=== PATIENT | male | born 1940 | race Caucasian/White ===

== ENCOUNTER 2020-08-30 08:13 | Outpatient (REF) | payer MEDICARE, OTHER, SELFPAY ==
[2020-08-30 09:10] LABS: MANUAL DIFF FLAG NO
[2020-08-30 09:16] LABS: Basophils Percent Auto 0.4 % (0-2); Eosinophils Absolute Auto 0.1 X10*3/uL (0.0-0.4); Eosinophils Percent Auto 2.5 % (0-4); Hematocrit 40.2 % (42-52); Hemoglobin 13.5 g/dl (14.0-18.0); Imm Gran Abs Auto 0.01 X10*3/uL (0.00-0.03); Imm Gran Pct Auto 0.2 % (0.0-0.4); Lymphocytes Percent Auto 19.7 % (20-40); Mean Corpuscular HGB Conc 33.6 g/dl (31.0-36.0); Mean Corpuscular Volume 98.3 fL (80-98); Monocytes Absolute Auto 0.5 X10*3/uL (0.1-1.2); Monocytes Percent Auto 9.7 % (2-11); Neutrophils Absolute Auto 3.5 X10*3/uL (2.0-8.3); Neutrophils Percent Auto 67.5 % (45-73); Platelet Count 147 X10*3/uL (160-400); Red Blood Count 4.09 X10*6/uL (4.60-5.80); Red Cell Distribution Width 12.8 % (11.0-16.0); White Blood Count 5.1 X10*3/uL (4.8-10.8)
[2020-08-30 09:42] LABS: Alanine Aminotransferase 22 U/L (0-40); Albumin Level 4.2 g/dL (3.5-5.0); Alkaline Phosphatase 86 U/L (39-117); Anion Gap 11 (12-20); Aspartate Amino Transferase 24 U/L (5-37); Bilirubin Total 1.1 mg/dL (0.0-1.0); Blood Urea Nitrogen 19 mg/dL (9-16); Calcium 9.3 mg/dL (8.4-10.2); Carbon Dioxide 28 mmol/L (22-29); Chloride 106 mmol/L (96-108); Cholesterol 112 mg/dL; Estimated Glomerular Filt Rate > 60; Glucose Fasting 135 mg/dL (60-99); HDL Cholesterol 31 mg/dL; Iron 117 mcg/dL (45-160); LDL Cholesterol Calculated 55 mg/dl; Percent Iron Saturation 35 % (15-50); Potassium 4.3 mmol/L (3.3-5.1); Sodium 141 mmol/L (135-145); Total Iron Binding Capacity 331 mcg/dL (228-428); Total Protein 6.7 g/dL (6.5-8.0); Triglycerides 131 mg/dL; Unsaturated Iron Binding 214 ug/dL
[2020-08-30 09:50] LABS: Creatinine Urine 116.69 mg/dL; Microalbum/Creatinine Ratio Ur 10.2 ug/mg cr
[2020-08-30 09:53] LABS: Uric Acid 4.6 mg/dL (3.4-7.0)
[2020-08-30 10:09] LABS: Thyroid Stimulating Hormone 3.53 uIU/mL (0.32-4.0)
[2020-08-30 10:16] LABS: Folate > 20.0 ng/mL (> or = 4.0); Vitamin B12 948 pg/mL (200-900)
[2020-08-30 10:19] LABS: Ferritin 153 ng/mL (20-250)
== END 2020-08-30 08:14 | disposition home or self-care (01) ==
LOC: HO.LAB 08:13
PROVIDERS: PCP Internal Medicine; Visit Provider Internal Medicine
DX: E11.9 Type 2 diabetes mellitus without complications (principal); M10.9 Gout, unspecified; E78.00 Pure hypercholesterolemia, unspecified; I10 Essential (primary) hypertension; K21.9 Gastro-esophageal reflux disease without esophagitis
CPT/HCPCS: 36415; 80053; 80061; 82043; 82607; 82728; 82746; 83540; 84436; 84443; 84550; 85025

== ENCOUNTER 2021-09-24 08:22 | Outpatient (REF) | payer MEDICARE, OTHER, SELFPAY ==
[2021-09-24 08:38] LABS: MANUAL DIFF FLAG NO
[2021-09-24 08:53] LABS: Estimated Average Glucose 108 mg/dL; Hemoglobin A1c % 5.4 %
[2021-09-24 08:55] LABS: Basophils Percent Auto 0.4 % (0-2); Eosinophils Absolute Auto 0.1 X10*3/uL (0.0-0.4); Eosinophils Percent Auto 1.4 % (0-4); Hematocrit 37.3 % (42.0-52.0); Hemoglobin 12.7 g/dl (14.0-18.0); Imm Gran Abs Auto 0.01 X10*3/uL (0.00-0.03); Imm Gran Pct Auto 0.2 % (0.0-0.4); Lymphocytes Absolute Auto 0.8 X10*3/uL (1.2-4.9); Lymphocytes Percent Auto 16.7 % (20-40); Mean Corpuscular Hemoglobin 33.5 pg (27.0-33.0); Mean Corpuscular Volume 98.4 fL (80.0-98.0); Mean Platelet Volume 11.6 fL (9.4-12.4); Monocytes Absolute Auto 0.5 X10*3/uL (0.1-1.2); Monocytes Percent Auto 9.7 % (2-11); Neutrophils Absolute Auto 3.5 x10*3/uL (2.0-8.3); Neutrophils Percent Auto 71.6 % (45-73); Platelet Count 139 X10*3/uL (160-400); Red Blood Count 3.79 X10*6/uL (4.60-5.80); Red Cell Distribution Width 12.8 % (11.0-16.0); White Blood Count 4.9 X10*3/uL (4.8-10.8)
[2021-09-24 09:16] LABS: Alanine Aminotransferase 25 U/L (0-40); Albumin Level 3.8 g/dL (3.5-5.0); Alkaline Phosphatase 86 U/L (39-117); Anion Gap 13 (12-20); Aspartate Amino Transferase 24 U/L (5-37); Bilirubin Total 0.8 mg/dL (0.0-1.0); Blood Urea Nitrogen 26 mg/dL (9-16); Calcium 9.4 mg/dL (8.4-10.2); Carbon Dioxide 27 mmol/L (22-29); Chloride 107 mmol/L (96-108); Cholesterol 84 mg/dL; Estimated Glomerular Filt Rate > 60; Glucose Random 157 mg/dL (60-115); HDL Cholesterol 25 mg/dL; LDL Cholesterol Calculated 30 mg/dl; Potassium 4.6 mmol/L (3.3-5.1); Sodium 142 mmol/L (135-145); Total Protein 6.3 g/dL (6.5-8.0); Triglycerides 147 mg/dL
[2021-09-24 09:32] LABS: Uric Acid 5.9 mg/dL (3.4-7.0)
[2021-09-24 09:44] LABS: Free T4 (Free Thyroxine) 1.12 ng/dL (0.71-1.85); Thyroid Stimulating Hormone 2.69 uIU/mL (0.32-4.0)
[2021-09-24 09:47] LABS: Vitamin B12 685 pg/mL (200-900)
[2021-09-24 12:15] LABS: Creatinine Urine 91.78 mg/dL; Microalbum/Creatinine Ratio Ur 7.6 ug/mg cr
== END 2021-09-24 08:23 | disposition home or self-care (01) ==
LOC: HO.LAB 08:22
PROVIDERS: PCP Internal Medicine; Visit Provider Internal Medicine
DX: E11.65 Type 2 diabetes mellitus with hyperglycemia (principal); E78.00 Pure hypercholesterolemia, unspecified
CPT/HCPCS: 36415; 80053; 80061; 82043; 82607; 82746; 83036; 84439; 84443; 84550; 85025

== ENCOUNTER 2021-11-14 08:08 | Outpatient (REF) | payer MEDICARE, OTHER, SELFPAY ==
--- NOTE | ~2021-11-14 | FL_ITS ---
EXAMINATION: FL UPPER GI SERIES CLINICAL INFORMATION: Reflux and dysphagia. COMPARISON: None TECHNIQUE: Air-contrast upper GI examination. FINDINGS: There is normal elevation of the soft palate while saying candy . There is normal apposition of the vocal cords while saying E . The patient swallowed thin and thick barium and a 1/2 inch diameter barium tablet without difficulty. No nasopharyngeal reflux or tracheal aspiration identified. No Zenker's diverticulum or significant cricopharyngeal hypertrophy. No persistent esophageal stricture is identified. There is some hypomotility present while lying prone. There is a small hiatal hernia noted with free spontaneous gastroesophageal reflux to the level of the thoracic inlet present. No esophageal ulceration is appreciated. The stomach demonstrated normal distensibility without abnormal mass or ulceration. There was no delay in gastric emptying. 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 Otherwise, the duodenal loop appears unremarkable. FLUOROSCOPY TIME: 2.9 minutes DOSE AREA PRODUCT: 22.281 Gy-cm2 (alonso-centimeter squared) FL/FL upper GI series IMPRESSION: Small hiatal hernia with spontaneous gastroesophageal reflux to the level of the thoracic inlet which clears slowly. 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
== END 2021-11-14 08:09 | disposition home or self-care (01) ==
LOC: HO.XRAY 08:08
PROVIDERS: PCP Internal Medicine; Visit Provider Internal Medicine
DX: R13.10 Dysphagia, unspecified (principal); K21.9 Gastro-esophageal reflux disease without esophagitis
CPT/HCPCS: 74240

== ENCOUNTER → 2021-11-27 12:35 | Outpatient (REF) | payer MEDICARE, OTHER, SELFPAY ==
--- NOTE | 2021-11-27 12:39 | CA_ITS ---
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 Normal LV systolic function with impaired relaxation filling pattern 2. Mildly dilated left atrium 3. Mild aortic stenosis and mild mitral regurgitation 4. Normal RV systolic pressure 5. No pericardial effusion Findings Left Ventricle The visually estimated ejection fraction is between 60-65%. Spectral Doppler is indicative of an impaired relaxation filling pattern. Right Ventricle Normal right ventricular cavity size and systolic function. Atria The left atrium is mildly dilated. There is no evidence of interatrial shunt. The right atrium is normal in size. Aortic Valve There is moderate calcification of the aortic valve. There is mild thickening of the aortic valve. There is mild aortic valve stenosis. The peak aortic gradient is 24 mmHg.The mean gradient is 12 mmHg. The aortic valve area is 1.60 cm2. There is trace (trivial) aortic valve regurgitation. Mitral Valve There is mild anterior and moderate posterior mitral leaflet thickening. There is mild mitral annular calcification. There is mild mitral valve regurgitation. There is no mitral valve stenosis. Pulmonic Valve The pulmonic valve was not well visualized. Tricuspid Valve Normal tricuspid valve structure. There is mild tricuspid valve regurgitation. The right ventricular systolic pressure is normal. The right ventricular systolic pressure is 27 mmHg. Normal right atrial pressure. There is no evidence of pulmonary hypertension. Great Vessels All visible segments of the aorta are normal in size. The pulmonary artery was not well visualized. Venous The inferior vena cava is normal in size and collapses greater than 50% with inspiration. Pericardium/Pleural There is no evidence of pericardial effusion. Prior Study Comparison No prior study available for comparison. Measurements 2D Linear Measurements IVSd: 1.27 0.6-0.9/0.6-1.0 cm LVIDd: 4.01 3.9-5.3/4.2-5.9 cm LVIDd Index: 2.18 2.4-3.2/2.2-3.1 cm/m2 LVIDs: 2.76 2.0-3.6 cm LVPWd: 1.09 0.7-1.1 cm LA Diam: 4.30 2.7-3.8/3.0-4.0 cm LAIDs Index: 2.34 1.5-2.3 cm/m2 LV Mass: 201.75 67-162/88-224 g LV Mass Index: 109.65 43-95/49-115 g/m2 LVOT Diam: 2.20 3.0+(-)1.3 cm 2D Systolic Function EF 4C: 60.20 >55% EF 2C: 64.20 >55% EF BiP: 61.30 >55% Mitral Valve MV Pk E: 0.69 MV PK A: 0.52 MV Decel Time: 260.00 E/A: 1.30 E'Lateral: 9.79 E'Medial: 5.55 E/E' Med: 12.40 E/E' Lat: 7.00 PHT: 76.00 MVA PHT: 2.89 Decel [place]: 2.65 Aortic Valve AoV Pk Georges: 2.46 AoV Mn Georges: 1.60 AoV VTI: 0.58 AoV Pk Grad: 24.00 Aov Mn Grad: 12.00 TAB Cont.VTI: 1.60 LVOT LVOT Pk Georges: 0.93 LVOT Mn Georges: 0.61 LVOT VTI: 0.25 LVOT Pk Grad: 3.00 LVOT Mn Grad: 2.00 LVOT Diam: 2.20 LVOT Area: 3.80 Diastolic Function MV Pk E: 0.69 MV Pk A: 0.52 E/A: 1.30 E'Medial: 5.55 E/E' Med: 12.40 E' Laterial: 9.79 E/E' Lat: 7.00 Right Ventricle TAPSE (mm): 20.30 TVS' Georges: 9.14 Tricuspid Valve TR Pk Georges: 2.46 TR Pk Grad: 24.00 RA Press: 3.00 RVSP: 27.00 Great Vessels Aorta Sinus of Valsalva: 3.52 2.0-3.[address] [place]: 2.62 1.7-3.4 cm Ao Asc: 3.30 2.1-3.4 cm Ao Arch: 2.90 Updated in Other Vendor System with Status of Final Travis Castellon MD electronically signed on 11/27/2021 2:38:34 PM with status of Final
== END ==
LOC: HO.CARD 12:35
PROVIDERS: Visit Provider Internal Medicine
DX: I10 Essential (primary) hypertension (principal); R06.02 Shortness of breath
CPT/HCPCS: 93306

== ENCOUNTER 2022-10-26 06:17 | Outpatient (REF) | payer MEDICARE, OTHER, SELFPAY ==
[2022-10-26 06:30] LABS: MANUAL DIFF FLAG NO
[2022-10-26 07:15] LABS: Basophils Percent Auto 0.6 % (0-2); Eosinophils Absolute Auto 0.2 X10*3/uL (0.0-0.4); Eosinophils Percent Auto 2.3 % (0-4); Hematocrit 37.6 % (42.0-52.0); Hemoglobin 12.8 g/dl (14.0-18.0); Imm Gran Abs Auto 0.04 X10*3/uL (0.00-0.03); Imm Gran Pct Auto 0.6 % (0.0-0.4); Lymphocytes Absolute Auto 1.2 X10*3/uL (1.2-4.9); Lymphocytes Percent Auto 17.9 % (20-40); Mean Corpuscular Hemoglobin 33.4 pg (27.0-33.0); Mean Corpuscular Volume 98.2 fL (80.0-98.0); Mean Platelet Volume 12.1 fL (9.4-12.4); Monocytes Absolute Auto 0.6 X10*3/uL (0.1-1.2); Monocytes Percent Auto 8.9 % (2-11); Neutrophils Absolute Auto 4.8 x10*3/uL (2.0-8.3); Neutrophils Percent Auto 69.7 % (45-73); Platelet Count 176 X10*3/uL (160-400); Red Blood Count 3.83 X10*6/uL (4.60-5.80); Red Cell Distribution Width 11.9 % (11.0-16.0); White Blood Count 6.9 X10*3/uL (4.8-10.8)
[2022-10-26 07:41] LABS: Creatinine Urine 91.91 mg/dL; Microalbum/Creatinine Ratio Ur 7.6 ug/mg cr
[2022-10-26 07:47] LABS: Alanine Aminotransferase 37 U/L (0-40); Albumin Level 4.1 g/dL (3.5-5.0); Alkaline Phosphatase 114 U/L (39-117); Anion Gap 10 (12-20); Aspartate Amino Transferase 26 U/L (5-37); Bilirubin Total 0.8 mg/dL (0.0-1.0); Blood Urea Nitrogen 32 mg/dL (9-16); Calcium 9.3 mg/dL (8.4-10.2); Carbon Dioxide 27 mmol/L (22-29); Chloride 107 mmol/L (96-108); Cholesterol 117 mg/dL; Estimated Glomerular Filt Rate > 60; Glucose Random 163 mg/dL (60-115); HDL Cholesterol 25 mg/dL; LDL Cholesterol Calculated 48 mg/dl; Potassium 4.7 mmol/L (3.3-5.1); Sodium 139 mmol/L (135-145); Total Protein 6.4 g/dL (6.5-8.0); Triglycerides 223 mg/dL
[2022-10-26 07:48] LABS: Estimated Average Glucose 123 mg/dL; Hemoglobin A1c % 5.9 %
[2022-10-26 08:16] LABS: Folate 17.9 ng/mL (> or = 4.0); Free T4 (Free Thyroxine) 0.97 ng/dL (0.71-1.85); Thyroid Stimulating Hormone 3.15 uIU/mL (0.32-4.0); Vitamin B12 603 pg/mL (200-900)
== END 2022-10-26 06:18 | disposition home or self-care (01) ==
LOC: HO.LAB 06:17
PROVIDERS: PCP Internal Medicine; Visit Provider Internal Medicine
DX: E11.65 Type 2 diabetes mellitus with hyperglycemia (principal); E78.00 Pure hypercholesterolemia, unspecified
CPT/HCPCS: 36415; 80053; 80061; 82043; 82607; 82746; 83036; 84439; 84443; 85025

== ENCOUNTER 2023-03-26 10:46 | Outpatient (AMB) | payer MEDICARE, OTHER, SELFPAY ==
[2023-03-26 11:04] VITALS: BP 112/58; PULSE 71; O2SAT 98; BMI 25.2
--- NOTE | 2023-03-26 11:04 | A.OFFPC_ITS ---
Vital Signs 03/26/23 11:04 03/26/23 11:45 Height 5 ft 6 in Weight 156 lb BMI 25.2 BP 112/58 L 120/60 Blood Pressure Location Lt brachial Lt brachial Position Sitting Sitting Pulse 71 Pulse Source Pulse Oximeter Pulse Oximetry (%) 98 Oxygen Delivery Method Room Air Intake Visit Reasons: 3M GERD, DM, Triglycerides Allergies metformin Allergy (Unknown, Verified 03/26/23 11:05) diarrhea rosuvastatin [Crestor] Allergy (Unknown, Verified 03/26/23 11:05) Unknown Medication List - Last Reconciled 03/26/23 by Clarence Talbert MD allopurinol 100 mg PO DAILY 90 days atorvastatin 10 mg PO DAILY [DIABETIC SHOES As directed] folic acid 1 mg PO DAILY lansoprazole (Prevacid) 30 mg PO DAILY 90 days lisinopril 5 mg PO DAILY 90 days metoprolol succinate ER 50 mg PO DAILY 90 days sildenafil 100 mg PO DAILY PRN Tobacco use date assessed: 10/27/22 Fall risk assessment: No Falls in past year Last assessed Fall Risk: 03/26/23 Dental Screening Dental Screen Date: 03/26/23 Did you have a dental visit in the last 12 months?: No Did you have a dental problem in the last 6 months where you did not have access to dental care?: No Was dental information given to patient?: No HPI 3M GERD, DM, Triglycerides HPI Details 82-year-old male with controlled diabete s mellitus hypertension hypercholesterolemia GERD coming in for follow-up last seen in October 2022. Patient is here for follow-up noted to have lost weight and complains of gassiness/burping as well as heartburns and this been going on for a number of months no fever no shortness of breath no cough. Patient does complain about frequency and incontinence. [facility] Medical History (Updated 03/26/23 @ 11:57 by Clarence Talbert MD) Tubular adenoma of colon GERD (gastroesophageal reflux disease) Knee osteoarthritis Erectile dysfunction Hypercholesterolemia Hypertension Gout Type 2 diabetes mellitus with hyperglycemia Surgical History History of cataract surgery History of knee replacement procedure of left knee History of eye surgery Family History (Updated 03/26/23 @ 11:06 by Bernie Chung CMA) Father Medical history unknown Mother Medical history unknown Social History (Updated 03/27/21 @ 13:08 by Gaby Briones CMA) Housing: House Alcohol intake: current Alcohol intake frequency: a few times a week Patient Tobacco Use Status: Former Tobacco user Tobacco use type: Cigarette e-Cigarette/Vaping Use: Never Used Current occupational status: retired Cognitive needs: No Hearing needs: No Vision needs: Yes Questionnaire PHQ-9 Over the last 2 weeks, how often have you been bothered by any of the following problems? 1. Little interest or pleasure in doing things: not at all 2. Feeling down, depressed, or hopeless: not at all 3. Trouble falling or staying asleep, or sleeping too much: not at all 4. Feeling tired or having little energy: not at all 5. Poor appetite or overeating: not at all 6. Feeling bad about yourself - or that you are a failure or have let yourself or your family down: not at all 7. Trouble concentrating on things, such as reading the newspaper or watching t elevision: not at all 8. Moving or speaking so slowly that other people could have noticed. Or the opposite - being so fidgety or restless that you have been moving around a lot more than usual: not at all 9. Thoughts that you would be better off or of hurting yourself in some way: not at all Total score: 0 Depression Screening Interpretation: Negative Depression Screening Done: Yes Source: Developed by Drs. Burke Vera, Nikole Johns, Givoanni Johnson and colleagues, with an educational kim from [employer]. Thrive Questionnaire Date Thrive assessed: 03/26/23 I am a: Patient What is your living situation today?: I have a steady place to live Within the past 12 months, did the food you bought not last and you didn't have the money to get more?: Never true Within the past 12 months, did you worry whether your food would run out before you got money to buy more?: Never true Do you have trouble paying for medicines?: No Do you have trouble getting transportation to medical appointments?: No Do you have trouble paying your heating and electricity bill?: No Do you have trouble taking care of your child, family member or friend?: No Do you have trouble with day-to-day activities such as bathing, preparing meals, shopping, managing finances, etc.?: No Are you currently unemployed and looking for a job?: No Are you interested in more education?: No Currently or been in a relationship where the following occur: no concerns reported AUDIT C Alcohol Use Questionnaire (AUDIT-C) 1. How often do you have a drink containing alcohol?: 4 or more times a week 2. How many drinks containing alcohol do you have on a typical day when you are drinking?: 1 or 2 3. How often do you have six or more drinks on one occasion?: Never Total Score: 4 PRETTY-7 AMB Questionnaire PRETTY-7 Date PRETTY - 7 assessed: 10/27/22 Source: Developed by Drs. Burke Vera, Nikole Johns, Giovanni Johnson and colleagues, with an educational kim from [employer]. Physical exam (Primary Care) Vital Signs: Last Vital Signs Pulse 71 03/26/23 11:04 BP 112/58 L 03/26/23 11:04 Pulse Ox 98 03/26/23 11:04 Oxygen Delivery Method Room Air 03/26/23 11:04 BMI result Body Mass Index 25.2 Tobacco/Smoking Status: Tobacco use Status Tobacco use date assessed 10/27/22 03/26/23 11:07 Patient Tobacco Use Status Former Tobacco user 03/26/23 11:07 Tobacco use type Cigarette 03/26/23 11:07 e-Cigarette/Vaping Use Never Used 03/26/23 11:07 PHQ-9: PHQ-9 Score PHQ-9: Total score 0 03/26/23 11:18 Depression Screening Interpretation: Negative Thrive Assessment: Date of Thrive Assessment Date Thrive assessed 03/26/23 03/26/23 11:07 Currently or been in a relationship where the following occur: no concerns reported Const General: alert; No acute distress Eyes Conjunctivae: conjunctivae normal Resp Auscultation: clear to auscultation bilaterally Cardio Rate: regular rate Rhythm: regular rhythm GI Inspection: Yes normal to inspection Extrem General: Yes normal to inspection and No edema Results AMB Hemoglobin A1c AMB Hemoglobin A1c 5.7 % Last Edit by Bernie Chung CMA on 03/26/23 11 :19 Results Reviewed Results Reviewed: Laboratory Last Values Hgb A1c (Clinic) 5.7 % (4.0-6.0) 03/26/23 11:07 Assessment and Plan Assessment & Plan (1) Type 2 diabetes mellitus with hyperglycemia: Comment: Eye physician Evita Code(s): E11.65 - Type 2 diabetes mellitus with hyperglycemia 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 Hemoglobin A1c of goal of less than 7.0 patient is on Januvia. With a hemoglobin A1c good control advised to stop Januvia (2) Hypertension: Code(s): I10 - Essential (primary) hypertension Qualifiers: Hypertension type: essential hypertension Qualified Code(s): I10 - Essential (primary) hypertension Plan: Continue with blood pressure medication. Decrease salt intake and exercise patient on lisinopril 5 mg once a day and metoprolol 50 mg once a day (3) Hypercholesterolemia: Code(s): E78.00 - Pure hypercholesterolemia, unspecified Plan: Avoid fried foods, chicken skin, eggs, butter margarine, pastries and meat. Be it pork or beef they have a lot of cholesterol LDL goal of less than 100 and tr iglyceride of less than 150. Patient is on atorvastatin 10 mg once a day (4) GERD (gastroesophageal reflux disease): Code(s): K21.9 - Gastro-esophageal reflux disease without esophagitis Plan: Avoid the foods that causes that usually spicy foods, tomato products, juices, coffee, soda and foods that your sensitive to. After eating do not lie down, allow 3-4 hours before in lie down. And keep the head of bed above 30 degrees to avoid the acid from going up. 2021 reveals reflux problem. Will do a referral to Gastroenterology (5) Urinary frequency: Code(s): R35.0 - Frequency of micturition Plan: Urinalysis requested, ultrasound requested Orders: Orders H pylori Ag Stool Today K21.9 - Gastro-esophageal reflux disease without esophagitis US bladder Today R35.0 - Frequency of micturition UA w Microscopic Today R35.0 - Frequency of micturition AMB Hemoglobin A1c Today Z13.9 - Encounter for screening, unspecified Referrals Gastroenterology Referral K21.9 - Gastro-esophageal reflux disease without esophagitis Orthopedics Referral M25.511 - Pain in right shoulder, M25.512 - Pain in left shoulder Medications: New simethicone 125 mg PO BID-QID PRN 30 tabs 0RF abdominal distention K21.9 - Gastro-esophageal reflux disease without esophagitis Refilled metoprolol succinate ER 50 mg PO DAILY 90 tabs 3RF 90 days I10 - Essential (primary) hypertension atorvastatin 10 mg PO DAILY 90 tabs 3RF K21.9 - Gastro-esophageal reflux disease without esophagitis Discontinued sitagliptin phosphate (Junuvia) Discontinued Reason: Ancillary Entered New Order 100 mg PO DAILY 90 tabs 2RF Coding Level of Care Code Est Pt Level 4 (15095) Diagnoses Type 2 diabetes mellitus with hyperglycemia, without long-term current use of insulin E11.65 Diabetes mellitus custodial insulin use: without custodial use Essential hypertension I10 Hypertension type: essential hypertension Hypercholesterolemia E78.00 GERD (gastroesophageal reflux disease) K21.9 Urinary frequency R35.0 Additional Codes PHQ-9 - 21026 - PHQ-9 Billing: ([id number])
[2023-03-26 11:45] VITALS: BP 120/60
== END 2023-03-26 12:00 | disposition home or self-care (01) ==
PROVIDERS: PCP Internal Medicine; Visit Provider Internal Medicine
DX: E11.65 Type 2 diabetes mellitus with hyperglycemia (principal); I10 Essential (primary) hypertension; E78.00 Pure hypercholesterolemia, unspecified; K21.9 Gastro-esophageal reflux disease without esophagitis; R35.0 Frequency of micturition
CPT/HCPCS: 83036; 99214

== ENCOUNTER 2023-04-15 13:52 | Outpatient (REF) | payer MEDICARE, OTHER, SELFPAY ==
--- NOTE | ~2023-04-15 | US_ITS ---
EXAMINATION: US PELVIS LIMITED (BLADDER) CLINICAL INFORMATION: Frequency of micturition. COMPARISON: None available. TECHNIQUE: Real-time imaging of the bladder. FINDINGS: BLADDER: Well distended. Bilateral ureteral jets are demonstrated. Prevoid bladder volume is 167 mL. Postvoid bladder volume is 6.2 mL. Trabeculations of the bladder wall suggesting elements of bladder outlet obstruction. PROSTATE: Prostate measures 7.4 x 3.3 x 4.4 cm volume 56.3 mL. Hypoechoic focus within the prostatic body, nonspecific. US/US bladder IMPRESSION: 1. Postvoid bladder volume of 6.2 mL with visualization of the bilateral ureteral jets. 2. Trabeculations of the bladder wall suggesting elements of bladder outlet obstruction. 3. Prostate measures 7.4 x 3.3 x 4.4 cm volume of 56.3 mL. Hypoechoic focus within the prostatic body, nonspecific.
== END 2023-04-15 13:53 | disposition home or self-care (01) ==
LOC: HO.US 13:52
PROVIDERS: PCP Internal Medicine; Visit Provider Internal Medicine
DX: R35.0 Frequency of micturition (principal)
CPT/HCPCS: 76857

== ENCOUNTER 2023-04-30 15:14 | Outpatient (AMB) | payer MEDICARE, OTHER, SELFPAY ==
[2023-04-30 15:14] VITALS: BP 156/90; PULSE 89; O2SAT 97; BMI 23.4
--- NOTE | 2023-04-30 15:14 | MHC.PC.OV ---
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 Allergies metformin Allergy (Unknown, Verified 04/30/23 15:35) diarrhea rosuvastatin [Crestor] Allergy (Unknown, Verified 04/30/23 15:35) Unknown Medication List - Last Reconciled 04/30/23 by MANNY Whitney allopurinol 100 mg PO DAILY 90 days atorvastatin 10 mg PO DAILY [DIABETIC SHOES As directed] folic acid 1 mg PO DAILY lansoprazole (Prevacid) 30 mg PO DAILY 90 days lisinopril 5 mg PO DAILY 90 days metoprolol succinate ER 50 mg PO DAILY 90 days sildenafil 100 mg PO DAILY PRN simethicone 125 mg PO BID-QID PRN Tobacco use date assessed: 04/30/23 Fall risk assessment: No Falls in past year Last assessed Fall Risk: 04/30/23 HPI Abdominal Pain, Fatigue, loss of appetitie HPI Details Patient is an 82-year-old male presents today for the same day visit due to fatigue, loss of appetite, weight loss about 29 lb in the past year, epigastric pain for the past couple months. Patient of Dr. Talbert. Medical history significant for diabetes type 2-A1c 5.7 03/2023-reports that diabetes medication was stopped, hypertension, hypercholesterolemia, GERD, urinary frequency-will be seeing Urology next month, BPH. Patient also reports changes in voice. Reports 3 days ago with nausea and vomiting, vomited 5 times, no vomiting since then. Also reports ongoing back pain. Reports mild constipation this week. Patient has order for H pylori stool test, he was encouraged to complete this. Will be seeing Dr. Rom HUGGINS 06/03/2023. No shortness of breath or chest pain. [facility] Medical History Tubular adenoma of colon GERD (gastroesophageal reflux disease) Knee osteoarthritis Erectile dysfunction Hypercholesterolemia Hypertension Gout Type 2 diabetes mellitus with hyperglycemia Surgical History History of cataract surgery History of knee replacement procedure of left knee History of eye surgery Family History Father Medical history unknown Mother Medical history unknown Social History Housing: House Alcohol intake: current Alcohol intake frequency: a few times a week Patient Tobacco Use Status: Former Tobacco user Tobacco use type: Cigarette e-Cigarette/Vaping Use: Never Used Current occupational status: retired Cognitive needs: No Hearing needs: No Vision needs: Yes Questionnaire Thrive Questionnaire Date Thrive assessed: 03/26/23 AUDIT C Alcohol Use Questionnaire (AUDIT-C) 1. How often do you have a drink containing alcohol?: 4 or more times a week 2. How many drinks containing alcohol do you have on a typical day when you are drinking?: 1 or 2 3. How often do you have six or more drinks on one occasion?: Never Total Score: 4 Score Reviewed/Action Taken: No PRETTY-7 AMB Questionnaire PRETTY-7 Date PRETTY - 7 assessed: 10/27/22 Source: Developed by Drs. Burke Vera, Nikole Johns, Giovanni Johnson and colleagues, with an educational kim from [employer]. Review of Systems Const Denies body aches, Denies chills, Reports fatigue, Denies fever(s), Denies headache(s), Reports poor appetite and Reports weight loss ENT Denies dizziness, Denies otalgia, Denies headache(s), Denies nasal discharge, Denies sinus pain and Denies sore throat Card Denies chest pain, Denies edema, Denies lightheadedness and Denies dyspnea Resp Denies cough, Denies dyspnea and Denies wheezing GI Reports abdominal pain, Reports constipation (Mild this week), Denies diarrhea, Denies nausea and Denies vomiting Denies dysuria and Reports urinary frequency (Chronic for the past 1 year) Musc Reports back pain and Denies myalgias Neuro Denies dizziness and Denies headache(s) Endo Reports fatigue Aller/Immun Denies wheezing Physical exam (Primary Care) Vital Signs: Oxygen Delivery Method Room Air 04/30/23 15:14 BMI result Body Mass Index 23.4 Tobacco/Smoking Status: Tobacco use Status Tobacco use date assessed 04/30/23 04/30/23 15:21 Patient Tobacco Use Status Former Tobacco user 04/30/23 15:15 Tobacco use type Cigarette 04/30/23 15:15 e-Cigarette/Vaping Use Never Used 04/30/23 15:15 Thrive Assessment: Date of Thrive Assessment Date Thrive assessed 03/26/23 04/30/23 15:15 Const General: cooperative and no acute distress Orientation/consciousness: patient oriented x3 HENMT Head: Yes normocephalic and Yes atraumatic Throat: Yes posterior oropharynx normal Eyes General: appearance normal, both eyes and all related structures Neck Neck: Yes normal visual inspection, Yes full ROM and Yes no lymphadenopathy Resp Effort & Inspection: normal respiratory effort and able to speak in complete sentences Auscultation: clear to auscultation bilaterally, no crackles, no rales, no rhonchi and no wheezes Cardio Rate: regular rate Rhythm: regular rhythm Heart sounds: S1 normal heart sound present and S2 normal heart sound present GI Palpation (GI): Soft to palpation, not firm, Tenderness to palpation present (GI) in the epigastrum; with no rebound tenderness, no guarding, not rigid and no hepatosplenomegaly Auscultation: normal bowel sounds Skin General skin exam: no rashes or lesions noted Neuro General: patient oriented x3 Gait exam (Neuro): Normal gait present Extrem General: Yes full ROM and No edema Assessment and Plan Assessment & Plan (1) GERD (gastroesophageal reflux disease): Code(s): K21.9 - Gastro-esophageal reflux disease without esophagitis Plan: Physical exam with epigastric tenderness Patient is to continue lansoprazole daily Avoid acidic/spicy foods Patient was encouraged to complete H pylori stool test Keep appointment with GI provider as scheduled (2) Weight loss: Code(s): R63.4 - Abnormal weight loss Plan: Blood work ordered Plan Keep appointment with PCP as scheduled or follow-up sooner as needed Orders: Orders Comprehensive Met. Panel Today K21.9 - Gastro-esophageal reflux disease without esophagitis Complete Blood Count Auto Diff Today K21.9 - Gastro-esophageal reflux disease without esophagitis Coding Level of Care Code Est Pt Level 3 (34732) Diagnoses GERD (gastroesophageal reflux disease) K21.9 Weight loss R63.4
== END 2023-04-30 16:26 | disposition home or self-care (01) ==
PROVIDERS: PCP Internal Medicine; Visit Provider Nurse Practitioner Family
DX: K21.9 Gastro-esophageal reflux disease without esophagitis (principal); R63.4 Abnormal weight loss
CPT/HCPCS: 99213

== ENCOUNTER 2023-04-30 15:56 | Outpatient (REF) | payer MEDICARE, OTHER, SELFPAY ==
[2023-04-30 16:08] LABS: MANUAL DIFF FLAG NO
[2023-04-30 16:22] LABS: Basophils Percent Auto 0.1 % (0-2); Eosinophils Absolute Auto 0.1 X10*3/uL (0.0-0.4); Eosinophils Percent Auto 0.4 % (0-4); Hematocrit 40.7 % (42.0-52.0); Hemoglobin 14.3 g/dl (14.0-18.0); Imm Gran Abs Auto 0.08 X10*3/uL (0.00-0.03); Imm Gran Pct Auto 0.7 % (0.0-0.4); Lymphocytes Absolute Auto 0.8 X10*3/uL (1.2-4.9); Lymphocytes Percent Auto 6.9 % (20-40); Mean Corpuscular HGB Conc 35.1 g/dl (31.0-36.0); Mean Platelet Volume 11.9 fL (9.4-12.4); Monocytes Absolute Auto 0.8 X10*3/uL (0.1-1.2); Monocytes Percent Auto 6.6 % (2-11); Neutrophils Absolute Auto 10.3 x10*3/uL (2.0-8.3); Neutrophils Percent Auto 85.3 % (45-73); Platelet Count 190 X10*3/uL (160-400); Red Blood Count 4.33 X10*6/uL (4.60-5.80); Red Cell Distribution Width 12.1 % (11.0-16.0); White Blood Count 12.1 X10*3/uL (4.8-10.8)
[2023-04-30 16:46] LABS: Alanine Aminotransferase 447 U/L (0-40); Albumin Level 3.9 g/dL (3.5-5.0); Alkaline Phosphatase 449 U/L (39-117); Anion Gap 16 (12-20); Aspartate Amino Transferase 69 U/L (5-37); Bilirubin Total 1.1 mg/dL (0.0-1.0); Blood Urea Nitrogen 23 mg/dL (9-16); Calcium 10.3 mg/dL (8.4-10.2); Carbon Dioxide 24 mmol/L (22-29); Chloride 100 mmol/L (96-108); Estimated Glomerular Filt Rate > 60; Glucose Random 587 mg/dL (60-115); Potassium 4.7 mmol/L (3.3-5.1); Sodium 135 mmol/L (135-145); Total Protein 7.7 g/dL (6.5-8.0)
== END 2023-04-30 15:57 | disposition home or self-care (01) ==
LOC: HO.LAB 15:56
PROVIDERS: PCP Internal Medicine; Visit Provider Nurse Practitioner Family
DX: Z13.89 Encounter for screening for other disorder (principal)
CPT/HCPCS: 36415; 80053; 85025

== ENCOUNTER 2023-04-30 17:59 | Emergency (ER) | payer MEDICARE, OTHER, SELFPAY ==
--- NOTE | ~2023-04-30 | XR_ITS ---
EXAMINATION: XR CHEST CLINICAL INFORMATION: Weakness. COMPARISON: None available. TECHNIQUE: 2 views of the chest were obtained. FINDINGS: Normal appearance of the cardiomediastinal silhouette. No focal airspace opacities, pleural effusions or pneumothorax. No acute osseous findings. Visualized upper abdomen is within normal limits. XR/XR chest 2V IMPRESSION: No acute cardiopulmonary findings.
--- NOTE | ~2023-04-30 | US_ITS ---
EXAMINATION: US ABDOMEN LIMITED CLINICAL INFORMATION: Epigastric pain and elevated LFTs. COMPARISON: None available. TECHNIQUE: Real-time imaging of the right upper quadrant abdominal viscera. FINDINGS: PANCREAS: Obscured by overlying bowel gas LIVER: Limited assessment due to overlying bowel gas but where seen the liver is normal in size. The liver contour is normal. Parenchymal echogenicity is normal. No focal hepatic lesion. There is no intrahepatic biliary duct dilatation seen. GALLBLADDER: Echogenic bile in the dependent aspect of the otherwise unremarkable gallbladder. The gallbladder is physiologically distended without evidence of stones, sludge, polyps, wall thickening or pericholecystic fluid. COMMON BILE DUCT: Normal in caliber measuring 0.6 cm in diameter. RIGHT KIDNEY: Normal. No hydronephrosis. No renal calculi or focal parenchymal lesions. The kidney measures 10.2 cm in maximum dimension. FREE FLUID: None. US/US abdomen limited IMPRESSION: No acute intra-abdominal process seen. Echogenic bile in the dependent aspect of the otherwise unremarkable gallbladder.
--- NOTE | ~2023-04-30 | CT_ITS ---
EXAMINATION: CT ABDOMEN AND PELVIS WITH CONTRAST CLINICAL INFORMATION: epigastric pain, elevated LFTs, r/o mass COMPARISON: None. TECHNIQUE: Multidetector volumetric imaging was performed from the superior aspect of the liver through the pubic symphysis following administration of 85 mL Omnipaque 300 intravenous contrast. Sagittal and coronal reformatted images were obtained on the technologist workstation.. This CT examination was performed using dose optimization techniques as appropriate, variously including the following: *Automated exposure control *Adjustment of mA and/or kV according to patient size (this includes techniques or standardized protocols for targeted exams where dose is matched to indication/reason for exam; i.e. extremities or head) *Use of iterative reconstruction technique DLP: 445 mGy-cm FINDINGS: LUNG BASES: Tiny incidental micronodule right lung base of no clinical significance. LIVER, GALLBLADDER, AND BILIARY TREE: The liver is normal in size, shape, and attenuation. No focal hepatic lesion or intrahepatic biliary ductal dilatation is present. The common bile duct is prominent measuring up to 1 cm in maximal diameter as it extends up to the ampulla. Tiny stone in the distal common duct be difficult to exclude on coronal image 42/86. Multiple gallstones in the partially contracted gallbladder. No gallbladder wall thickening or pericholecystic inflammatory changes PANCREAS: Pancreas demonstrates homogeneous attenuation. There is peripancreatic inflammatory change suggesting underlying pancreatitis. I do not appreciate any peripancreatic fluid collection or obvious pancreatic necrosis at this time. SPLEEN: Unremarkable. ADRENAL GLANDS: Unremarkable. KIDNEYS AND URETERS: The kidneys are normal in size, shape, and attenuation. No hydronephrosis, hydroureter, or calculi seen. No perinephric stranding. BLADDER: Decompressed GASTROINTESTINAL TRACT: Extensive colonic diverticulosis more so in the sigmoid colon. I do not appreciate any colonic wall thickening or pericolonic inflammatory changes. Normal-appearing retrocecal appendix in the right lower quadrant. Visualized small bowel unremarkable ABDOMINAL WALL: No significant hernia is appreciated. LYMPHOVASCULAR STRUCTURES: Vascular calcification within the aorta PELVIC VISCERA: Unremarkable. OSSEOUS STRUCTURES: Multilevel degenerative changes in the spine CT/CT abdomen pelvis w IV con IMPRESSION: Peripancreatic inflammatory changes suggesting underlying pancreatitis. I do not appreciate any peripancreatic fluid collection or pancreatic necrosis at this time. Correlation with amylase and lipase levels recommended. There are multiple gallstones in the partially contracted gallbladder. The common bile duct is prominent measuring up to 1 cm in maximal diameter as it extends up to the ampulla. Tiny stone in the distal common duct would be difficult to exclude. ERCP or MRCP would be helpful to evaluate further.
[2023-04-30 18:07] VITALS: BP 143/78; PULSE 85; RESP 16; TEMP 35.8; O2SAT 97; BMI 23.8
--- NOTE | 2023-04-30 18:14 | ED_ITS ---
HPI - General Adult General Chief complaint: General Medical Stated complaint: dont feel good, stomach problems. called 4 him Time Seen by Provider: 04/30/23 18:46 Source: patient and family Mode of arrival: ambulatory Limitations: no limitations History of Present Illness HPI narrative: Patient comes to the emergency room complaining of 3 days of nausea, vomiting, diffuse abdominal discomfort but worse in the epigastric area. Also, the main reason the patient came here is because the patient had blood work done today, he was told that his glucose is high. Patient states that he is known to be diabetic, does not take any medications because on his last visit, his hemoglobin A1c was 5.9 and therefore his Januvia treatment was discontinued. Related Data Previous Rx's Medication Instructions Recorded folic acid 1 mg tablet 1 mg PO DAILY #90 tabs 04/17/22 DIABETIC SHOES #1 ea 07/20/22 lansoprazole 30 mg capsule,delayed 30 mg PO DAILY 90 days #90 caps 01/10/23 release (Prevacid) allopurinol 100 mg tablet 100 mg PO DAILY 90 days #90 tabs 01/19/23 lisinopril 5 mg tablet 5 mg PO DAILY 90 days #90 tabs 01/19/23 sildenafil 100 mg tablet 100 mg PO DAILY PRN sexual 01/19/23 activity #30 tabs atorvastatin 10 mg tablet 10 mg PO DAILY #90 tabs 03/26/23 metoprolol succinate 50 mg 50 mg PO DAILY 90 days #90 tabs 03/26/23 tablet,extended release 24 hr simethicone 125 mg chewable tablet 125 mg PO BID-QID PRN abdominal 04/26/23 distention #30 tabs Allergies Allergy/AdvReac Type Severity Reaction Status Date / Time metformin Allergy Unknown diarrhea Verified 04/30/23 15:35 rosuvastatin [Crestor] Allergy Unknown Unknown Verified 04/30/23 15:35 Review of Systems 2 Review of Systems: Constitutional : No Weight loss, No Fever, No Chills, No Night Sweats, No Fatigue, No Malaise ENT/Mouth : No Hearing loss, No Ear Pain, No Nasal Congestion, No Sinus Pain, No Hoarseness, No sore throat, No Rhinorrhea, No Swallowing Difficulty Eyes: No Eye Pain, No Swelling, No Redness, No Foreign Body, No Discharge, No Vision Changes Cardiovascular : No Chest Pain, No SOB, No Dyspnea on Exertion, No Orthopnea, No Edema, No Palpitations Respiratory : No Cough, No Sputum, No Wheezing, No Smoke Exposure, No Dyspnea Gastrointestinal : Complaining of nausea, intermittent vomiting, moderate epigastric/right upper quadrant discomfort but no significant pain Genitourinary : no irregular bleeding, No Dysuria, No Urinary Frequency, No Hematuria, No Urinary Incontinence, No Urgency, No Flank Pain, No Urinary Flow Changes, No Hesitancy Musculoskeletal : No joint pain, No Myalgias, No Joint Swelling Skin : No Skin Lesions, No rash Neuro : No Weakness, No Numbness, No Paresthesias, No Loss of Consciousness, No Dizziness, No Headache Psych : No Anxiety/Panic, No Depression, No SI/HI/AH/VH, No Social Issues, Heme/Lymph: No Bruising, No Bleeding,No Lymphadenopathy Endocrine : No Polyuria, No Polydipsia, No Temperature Intolerance [facility] Past Medical History Medical History Tubular adenoma of colon GERD (gastroesophageal reflux disease) Knee osteoarthritis Erectile dysfunction Hypercholesterolemia Hypertension Gout Type 2 diabetes mellitus with hyperglycemia Surgical History History of cataract surgery History of knee replacement procedure of left knee History of eye surgery Family History Family History Father Medical history unknown Mother Medical history unknown Social History Social History Housing: House Alcohol intake: current Alcohol intake frequency: a few times a week Patient Tobacco Use Status: Former Tobacco user Tobacco use type: Cigarette e-Cigarette/Vaping Use: Never Used Advance Directives: No Advance Directives Information Provided: No Current occupational status: retired Cognitive needs: No Hearing needs: No Vision needs: Yes Physical Exam ED Vital Signs: Vital Signs - 24 hr 04/30/23 18:07 04/30/23 20:43 04/30/23 22:45 Temperature 96.5 F L 98.3 F 99.5 F Pulse Rate 85 78 79 Respiratory Rate 16 18 18 Blood Pressure 143/78 H 132/54 L 143/62 H Pulse Oximetry 97 97 97 Oxygen Delivery Method Room Air Room Air Room Air BMI result Body Mass Index 23.8 Const Other: Appearance: Alert. Oriented X3. No acute distress. Eyes: Pupils equal, round and reactive to light. ENT: Pharynx normal. Neck: Normal inspection. Neck supple. No lymph nodes noted. No crepitus CVS: Normal heart rate and rhythm. Pulses normal. Normal S1 and S2 Respiratory: No respiratory distress. Breath sounds normal. No Wheezing. No rales Abdomen: Soft mild discomfort to palpation in epigastric area, negative Perkins sign, No rigidity. No distention. Skin: Skin warm and dry. Normal skin color. Normal skin turgor. Extremities: No lower extremity edema. No Lacerations. No Rash Neuro: Oriented X 3. No motor deficit. No sensory deficit. Moving all extremities. No slurred speech. CN 2 through 12 grossly intact Psych: calm, cooperative, normal affect Course Course Course Narrative: This is an RME: Additional HPI, ROS, PE not included below will be deferred to primary provider. This is a 82-year-old male, with a history GERD, osteoarthritis, type 2 diabetes, hypertension, presenting to the emergency department with complaints of global weakness, fatigue, loss of appetite. Patient was seen at his primary care office this afternoon where he had basic labs performed. Blood glucose was 47, with elevated liver function tests. He was instructed to come to the emergency room for further evaluation. Patient reporting he had epigastric pain with vomiting several days ago. He has not had vomiting or stomach pain however does not want to eat given symptoms he had several days ago. Abdomen is soft and nontender. Further ear evaluation needed. Plan: Labs, point of care, EKG, chest x-ray Medications Administered Discontinued Medications Generic Name Dose Route Start Last Admin Trade Name Gallito PRN Reason Stop Dose Admin Sodium Chloride 1,000 mls @ 999 mls/hr 04/30/23 19:15 04/30/23 20:49 Ns IVCONT 04/30/23 20:15 Infused .Q1H1M ONE Infusion Sodium Chloride 1,000 mls @ 999 mls/hr 04/30/23 21:06 04/30/23 22:30 Ns IVCONT 04/30/23 22:06 Infused .Q1H1M ONE Infusion Insulin Human Regular 5 unit 04/30/23 19:15 04/30/23 19:33 Insulin Regular, Human 100 Unit/Ml 3 Ml Vial IVPUSH 04/30/23 19:16 5 unit ONCE ONE Administration Insulin Human Regular 10 unit 04/30/23 20:32 04/30/23 20:37 Insulin Regular, Human 100 Unit/Ml 3 Ml Vial IVPUSH 04/30/23 20:33 10 unit ONCE ONE Administration Iohexol 100 ml 04/30/23 22:36 04/30/23 22:37 Iohexol 350 Mg/Ml 100 Ml Infus..Btl IV 04/30/23 22:37 85 ml ONCE ONE Administration Medical Decision Making Medical Decision Making [facility] Narrative: -my interpretation of labs: White blood cell count 11.4, chemistry shows hyperglycemia, glucose of 590. Patient has acutely elevated LFTs. Previous labs from October of 2022, patient had normal LFTs -lipase and beta hydroxybutyrate pending -ultrasound of the abdomen pending -my interpretation of ultrasound: No obvious abnormality -my interpretation of CT scan: No obvious acute cholecystitis -I discussed the patient, labs and the imaging results with Dr. Izaguirre from surgery -since patient is stable and feeling well, tolerating p.o., patient can be discharged home. However, patient will need to follow-up with surgery early next week. -at the time of discharge, patient is asymptomatic, glucose 254 -also, patient will be started on diabetic medications. Patient used to take Januvia. I discussed with the patient trying to start with metformin. However, patient states that he tried it in the past and did not do well with it due to the GI side effects. -per patient's medical record, patient used to take 100 mg of Januvia p.o. patient's GFR is 47, no dose adjustment necessary. Patient may continue taking 100 mg of Januvia p.o.. Patient states that he has plenty of tablets at home, does not require a prescription. -patient instructed to check his glucose 3 times a day. Patient sent with IM glucagon kit p.r.n. hypoglycemia Differential Diagnosis Differential Diagnoses: The differential diagnosis associated with the presentation includes (Hyperglycemia, diabetic ketoacidosis, acute cholecystitis, choledocholithiasis) Admission/Observation Consideration of admission/observation: Escalation of care including admission/observation considered (Given the patient's labs, physical exam and imaging results, admission was considered) Consult Healthcare Provider Management of the patient was discussed with: Waste Picker Lab Data [facility] Lab Attestation statement: I reviewed the patient's lab results. 04/30/23 19:06 04/30/23 19:06 Labs: Lab Results 04/30/23 04/30/23 04/30/23 Range/Units 18:19 19:06 19:07 WBC 11.4 H (4.8-10.8) X10*3/uL RBC 4.17 L (4.60-5.80) X10*6/uL Hgb 13.6 L (14.0-18.0) g/dl Hct 39.3 L (42.0-52.0) % MCV 94.2 (80.0-98.0) fL MCH 32.6 (27.0-33.0) pg MCHC 34.6 (31.0-36.0) g/dl RDW 12.3 (11.0-16.0) % Plt Count 167 (160-400) X10*3/uL MPV 11.7 (9.4-12.4) fL Immature Gran % (Auto) 0.6 H (0.0-0.4) % Neut % (Auto) 85.4 H (45-73) % Lymph % (Auto) 6.5 L (20-40) % [place] % (Auto) 7.0 (2-11) % Eos % (Auto) 0.3 (0-4) % Baso % (Auto) 0.2 (0-2) % Lymph # (Auto) 0.7 L (1.2-4.9) X10*3/uL [place] # (Auto) 0.8 (0.1-1.2) X10*3/uL Eos # (Auto) 0.0 (0.0-0.4) X10*3/uL Baso # (Auto) 0.0 (0.0-0.2) X10*3/uL Abs Immat Gran (auto) 0.07 H (0.00-0.03) X10*3/uL Absolute Neuts (auto) 9.8 H (2.0-8.3) x10*3/uL Absolute Nucleated RBC 0.000 (0.0-0.012) X10*3/uL Nucleated RBC % (auto) 0.0 (0.0-0.2) /100WBC Sodium 135 (135-145) mmol/L Potassium 4.9 (3.3-5.1) mmol/L Chloride 99 (96-108) mmol/L Carbon Dioxide 25 (22-29) mmol/L Anion Gap 16 (12-20) BUN 26 H (9-16) mg/dL Creatinine 1.45 H (0.5-1.4) mg/dL Estim Creat Clear Calc 35.4 Estimated GFR 47 POC Glucose 590 H* (60-115) mg/dL Random Glucose 670 H* (60-115) mg/dL Calcium 10.2 (8.4-10.2) mg/dL Total Bilirubin 1.1 H (0.0-1.0) mg/dL Direct Bilirubin 0.5 (0.0-0.5) mg/dL AST 68 H (5-37) U/L ALT 418 H (0-40) U/L Alkaline Phosphatase 454 H (39-117) U/L Ammonia 31 (13-55) umol/L Troponin I High Sens 5.0 (<3.5-35.0) ng/L Total Protein 7.9 (6.5-8.0) g/dL Albumin 3.9 (3.5-5.0) g/dL Lipase 67 (8-78) U/L Beta-Hydroxybutyrate 0.13 (0.02-0.27) mmol/L Ethyl Alcohol < 10 mg/dL COVID-19 ([facility]) Negative (Negative) COVID-19 Clin Com See Note Influenza Type A ([facility]) Negative (Negative) Influenza Type B ([facility]) Negative (Negative) Influenza A & B Note See Note 04/30/23 04/30/23 04/30/23 Range/Units 20:30 21:06 21:59 WBC (4.8-10.8) X10*3/uL RBC (4.60-5.80) X10*6/uL Hgb (14.0-18.0) g/dl Hct (42.0-52.0) % MCV (80.0-98.0) fL MCH (27.0-33.0) pg MCHC (31.0-36.0) g/dl RDW (11.0-16.0) % Plt Count (160-400) X10*3/uL MPV (9.4-12.4) fL Immature Gran % (Auto) (0.0-0.4) % Neut % (Auto) (45-73) % Lymph % (Auto) (20-40) % [place] % (Auto) (2-11) % Eos % (Auto) (0-4) % Baso % (Auto) (0-2) % Lymph # (Auto) (1.2-4.9) X10*3/uL [place] # (Auto) (0.1-1.2) X10*3/uL Eos # (Auto) (0.0-0.4) X10*3/uL Baso # (Auto) (0.0-0.2) X10*3/uL Abs Immat Gran (auto) (0.00-0.03) X10*3/uL Absolute Neuts (auto) (2.0-8.3) x10*3/uL Absolute Nucleated RBC (0.0-0.012) X10*3/uL Nucleated RBC % (auto) (0.0-0.2) /100WBC Sodium (135-145) mmol/L Potassium (3.3-5.1) mmol/L Chloride (96-108) mmol/L Carbon Dioxide (22-29) mmol/L Anion Gap (12-20) BUN (9-16) mg/dL Creatinine (0.5-1.4) mg/dL Estim Creat Clear Calc Estimated GFR POC Glucose 446 H* 356 H* 254 H (60-115) mg/dL Random Glucose (60-115) mg/dL Calcium (8.4-10.2) mg/dL Total Bilirubin (0.0-1.0) mg/dL Direct Bilirubin (0.0-0.5) mg/dL AST (5-37) U/L ALT (0-40) U/L Alkaline Phosphatase (39-117) U/L Ammonia (13-55) umol/L Troponin I High Sens (<3.5-35.0) ng/L Total Protein (6.5-8.0) g/dL Albumin (3.5-5.0) g/dL Lipase (8-78) U/L Beta-Hydroxybutyrate (0.02-0.27) mmol/L Ethyl Alcohol mg/dL COVID-19 ([facility]) (Negative) COVID-19 Clin Com Influenza Type A ([facility]) (Negative) Influenza Type B ([facility]) (Negative) Influenza A & B Note Independent Interpretation I performed an independent interpretation of an: Ultrasound and CT Scan Radiology Impression Discussion of test interpretation with radiology: I have reviewed the radiologist's reading. Radiologist Impression: FINDINGS: LUNG BASES: Tiny incidental micronodule right lung base of no clinical significance. LIVER, GALLBLADDER, AND BILIARY TREE: The liver is normal in size, shape, and attenuation. No focal hepatic lesion or intrahepatic biliary ductal dilatation is present. The common bile duct is prominent measuring up to 1 cm in maximal diameter as it extends up to the ampulla. Tiny stone in the distal common duct be difficult to exclude on coronal image 42/86. Multiple gallstones in the partially contracted gallbladder. No gallbladder wall thickening or pericholecystic inflammatory changes PANCREAS: Pancreas demonstrates homogeneous attenuation. There is peripancreatic inflammatory change suggesting underlying pancreatitis. I do not appreciate any peripancreatic fluid collection or obvious pancreatic necrosis at this time. SPLEEN: Unremarkable. ADRENAL GLANDS: Unremarkable. KIDNEYS AND URETERS: The kidneys are normal in size, shape, and attenuation. No hydronephrosis, hydroureter, or calculi seen. No perinephric stranding. BLADDER: Decompressed GASTROINTESTINAL TRACT: Extensive colonic diverticulosis more so in the sigmoid colon. I do not appreciate any colonic wall thickening or pericolonic inflammatory changes. Normal-appearing retrocecal appendix in the right lower quadrant. Visualized small bowel unremarkable ABDOMINAL WALL: No significant hernia is appreciated. LYMPHOVASCULAR STRUCTURES: Vascular calcification within the aorta PELVIC VISCERA: Unremarkable. OSSEOUS STRUCTURES: Multilevel degenerative changes in the spine CT/CT abdomen pelvis w IV con IMPRESSION: Peripancreatic inflammatory changes suggesting underlying pancreatitis. I do not appreciate any peripancreatic fluid collection or pancreatic necrosis at this time. Correlation with amylase and lipase levels recommended. There are multiple gallstones in the partially contracted gallbladder. The common bile duct is prominent measuring up to 1 cm in maximal diameter as it extends up to the ampulla. Tiny stone in the distal common duct would be difficult to exclude. ERCP or MRCP would be helpful to evaluate further. FINDINGS: PANCREAS: Obscured by overlying bowel gas LIVER: Limited assessment due to overlying bowel gas but where seen the liver is normal in size. The liver contour is normal. Parenchymal echogenicity is normal. No focal hepatic lesion. There is no intrahepatic biliary duct dilatation seen. GALLBLADDER: Echogenic bile in the dependent aspect of the otherwise unremarkable gallbladder. The gallbladder is physiologically distended without evidence of stones, sludge, polyps, wall thickening or pericholecystic fluid. COMMON BILE DUCT: Normal in caliber measuring 0.6 cm in diameter. RIGHT KIDNEY: Normal. No hydronephrosis. No renal calculi or focal parenchymal lesions. The kidney measures 10.2 cm in maximum dimension. FREE FLUID: None. US/US abdomen limited IMPRESSION: No acute intra-abdominal process seen. Echogenic bile in the dependent aspect of the otherwise unremarkable gallbladder. Independent Historian Clinical information obtained from an independent historian. History obtained from or confirmed by: Spouse External Record Review External record reviewed: Prior outpatient labs Critical Care Time Critical Care Time Critical Care Time: Yes Total Critical Care Time: 75 Attestation: I have personally provided critical care time. Time includes review of lab data, radiology results, discussion with consultants, and monitoring for potential decompensation. Intervention performed as documented. Discharge Plan Discharge Clinical Impression: Acute hyperglycemia, Elevated LFTs Patient Disposition: Home, Self-Care Instructions: Diabetes and Exercise (ED), Diabetic Hyperglycemia (ED), Biliary Colic (ED) Additional Instructions: Please follow-up with your primary care physician tomorrow. If you have any worsening or new symptoms, please return to the emergency room or call 911 Prescriptions: No Action folic acid 1 mg tablet 1 mg PO DAILY Qty: 90 3RF (DME) DIABETIC SHOES See Rx Instructions .Route .MEDSUPPLY Qty: 1 0RF Rx Instructions: As directed lansoprazole [Prevacid] 30 mg capsule,delayed release(DR/EC) 30 mg PO DAILY 90 Days Qty: 90 3RF allopurinol 100 mg tablet 100 mg PO DAILY 90 Days Qty: 90 2RF lisinopril 5 mg tablet 5 mg PO DAILY 90 Days Qty: 90 2RF sildenafil 100 mg tablet 100 mg PO DAILY PRN (Reason: sexual activity) Qty: 30 3RF simethicone 125 mg tablet,chewable 125 mg PO BID-QID PRN (Reason: abdominal distention) Qty: 30 3RF metoprolol succinate 50 mg tablet extended release 24 hr 50 mg PO DAILY 90 Days Qty: 90 3RF atorvastatin 10 mg tablet 10 mg PO DAILY Qty: 90 3RF Referrals: Declan Izaguirre MD [Physician] - 05/03/23
--- NOTE | 2023-04-30 18:17 | ECG_ITS ---
Test Reason : WEAKNESS Blood Pressure : / mmHG Vent. Rate : 086 BPM Atrial Rate : 086 BPM P-R Int : 152 ms QRS Dur : 092 ms QT Int : 346 ms P-R-T Axes : 037 -27 -06 degrees QTc Int : 414 ms Normal sinus rhythm Normal ECG When compared with ECG of 26-JAN-2020 10:34, Premature supraventricular complexes are no longer Present Referred By: Sejal Parnell Electronically Signed By:JESSY ROPER MD
[2023-04-30 18:27] LABS: Glucose, Whole Blood 590 mg/dL (60-115)
[2023-04-30 19:15] LABS: MANUAL DIFF FLAG NO
[2023-04-30 19:20] LABS: Basophils Percent Auto 0.2 % (0-2); Eosinophils Percent Auto 0.3 % (0-4); Hematocrit 39.3 % (42.0-52.0); Hemoglobin 13.6 g/dl (14.0-18.0); Imm Gran Abs Auto 0.07 X10*3/uL (0.00-0.03); Imm Gran Pct Auto 0.6 % (0.0-0.4); Lymphocytes Absolute Auto 0.7 X10*3/uL (1.2-4.9); Lymphocytes Percent Auto 6.5 % (20-40); Mean Corpuscular HGB Conc 34.6 g/dl (31.0-36.0); Mean Corpuscular Hemoglobin 32.6 pg (27.0-33.0); Mean Corpuscular Volume 94.2 fL (80.0-98.0); Mean Platelet Volume 11.7 fL (9.4-12.4); Monocytes Absolute Auto 0.8 X10*3/uL (0.1-1.2); Neutrophils Absolute Auto 9.8 x10*3/uL (2.0-8.3); Neutrophils Percent Auto 85.4 % (45-73); Platelet Count 167 X10*3/uL (160-400); Red Blood Count 4.17 X10*6/uL (4.60-5.80); Red Cell Distribution Width 12.3 % (11.0-16.0); White Blood Count 11.4 X10*3/uL (4.8-10.8)
[2023-04-30 19:26] LABS: Ammonia 31 umol/L (13-55)
[2023-04-30 19:33] LABS: Beta-Hydroxybutyrate 0.13 mmol/L (0.02-0.27); Ethanol < 10 mg/dL
[2023-04-30 19:33] LABS: IDNOW Serial# BCCEAD1C; Influenza A Negative (Negative); Influenza B2 Negative (Negative)
[2023-04-30] MEDS: Insulin Regular, Human 100 UNIT/ML 3 ML VIAL IVPUSH (19:33)
[2023-04-30 19:34] LABS: COVID-19 Test Negative (Negative); IDNOW Serial# 9DB6401D
[2023-04-30] MEDS: 0.9 % Sodium Chloride 1,000 ML 999 ML IVCONT ×2 (19:34→21:28)
[2023-04-30 19:38] LABS: Alanine Aminotransferase 418 U/L (0-40); Albumin Level 3.9 g/dL (3.5-5.0); Alkaline Phosphatase 454 U/L (39-117); Anion Gap 16 (12-20); Aspartate Amino Transferase 68 U/L (5-37); Bilirubin Direct 0.5 mg/dL (0.0-0.5); Bilirubin Total 1.1 mg/dL (0.0-1.0); Blood Urea Nitrogen 26 mg/dL (9-16); Calcium 10.2 mg/dL (8.4-10.2); Carbon Dioxide 25 mmol/L (22-29); Chloride 99 mmol/L (96-108); Creatinine Clr Calc Pharmacy 35.4; Estimated Glomerular Filt Rate 47; Glucose Random 670 mg/dL (60-115); Lipase 67 U/L (8-78); Potassium 4.9 mmol/L (3.3-5.1); Sodium 135 mmol/L (135-145); Total Protein 7.9 g/dL (6.5-8.0)
--- NOTE | 2023-04-30 20:33 | PC.NURSE ---
POC 446 provider cortez tobar. Plan of care ongoing.
[2023-04-30 20:34] LABS: Glucose, Whole Blood 446 mg/dL (60-115)
[2023-04-30] MEDS: Insulin Regular, Human 100 UNIT/ML 3 ML VIAL 10 UNIT IVPUSH (20:37)
[2023-04-30 20:43] VITALS: BP 132/54; PULSE 78; RESP 18; TEMP 36.8; O2SAT 97
--- NOTE | 2023-04-30 20:49 | PC.NURSE ---
Pt medicated per aug. Pt ca&ox4, no signs of distress. at bedside Plan of care ongoing.
--- NOTE | 2023-04-30 20:55 | PC.NURSE ---
Per provider toro VBG no longer needed. Plan of care ongoing.
[2023-04-30 21:16] LABS: Glucose, Whole Blood 356 mg/dL (60-115)
--- NOTE | 2023-04-30 21:37 | PC.NURSE ---
Pt medicated per aug. Plan of care ongoing.
[2023-04-30 22:04] LABS: Glucose, Whole Blood 254 mg/dL (60-115)
[2023-04-30] MEDS: iohexoL 350 MG/ML 100 ML INFUS..BTL IV (22:37)
[2023-04-30 22:45] VITALS: BP 143/62; PULSE 79; RESP 18; TEMP 37.5; O2SAT 97
== END 2023-05-01 | disposition home or self-care (01) ==
PROVIDERS: Physician Assistant Medical; Emergency Provider Emergency Medicine; PCP Internal Medicine
DX: R11.2 Nausea with vomiting, unspecified (principal); R10.13 Epigastric pain; R79.89 Other specified abnormal findings of blood chemistry; R10.11 Right upper quadrant pain; Z11.52 Encounter for screening for COVID-19; Z20.822 Contact with and (suspected) exposure to COVID-19; Z79.899 Other long term (current) drug therapy; Z87.891 Personal history of nicotine dependence
CPT/HCPCS: 36415; 71046; 74177; 76705; 80048; 80053; 80076; 80307; 82010; 82140; 82947; 83690; 84484; 85025; 87502; 87635; 93005; 96361; 96374; 96376; 99284; Q9967

== ENCOUNTER 2023-05-02 | Outpatient (REF) | payer MEDICARE, OTHER, SELFPAY | END 2023-05-02 00:01 | disposition home or self-care (01) | LOC: HO.LNP | PROVIDERS: Visit Provider Internal Medicine | DX: Z13.89 Encounter for screening for other disorder (principal) | CPT/HCPCS: 87338 ==

== ENCOUNTER 2023-05-03 14:13 | Outpatient (AMB) | payer MEDICARE, OTHER, SELFPAY ==
--- NOTE | 2023-05-03 14:28 | MHC.OFFVIS ---
Intake Vital Signs 05/03/23 14:33 Weight 153 lb BP 133/64 Blood Pressure Location Rt brachial Position Sitting Pulse 74 Intake Visit Reasons: Gallstones, 04/30/23 [facility] follow up Intake Note: Patient here to discuss gallstones. C/o on and off pain on abd and back. Was seen at ER for high sugar. Clay Temperer Required: No Accompanied by: Spouse Allergies metformin Allergy (Unknown, Verified 05/03/23 14:30) diarrhea rosuvastatin [Crestor] Allergy (Unknown, Verified 05/03/23 14:30) Unknown HPI HPI Comments History of Present Illness Details Patient presents was white. Recently seen in the ER for what appears to be a mild bout of gallstone pancreatitis. Patient complained of several days of epigastric and back pain. Workup which included CT scan demonstrated mild pancreatitis and cholelithiasis. Patient had significant hyper glycemia as well as mild hyperbilirubinemia. Patient colonoscopy approximately years ago. He had upper GI 2 years ago. Chart was reviewed and patient evaluated [facility] Medical History Tubular adenoma of colon GERD (gastroesophageal reflux disease) Knee osteoarthritis Erectile dysfunction Hypercholesterolemia Hypertension Gout Type 2 diabetes mellitus with hyperglycemia Surgical History History of cataract surgery History of knee replacement procedure of left knee History of eye surgery Family History Father Medical history unknown Mother Medical history unknown Social History (Updated 05/03/23 @ 14:32 by TONE Bang) Housing: House Alcohol intake: current Alcohol intake frequency: a few times a week Alcohol type: beer, wine and hard liquor Patient Tobacco Use Status: Former Tobacco user Tobacco use type: Cigarette e-Cigarette/Vaping Use: Never Used Current occupational status: retired Cognitive needs: No Hearing needs: No Vision needs: Yes Physical Exam Vital Signs: Last Vital Signs Pulse 74 05/03/23 14:33 BP 133/64 05/03/23 14:33 Eyes Other: Anicteric Chest Other: Chest breath sounds bilaterally, HS 1 in 2 GI Other: Abdomen soft, benign Assessment & Plan Assessment & Plan (1) Cholelithiasis: Code(s): K80.20 - Calculus of gallbladder without cholecystitis without obstruction (2) Gallstone pancreatitis: Code(s): K85.10 - Biliary acute pancreatitis without necrosis or infection Plan Risks, benefits, alternatives laparoscopic possible open cholecystectomy with cholangiogram reviewed the patient and his and included but not limited to bleeding, infection, recurrence of symptoms, numbness, pain, scarring, bowel or bile duct injury or leak and the patient wishes to proceed with the procedure. All questions were answered. Arrangements were made for this. Coding Level of Care Code New Pt Level 5 (43542) Diagnoses Cholelithiasis K80.20 Gallstone pancreatitis K85.10
[2023-05-03 14:33] VITALS: BP 133/64; PULSE 74
== END 2023-05-03 14:53 | disposition home or self-care (01) ==
PROVIDERS: PCP Internal Medicine; Visit Provider Surgery
DX: K80.20 Calculus of gallbladder without cholecystitis without obstruction (principal); K85.10 Biliary acute pancreatitis without necrosis or infection
CPT/HCPCS: 99204

== ENCOUNTER → 2023-05-03 14:13 | Outpatient (BNVA) | payer MEDICARE, OTHER, SELFPAY | PROVIDERS: PCP Internal Medicine; Visit Provider Surgery | DX: K80.20 Calculus of gallbladder without cholecystitis without obstruction (principal); K85.10 Biliary acute pancreatitis without necrosis or infection; E11.65 Type 2 diabetes mellitus with hyperglycemia | CPT/HCPCS: 99202 ==

== ENCOUNTER 2023-05-04 10:47 | Inpatient (IN) | payer MEDICARE, OTHER, SELFPAY ==
--- NOTE | ~2023-05-04 | FL_ITS ---
EXAMINATION: XR FLUOROSCOPY WITH IMAGES CLINICAL INFORMATION: ERCP performed for suspected choledocholithiasis. COMPARISON: MRCP from 05/04/2023 TECHNIQUE: Fluoroscopy Supervised By: Dr. Cueto. Fluoroscopy Time: 3.6 minutes. Cumulative Dose: 50 mGy. DAP: 0.869 mGym2. 2 sets of images are saved. 4 images are present in the first series. FL/FL guidance in OR FINDINGS AND IMPRESSION: The purpose of this report is to document use of fluoroscopic imaging equipment by the Gastroenterology Service during performance of an ERCP. Endoscope was placed, common duct cannulated and contrast injected into the common duct. The final image shows deployment of a common duct stent.
--- NOTE | ~2023-05-04 | MR_ITS ---
EXAMINATION: MR CHOLANGIOPANCREATOGRAPHY CLINICAL INFORMATION: Reason for Exam gallstone pancreatitis COMPARISON: None. TECHNIQUE: Multiple routine MRI sequences through the abdomen were obtained. Heavily T2-weighted images were performed utilizing a dedicated MRCP technique. Contrast was not utilized for the study. FINDINGS: Lung bases: Minimal basilar atelectasis Liver: The liver is normal in size, shape, and signal. No suspicious focal hepatic lesions seen on this noncontrast study. Biliary system: The common bile duct is normal in course and caliber measuring up to 0.7 cm with no evidence for intra-or extrahepatic biliary ductal dilatation. There is a focal persistent 0.7 cm filling defect in the distal common duct consistent with choledocholithiasis. The filling defect is seen on multiple sequences in this region.. Gallbladder: Gallstones and sludge in the dependent aspect of the otherwise unremarkable gallbladder. No gallbladder wall thickening or pericholecystic inflammatory changes. Pancreas: Pancreas is homogeneous in signal. No pancreatic ductal dilatation or obstruction. There is homogeneous signal to the pancreas however there is mild peripancreatic edema seen in the region the pancreatic head suggesting presence of mild pancreatitis Spleen: Unremarkable Adrenals: Unremarkable Kidneys: Kidneys are normal in size, shape, and signal. No suspicious renal mass lesion seen. No hydronephrosis or perinephric edema. Other: No bulky adenopathy. MR/MR MRCP IMPRESSION: Persistent 0.7 cm filling defect in the distal common bile duct consistent with choledocholithiasis. There is mild peripancreatic edema in the region of the pancreatic head suggesting presence of mild pancreatitis. No pancreatic ductal dilatation or obstruction. Gallstones and sludge in the dependent aspect of the otherwise unremarkable gallbladder.
--- NOTE | ~2023-05-04 | CT_ITS ---
EXAMINATION: CT ABDOMEN AND PELVIS WITH AND WITHOUT CONTRAST CLINICAL INFORMATION: Anemia. Blood on sigmoid COMPARISON: CT of the abdomen and pelvis done on 04/30/2023. TECHNIQUE: Multidetector volumetric imaging was performed from the diaphragm through the pubic symphysis before and after administration of 85 mL of Omnipaque 350 intravenous contrast. Sagittal and coronal reformatted images were obtained on the technologist's workstation. This CT examination was performed using dose optimization techniques as appropriate, variously including the following: *Automated exposure control. *Adjustment of mA and/or kV according to patient size (this includes techniques or standardized protocols for targeted exams where dose is matched to indication/reason for exam; i.e. extremities or head). *Use of iterative reconstruction technique. 1136 mGy-cm FINDINGS: ABDOMEN/PELVIS: VISUALIZED LUNG BASES: Interval development of dense airspace consolidation is noted involving the lateral segment of the right middle lobe. Hypoventilatory changes are present at both lung bases. Liver, Gallbladder, Biliary Tree: Interval placement of a plastic CBD stent, appear in good position. There is pneumobilia present. The gallbladder is distended, shows wall thickening, multiple radiopaque gallstones and pericholecystic inflammatory changes, suspicious for acute cholecystitis. Pancreas: Subtle peripancreatic inflammatory stranding is also present, appear less pronounced since the prior study. Spleen: Unremarkable. Adrenal Glands: Unremarkable. Kidneys and Ureters: The kidneys are normal in size, shape, and attenuation. No hydronephrosis or hydroureter or calculi seen. No perinephric stranding. Bladder: Distended, may represent physiologic changes versus outlet obstruction secondary to enlarged prostate. Gastrointestinal Tract: No definite evidence of any intraluminal contrast extravasation identified within the large bowel to suspect acute GI hemorrhage. The appendix is visualized at right lower quadrant of the abdomen and is unremarkable. Colonic diverticulosis related changes are present within the large bowel predominantly involving the sigmoid colon. Specific note is made of mural enhancement involving the sigmoid colon, seen only on the arterial phase enhancing images may represent enhancing/vascular lesion within the wall of the sigmoid: (695:7). Small sliding hiatal hernia is noted. The stomach is relatively decompressed. The small bowel loops are also decompressed. Abdominal Wall: No hernia is demonstrated. Lymph Nodes: There are few shotty hypodense lymph nodes identified above the origin of the celiac axis. There are no other retroperitoneal or mesenteric or pelvic or groin lymphadenopathy, unchanged. Vascular: Diffuse calcific atherosclerotic disease of the aorta and is branches including infrarenal abdominal aortic ectasia without aneurysm formation, similar to prior study. Pelvic Viscera: The prostate is enlarged, appears heterogeneous, appears similar to prior study. No evidence of any free fluid and/or free air. Osseous Structures: Multifocal endplate changes are noted at L1-L2, L2-L3 and at L4-L5, similar to prior study, presumed degenerative disc disease. CT/CT gi bleed abd pel wo/w IVcon IMPRESSION: 1. No CT evidence of any acute GI bleed identified. However, curvilinear mural enhancement is noted on postcontrast images in the region of the sigmoid colon without any contrast extravasation, may represent vascular lesion in this region (695:7). 2. The gallbladder is distended, shows wall thickening, multiple gallbladder calculi and pericholecystic inflammatory changes, highly suspicious for acute cholecystitis. 3. Interval placement of a plastic CBD stent, appear in good position and is patent showing presence of pneumobilia within the liver. 4. Significant interval decrease in peripancreatic inflammatory changes seen on the prior study dated 04/30/2023. 5. Distended urinary bladder, may represent physiologic changes versus secondary to enlarged prostate or combination thereof. This critical result was discussed with Theresa Ferrera, nurse practitioner at 512 PM on 05/09/2023 and it was ascertained that the content and urgency of the report was understood at the time of direct communication.
[2023-05-04 11:06] VITALS: BP 124/92; PULSE 78; RESP 19; TEMP 36.6; O2SAT 98; BMI 23.4
--- NOTE | 2023-05-04 11:06 | ED.ABDPAIN ---
HPI - Abdominal Pain General Chief Complaint: Abdominal Pain Stated Complaint: Gallbladder issues/Vomiting Time Seen by Provider: 05/04/23 12:31 Source: patient, family and old records reviewed Mode of arrival: ambulatory Limitations: no limitations History of Present Illness HPI narrative: 82 year old male with pmhx significant for BPH, hypertension, gout, T2DM, GERD, cholelithiasis presents to the ED today with RUQ pain and nausea/vomiting since this morning. Abdominal pain located to RUQ with radiation to right flank/back. Nothing seems to relief or exacerbate pain. Has not taken anything for pain at home. Denies fever, chills, headache, dizziness, diarrhea, constipation, dysuria, hematuria. He was seen in the ED on 04/30/2023 and diagnosed with gallstone pancreatitis. At the time had subjective fevers and chills. He then followed up with Dr. Izaguirre outpatient yesterday and scheduled an elective laparoscopic kelly. He was advised to come to the ED if he developed worsening symptoms. Related Data Home Medications Medication Instructions Recorded Confirmed cyanocobalamin (vitamin B-12) 1,000 mcg PO DAILY 05/04/23 05/04/23 1,000 mcg tablet insulin aspart U-100 100 unit/mL 0 sliding scale dose subcut TIDAC 05/04/23 05/04/23 (3 mL) subcutaneous pen (Novolog FlexPen U-100 Insulin aspart) Previous Rx's Medication Instructions Recorded folic acid 1 mg tablet 1 mg PO DAILY #90 tabs 04/17/22 DIABETIC SHOES #1 ea 07/20/22 lansoprazole 30 mg capsule,delayed 30 mg PO DAILY 90 days #90 caps 01/10/23 release (Prevacid) allopurinol 100 mg tablet 100 mg PO DAILY 90 days #90 tabs 01/19/23 lisinopril 5 mg tablet 5 mg PO DAILY 90 days #90 tabs 01/19/23 atorvastatin 10 mg tablet 10 mg PO DAILY #90 tabs 03/26/23 metoprolol succinate 50 mg 50 mg PO DAILY 90 days #90 tabs 03/26/23 tablet,extended release 24 hr empagliflozin 10 mg tablet 10 mg PO DAILY #30 tabs 05/03/23 (Jardiance) pen needle, diabetic 32 gauge x #100 ea 05/03/23 (BD Ultra-Fine Prisca Pen Needle) sitagliptin phosphate 100 mg 100 mg PO DAILY #30 tabs 05/03/23 tablet (Januvia) Allergies Allergy/AdvReac Type Severity Reaction Status Date / Time metformin Allergy Unknown diarrhea Verified 05/04/23 11:06 rosuvastatin [Crestor] Allergy Unknown Unknown Verified 05/04/23 11:06 Review of Systems Review of Systems Constitutional: No fever, chills, fatigue, night sweats, weight changes ENT/Mouth: No ear pain, hearing loss, nasal congestion, sinus pain, rhinorrhea, sore throat Eyes: No eye pain, swelling, redness, vision changes, discharge Cardio: No chest pain, palpitations, ESPOSITO, orthopnea, peripheral edema Pulm: No SOB, cough, sputum, wheezing, dyspnea, hemoptysis GI: +nausea, +vomiting, No hematemesis, +abdominal pain, No diarrhea, constipation, hematochezia, melena : No irregular bleeding, dysuria, frequency, urgency, hesitancy, hematuria, flank pain, urinary flow changes, urinary incontinence or retention MSK: No back pain, neck pain, joint pain, myalgias Skin: No lesions, rashes Neuro: No weakness, numbness, paresthesias, LOC, dizziness, headache All other systems reviewed and are negative. [facility] Past Medical History Attestation statement: The following information was validated with the patient. Source: old records reviewed and nursing notes reviewed Medical History Tubular adenoma of colon GERD (gastroesophageal reflux disease) Knee osteoarthritis Erectile dysfunction Hypercholesterolemia Hypertension Gout Type 2 diabetes mellitus with hyperglycemia Surgical History History of cataract surgery History of knee replacement procedure of left knee History of eye surgery Family History Family History Father Medical history unknown Mother Medical history unknown Social History Housing: House Alcohol intake: current Alcohol intake frequency: a few times a week Alcohol type: beer, wine and hard liquor Patient Tobacco Use Status: Former Tobacco user Tobacco use type: Cigarette Smoked in Last 30 Days: No e-Cigarette/Vaping Use: Never Used Use of substances other than those prescribed or required for medical reasons: No Advance Directives: No Advance Directives Information Provided: Yes Nutrition Risks: No Nutritional Risk Current occupational status: retired Cognitive needs: No Hearing needs: No Vision needs: Yes Physical Exam ED Vital Signs: Vital Signs - 24 hr 05/04/23 11:06 05/04/23 11:57 05/04/23 14:00 Temperature 98 F 97.9 F Pulse Rate 78 62 73 Respiratory Rate 19 12 16 Blood Pressure 124/92 H 125/55 L 100/47 L Pulse Oximetry 98 97 98 Oxygen Delivery Method Room Air Room Air Room Air BMI result Body Mass Index 23.4 Vital signs stable, afebrile. Const General: cooperative, no acute distress, alert and awake Orientation/consciousness: patient oriented x3 Limitations: no limitations HENMT Mouth: Normal oral and palatal mucosa present and moist mucous membranes Eyes General: appearance normal, both eyes and all related structures Conjunctivae: conjunctivae normal Sclerae: sclerae normal Pupils: Equal, round and reactive pupils present Neck Neck: Yes normal visual inspection and Yes no lymphadenopathy Resp Effort & Inspection: normal respiratory effort Auscultation: clear to auscultation bilaterally Cardio Rate: regular rate Rhythm: regular rhythm Peripheral pulses: radial pulses present, posterior tibial pulses present and dorsalis pedis present GI Other: Abdomen soft, nondistended, tender to palpation of the right upper quadrant and epigastric region, no rebound tenderness or guarding. Normoactive bowel sounds x4. Inspection: Yes normal to inspection General: Yes no CVA tenderness Back/Spine/Pelvis Back: no CVA tenderness Skin General skin exam: no rashes or lesions noted and no jaundice Neuro General: patient oriented x3, gait normal and moves all extremities Cranial nerves: Yes CN's II-XII intact bilaterally and Yes Equal, round and reactive pupils present Extrem General: Yes normal to inspection, Yes full ROM and Yes capillary refill normal Course Course Course Narrative: This is an RME: Additional HPI, ROS, PE not included below will be deferred to primary provider. This is a [id number] presenting to the ER with complaints of nausea, vomiting, and abdominal pain. Patient was seen in the emergency department on 04/30/2023 diagnosed with gallstone pancreatitis. Has had subjective fevers and chills. He was seen by Dr. Izaguirre yesterday and was advised to call him if he develops any worsening symptoms. They had called him this morning and was told to page Dr. Izaguirre during his arrival. I reached out to Dr. Izaguirre as we are do not have a current bed in the main emergency department. Plan: Labs, Dmitriy requesting patient be NPO. Reevaluation(s) Reevaluation #1: [id number]-- CBC showing leukocytosis to 24.6 with left shift. Lactic acid 2.3 > will repeat. Chemistry showing total bili 3.3, direct bili 2.6, alk phos 982 > consistent with CBD obstruction. Lipase >3000 consistent with gallstone pancreatitis. > Dr. Izaguirre (gen surgery) at bedside to inform me of patient. States that he does not believe patient is a surgical candidate at this time d/t evidence of CBO obstruction > recommends GI consult for admission/ mrcp. > Discussed workup results with patient and and expressed need for admission to hospital > they are in agreement. > Infection suspected at this time. Blood cultures and IV zosyn ordered. Morphine administered for johnson control. Will consult GI and hospitalist. 1345-- Case discussed with GI (Dr. Cueto) who agrees that patient should be admitted to [facility] for IVF resuscitation and MRCP for suspected CBD stone. Will present to hospitalist for admission. 1353-- Case discussed with hospitalist PAMaryanne who accepts admission to medicine and will place admission orders. Medical Decision Making Medical Decision Making MDM Narrative: 82 year old male with pmhx significant for BPH, hypertension, gout, T2DM, GERD, cholelithiasis presents to the ED today with RUQ pain and nausea/vomiting since this morning. VSS. Patient is nontoxic appearing, in NAD. No jaundice. Sclera anicteric. Abd soft, ND, TTP to the RUQ and epigastric region, no rebound or guarding. Normoactive BS x4. NV intact distally. Clinical concern for acute pancreatitis, cholecystitis, cholangitis, cholelithiasis. Unlikely appendicitis, SBO, ischemic bowel. Plan at this time is labs, lipase, lactic, IVF and re-eval. Differential Diagnosis Differential Diagnoses: The differential diagnosis associated with the presentation includes As above. Admission/Observation Consideration of admission/observation: Escalation of care including admission/observation considered Patient with evidence of obstructing CBD stone and pancreatitis will be admitted to medicine. Consult Healthcare Provider Management of the patient was discussed with: Hospitalist (YANA Oneil) and Card Assembler (Dr. Cueto (GI), Dr. Izaguirre (general surgery)) Lab Data MDM Lab Attestation statement: I reviewed the patient's lab results. As above. 05/04/23 11:51 05/04/23 12:09 Labs: Lab Results 05/04/23 05/04/23 05/04/23 Range/Units 11:51 12:09 13:03 WBC 24.6 H (4.8-10.8) X10*3/uL RBC 4.35 L (4.60-5.80) X10*6/uL Hgb 14.5 (14.0-18.0) g/dl Hct 43.2 (42.0-52.0) % MCV 99.3 H D (80.0-98.0) fL MCH 33.3 H (27.0-33.0) pg MCHC 33.6 (31.0-36.0) g/dl RDW 12.4 (11.0-16.0) % Plt Count 273 D (160-400) X10*3/uL MPV 11.9 (9.4-12.4) fL Immature Gran % (Auto) 1.3 H (0.0-0.4) % Neut % (Auto) 89.4 H (45-73) % Lymph % (Auto) 5.4 L (20-40) % [place] % (Auto) 3.2 (2-11) % Eos % (Auto) 0.2 (0-4) % Baso % (Auto) 0.5 (0-2) % Lymph # (Auto) 1.3 (1.2-4.9) X10*3/uL [place] # (Auto) 0.8 (0.1-1.2) X10*3/uL Eos # (Auto) 0.1 (0.0-0.4) X10*3/uL Baso # (Auto) 0.1 (0.0-0.2) X10*3/uL Abs Immat Gran (auto) 0.33 H (0.00-0.03) X10*3/uL Absolute Neuts (auto) 22.0 H (2.0-8.3) x10*3/uL Absolute Nucleated RBC 0.000 (0.0-0.012) X10*3/uL Nucleated RBC % (auto) 0.0 (0.0-0.2) /100WBC Smear Tech's Comments VERIFIED Sodium 140 (135-145) mmol/L Potassium 4.1 (3.3-5.1) mmol/L Chloride 102 (96-108) mmol/L Carbon Dioxide 27 (22-29) mmol/L Anion Gap 15 (12-20) BUN 30 H (9-16) mg/dL Creatinine 1.04 (0.5-1.4) mg/dL Estim Creat Clear Calc 49.4 Estimated GFR > 60 Random Glucose 199 H (60-115) mg/dL Lactic Acid 2.3 H* 2.2 H* (0.5-2.0) mmol/L Lactic Acid F/U @ 2Hr (0.5-2.0) mmol/L Calcium 9.8 (8.4-10.2) mg/dL Total Bilirubin 3.3 H (0.0-1.0) mg/dL Direct Bilirubin 2.6 H (0.0-0.5) mg/dL AST 576 H (5-37) U/L ALT 445 H (0-40) U/L Alkaline Phosphatase 982 H (39-117) U/L Total Protein 7.2 (6.5-8.0) g/dL Albumin 3.6 (3.5-5.0) g/dL Lipase > 3000 H (8-78) U/L Blood Type O Negative Antibody Screen NEGATIVE 05/04/23 Range/Units 14:31 WBC (4.8-10.8) X10*3/uL RBC (4.60-5.80) X10*6/uL Hgb (14.0-18.0) g/dl Hct (42.0-52.0) % MCV (80.0-98.0) fL MCH (27.0-33.0) pg MCHC (31.0-36.0) g/dl RDW (11.0-16.0) % Plt Count (160-400) X10*3/uL MPV (9.4-12.4) fL Immature Gran % (Auto) (0.0-0.4) % Neut % (Auto) (45-73) % Lymph % (Auto) (20-40) % [place] % (Auto) (2-11) % Eos % (Auto) (0-4) % Baso % (Auto) (0-2) % Lymph # (Auto) (1.2-4.9) X10*3/uL [place] # (Auto) (0.1-1.2) X10*3/uL Eos # (Auto) (0.0-0.4) X10*3/uL Baso # (Auto) (0.0-0.2) X10*3/uL Abs Immat Gran (auto) (0.00-0.03) X10*3/uL Absolute Neuts (auto) (2.0-8.3) x10*3/uL Absolute Nucleated RBC (0.0-0.012) X10*3/uL Nucleated RBC % (auto) (0.0-0.2) /100WBC Smear Tech's Comments Sodium (135-145) mmol/L Potassium (3.3-5.1) mmol/L Chloride (96-108) mmol/L Carbon Dioxide (22-29) mmol/L Anion Gap (12-20) BUN (9-16) mg/dL Creatinine (0.5-1.4) mg/dL Estim Creat Clear Calc Estimated GFR Random Glucose (60-115) mg/dL Lactic Acid (0.5-2.0) mmol/L Lactic Acid F/U @ 2Hr 2.9 H* (0.5-2.0) mmol/L Calcium (8.4-10.2) mg/dL Total Bilirubin (0.0-1.0) mg/dL Direct Bilirubin (0.0-0.5) mg/dL AST (5-37) U/L ALT (0-40) U/L Alkaline Phosphatase (39-117) U/L Total Protein (6.5-8.0) g/dL Albumin (3.5-5.0) g/dL Lipase (8-78) U/L Blood Type Antibody Screen Independent Historian Clinical information obtained from an independent historian. History obtained from or confirmed by: Spouse External Record Review External record reviewed: Inpatient record Prescription Management I considered prescription management with: Pain Medication and Antibiotic Chronic Conditions Patient?s care impacted by: Diabetes and Hypertension Medications Administered Generic Name Dose Route Start Last Admin Trade Name Freq PRN Reason Stop Dose Admin Dextrose/Sodium Chloride 1,000 mls @ 100 mls/hr 05/04/23 17:45 05/04/23 18:11 D5ns IVCONT 100 mls/hr .Q10H SHIRA Administration Piperacillin Sod/Tazobactam 50 mls @ 100 mls/hr 05/04/23 20:00 05/04/23 20:12 Sod 3.375 gm/ Sodium Chloride IV 100 mls/hr Q6H SHIRA Administration Sodium Chloride 3 ml 05/04/23 16:00 05/04/23 17:30 0.9 % Sodium Chloride Flush 3 Ml Syringe IVFLUSH Not Given QSHIFT SHIRA Discontinued Medications Generic Name Dose Route Start Last Admin Trade Name Freq PRN Reason Stop Dose Admin Piperacillin Sod/Tazobactam 50 mls @ 100 mls/hr 05/04/23 12:42 05/04/23 13:54 Sod 3.375 gm/ Sodium Chloride IV 05/04/23 13:11 Infused ONCE ONE Infusion Sodium Chloride 1,973.13 mls @ 1,973.13 mls/hr 05/04/23 12:44 05/04/23 14:08 Ns 30 ml/kg infuse over 1 hr (1973.13 ml) 05/04/23 13:43 Infused IV Infusion .Q1H STA Morphine Sulfate 4 mg 05/04/23 12:44 05/04/23 13:08 Morphine Sulfate 4 Mg/Ml Cartridge IVPUSH 05/04/23 12:45 4 mg ONCE ONE Administration Protocol Ondansetron HCl 4 mg 05/04/23 11:53 05/04/23 11:56 Ondansetron Hcl 4 Mg/2 Ml Vial IVPUSH 05/04/23 11:54 4 mg ONCE ONE Administration Critical Care Time Critical Care Time Critical Care Time: Yes Total Critical Care Time: 60 Attestation: Critical care time in the amount of 60 minutes has been provided to the patient in terms of direct patient care, frequent reevaluation, consultation with general surgery, GI, and hospitalist, review and interpretation of medical data and results, and management of potentially life-threatening conditions. This is all outside of any medical procedures. Discharge Plan Discharge Clinical Impression: Cholelithiasis Patient Disposition: Admitted As Inpatient Interventions: Admission Worksheet (ED) Last Done: 05/04/23 19:53
[2023-05-04] MEDS: ondansetron HCL 4 MG/2 ML VIAL IVPUSH (11:56)
[2023-05-04 11:57] VITALS: BP 125/55; PULSE 62; RESP 12; TEMP 36.6; O2SAT 97
[2023-05-04 11:58] LABS: Basophils Absolute Auto 0.1 X10*3/uL (0.0-0.2); Basophils Percent Auto 0.5 % (0-2); Eosinophils Absolute Auto 0.1 X10*3/uL (0.0-0.4); Eosinophils Percent Auto 0.2 % (0-4); Hematocrit 43.2 % (42.0-52.0); Hemoglobin 14.5 g/dl (14.0-18.0); Imm Gran Abs Auto 0.33 X10*3/uL (0.00-0.03); Imm Gran Pct Auto 1.3 % (0.0-0.4); Lymphocytes Absolute Auto 1.3 X10*3/uL (1.2-4.9); Lymphocytes Percent Auto 5.4 % (20-40); MANUAL DIFF FLAG SCAN; Mean Corpuscular HGB Conc 33.6 g/dl (31.0-36.0); Mean Corpuscular Hemoglobin 33.3 pg (27.0-33.0); Mean Corpuscular Volume 99.3 fL (80.0-98.0); Mean Platelet Volume 11.9 fL (9.4-12.4); Monocytes Absolute Auto 0.8 X10*3/uL (0.1-1.2); Monocytes Percent Auto 3.2 % (2-11); Neutrophils Percent Auto 89.4 % (45-73); Platelet Count 273 X10*3/uL (160-400); Red Blood Count 4.35 X10*6/uL (4.60-5.80); Red Cell Distribution Width 12.4 % (11.0-16.0); SCAN SMEAR FLAG 1; White Blood Count 24.6 X10*3/uL (4.8-10.8)
--- NOTE | 2023-05-04 12:08 | PC.NURSE ---
a&ox3, vss and up to date at this time. 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 20gIV placed in left hand - labs drawn and sent to lab by tech. dorota administered. pt c/o 01/04 abdominal/lower back pain at this time/requesting pain medication. bedside for support. respirations even and unlabored. call johnson placed within reach.
[2023-05-04 12:30] LABS: Lactic Acid 2.3 mmol/L (0.5-2.0)
--- NOTE | 2023-05-04 12:31 | PC.NURSE ---
critical lab received/documented - provider aware.
[2023-05-04 12:32] LABS: Alanine Aminotransferase 445 U/L (0-40); Albumin Level 3.6 g/dL (3.5-5.0); Alkaline Phosphatase 982 U/L (39-117); Anion Gap 15 (12-20); Aspartate Amino Transferase 576 U/L (5-37); Bilirubin Direct 2.6 mg/dL (0.0-0.5); Bilirubin Total 3.3 mg/dL (0.0-1.0); Blood Urea Nitrogen 30 mg/dL (9-16); Calcium 9.8 mg/dL (8.4-10.2); Carbon Dioxide 27 mmol/L (22-29); Chloride 102 mmol/L (96-108); Creatinine Clr Calc Pharmacy 49.4; Estimated Glomerular Filt Rate > 60; Glucose Random 199 mg/dL (60-115); Potassium 4.1 mmol/L (3.3-5.1); Sodium 140 mmol/L (135-145); Total Protein 7.2 g/dL (6.5-8.0)
[2023-05-04 12:37] LABS: SLIDE REVIEW VERIFIED
[2023-05-04 12:47] LABS: Lipase > 3000 U/L (8-78)
[2023-05-04] MEDS: 0.9 % Sodium Chloride 1,973.13 ML 1973.13 ML IV (13:08)
[2023-05-04] MEDS: Morphine Sulfate 4 MG/ML CARTRIDGE IVPUSH ×2 (13:08→21:10)
[2023-05-04] MEDS: Piperacillin Sodium/Tazobactam 3.375 GM in 0.9 % Sodium Chloride 50 ML IV ×2 (13:24→20:12)
--- NOTE | 2023-05-04 13:25 | PC.NURSE ---
medications administered per provider order. pt speaking w/ OR provider at this time.
[2023-05-04 13:26] LABS: Lactic Acid 2.2 mmol/L (0.5-2.0)
--- NOTE | 2023-05-04 13:42 | PM.CNGS ---
History of Present Illness Consult details Consult date: 05/04/23 <Myrtle Michelle PA-C - Last Filed: 05/04/23 14:09> Reason for consult: gallstones (gallstone pancreatitis) <Myrtle Michelle PA-C - Last Filed: 05/04/23 14:09> Requesting physician: Sejal Parnell <Myrtle Michelle PA-C - Last Filed: 05/04/23 14:09> Narrative: 82 year old male with PMH including diabetes mellitus, hypertension, hypercholesterolemia who presented to the ED with complaints of acute onset abdominal pain and vomiting. He reports he felt well this morning and developed severe epigastric pain that radiated to his back about 30 minutes after eating eggs. He then developed nausea and had multiple episodes of vomiting. Due to the severity of the pain and the vomiting, he presented to the ED. CBC, BMP and LFTs were obtained which were significant for a leukocytosis of 24.5, lactic acid 2.3, total/direct bilirubin 3.3/2.6, AST/ALT 576/445, alk phos 982 and lipase >3000. He was recently seen at [facility] ED on 04/30 for transaminitis and hyperglycemia. His LFTs were mildly elevated at that time. He also had a CT scan abd/pelvis showing gallstones, prominent common bile duct and peripancreatic inflammatory changes. He had resolution of his pain and was tolerating a diet so he was sent home and had surgical follow up with Dr. Izaguirre yesterday in the office. Elective laparoscopic cholecystectomy was being scheduled. Prior to that episode he denies RUQ/epigastric pain but does report symptoms of dyspepsia after eating. He does endorse a 30-35lb weight loss over the past few months. He denies fever, chills, changes in skin color, urine color, change in bowel habits, melena, hematochezia. Last colonoscopy was in 2015 and showed diverticulosis. He had an appointment to see Dr. Cueto for his symptoms in May. <Myrtle Michelle PA-C - Last Filed: 05/04/23 14:09> Review of Systems Constitutional: Constitutional: Denies chills, Denies fever(s), Reports poor appetite and Reports weight loss <STEVEN Gallego Last Filed: 05/04/23 14:09> ENT: Denies dizziness <Myrtle Michelle PA-C Last Filed: 05/04/23 14:09> Cardiovascular: Cardiovascular: Denies chest pain, Denies palpitations and Denies dyspnea <SEAN Gallego Last Filed: 05/04/23 14:09> Respiratory: Respiratory: Denies cough and Denies dyspnea <SEAN Gallego Last Filed: 05/04/23 14:09> Gastrointestinal: Gastrointestinal: Reports as per HPI and Denies hematemesis <SEAN Gallego Last Filed: 05/04/23 14:09> Genitourinary: Genitourinary: Denies hematuria and Denies dysuria <Myrtle Michelle PA-C Last Filed: 05/04/23 14:09> Integumentary/Breasts: Skin/Breast: Denies rash and Denies jaundice <SEAN Gallego Last Filed: 05/04/23 14:09> Neurologic: Denies dizziness <SEAN Gallego Last Filed: 05/04/23 14:09> Endocrine: Endocrine: Denies palpitations <SEAN Gallego Last Filed: 05/04/23 14:09> [facility] Past Medical History Medical History: Medical History Tubular adenoma of colon GERD (gastroesophageal reflux disease) Knee osteoarthritis Erectile dysfunction Hypercholesterolemia Hypertension Gout Type 2 diabetes mellitus with hyperglycemia <ESAN Gallego Last Filed: 05/04/23 14:09> Family History Family History: Family History Father Medical history unknown Mother Medical history unknown <Myrtle Michelle PA-C Last Filed: 05/04/23 14:09> Surgical History Surgical History: Surgical History History of cataract surgery History of knee replacement procedure of left knee History of eye surgery <Myrtle Michelle PA-C - Last Filed: 05/04/23 14:09> Social History Social History: (Updated 05/03/23 @ 14:32 by TONE Bang) Housing: House Alcohol intake: current Alcohol intake frequency: a few times a week Alcohol type: beer, wine and hard liquor Patient Tobacco Use Status: Former Tobacco user Tobacco use type: Cigarette Smoked in Last 30 Days: No e-Cigarette/Vaping Use: Never Used Use of substances other than those prescribed or required for medical reasons: No Advance Directives: No Advance Directives Information Provided: Yes Current occupational status: retired Cognitive needs: No Hearing needs: No Vision needs: Yes <Myrtle Michelle PA-C - Last Filed: 05/04/23 14:09> Meds Allergies/Adverse reactions: Allergies Allergy/AdvReac Type Severity Reaction Status Date / Time metformin Allergy Unknown diarrhea Verified 05/04/23 11:06 rosuvastatin [Crestor] Allergy Unknown Unknown Verified 05/04/23 11:06 <Myrtle Michelle PA-C - Last Filed: 05/04/23 14:09> Active Medications: Current Medications Sodium Chloride (Ns) 1,973.13 mls @ 1,973.13 mls/hr 30 ml/kg infuse over 1 hr (1973.13 ml) IV .Q1H STA Stop: 05/04/23 13:43 Last Admin: 05/04/23 13:08 Dose: 1,973.13 mls/hr <Myrtle Michelle PA-C - Last Filed: 05/04/23 14:09> Physical Exam Vital Signs: Vital Signs: Last Vital Signs Temp 97.9 F 05/04/23 11:57 Pulse 62 05/04/23 11:57 Resp 12 05/04/23 11:57 BP 125/55 L 05/04/23 11:57 Pulse Ox 97 05/04/23 11:57 O2 Del Method Room Air 05/04/23 11:57 BMI result Body Mass Index 23.4 <STEVEN Gallego Last Filed: 05/04/23 14:09> Const: General: comfortable and alert <Myrtle Michelle PA-C - Last Filed: 05/04/23 14:09> Orientation/consciousness: patient oriented x3 <Myrtle Miguel AngelSEAN beasley - Last Filed: 05/04/23 14:09> Resp: Effort & Inspection: normal respiratory effort <Myrtle GarcíaSEAN beasleyMer[facility] Last Filed: 05/04/23 14:09> Cardio: Rate: regular rate <Myrtle GarcíaYANA beasleyDelilahMercy Health [facility] Center Last Filed: 05/04/23 14:09> GI: Inspection: No abdominal wall ecchymosis and No distended <Myrtle GarcíaYANA beasleyC[facility] Foundation Last Filed: 05/04/23 14:09> Palpation (GI): Soft to palpation, Tenderness to palpation present (GI) (very mild epigastric tenderness) Perkins's sign negative, no guarding and not rigid <MyrtleYANA MurciaDelilahMercy Health [facility] Last Filed: 05/04/23 14:09> Percussion: Yes normal to percussion <Myrtle GarcíaYANA beasleyC[facility] Clinic Foundation Last Filed: 05/04/23 14:09> Skin: General skin exam: no rashes or lesions noted and no jaundice <Myrtle GarcíaYANA beasleyC[facility] Clinic Foundation Last Filed: 05/04/23 14:09> Neuro: General: patient oriented x3 and moves all extremities <Myrtle YANA MichelleDelilahMercy Health [facility] Last Filed: 05/04/23 14:09> Extrem: General: Yes no clubbing, cyanosis or edema <YANA GallegoC[facility] Clinic Foundation Last Filed: 05/04/23 14:09> Results Labs Result diagrams: 05/04/23 11:51 05/04/23 12:09 <SEAN GallegoMer[facility] Last Filed: 05/04/23 14:09> Labs: Abnormal lab results 05/04/23 05/04/23 05/04/23 Range/Units 11:51 12:09 13:03 WBC 24.6 H (4.8-10.8) X10*3/uL RBC 4.35 L (4.60-5.80) X10*6/uL MCV 99.3 H D (80.0-98.0) fL MCH 33.3 H (27.0-33.0) pg Immature Gran % (Auto) 1.3 H (0.0-0.4) % Neut % (Auto) 89.4 H (45-73) % Lymph % (Auto) 5.4 L (20-40) % Abs Immat Gran (auto) 0.33 H (0.00-0.03) X10*3/uL Absolute Neuts (auto) 22.0 H (2.0-8.3) x10*3/uL BUN 30 H (9-16) mg/dL Random Glucose 199 H (60-115) mg/dL Lactic Acid 2.3 H* 2.2 H* (0.5-2.0) mmol/L Total Bilirubin 3.3 H (0.0-1.0) mg/dL Direct Bilirubin 2.6 H (0.0-0.5) mg/dL AST 576 H (5-37) U/L ALT 445 H (0-40) U/L Alkaline Phosphatase 982 H (39-117) U/L Lipase > 3000 H (8-78) U/L Short CBC 05/04/23 Range/Units 11:51 WBC 24.6 H (4.8-10.8) X10*3/uL Hgb 14.5 (14.0-18.0) g/dl Hct 43.2 (42.0-52.0) % Plt Count 273 D (160-400) X10*3/uL BMP 05/04/23 12:09 Sodium 140 Potassium 4.1 Chloride 102 Carbon Dioxide 27 BUN 30 H Creatinine 1.04 Calcium 9.8 Liver Function 05/04/23 Range/Units 12:09 Total Bilirubin 3.3 H (0.0-1.0) mg/dL Direct Bilirubin 2.6 H (0.0-0.5) mg/dL AST 576 H (5-37) U/L ALT 445 H (0-40) U/L Alkaline Phosphatase 982 H (39-117) U/L Albumin 3.6 (3.5-5.0) g/dL All other labs normal. <Myrtle Michelle PA-C - Last Filed: 05/04/23 14:09> Assessment and Plan (1) Gallstone pancreatitis: Status: Acute <Myrtle Michelle PA-C - Last Filed: 05/04/23 14:09> 82 year old male with PMH including diabetes mellitus, hypertension, hypercholesterolemia, hx of gallstone pancreatitis who presented to the ED with complaints of acute onset abdominal pain and vomiting found to have significantly elevated LFTs and lipase consistent with gallstone pancreatitis. Patient is actually clinically appearing well with a benign abdominal exam. Recommend supportive measures for treatment of the pancreatitis. I have ordered an MRCP to further evaluate the CBD given prominence of CBD on prior CT. If positive, rec GI consult for possible ERCP. Trend LFTs. Will continue to follow. Plan lap kelly with IOC when pancreatitis resolves. Discussed plan with patient and who are comfortable and in agreement. All questions answered. <Myrtle Michelle PA-C - Last Filed: 05/04/23 14:09> Procedures Date of Service Date of Service: 05/04/23 <Myrtle Michelle PA-C - Last Filed: 05/04/23 14:09> 05/04/23 <Declan Izaguirre MD - Last Filed: 05/04/23 14:14>
[2023-05-04 14:00] VITALS: BP 100/47; PULSE 73; RESP 16; O2SAT 98
[2023-05-04 14:14] LABS: Reflex Lactate? Lactic Acid Added
--- NOTE | 2023-05-04 14:17 | PHA.MEDREC ---
Pharmacy Consult ? Medication Reconciliation Pharmacy has completed the medication reconciliation. Patient had list of medications which match claim history and provider records. Reported the Novolg is a sliding scale insulin. Renata Booth, AgustínD
--- NOTE | 2023-05-04 14:32 | PC.NURSE ---
repeat lactic obtained and sent to lab by tech.
--- NOTE | 2023-05-04 14:56 | PC.NURSE ---
pt speaking w/ dr. cooper at this time - MRI form filled/faxed over. form placed in pt's chart.
[2023-05-04 15:04] LABS: ~Lactic Acid-LAB USE ONLY 2.9 mmol/L (0.5-2.0)
[2023-05-04 15:08] LABS: Reflex Lactate? Lactic Acid Added
--- NOTE | 2023-05-04 15:08 | P.HPHOSP_ITS ---
<Statement entered by Broderick Bautista MD - 05/06/23 09:32> The patient was seen and evaluated with Theresa Ferrear NP. I agree with her note, assessment and plan with the following. In summary, an 82 year old male who presented with abdominal pain with CT scan suggestive of possible cholangitis and gallstone pancreatitis. Acute pancreatitis with transmaminitis and suspected cholangitis Abdominal CT showing pancreatitis without pancreatic necrosis, multiple gallstones in the contracted gallbladder, common bile duct measuring 1 cm, stone in the distal common bile duct difficult to exclude MRCP Gastroenterology consult General surgery input, cholecystectomy likely after resolution of pancreatitis Rest of evaluations by REVERSE LOGISTICS ANALYST note. History of Present Illness Date of Service: 05/04/23 Chief Complaint: Abdominal pain 82-year-old man presenting with intractable right upper quadrant pain and nausea. He was seen by General surgery on 05/03/2023 and plan was for elective cholecystectomy. Patient developed severe pain and came to the ER for further evaluation. He had episode of vomiting and severe epigastric pain that radiated to his back after eating breakfast. Developed multiple episodes of nausea and vomiting and decided to present to the emergency department for further evaluation. white blood cell count 24.6, lactic acid 2.9, total bilirubin 3.3, lipase greater than 3000. Abdominal CT showing pancreatitis with multiple gallstones and partially contracted gallbladder with a common bile duct of 1 cm and possible distal common bile duct stone. No fever noted. Status MRCP ordered. Patient given Zosyn, morphine, IV fluid, Zofran in the ED. Will admit patient for management of Gallstone pancreatitis vs cholangitis. Review of Systems 2 Review of Systems: Denies any recent fever chills or decrease in appetite respiratory denies any shortness of breath coverage production cardiovascular denied chest pain gastrointestinal denies any dysphagia abdominal pain nausea vomiting or diarrhea genitourinary denies any dysuria frequency or hematuria musculoskeletal denies any joint pain or swelling neuropsych denies any weakness or seizures all other systems reviewed are negative [facility] Medical History Tubular adenoma of colon GERD (gastroesophageal reflux disease) Knee osteoarthritis Erectile dysfunction Hypercholesterolemia Hypertension Gout Type 2 diabetes mellitus with hyperglycemia Family History Father Medical history unknown Mother Medical history unknown Surgical History History of cataract surgery History of knee replacement procedure of left knee History of eye surgery Housing: House Alcohol intake: current Alcohol intake frequency: a few times a week Alcohol type: beer, wine and hard liquor Patient Tobacco Use Status: Former Tobacco user Tobacco use type: Cigarette Smoked in Last 30 Days: No e-Cigarette/Vaping Use: Never Used Use of substances other than those prescribed or required for medical reasons: No Advance Directives: No Advance Directives Information Provided: Yes Nutrition Risks: No Nutritional Risk Current occupational status: retired Cognitive needs: No Hearing needs: No Vision needs: Yes Meds Allergies Allergy/AdvReac Type Severity Reaction Status Date / Time metformin Allergy Unknown diarrhea Verified 05/04/23 11:06 rosuvastatin [Crestor] Allergy Unknown Unknown Verified 05/04/23 11:06 Home Medications Medication Instructions Recorded Confirmed Last Taken Type cyanocobalamin (vitamin B-12) 1,000 mcg PO DAILY 05/04/23 05/04/23 Unknown History 1,000 mcg tablet insulin aspart U-100 100 unit/mL 0 sliding scale dose subcut TIDAC 05/04/23 05/04/23 Unknown History (3 mL) subcutaneous pen (Novolog FlexPen U-100 Insulin aspart) Physical Exam 2 Vital Signs and Narrative: Vital Signs: Last Vital Signs Temp 97.9 F 05/04/23 11:57 Pulse 73 05/04/23 14:00 Resp 16 05/04/23 14:00 BP 100/47 L 05/04/23 14:00 Pulse Ox 98 05/04/23 14:00 O2 Del Method Room Air 05/04/23 14:00 BMI result Body Mass Index 23.4 Appearing in no acute distress head is normocephalic atraumatic eyes pupils are PERRLA sclera is anicteric mouth throat mucous membranes are intact and moist neck is supple no lymphadenopathy, no JVD noted lung sounds are clear to auscultation heart regular rate rhythm, clear S1, S2 positive bowel sounds, abdomen is soft, nontender neuro patient is alert x3, no focal deficits Results Labs 05/04/23 11:51 05/04/23 12:09 Labs: Laboratory Results - last 24 hr 05/04/23 05/04/23 05/04/23 11:51 12:09 13:03 MCV 99.3 H D MCH 33.3 H MCHC 33.6 RDW 12.4 Plt Count 273 D MPV 11.9 Immature Gran % (Auto) 1.3 H Neut % (Auto) 89.4 H Lymph % (Auto) 5.4 L Antelope % (Auto) 3.2 Eos % (Auto) 0.2 Baso % (Auto) 0.5 Lymph # (Auto) 1.3 Antelope # (Auto) 0.8 Eos # (Auto) 0.1 Baso # (Auto) 0.1 Abs Immat Gran (auto) 0.33 H Absolute Neuts (auto) 22.0 H Absolute Nucleated RBC 0.000 Nucleated RBC % (auto) 0.0 Smear Tech's Comments VERIFIED Anion Gap 15 Estim Creat Clear Calc 49.4 Estimated GFR > 60 Random Glucose 199 H Lactic Acid 2.3 H* 2.2 H* Lactic Acid F/U @ 2Hr Calcium 9.8 Total Bilirubin 3.3 H Direct Bilirubin 2.6 H AST 576 H ALT 445 H Alkaline Phosphatase 982 H Total Protein 7.2 Albumin 3.6 Lipase > 3000 H Blood Type O Negative Antibody Screen NEGATIVE 05/04/23 14:31 MCV MCH MCHC RDW Plt Count MPV Immature Gran % (Auto) Neut % (Auto) Lymph % (Auto) Antelope % (Auto) Eos % (Auto) Baso % (Auto) Lymph # (Auto) Antelope # (Auto) Eos # (Auto) Baso # (Auto) Abs Immat Gran (auto) Absolute Neuts (auto) Absolute Nucleated RBC Nucleated RBC % (auto) Smear Tech's Comments Anion Gap Estim Creat Clear Calc Estimated GFR Random Glucose Lactic Acid Lactic Acid F/U @ 2Hr 2.9 H* Calcium Total Bilirubin Direct Bilirubin AST ALT Alkaline Phosphatase Total Protein Albumin Lipase Blood Type Antibody Screen Assessment and Plan (1) Gallstone pancreatitis: Status: Acute Plan 82 year old man admitted with abdominal pain secondary to question of cholangitis, gallstone pancreatitis Gallstone pancreatitis with suspected cholangitis Abdominal CT showing pancreatitis without pancreatic necrosis, multiple gallstones in the contracted gallbladder, common bile duct measuring 1 cm, stone in the distal common bile duct difficult to exclude MRCP ordered stat, results pending Lipase greater than 3000, total bilirubin 3.3, AST 576, ALT 445, alk-phos 92 Gastroenterology consulted General surgery following, likely plan for cholecystectomy after resolution of pancreatitis Diabetes mellitus type 2 Sliding scale, NPO for now Hypertension Blood pressure on the lower side likely due to acute medical issues Hold lisinopril metoprolol for now Hyperlipidemia Hold statin GERD We continue PPI DVT prophylaxis with pneumatic compression boots in light of possible surgical intervention Full code Patient requires at least 2 inpatient midnights for treatment of possible cholangitis likely requiring surgical intervention and close monitoring which cannot be done in a less acute setting. Quality Stroke Does the patient have a stroke diagnosis?: No VTE Prior VTE?: No VTE Risk Level:: Medical - moderate - high VTE Device Contraindication: N/A - Device Ordered VTE Drug Contraindication: Treatment Not Indicated
--- NOTE | 2023-05-04 15:17 | PC.NURSE ---
pt to MRI at this time.
[2023-05-04 15:20] VITALS: BP 99/47; PULSE 85; RESP 16; TEMP 37.2; O2SAT 96
[2023-05-04 16:34] LABS: Reflex Lactate? 2 Y
[2023-05-04 16:55] LABS: ~Lactic Acid-LAB USE ONLY 2.2 mmol/L (0.5-2.0)
--- NOTE | 2023-05-04 17:31 | PC.NURSE ---
pt returned from MRI at this time. vss and up to date nsr on the environmental monitoring specialist. pt verbalizing no pain at this time. respirations remain even and unlabored. family bedside. call johnson placed within reach.
[2023-05-04 18:06] VITALS: BP 105/48; PULSE 85; RESP 20; TEMP 37.2; O2SAT 94
[2023-05-04] MEDS: Dextrose 5 % and 0.9 % NaCl 1,000 ML 100 ML IVCONT (18:11)
--- NOTE | 2023-05-04 18:13 | PC.NURSE ---
medication administered per provider order.
[2023-05-04 18:42] LABS: Reflex Lactate? 2 Y
--- NOTE | 2023-05-04 18:43 | PC.NURSE ---
repeat lactic obtained at this time.
[2023-05-04 19:44] LABS: ~Lactic Acid-LAB USE ONLY 1.2 mmol/L (0.5-2.0)
--- NOTE | 2023-05-04 20:16 | PM.EVENT ---
Event Note Date of Service: 05/04/23 Event Note: GI consult dictated Pt seen and examined earlier today MRI appears to show at least one CBD stone. ERCP planned for 05/05 pending clinical course. EGD to be done at the same time for wt loss and appetite changes. Time Spent With Patient Time: Total time managing care of this patient today ____ minutes.
--- NOTE | 2023-05-04 20:25 | MHC.SHP ---
Pre-Procedural Eval Section A Date of Service: 05/04/23 The patient is an INPATIENT: Yes Changes since office visit: No Cold of Flu in the past 2 weeks, No New Medical Problems, No Changes in Medication and No Patient answered all questions The History & Physical has been completed within 30 days and I have reviewed it.: Yes Section B Chief Complaint: gallstone pancreatitis Allergies: Allergies Allergy/AdvReac Type Severity Reaction Status Date / Time metformin Allergy Unknown diarrhea Verified 05/04/23 11:06 rosuvastatin [Crestor] Allergy Unknown Unknown Verified 05/04/23 11:06 Plan I have reviewed the history and physical and performed a pertinent physical examination on my patient. No changes have occurred unless specified. Time Spent With Patient Time: Total time managing care of this patient today ____ minutes.
--- NOTE | 2023-05-04 20:42 | CONS_ITS ---
DATE OF SERVICE: 05/04/2023 REFERRING PHYSICIAN: YANA Hogue REASON FOR CONSULTATION: Elevated liver enzymes and gallstones. HISTORY OF PRESENT ILLNESS: Mr. Krishnamurthy is a pleasant 82-year-old man, who is seen in the emergency department because of gallstone pancreatitis. He has a known history of gallstones and had outpatient cholecystectomy planned after consulting with Dr. Izaguirre. This morning after eating breakfast with 2 eggs, he became nauseous with severe epigastric pain, radiating into the back. There was associated nonbloody emesis. He presented to the emergency room where evaluation showed leukocytosis with elevation of his liver enzymes and lipase. MRCP has been ordered. Imaging studies that have been completed include a CT scan of the abdomen and pelvis, which is reviewed. The common bile duct was estimated at 1 cm and changes of pancreatitis were noted. Since evaluation, he has been treated with morphine and IV fluids with improvement in his symptoms. PAST MEDICAL HISTORY: 1. Gallstones. 2. Pancreatitis as above. 3. Osteoarthritis. 4. Hypertension. 5. Hyperlipidemia. 6. Type 2 diabetes mellitus. 7. Gout. 8. Colon polyps. CURRENT MEDICATIONS: Current medication list is reviewed in the chart. ALLERGIES: METFORMIN AND ROSUVASTATIN. FAMILY HISTORY: This is reviewed with the patient and is noncontributory. SOCIAL HISTORY: There is no current tobacco, alcohol, or substance abuse. REVIEW OF SYSTEMS: SKIN: No pruritus. HEENT: Negative. CARDIOPULMONARY: He denies shortness of breath or chest pain currently. GASTROINTESTINAL: As above. GENITOURINARY: Negative. NEUROPSYCHIATRIC: Negative. PHYSICAL EXAMINATION: GENERAL: Shows a pleasant male, lying comfortably on a stretcher. VITAL SIGNS: Reviewed in the electronic medical record and are stable. SKIN: Anicteric. HEENT: Shows no scleral icterus. NECK: Without lymphadenopathy or thyromegaly. LUNGS: Clear. HEART: Shows a regular rate and rhythm. S1, S2. No murmur. ABDOMEN: Soft without focal masses or tenderness. Bowel sounds are present. There is some epigastric tenderness to palpation. EXTREMITIES: Without edema. LABORATORY DATA AND IMAGING STUDIES: Reviewed. IMPRESSION: Gallstone pancreatitis. I discussed endoscopic retrograde cholangiopancreatography with him should this be needed based on the MRI findings. He understands risks and benefits and agrees to proceed if necessary. In the interim, I agree with treating him symptomatically with IV fluids, pain medications, and antiemetics. Thanks for asking me to see him. I will follow him in the hospital with you. MD NATE Silvestre/GERRY / [id number] MTDD
[2023-05-04 20:44] VITALS: BP 134/60; PULSE 83; RESP 16; TEMP 36.4; O2SAT 98; BMI 24.1
[2023-05-04 20:52] LABS: Glucose, Whole Blood 171 mg/dL (60-115)
--- NOTE | 2023-05-04 20:52 | OP_ITS ---
DATE OF SERVICE: 05/04/2023 SURGEON: Gabriel Cueto MD INDICATIONS: Iron-deficiency anemia. PREOPERATIVE DIAGNOSIS: POSTOPERATIVE DIAGNOSIS: PROCEDURE PERFORMED: ESTIMATED BLOOD LOSS: COMPLICATIONS: ANESTHESIA: Monitored anesthesia care. ASSISTANTS: SPECIMENS: PROCEDURES PERFORMED: Upper endoscopy with biopsy, colonoscopy to the right colon with biopsy and snare polypectomy. DESCRIPTION OF PROCEDURE: A history and physical were performed. The risks and benefits of the procedure were explained to the patient, and informed consent was obtained. The patient was placed in the left lateral decubitus position. The Olympus video gastroscope was introduced into the esophagus, stomach, and duodenum. Examination was performed and the scope was removed. He tolerated the procedure well and was repositioned for colonoscopy. Digital rectal exam was performed and was found to be normal. The Olympus pediatric video colonoscope was introduced into the rectum and advanced to the right colon where formed stool was encountered. Examination was performed and the scope was removed. He tolerated both procedures well and was taken to recovery room in stable condition. It is estimated that 90% of the colon was examined. FINDINGS: Upper endoscopy: 1. Esophagus. The esophagus was normal. There was a small 4 mm diverticulum in the distal esophagus. There was no esophagitis. 2. Stomach. The stomach showed several, less than 5 mm, benign-appearing polyps in the body and fundus. There was no ulcer identified and no bleeding seen. 3. Duodenum, the bulb and second portion were normal. Biopsies were obtained from the second portion. Colonoscopy: The prep was poor with liquid stool, formed stool and semi formed stool throughout the colon. This was washed and suctioned as best possible. The cecum was not clearly seen due to formed stool. No mass lesion was identified. No bleeding site was seen. There was a right colon polyp measuring less than 5 mm, which was removed with biopsy forceps. In the rectum was a 10 mm polyp, which was removed with a snare and a single hemostatic clip was placed. IMPRESSION: 1. Essentially normal upper endoscopy. 2. Colon polyps. RECOMMENDATIONS: 1. Follow up the biopsy results. 2. Restart anticoagulation in the a.m. MD NATE Silvestre/SUSANNAHL / [id number]
[2023-05-04] MEDS: 0.9 % Sodium Chloride Flush 3 ML SYRINGE IVFLUSH (21:11)
[2023-05-04] MEDS: Phytonadione (Vit K1) 10 MG in 0.9 % Sodium Chloride 50 ML 51 MG IV (21:11)
--- NOTE | 2023-05-04 21:17 | PC.NURSE ---
Pt's blood sugar at 2100 was 171, tiger text to Dr. Siu because pt is NPO and has D5NS running, Dr. Siu said to hold 2100 insulin. Also, pt is NPO for pancreatitis and procedure tomorrow, pt requested ice chips, Dr. Siu said OK for pt to have ice chips.
[2023-05-05] VITALS (12 sets, daily range): BP systolic 127–152; BP diastolic 59–72; PULSE 8–83; RESP 16–18; TEMP 35.5–36.7; O2SAT 95–97
[2023-05-05] MEDS: Piperacillin Sodium/Tazobactam 3.375 GM in 0.9 % Sodium Chloride 50 ML IV ×4 (02:51→20:25)
[2023-05-05] MEDS: Dextrose 5 % and 0.9 % NaCl 1,000 ML 100 ML IVCONT (03:16)
[2023-05-05 06:44] LABS: MANUAL DIFF FLAG NO
[2023-05-05 06:47] LABS: Basophils Percent Auto 0.2 % (0-2); Eosinophils Percent Auto 0.2 % (0-4); Hemoglobin 11.6 g/dl (14.0-18.0); Imm Gran Pct Auto 0.8 % (0.0-0.4); Lymphocytes Absolute Auto 0.6 X10*3/uL (1.2-4.9); Mean Corpuscular HGB Conc 33.1 g/dl (31.0-36.0); Mean Corpuscular Hemoglobin 32.7 pg (27.0-33.0); Mean Corpuscular Volume 98.6 fL (80.0-98.0); Mean Platelet Volume 11.5 fL (9.4-12.4); Monocytes Absolute Auto 0.7 X10*3/uL (0.1-1.2); Monocytes Percent Auto 5.4 % (2-11); Neutrophils Absolute Auto 10.6 x10*3/uL (2.0-8.3); Neutrophils Percent Auto 88.4 % (45-73); Platelet Count 160 X10*3/uL (160-400); Red Blood Count 3.55 X10*6/uL (4.60-5.80); Red Cell Distribution Width 12.7 % (11.0-16.0)
[2023-05-05 06:59] LABS: INTERNATIONAL NORM RATIO 1.1 (0.9-1.1); Prothrombin Time 12.8 SEC (11.1-13.3)
[2023-05-05 07:02] LABS: Glucose, Whole Blood 191 mg/dL (60-115)
[2023-05-05 07:05] LABS: Alanine Aminotransferase 415 U/L (0-40); Albumin Level 3.2 g/dL (3.5-5.0); Alkaline Phosphatase 785 U/L (39-117); Anion Gap 12 (12-20); Aspartate Amino Transferase 414 U/L (5-37); Bilirubin Direct 3.7 mg/dL (0.0-0.5); Bilirubin Total 4.2 mg/dL (0.0-1.0); Blood Urea Nitrogen 23 mg/dL (9-16); Calcium 9.1 mg/dL (8.4-10.2); Carbon Dioxide 24 mmol/L (22-29); Chloride 113 mmol/L (96-108); Creatinine Clr Calc Pharmacy 52.4; Estimated Glomerular Filt Rate > 60; Glucose Random 195 mg/dL (60-115); Potassium 4.2 mmol/L (3.3-5.1); Sodium 145 mmol/L (135-145); Total Protein 6.1 g/dL (6.5-8.0)
--- NOTE | 2023-05-05 07:37 | HO.PM.IMPN ---
Subjective Subjective Date of Service: 05/05/23 Interval History: Interval history: follow up on gallstone pancreatitis WBC trending down, LFTs realtively stable with slight increase in total bili to 4.2, direct bili 3.7 Review of Systems Review of Systems: Yes all other systems are reviewed and are negative Physical Exam Vital Signs: Vital Signs: Last Vital Signs Temp 96 F L 05/05/23 06:53 Pulse 75 05/05/23 06:53 Resp 17 05/05/23 06:53 BP 148/67 H 05/05/23 06:53 Pulse Ox 96 05/05/23 06:53 O2 Del Method Room Air 05/05/23 06:53 BMI result Body Mass Index 24.1 Constitutional - Awake and Alert, No apparent distress Eyes - PERRLA, EOMI Cardiovascular - S1S2, RRR, No edema Respiratory - Normal lung expansion, Normal respiratory effort, No respiratory distress, CTA bilaterally Gastrointestinal - NT / ND; +BS; No rebound or guarding Extremities - no calf tenderness bilaterally, no swelling Skin - Warm/Dry Neurological - Alert & oriented x3, Objective Data Active Medications Acetaminophen (Acetaminophen 325 Mg Tablet) 650 mg PO Q6H PRN PRN Reason: Pain, Mild (Pain Scale 1-3) Allopurinol (Allopurinol 100 Mg Tablet) 100 mg PO DAILY [facility] Cyanocobalamin (Cyanocobalamin (Vitamin B-12) 1,000 Mcg Tablet) 1,000 mcg PO DAILY [facility] Dextrose (Dextrose 50 % 25 Gm/50 Ml Syringe) 25 gm IVPUSH Q15M PRN; Protocol PRN Reason: per Hypoglycemia Standing Ord. Folic Acid (Folic Acid 1 Mg Tablet) 1 mg PO DAILY [facility] Glucose (Glucose Gel 15 Gm Gel..Gram.) 15 gm PO Q15M PRN; Protocol PRN Reason: per Hypoglycemia Standing Ord. Dextrose/Sodium Chloride (D5ns) 1,000 mls @ 100 mls/hr IVCONT .Q10H [facility] Last Admin: 05/05/23 03:16 Dose: 100 mls/hr Documented By: CARMEL Piperacillin Sod/Tazobactam (Sod 3.375 gm/ Sodium Chloride) 50 mls @ 100 mls/hr IV Q6H [facility] Last Infusion: 05/05/23 03:24 Dose: Infused Documented By: CARMEL Insulin Human Lispro (Insulin Lispro 100 Unit/Ml 3 Ml Vial) 0 unit SUBCUT QIDACHS [facility]; Protocol Last Admin: 05/05/23 07:00 Dose: Not Given Documented By: KRISTAL Non-Admin Reason: NPO, hold insulin Morphine Sulfate (Morphine Sulfate 4 Mg/Ml Cartridge) 4 mg IVPUSH Q4H PRN; Protocol PRN Reason: Pain, Severe (Pain Scale 7-10) Last Admin: 05/04/23 21:10 Dose: 4 mg Documented By: YVONNE Omeprazole (Omeprazole 20 Mg Capsule.Dr) 20 mg PO DAILY@0630 [facility] Last Admin: 05/05/23 05:47 Dose: Not Given Documented By: CARMEL Non-Admin Reason: NPO Ondansetron HCl (Ondansetron Hcl 4 Mg/2 Ml Vial) 4 mg IVPUSH Q8H PRN PRN Reason: Nausea and Vomiting Oxycodone HCl (Oxycodone Hcl Immed Release 5 Mg Tablet) 5 mg PO Q6H PRN PRN Reason: Pain, Severe (Pain Scale 7-10) Sodium Chloride (0.9 % Sodium Chloride Flush 3 Ml Syringe) [facility] Last Admin: 05/05/23 07:01 Dose: Not Given Documented By: KRISTAL Non-Admin Reason: IV Running Labs 05/05/23 06:23 05/05/23 06:23 Labs: Laboratory Results - last 24 hr 05/04/23 05/04/23 05/04/23 11:51 12:09 13:03 MCV 99.3 H D MCH 33.3 H MCHC 33.6 RDW 12.4 Plt Count 273 D MPV 11.9 Immature Gran % (Auto) 1.3 H Neut % (Auto) 89.4 H Lymph % (Auto) 5.4 L [place] % (Auto) 3.2 Eos % (Auto) 0.2 Baso % (Auto) 0.5 Lymph # (Auto) 1.3 [place] # (Auto) 0.8 Eos # (Auto) 0.1 Baso # (Auto) 0.1 Abs Immat Gran (auto) 0.33 H Absolute Neuts (auto) 22.0 H Absolute Nucleated RBC 0.000 Nucleated RBC % (auto) 0.0 Smear Tech's Comments VERIFIED PT INR Anion Gap 15 Estim Creat Clear Calc 49.4 Estimated GFR > 60 POC Glucose Random Glucose 199 H Lactic Acid 2.3 H* 2.2 H* Lactic Acid F/U @ 2Hr Lactic Acid F/U @ 4Hr Calcium 9.8 Total Bilirubin 3.3 H Direct Bilirubin 2.6 H AST 576 H ALT 445 H Alkaline Phosphatase 982 H Total Protein 7.2 Albumin 3.6 Lipase > 3000 H Blood Type O Negative Antibody Screen NEGATIVE 05/04/23 05/04/23 05/04/23 14:31 16:36 19:26 MCV MCH MCHC RDW Plt Count MPV Immature Gran % (Auto) Neut % (Auto) Lymph % (Auto) [place] % (Auto) Eos % (Auto) Baso % (Auto) Lymph # (Auto) [place] # (Auto) Eos # (Auto) Baso # (Auto) Abs Immat Gran (auto) Absolute Neuts (auto) Absolute Nucleated RBC Nucleated RBC % (auto) Smear Tech's Comments PT INR Anion Gap Estim Creat Clear Calc Estimated GFR POC Glucose Random Glucose Lactic Acid Lactic Acid F/U @ 2Hr 2.9 H* 2.2 H* Lactic Acid F/U @ 4Hr 1.2 Calcium Total Bilirubin Direct Bilirubin AST ALT Alkaline Phosphatase Total Protein Albumin Lipase Blood Type Antibody Screen 05/04/23 05/05/23 05/05/23 20:48 06:23 06:57 MCV 98.6 H MCH 32.7 MCHC 33.1 RDW 12.7 Plt Count 160 D MPV 11.5 Immature Gran % (Auto) 0.8 H Neut % (Auto) 88.4 H Lymph % (Auto) 5.0 L [place] % (Auto) 5.4 Eos % (Auto) 0.2 Baso % (Auto) 0.2 Lymph # (Auto) 0.6 L [place] # (Auto) 0.7 Eos # (Auto) 0.0 Baso # (Auto) 0.0 Abs Immat Gran (auto) 0.10 H Absolute Neuts (auto) 10.6 H Absolute Nucleated RBC 0.000 Nucleated RBC % (auto) 0.0 Smear Tech's Comments PT 12.8 INR 1.1 Anion Gap 12 Estim Creat Clear Calc 52.4 Estimated GFR > 60 POC Glucose 171 H 191 H Random Glucose 195 H Lactic Acid Lactic Acid F/U @ 2Hr Lactic Acid F/U @ 4Hr Calcium 9.1 D Total Bilirubin 4.2 H Direct Bilirubin 3.7 H AST 414 H ALT 415 H Alkaline Phosphatase 785 H Total Protein 6.1 L Albumin 3.2 L Lipase Blood Type Antibody Screen Assessment and Plan (1) Gallstone pancreatitis: Status: Acute Plan 82 year old man admitted with abdominal pain secondary to question of cholangitis, gallstone pancreatitis Gallstone pancreatitis Abdominal CT showing pancreatitis without pancreatic necrosis, multiple gallstones in the contracted gallbladder, common bile duct measuring 1 cm, stone in the distal common bile duct difficult to exclude MRCP showed persistent 0.7 cm filling defect in distal common bile duct consistent with choledocholithiasis with mild peripancreatic edema in the region of the pancreatic head suggestive of mild pancreatitis there are gallstones and sludge in the dependent aspect of the otherwise unremarkable gallbladder. No pancreatic ductal dilatation or obstruction Lipase greater than 3000, total bilirubin 3.3, AST 576, ALT 445, alk-phos 92 Appreciate GI input. ERCP today. Advance to clears Continue IVF for now, trend lipase CBC greatly improved, follow Foll liver function General surgery following, likely plan for cholecystectomy after resolution of pancreatitis Diabetes mellitus type 2 Sliding scale on clears, advance to diabetic diet as tolerated poc glucose Hypertension Blood pressure on the lower side likely due to acute medical issues Hold lisinopril metoprolol for now Hyperlipidemia Hold statin GERD We continue PPI DVT prophylaxis with pneumatic compression boots in light of possible surgical intervention Full code Patient requires at least 2 inpatient midnights for treatment of gallstone pancreatitis requiring ERCP, aggressive hydration, and diet advancement as well as expert consultation Quality Stroke Does the patient have a stroke diagnosis?: No VTE Prior VTE?: No VTE Risk Level:: Medical - moderate - high VTE Device Contraindication: N/A - Device Ordered VTE Drug Contraindication: Treatment Not Indicated
--- NOTE | 2023-05-05 07:58 | PC.NURSE ---
Pt refused PO Meds.
--- NOTE | 2023-05-05 08:25 | P.CONAN_ITS ---
HPI - Anesthesia Eval Consult details Narrative: Gallstone pancreatitis, ERCP PMFSH Active Problems Active Problems: All Active Problems (Updated 05/02/23 @ 00:02 by Trini Proctor) Gallstone pancreatitis (Acute) Cholelithiasis (Acute) Weight loss (Acute) BPH (benign prostatic hyperplasia) (Acute) Urinary frequency (Acute) Bilateral shoulder pain (Acute) Facial dermatitis (Acute) SOB (shortness of breath) (Acute) GERD (gastroesophageal reflux disease) (Acute) COVID-19 virus infection (Acute) Tubular adenoma of colon (Acute) Hypercholesterolemia (Acute) Hypertension (Acute) Type 2 diabetes mellitus with hyperglycemia (Acute) Past Medical History Medical History Tubular adenoma of colon GERD (gastroesophageal reflux disease) Knee osteoarthritis Erectile dysfunction Hypercholesterolemia Hypertension Gout Type 2 diabetes mellitus with hyperglycemia Family History Family History Father Medical history unknown Mother Medical history unknown Family history of problems with anesthesia: No Surgical History Surgical History History of cataract surgery History of knee replacement procedure of left knee History of eye surgery History of Problems with Anesthesia: No Social History Household Members: Spouse Housing: House Do you presently have visiting nurse or other home services: No Alcohol intake: current Alcohol intake frequency: a few times a week Alcohol type: beer, wine and hard liquor Patient Tobacco Use Status: Former Tobacco user Quit Date: 1979 Tobacco use type: Cigarette Smoked in Last 30 Days: No e-Cigarette/Vaping Use: Never Used Patient Interested in Nicotine Replacement: No Patient Given Instructions on How to Stop Smoking: No Second Hand Smoke Exposure: No Use of substances other than those prescribed or required for medical reasons: No Currently Displaying Signs/Symptoms of Drug Intoxication Withdrawal: No Have you been hit, kicked, punched, or otherwise hurt by someone within the past year? If so, by whom?: No Do you feel safe in your current relationship?: Yes Is there a partner from a previous relationship who is making you feel unsafe now?: No Are you made to feel afraid or neglected: No Advance Directives: No Advance Directives Information Provided: Yes Do you have thoughts of harming others: None Do you have a plan to hurt others: No Plan Recently lost weight without trying: Yes How much weight loss: 34pounds or more Eating poorly because of decreased appetite: Yes Nutrition screen score: 7 Nutrition Risks: No Nutritional Risk Poor oral hygiene: No Current occupational status: retired Cognitive needs: No Hearing needs: No Vision needs: Yes Meds Allergies Allergy/AdvReac Type Severity Reaction Status Date / Time metformin Allergy Unknown diarrhea Verified 05/04/23 11:06 rosuvastatin [Crestor] Allergy Unknown Unknown Verified 05/04/23 11:06 Active Medications: Current Medications Acetaminophen (Acetaminophen 325 Mg Tablet) 650 mg PO Q6H PRN PRN Reason: Pain, Mild (Pain Scale 1-3) Allopurinol (Allopurinol 100 Mg Tablet) 100 mg PO DAILY [facility] Last Admin: 05/05/23 07:57 Dose: Not Given Cyanocobalamin (Cyanocobalamin (Vitamin B-12) 1,000 Mcg Tablet) 1,000 mcg PO DAILY [facility] Last Admin: 05/05/23 07:58 Dose: Not Given Dextrose (Dextrose 50 % 25 Gm/50 Ml Syringe) 25 gm IVPUSH Q15M PRN; Protocol PRN Reason: per Hypoglycemia Standing Ord. Folic Acid (Folic Acid 1 Mg Tablet) 1 mg PO DAILY [facility] Last Admin: 05/05/23 07:58 Dose: Not Given Glucose (Glucose Gel 15 Gm Gel..Gram.) 15 gm PO Q15M PRN; Protocol PRN Reason: per Hypoglycemia Standing Ord. Dextrose/Sodium Chloride (D5ns) 1,000 mls @ 100 mls/hr IVCONT .Q10H [facility] Last Admin: 05/05/23 03:16 Dose: 100 mls/hr Piperacillin Sod/Tazobactam (Sod 3.375 gm/ Sodium Chloride) 50 mls @ 100 mls/hr IV Q6H [facility] Last Admin: 05/05/23 07:49 Dose: 100 mls/hr Insulin Human Lispro (Insulin Lispro 100 Unit/Ml 3 Ml Vial) 0 unit SUBCUT QID ACHS [facility]; Protocol Last Admin: 05/05/23 07:00 Dose: Not Given Morphine Sulfate (Morphine Sulfate 4 Mg/Ml Cartridge) 4 mg IVPUSH Q4H PRN; Protocol PRN Reason: Pain, Severe (Pain Scale 7-10) Last Admin: 05/04/23 21:10 Dose: 4 mg Omeprazole (Omeprazole 20 Mg Capsule.Dr) 20 mg PO DAILY@0630 [facility] Last Admin: 05/05/23 05:47 Dose: Not Given Ondansetron HCl (Ondansetron Hcl 4 Mg/2 Ml Vial) 4 mg IVPUSH Q8H PRN PRN Reason: Nausea and Vomiting Oxycodone HCl (Oxycodone Hcl Immed Release 5 Mg Tablet) 5 mg PO Q6H PRN PRN Reason: Pain, Severe (Pain Scale 7-10) Sodium Chloride (0.9 % Sodium Chloride Flush 3 Ml Syringe) 3 ml IVFLUSH QSHIFT [facility] Last Admin: 05/05/23 07:01 Dose: Not Given Home Medications Medication Instructions Recorded Confirmed Last Taken Type cyanocobalamin (vitamin B-12) 1,000 mcg PO DAILY 05/04/23 05/04/23 Unknown History 1,000 mcg tablet insulin aspart U-100 100 unit/mL 0 sliding scale dose subcut TIDAC 05/04/23 05/04/23 Unknown History (3 mL) subcutaneous pen (Novolog FlexPen U-100 Insulin aspart) Exam Height,Weight and Vital Signs: Height 5 ft 6 in Weight 67.7 kg Last Vital Signs Temp 96 F L 05/05/23 06:53 Pulse 75 05/05/23 06:53 Resp 17 05/05/23 06:53 BP 148/67 H 05/05/23 06:53 Pulse Ox 96 05/05/23 06:53 O2 Del Method Room Air 05/05/23 06:53 Pertinent Lab Results Pertinent Lab Results: Laboratory Tests 05/04/23 05/04/23 05/04/23 11:51 12:09 13:03 WBC 24.6 H RBC 4.35 L Hgb 14.5 Hct 43.2 MCV 99.3 H D MCH 33.3 H MCHC 33.6 RDW 12.4 Plt Count 273 D MPV 11.9 Immature Gran % (Auto) 1.3 H Neut % (Auto) 89.4 H Lymph % (Auto) 5.4 L [place] % (Auto) 3.2 Eos % (Auto) 0.2 Baso % (Auto) 0.5 Lymph # (Auto) 1.3 [place] # (Auto) 0.8 Eos # (Auto) 0.1 Baso # (Auto) 0.1 Abs Immat Gran (auto) 0.33 H Absolute Neuts (auto) 22.0 H Absolute Nucleated RBC 0.000 Nucleated RBC % (auto) 0.0 Smear Tech's Comments VERIFIED PT INR Sodium 140 Potassium 4.1 Chloride 102 Carbon Dioxide 27 Anion Gap 15 BUN 30 H Creatinine 1.04 Estim Creat Clear Calc 49.4 Estimated GFR > 60 POC Glucose Random Glucose 199 H Lactic Acid 2.3 H* 2.2 H* Lactic Acid F/U @ 2Hr Lactic Acid F/U @ 4Hr Calcium 9.8 Total Bilirubin 3.3 H Direct Bilirubin 2.6 H AST 576 H ALT 445 H Alkaline Phosphatase 982 H Total Protein 7.2 Albumin 3.6 Lipase > 3000 H Blood Type O Negative Antibody Screen NEGATIVE 05/04/23 05/04/23 05/04/23 14:31 16:36 19:26 WBC RBC Hgb Hct MCV MCH MCHC RDW Plt Count MPV Immature Gran % (Auto) Neut % (Auto) Lymph % (Auto) [place] % (Auto) Eos % (Auto) Baso % (Auto) Lymph # (Auto) [place] # (Auto) Eos # (Auto) Baso # (Auto) Abs Immat Gran (auto) Absolute Neuts (auto) Absolute Nucleated RBC Nucleated RBC % (auto) Smear Tech's Comments PT INR Sodium Potassium Chloride Carbon Dioxide Anion Gap BUN Creatinine Estim Creat Clear Calc Estimated GFR POC Glucose Random Glucose Lactic Acid Lactic Acid F/U @ 2Hr 2.9 H* 2.2 H* Lactic Acid F/U @ 4Hr 1.2 Calcium Total Bilirubin Direct Bilirubin AST ALT Alkaline Phosphatase Total Protein Albumin Lipase Blood Type Antibody Screen 05/04/23 05/05/23 05/05/23 20:48 06:23 06:57 WBC 12.0 H RBC 3.55 L Hgb 11.6 L Hct 35.0 L MCV 98.6 H MCH 32.7 MCHC 33.1 RDW 12.7 Plt Count 160 D MPV 11.5 Immature Gran % (Auto) 0.8 H Neut % (Auto) 88.4 H Lymph % (Auto) 5.0 L [place] % (Auto) 5.4 Eos % (Auto) 0.2 Baso % (Auto) 0.2 Lymph # (Auto) 0.6 L [place] # (Auto) 0.7 Eos # (Auto) 0.0 Baso # (Auto) 0.0 Abs Immat Gran (auto) 0.10 H Absolute Neuts (auto) 10.6 H Absolute Nucleated RBC 0.000 Nucleated RBC % (auto) 0.0 Smear Tech's Comments PT 12.8 INR 1.1 Sodium 145 Potassium 4.2 Chloride 113 H Carbon Dioxide 24 Anion Gap 12 BUN 23 H Creatinine 0.98 Estim Creat Clear Calc 52.4 Estimated GFR > 60 POC Glucose 171 H 191 H Random Glucose 195 H Lactic Acid Lactic Acid F/U @ 2Hr Lactic Acid F/U @ 4Hr Calcium 9.1 D Total Bilirubin 4.2 H Direct Bilirubin 3.7 H AST 414 H ALT 415 H Alkaline Phosphatase 785 H Total Protein 6.1 L Albumin 3.2 L Lipase Blood Type Antibody Screen Airway Mallampati Class: II TM Dist: >3cm Neck ROM: Limited Heart: rrr Lungs: cta Assessment and Plan Assessment Anesthesia Assessment: Anesthesia Plan Discussed and Chart Reviewed Final Anesthetic Review Family History of Problems with Anesthesia: No History of Problems with Anesthesia: No NPO: Yes ASA Class: III and Emergency Final Preanesthetic Review: No Changes in Pt Med Stat, Meds/Allgs Chart Revi ewed, Consent Obtained/Reviewed and Anes Risks/Benef Reviewed Patient Risk: Intermediate Procedure Risk: Intermediate Anesthetic Plan Anesthetic Plan: GA and Agree w/ Assess. and Plan Disposition: Standard PACU
--- NOTE | 2023-05-05 08:53 | PM.PNGS ---
Subjective Subjective Date of Service: 05/05/23 <Myrtle Michelle PA-C - Last Filed: 05/05/23 08:56> 05/05/23 <Rob Freeman MD - Last Filed: 05/05/23 10:48> Interval history: Awaiting EGD/ERCP today. Denies abd pain, nausea. Passing flatus and had BM. <Myrtle Michelle PA-C - Last Filed: 05/05/23 08:56> Physical Exam Vital Signs: Vital Signs: Last Vital Signs Temp 96 F L 05/05/23 06:53 Pulse 75 05/05/23 06:53 Resp 17 05/05/23 06:53 BP 148/67 H 05/05/23 06:53 Pulse Ox 96 05/05/23 06:53 O2 Del Method Room Air 05/05/23 06:53 BMI result Body Mass Index 24.1 <Myrtle Michelle PA-C - Last Filed: 05/05/23 08:56> Const: General: comfortable, no acute distress and alert <Myrtle Michelle PA-C - Last Filed: 05/05/23 08:56> Orientation/consciousness: patient oriented x3 <Myrtle Michelle PA-C - Last Filed: 05/05/23 08:56> Resp: Effort & Inspection: normal respiratory effort <Myrtle Michelle PA-C - Last Filed: 05/05/23 08:56> GI: Inspection: No distended <Myrtle Michelle PA-C - Last Filed: 05/05/23 08:56> Palpation (GI): Soft to palpation, nontender, no guarding and not rigid <Myrtle Michelle PA-C - Last Filed: 05/05/23 08:56> Skin: General skin exam: no rashes or lesions noted and no jaundice <Myrtle Michelle PA-C - Last Filed: 05/05/23 08:56> Neuro: General: patient oriented x3 and moves all extremities <STEVEN Gallego Last Filed: 05/05/23 08:56> Objective Data Active Medications Acetaminophen (Acetaminophen 325 Mg Tablet) 650 mg PO Q6H PRN PRN Reason: Pain, Mild (Pain Scale 1-3) Allopurinol (Allopurinol 100 Mg Tablet) 100 mg PO DAILY [facility] Last Admin: 05/05/23 07:57 Dose: Not Given Documented By: KRISTAL Non-Admin Reason: Patient Refused Cyanocobalamin (Cyanocobalamin (Vitamin B-12) 1,000 Mcg Tablet) 1,000 mcg PO DAILY [facility] Last Admin: 05/05/23 07:58 Dose: Not Given Documented By: KRISTAL Non-Admin Reason: Patient Refused Dextrose (Dextrose 50 % 25 Gm/50 Ml Syringe) 25 gm IVPUSH Q15M PRN; Protocol PRN Reason: per Hypoglycemia Standing Ord. Fentanyl (Fentanyl Citrate/Pf 100 Mcg/2 Ml Vial) 25 mcg IVPUSH Q5M PRN; Protocol PRN Reason: Pain, Moderate(Pain Scale 4-6) Folic Acid (Folic Acid 1 Mg Tablet) 1 mg PO DAILY [facility] Last Admin: 05/05/23 07:58 Dose: Not Given Documented By: KRISTAL Non-Admin Reason: Patient Refused Glucose (Glucose Gel 15 Gm Gel..Gram.) 15 gm PO Q15M PRN; Protocol PRN Reason: per Hypoglycemia Standing Ord. Dextrose/Sodium Chloride (D5ns) 1,000 mls @ 100 mls/hr IVCONT .Q10H [facility] Last Admin: 05/05/23 03:16 Dose: 100 mls/hr Documented By: CARMEL Piperacillin Sod/Tazobactam (Sod 3.375 gm/ Sodium Chloride) 50 mls @ 100 mls/hr IV Q6H [facility] Last Infusion: 05/05/23 08:39 Dose: Infused Documented By: KRISTAL Insulin Human Lispro (Insulin Lispro 100 Unit/Ml 3 Ml Vial) 0 unit SUBCUT QIDACHS [facility]; Protocol Last Admin: 05/05/23 07:00 Dose: Not Given Documented By: KRISTAL Non-Admin Reason: NPO, hold insulin Morphine Sulfate (Morphine Sulfate 4 Mg/Ml Cartridge) 4 mg IVPUSH Q4H PRN; Protocol PRN Reason: Pain, Severe (Pain Scale 7-10) Last Admin: 05/04/23 21:10 Dose: 4 mg Documented By: YVONNE Omeprazole (Omeprazole 20 Mg Capsule.) 20 mg PO DAILY@0630 [facility] Last Admin: 05/05/23 05:47 Dose: Not Given Documented By: CARMEL Non-Admin Reason: NPO Ondansetron HCl (Ondansetron Hcl 4 Mg/2 Ml Vial) 4 mg IVPUSH Q8H PRN PRN Reason: Nausea and Vomiting Oxycodone HCl (Oxycodone Hcl Immed Release 5 Mg Tablet) 5 mg PO Q6H PRN PRN Reason: Pain, Severe (Pain Scale 7-10) Sodium Chloride (0.9 % Sodium Chloride Flush 3 Ml Syringe) 3 ml IVFLUSH QSHIFT [facility] Last Admin: 05/05/23 07:01 Dose: Not Given Documented By: KRISTAL Non-Admin Reason: IV Running <Myrtle Michelle PA-C - Last Filed: 05/05/23 08:56> Labs CBC & Chem 7: 05/05/23 06:23 05/05/23 06:23 <Myrtle Michelle PA-C - Last Filed: 05/05/23 08:56> Labs: Laboratory Results - last 24 hr 05/04/23 05/04/23 05/04/23 11:51 12:09 13:03 MCV 99.3 H D MCH 33.3 H MCHC 33.6 RDW 12.4 Plt Count 273 D MPV 11.9 Immature Gran % (Auto) 1.3 H Neut % (Auto) 89.4 H Lymph % (Auto) 5.4 L Whiteside % (Auto) 3.2 Eos % (Auto) 0.2 Baso % (Auto) 0.5 Lymph # (Auto) 1.3 Whiteside # (Auto) 0.8 Eos # (Auto) 0.1 Baso # (Auto) 0.1 Abs Immat Gran (auto) 0.33 H Absolute Neuts (auto) 22.0 H Absolute Nucleated RBC 0.000 Nucleated RBC % (auto) 0.0 Smear Tech's Comments VERIFIED PT INR Anion Gap 15 Estim Creat Clear Calc 49.4 Estimated GFR > 60 POC Glucose Random Glucose 199 H Lactic Acid 2.3 H* 2.2 H* Lactic Acid F/U @ 2Hr Lactic Acid F/U @ 4Hr Calcium 9.8 Total Bilirubin 3.3 H Direct Bilirubin 2.6 H AST 576 H ALT 445 H Alkaline Phosphatase 982 H Total Protein 7.2 Albumin 3.6 Lipase > 3000 H Blood Type O Negative Antibody Screen NEGATIVE 05/04/23 05/04/23 05/04/23 14:31 16:36 19:26 MCV MCH MCHC RDW Plt Count MPV Immature Gran % (Auto) Neut % (Auto) Lymph % (Auto) Whiteside % (Auto) Eos % (Auto) Baso % (Auto) Lymph # (Auto) Whiteside # (Auto) Eos # (Auto) Baso # (Auto) Abs Immat Gran (auto) Absolute Neuts (auto) Absolute Nucleated RBC Nucleated RBC % (auto) Smear Tech's Comments PT INR Anion Gap Estim Creat Clear Calc Estimated GFR POC Glucose Random Glucose Lactic Acid Lactic Acid F/U @ 2Hr 2.9 H* 2.2 H* Lactic Acid F/U @ 4Hr 1.2 Calcium Total Bilirubin Direct Bilirubin AST ALT Alkaline Phosphatase Total Protein Albumin Lipase Blood Type Antibody Screen 05/04/23 05/05/23 05/05/23 20:48 06:23 06:57 MCV 98.6 H MCH 32.7 MCHC 33.1 RDW 12.7 Plt Count 160 D MPV 11.5 Immature Gran % (Auto) 0.8 H Neut % (Auto) 88.4 H Lymph % (Auto) 5.0 L Whiteside % (Auto) 5.4 Eos % (Auto) 0.2 Baso % (Auto) 0.2 Lymph # (Auto) 0.6 L Wh[place] # (Auto) 0.7 Eos # (Auto) 0.0 Baso # (Auto) 0.0 Abs Immat Gran (auto) 0.10 H Absolute Neuts (auto) 10.6 H Absolute Nucleated RBC 0.000 Nucleated RBC % (auto) 0.0 Smear Tech's Comments PT 12.8 INR 1.1 Anion Gap 12 Estim Creat Clear Calc 52.4 Estimated GFR > 60 POC Glucose 171 H 191 H Random Glucose 195 H Lactic Acid Lactic Acid F/U @ 2Hr Lactic Acid F/U @ 4Hr Calcium 9.1 D Total Bilirubin 4.2 H Direct Bilirubin 3.7 H AST 414 H ALT 415 H Alkaline Phosphatase 785 H Total Protein 6.1 L Albumin 3.2 L Lipase Blood Type Antibody Screen <Myrtle Michelle PA-C - Last Filed: 05/05/23 08:56> Procedures Date of Service Date of Service: 05/05/23 <Myrtle Michelle PA-C - Last Filed: 05/05/23 08:56> 05/05/23 <Rob Freeman MD - Last Filed: 05/05/23 10:48> Progress Note: A&P Assessment and plan (1) Gallstone pancreatitis: Status: Acute <Myrtle Michelle PA-C - Last Filed: 05/05/23 08:56> Assessment and Plan: 82 year old male admitted with gallstone pancreatitis. ERCP/EGD today. Plan for lap ccy with IOC tenatively early next week if pancreatitis has resolved. Can go home and plan for outpatient CCY if ready prior. <Myrtle Michelle PA-C - Last Filed: 05/05/23 08:56> Time Spent With Patient Time: Total time managing care of this patient today ____ minutes. <Mrytle Michelle PA-C - Last Filed: 05/05/23 08:56> Quality Stroke Does the patient have a stroke diagnosis?: No <Myrtle Michelle PA-C - Last Filed: 05/05/23 08:56> VTE Prior VTE?: No <Myrtle Michelle PA-C - Last Filed: 05/05/23 08:56> VTE Risk Level:: Medical - moderate - high <Myrtle Michelle PA-C - Last Filed: 05/05/23 08:56> VTE Device Contraindication: N/A - Device Ordered <Myrtle Michelle PA-C - Last Filed: 05/05/23 08:56> VTE Drug Contraindication: Treatment Not Indicated <Myrtle Michelle PA-C - Last Filed: 05/05/23 08:56>
--- NOTE | 2023-05-05 09:13 | PC.NURSE ---
report given to short stay nurse.
--- NOTE | 2023-05-05 10:35 | MHC.CLN ---
NUTRITION CONSULT FOR RECENT WEIGHT LOSS. PATIENT WITH GALLSTONE PANCREATITIS AND IS CURRENTLY NPO FOR PROCEDURE. REVIEW OF WEIGHT HX SHOWS WEIGHT LOSS TREND, NOT SIGNIFICANT, X 1 YEAR. WEIGHT LOSS: X 30 DAYS -4.3%; X 6 MONTHS -7.3%; X ONE YEAR -7.9%. RD TO FOLLOW UP FOR DIET ADVANCEMENT AND INTAKE.
[2023-05-05 11:07] LABS: Glucose, Whole Blood 167 mg/dL (60-115)
--- NOTE | 2023-05-05 13:43 | P.BOP_ITS ---
Brief Operative Note Date of Service: 05/05/23 Pre-op diagnosis: cbd stone Post-op diagnosis: same Procedure: egd ercp Surgeon: Gabriel Cueto MD Was an Slot Floorman used for this Procedure?: No Estimated blood loss (mL): 100 Pathology: other Condition: stable Disposition: PACU
--- NOTE | 2023-05-05 13:44 | PM.EVENT ---
Event Note Date of Service: 05/05/23 Event Note: EGD ERCP EGD showed a few small antral erosions antral bxs taken for H pylori ERCP duodenal diverticulum cbd cannulation and cholangiogram showed mid cbd filling defect c/w mri findings. some bleeding after sphincterotomy, controlled with cautery. 10F 7cm biliary stent placed with good position and drainage of bile. no bleeding at termination of procedure. Time Spent With Patient Time: Total time managing care of this patient today ____ minutes.
--- NOTE | 2023-05-05 14:23 | OP_ITS ---
DATE OF SERVICE: 05/05/2023 SURGEON: Gabriel Cueto MD INDICATIONS: 1. Weight loss and upper GI symptoms. 2. Common bile duct stone on MR imaging. PREOPERATIVE DIAGNOSIS: POSTOPERATIVE DIAGNOSIS: PROCEDURE PERFORMED: 1. Upper endoscopy with biopsy. 2. Endoscopic retrograde cholangiopancreatography with sphincterotomy and stent placement. ESTIMATED BLOOD LOSS: COMPLICATIONS: ANESTHESIA: Medications, general anesthesia. ASSISTANTS: SPECIMENS: PROCEDURE DESCRIPTION: The history and physical performed. The risks and benefits of the procedure were explained to the patient. Informed consent was obtained. The patient was placed in the prone position with a wedge under the right shoulder. The Olympus videogastroscope was introduced into the esophagus, stomach, and duodenum. Examination was performed and the scope was removed. Next, the Olympus therapeutic duodenoscope was inserted into the esophagus, stomach, and duodenum. Examination was performed and the scope was removed. He tolerated both procedures well and was returned to recovery room in stable condition. FINDINGS: Endoscopy of esophagus. The esophagus was normal. There was no mass or lesion. Stomach: The stomach showed a few linear streaks of erythema and superficial ulceration in the antrum consistent with gastritis. Biopsies were obtained from the antrum to evaluate for H pylori. Duodenum: The bulb and 2nd portion were normal. 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 A guidewire and sphincterotome were passed into the common bile duct and cholangiography was obtained showing the filling defect in the mid common bile duct consistent with the MRI findings. A sphincterotomy was performed with a small to moderate amount of bleeding, which was controlled with cautery. Because of the complication of bleeding, it was elected to place a 10-Tamazight 7 cm stent. This was done successfully without any complications and there was good drainage of clear yellow bile at the termination of the procedure. There was no bleeding at the termination of the procedure. No pancreatogram was attempted or obtained. IMPRESSION: 1. Gastritis. 2. Common bile duct stone. RECOMMENDATIONS: 1. Monitor hematocrit. 2. No NSAIDs or anticoagulation. 3. Continue proton pump inhibitor. 4. He will need repeat ERCP in approximately 4 to 8 weeks. MD NATE Silvestre/SUSANNAHL / [phone]
[2023-05-05 14:24] LABS: Glucose, Whole Blood 169 mg/dL (60-115)
--- NOTE | 2023-05-05 14:28 | PC.NURSE ---
Ambulates Ind. Refusing alarms, fall risk
[2023-05-05] MEDS: 0.9 % Sodium Chloride Flush 3 ML SYRINGE IVFLUSH (14:34)
--- NOTE | 2023-05-05 14:42 | MHC.CM.PN ---
PT REPORTS HE LIVES AT HOME WITH HIS AND IS INDEPENDENT WITH CARE PT DENIES USE OF DME OR HOME SERVICES PT SAYS HE HAS A HCP NAMING HIS HIS AGENT, COPY REQUESTED PCP: TAMIKO GIBSON IMM DELIVERED DCP: HOME NO SERVICES TO TRANSPORT
[2023-05-05] MEDS: 0.9 % Sodium Chloride 1,000 ML 100 ML IVCONT (15:19)
[2023-05-05] MEDS: Insulin Lispro 100 UNIT/ML 3 ML VIAL SUBCUT ×2 (16:31→20:50)
[2023-05-05 16:32] LABS: Glucose, Whole Blood 204 mg/dL (60-115)
[2023-05-05 20:46] LABS: Glucose, Whole Blood 223 mg/dL (60-115)
[2023-05-05] MEDS: ondansetron HCL 4 MG/2 ML VIAL IVPUSH (22:09)
[2023-05-05] MEDS: traZODone HCL 50 MG TABLET PO (22:47)
[2023-05-06] MEDS: Morphine Sulfate 4 MG/ML CARTRIDGE IVPUSH ×3 (00:47→23:15)
[2023-05-06] MEDS: Piperacillin Sodium/Tazobactam 3.375 GM in 0.9 % Sodium Chloride 50 ML IV ×4 (00:48→19:31)
[2023-05-06] MEDS: Prochlorperazine Edisylate 10 MG/2 ML VIAL 5 MG IVPUSH (01:51)
[2023-05-06] MEDS: diphenhydrAMINE HCL 50 MG/ML VIAL 25 MG IVPUSH (01:51)
[2023-05-06 03:55] VITALS: BP 124/61; PULSE 79; RESP 18; TEMP 36.1; O2SAT 97
[2023-05-06 06:27] LABS: Basophils Percent Auto 0.1 % (0-2); Eosinophils Percent Auto 0.2 % (0-4); Hematocrit 28.7 % (42.0-52.0); Hemoglobin 9.6 g/dl (14.0-18.0); Imm Gran Abs Auto 0.13 X10*3/uL (0.00-0.03); Lymphocytes Absolute Auto 0.5 X10*3/uL (1.2-4.9); Lymphocytes Percent Auto 3.9 % (20-40); MANUAL DIFF FLAG SCAN; Mean Corpuscular HGB Conc 33.4 g/dl (31.0-36.0); Mean Corpuscular Hemoglobin 32.9 pg (27.0-33.0); Mean Corpuscular Volume 98.3 fL (80.0-98.0); Mean Platelet Volume 11.8 fL (9.4-12.4); Monocytes Absolute Auto 0.6 X10*3/uL (0.1-1.2); Monocytes Percent Auto 4.6 % (2-11); Neutrophils Absolute Auto 11.5 x10*3/uL (2.0-8.3); Neutrophils Percent Auto 90.2 % (45-73); Platelet Count 163 X10*3/uL (160-400); Red Blood Count 2.92 X10*6/uL (4.60-5.80); Red Cell Distribution Width 12.4 % (11.0-16.0); SCAN SMEAR FLAG 1; White Blood Count 12.7 X10*3/uL (4.8-10.8)
[2023-05-06] MEDS: Omeprazole 20 MG CAPSULE.DR PO (06:29)
[2023-05-06 06:31] LABS: SLIDE REVIEW VERIFIED
[2023-05-06 06:48] LABS: Alanine Aminotransferase 353 U/L (0-40); Albumin Level 2.6 g/dL (3.5-5.0); Alkaline Phosphatase 618 U/L (39-117); Anion Gap 10 (12-20); Aspartate Amino Transferase 340 U/L (5-37); Bilirubin Direct 3.3 mg/dL (0.0-0.5); Blood Urea Nitrogen 25 mg/dL (9-16); Calcium 8.5 mg/dL (8.4-10.2); Carbon Dioxide 24 mmol/L (22-29); Chloride 112 mmol/L (96-108); Creatinine Clr Calc Pharmacy 52.9; Estimated Glomerular Filt Rate > 60; Glucose Random 248 mg/dL (60-115); Potassium 4.2 mmol/L (3.3-5.1); Sodium 142 mmol/L (135-145); Total Protein 5.2 g/dL (6.5-8.0)
[2023-05-06 06:57] LABS: Lipase 365 U/L (8-78)
[2023-05-06 07:45] LABS: Glucose, Whole Blood 226 mg/dL (60-115)
[2023-05-06] MEDS: Folic Acid 1 MG TABLET PO (07:56)
[2023-05-06] MEDS: allopurinoL 100 MG TABLET PO (07:56)
[2023-05-06] MEDS: Cyanocobalamin (Vitamin B-12) 1,000 MCG TABLET 1000 MCG PO (07:56)
[2023-05-06] MEDS: Insulin Lispro 100 UNIT/ML 3 ML VIAL SUBCUT ×4 (07:56→20:45)
[2023-05-06 08:00] VITALS: BP 126/59; PULSE 88; RESP 17; TEMP 36; O2SAT 94
[2023-05-06 11:19] LABS: Glucose, Whole Blood 283 mg/dL (60-115)
[2023-05-06] MEDS: 0.9 % Sodium Chloride 1,000 ML 100 ML IVCONT (11:22)
--- NOTE | 2023-05-06 11:55 | P.PNIM_ITS ---
Subjective Subjective Date of Service: 05/06/23 Interval History: seen and examined this morning follow up for gallstone pancreatitis s/p EGD/ERCP 05/05 had some nausea this morning, no significant abdominal pain Review of Systems Review of Systems: Yes all other systems are reviewed and are negative Constitutional Constitutional: Denies chills and Denies fever(s) Cardiovascular Cardiovascular: Denies chest pain, Denies palpitations and Denies dyspnea Respiratory Respiratory: Denies cough and Denies dyspnea Gastrointestinal Gastrointestinal: Denies abdominal pain and Denies vomiting Endocrine Endocrine: Denies palpitations Physical Exam 2 Vital Signs: Vital Signs: Last Vital Signs Temp 96.8 F 05/06/23 08:00 Pulse 88 05/06/23 08:00 Resp 17 05/06/23 08:00 BP 126/59 L 05/06/23 08:00 Pulse Ox 94 05/06/23 08:00 O2 Del Method Room Air 05/06/23 08:00 BMI result Body Mass Index 24.1 Const: General: cooperative, comfortable, no acute distress, alert and awake Nutritional Appearance: average body habitus Orientation/consciousness: p atient oriented x3 Resp: Effort & Inspection: normal respiratory effort, able to speak in complete sentences, no respiratory distress and no use of accessory muscles Cardio: Rate: regular rate GI: Palpation (GI): Soft to palpation and nontender Neuro: General: patient oriented x3, moves all extremities and CN's II-XI intact bilaterally Extrem: General: Yes no pedal edema Objective Data Active Medications Acetaminophen (Acetaminophen 325 Mg Tablet) 650 mg PO Q6H PRN PRN Reason: Pain, Mild (Pain Scale 1-3) Allopurinol (Allopurinol 100 Mg Tablet) 100 mg PO DAILY [facility] Last Admin: 05/06/23 07:56 Dose: 100 mg Documented By: KRISTAL Cyanocobalamin (Cyanocobalamin (Vitamin B-12) 1,000 Mcg Tablet) 1,000 mcg PO DAILY [facility] Last Admin: 05/06/23 07:56 Dose: 1,000 mcg Documented By: KRISTAL Dextrose (Dextrose 50 % 25 Gm/50 Ml Syringe) 25 gm IVPUSH Q15M PRN; Protocol PRN Reason: per Hypoglycemia Standing Ord. Fentanyl (Fentanyl Citrate/Pf 100 Mcg/2 Ml Vial) 25 mcg IVPUSH Q5M PRN; Protocol PRN Reason: Pain, Moderate(Pain Scale 4-6) Folic Acid (Folic Acid 1 Mg Tablet) 1 mg PO DAILY [facility] Last Admin: 05/06/23 07:56 Dose: 1 mg Documented By: KRISTAL Glucose (Glucose Gel 15 Gm Gel..Gram.) 15 gm PO Q15M PRN; Protocol PRN Reason: per Hypoglycemia Standing Ord. Piperacillin Sod/Tazobactam (Sod 3.375 gm/ Sodium Chloride) 50 mls @ 100 mls/hr IV Q6H [facility] Last Infusion: 05/06/23 07:36 Dose: Infused Documented By: KRISTAL Sodium Chloride (Ns) 1,000 mls @ 100 mls/hr IVCONT .Q10H [facility] Last Admin: 05/06/23 11:22 Dose: 100 mls/hr Documented By: KRISTAL Insulin Human Lispro (Insulin Lispro 100 Unit/Ml 3 Ml Vial) 0 unit SUBCUT QIDACHS [facility]; Protocol Last Admin: 05/06/23 11:23 Dose: 6 unit Documented By: KRISTAL Morphine Sulfate (Morphine Sulfate 4 Mg/Ml Cartridge) 4 mg IVPUSH Q4H PRN; Protocol PRN Reason: Pain, Severe (Pain Scale 7-10) Last Admin: 05/06/23 07:05 Dose: 4 mg Documented By: KRISTAL Omeprazole (Omeprazole 20 Mg Capsule.Dr) 20 mg PO DAILY@0630 [facility] Last Admin: 05/06/23 06:29 Dose: 20 mg Documented By: HAKEEM Ondansetron HCl (Ondansetron Hcl 4 Mg/2 Ml Vial) 4 mg IVPUSH Q8H PRN PRN Reason: Nausea and Vomiting Last Admin: 05/05/23 22:09 Dose: 4 mg Documented By: YVONNE Oxycodone HCl (Oxycodone Hcl Immed Release 5 Mg Tablet) 5 mg PO Q6H PRN PRN Reason: Pain, Severe (Pain Scale 7-10) Sodium Chloride (0.9 % Sodium Chloride Flush 3 Ml Syringe) 3 ml IVFLUSH QSHIFT [facility] Last Admin: 05/06/23 07:07 Dose: Not Given Documented By: KRISTAL Non-Admin Reason: IV Running Labs 05/06/23 05:49 05/06/23 05:49 Labs: Laboratory Results - last 24 hr 05/05/23 05/05/23 05/05/23 14:20 16:27 20:38 MCV MCH MCHC RDW Plt Count MPV Immature Gran % (Auto) Neut % (Auto) Lymph % (Auto) Daniels % (Auto) Eos % (Auto) Baso % (Auto) Lymph # (Auto) Daniels # (Auto) Eos # (Auto) Baso # (Auto) Abs Immat Gran (auto) Absolute Neuts (auto) Absolute Nucleated RBC Nucleated RBC % (auto) Smear Tech's Comments Anion Gap Estim Creat Clear Calc Estimated GFR POC Glucose 169 H 204 H 223 H Random Glucose Calcium Total Bilirubin Direct Bilirubin AST ALT Alkaline Phosphatase Total Protein Albumin Lipase 05/06/23 05/06/23 05/06/23 05:49 07:41 11:07 MCV 98.3 H MCH 32.9 MCHC 33.4 RDW 12.4 Plt Count 163 MPV 11.8 Immature Gran % (Auto) 1.0 H Neut % (Auto) 90.2 H Lymph % (Auto) 3.9 L Daniels % (Auto) 4.6 Eos % (Auto) 0.2 Baso % (Auto) 0.1 Lymph # (Auto) 0.5 L Daniels # (Auto) 0.6 Eos # (Auto) 0.0 Baso # (Auto) 0.0 Abs Immat Gran (auto) 0.13 H Absolute Neuts (auto) 11.5 H Absolute Nucleated RBC 0.000 Nucleated RBC % (auto) 0.0 Smear Tech's Comments VERIFIED Anion Gap 10 L Estim Creat Clear Calc 52.9 Estimated GFR > 60 POC Glucose 226 H 283 H Random Glucose 248 H Calcium 8.5 D Total Bilirubin 4.0 H Direct Bilirubin 3.3 H AST 340 H ALT 353 H Alkaline Phosphatase 618 H Total Protein 5.2 L Albumin 2.6 L Lipase 365 H Microbiology Microbiology Results: Microbiology 05/04/23 13:04 Blood Culture - Preliminary Blood - Venous Prelim: GNR Gram Stain only 05/04/23 13:12 Blood Culture - Preliminary Blood - Venous No growth after 24 hours. Assessment and Plan (1) Gallstone pancreatitis: Status: Acute Plan This is a 82 year old man admitted with abdominal pain secondary to question of cholangitis, gallstone pancreatitis Gallstone pancreatitis Abdominal CT showing pancreatitis without pancreatic necrosis, multiple gallstones in the contracted gallbladder, common bile duct measuring 1 cm, stone in the distal common bile duct difficult to exclude MRCP showed persistent 0.7 cm filling defect in distal common bile duct consistent with choledocholithiasis with mild peripancreatic edema in the region of the pancreatic head suggestive of mild pancreatitis there are gallstones and sludge in the dependent aspect of the otherwise unremarkable gallbladder. No pancreatic ductal dilatation or obstruction seen by GI, s/p ERCP 05/05 - spincterotomy and biliary stent placment LFTS still elevated, but starting to trend down slightly. General surgery following, likely plan for cholecystectomy after resolution of pancreatitis- tentatively scheduled for Wednesday, could be done as outaptient if ready for d/c prior to tolerating clears - will advance to diabetic diet statin on hold Gram negative bacteremia likely biliary source as above on zosyn follow final culture results repeat cultures pending gastritis seen on EGD continue PPI follow up biopsy results acute on chronic anemia likely due to blood loss from procedure and dilution from IVF H/H above transfusion threshold follow CBC Diabetes mellitus type 2 fifi goyal on hold SSI, POCs Hypertension Blood pressure on the lower side likely due to acute medical issues Hold lisinopril will resume metoprolol follow bp closely Hyperlipidemia Hold statin GERD We continue PPI DVT prophylaxis with pneumatic compression boots Full code attending - dr. spivey Patient requires ongoing inpatient stay for gallstone pancreatitis diet advancement, possible cholecystectomy, close monitoring given diabetes and risk for infection Quality Stroke Does the patient have a stroke diagnosis?: No VTE Prior VTE?: No VTE Risk Level:: Medical - moderate - high VTE Device Contraindication: N/A - Device Ordered VTE Drug Contraindication: Treatment Not Indicated
[2023-05-06 15:35] VITALS: BP 122/57; PULSE 89; RESP 18; TEMP 36.8; O2SAT 96
[2023-05-06 16:07] LABS: Glucose, Whole Blood 367 mg/dL (60-115)
--- NOTE | 2023-05-06 16:56 | PC.NURSE ---
Pt not wanting to eat dinner, not hungry. PA notified, SS insulin calls for 10 units, PA TO to give 5 Units.
[2023-05-06 17:58] LABS: Glucose, Whole Blood 356 mg/dL (60-115)
[2023-05-06] MEDS: 0.9 % Sodium Chloride Flush 3 ML SYRINGE IVFLUSH (19:32)
[2023-05-06 19:58] VITALS: BP 149/67; PULSE 98; RESP 18; TEMP 36.7; O2SAT 96
[2023-05-06 20:38] LABS: Glucose, Whole Blood 245 mg/dL (60-115)
[2023-05-06] MEDS: ondansetron HCL 4 MG/2 ML VIAL IVPUSH (23:15)
[2023-05-07] MEDS: Piperacillin Sodium/Tazobactam 3.375 GM in 0.9 % Sodium Chloride 50 ML IV ×4 (02:55→20:04)
[2023-05-07 02:58] VITALS: BP 148/64; PULSE 90; RESP 18; TEMP 36.8; O2SAT 96
[2023-05-07] MEDS: Morphine Sulfate 4 MG/ML CARTRIDGE IVPUSH (03:12)
[2023-05-07] MEDS: Omeprazole 20 MG CAPSULE.DR PO (05:29)
[2023-05-07 06:35] LABS: Alanine Aminotransferase 222 U/L (0-40); Albumin Level 2.8 g/dL (3.5-5.0); Alkaline Phosphatase 490 U/L (39-117); Aspartate Amino Transferase 76 U/L (5-37); Bilirubin Direct 0.9 mg/dL (0.0-0.5); Bilirubin Total 1.3 mg/dL (0.0-1.0); Lipase 57 U/L (8-78); Total Protein 5.8 g/dL (6.5-8.0)
[2023-05-07 07:10] VITALS: BP 174/84; PULSE 100; RESP 18; TEMP 36.7; O2SAT 96
[2023-05-07 07:32] LABS: Hematocrit 27.4 % (42.0-52.0); Hemoglobin 9.2 g/dl (14.0-18.0); Mean Corpuscular HGB Conc 33.6 g/dl (31.0-36.0); Mean Corpuscular Volume 98.2 fL (80.0-98.0); Platelet Count 172 X10*3/uL (160-400); Red Blood Count 2.79 X10*6/uL (4.60-5.80); Red Cell Distribution Width 12.4 % (11.0-16.0); White Blood Count 14.4 X10*3/uL (4.8-10.8)
[2023-05-07 07:41] LABS: Glucose, Whole Blood 198 mg/dL (60-115)
[2023-05-07] MEDS: Insulin Lispro 100 UNIT/ML 3 ML VIAL SUBCUT ×4 (07:49→21:09)
[2023-05-07] MEDS: Metoprolol Succinate ER 50 MG TAB.ER.24H PO (07:50)
[2023-05-07] MEDS: Folic Acid 1 MG TABLET PO (07:50)
[2023-05-07] MEDS: Cyanocobalamin (Vitamin B-12) 1,000 MCG TABLET 1000 MCG PO (07:50)
[2023-05-07] MEDS: allopurinoL 100 MG TABLET PO (07:50)
[2023-05-07] MEDS: 0.9 % Sodium Chloride Flush 3 ML SYRINGE IVFLUSH ×3 (07:54→21:15)
[2023-05-07 08:09] VITALS: BP 158/78
[2023-05-07 11:19] LABS: Glucose, Whole Blood 275 mg/dL (60-115)
--- NOTE | 2023-05-07 11:48 | PM.PNGS ---
Subjective Subjective Date of Service: 05/07/23 Interval history: pt feeling well no issues, tolerating po diet no pain Physical Exam Vital Signs: Vital Signs: Last Vital Signs Temp 98.0 F 05/07/23 07:10 Pulse 100 05/07/23 07:10 Resp 18 05/07/23 07:10 BP 158/78 H 05/07/23 08:09 Pulse Ox 96 05/07/23 07:10 O2 Del Method Room Air 05/07/23 07:10 BMI result Body Mass Index 24.1 Const: General: cooperative, healthy appearing, comfortable and no acute distress Nutritional Appearance: overweight GI: Other: soft nontender nondistended Objective Data Active Medications Acetaminophen (Acetaminophen 325 Mg Tablet) 650 mg PO Q6H PRN PRN Reason: Pain, Mild (Pain Scale 1-3) Allopurinol (Allopurinol 100 Mg Tablet) 100 mg PO DAILY [facility] Last Admin: 05/07/23 07:50 Dose: 100 mg Documented By: THAI Cyanocobalamin (Cyanocobalamin (Vitamin B-12) 1,000 Mcg Tablet) 1,000 mcg PO DAILY [facility] Last Admin: 05/07/23 07:50 Dose: 1,000 mcg Documented By: THAI Dextrose (Dextrose 50 % 25 Gm/50 Ml Syringe) 25 gm IVPUSH Q15M PRN; Protocol PRN Reason: per Hypoglycemia Standing Ord. Folic Acid (Folic Acid 1 Mg Tablet) 1 mg PO DAILY [facility] Last Admin: 05/07/23 07:50 Dose: 1 mg Documented By: THAI Glucose (Glucose Gel 15 Gm Gel..Gram.) 15 gm PO Q15M PRN; Protocol PRN Reason: per Hypoglycemia Standing Ord. Piperacillin Sod/Tazobactam (Sod 3.375 gm/ Sodium Chloride) 50 mls @ 100 mls/hr IV Q6H [facility] Last Infusion: 05/07/23 08:32 Dose: Infused Documented By: THAI Insulin Human Lispro (Insulin Lispro 100 Unit/Ml 3 Ml Vial) 0 unit SUBCUT QIDACHS [facility]; Protocol Last Admin: 05/07/23 11:30 Dose: 6 unit Documented By: THAI Metoprolol Succinate (Metoprolol Succinate Er 50 Mg Tab.Er.24h) 50 mg PO DAILY [facility]; Protocol Last Admin: 05/07/23 07:50 Dose: 50 mg Documented By: THAI Morphine Sulfate (Morphine Sulfate 4 Mg/Ml Cartridge) 4 mg IVPUSH Q4H PRN; Protocol PRN Reason: Pain, Severe (Pain Scale 7-10) Last Admin: 05/07/23 03:12 Dose: 4 mg Documented By: YVONNE Omeprazole (Omeprazole 20 Mg Capsule.Dr) 20 mg PO DAILY@0630 [facility] Last Admin: 05/07/23 05:29 Dose: 20 mg Documented By: YVONNE Ondansetron HCl (Ondansetron Hcl 4 Mg/2 Ml Vial) 4 mg IVPUSH Q8H PRN PRN Reason: Nausea and Vomiting Last Admin: 05/06/23 23:15 Dose: 4 mg Documented By: YVONNE Oxycodone HCl (Oxycodone Hcl Immed Release 5 Mg Tablet) 5 mg PO Q6H PRN PRN Reason: Pain, Severe (Pain Scale 7-10) Sodium Chloride (0.9 % Sodium Chloride Flush 3 Ml Syringe) 3 ml IVFLUSH [facility] Last Admin: 05/07/23 07:54 Dose: 3 ml Documented By: THAI Labs 05/07/23 05:31 05/06/23 05:49 Labs: Laboratory Results - last 24 hr 05/06/23 05/06/23 05/06/23 16:02 17:55 20:32 MCV MCH MCHC RDW Plt Count MPV Absolute Nucleated RBC Nucleated RBC % (auto) Hold Purple Top POC Glucose 367 H* 356 H* 245 H Total Bilirubin Direct Bilirubin AST ALT Alkaline Phosphatase Total Protein Albumin Lipase 05/07/23 05/07/23 05/07/23 05:31 07:17 11:12 MCV 98.2 H MCH 33.0 MCHC 33.6 RDW 12.4 Plt Count 172 MPV 12.0 Absolute Nucleated RBC 0.000 Nucleated RBC % (auto) 0.0 Hold Purple Top SEE NOTE POC Glucose 198 H 275 H Total Bilirubin 1.3 H Direct Bilirubin 0.9 H AST 76 H ALT 222 H Alkaline Phosphatase 490 H Total Protein 5.8 L Albumin 2.8 L Lipase 57 Microbiology Microbiology Results: Microbiology 05/04/23 13:04 Blood Culture - Preliminary Blood - Venous Prelim: GNR Gram Stain only 05/05/23 17:43 Blood Culture - Preliminary Blood - Venous No growth after 24 hours. 05/05/23 17:43 Blood Culture - Preliminary Blood - Venous No growth after 24 hours. 05/04/23 13:12 Blood Culture - Preliminary Blood - Venous No growth after 48 hours. Procedures Date of Service Date of Service: 05/07/23 Progress Note: A&P Assessment and plan (1) Gallstone pancreatitis: Status: Acute Assessment and Plan: pt with gallstone pancreatitis and s/p ercp and labs improving. pt overall feeling well but blood cultures growing bacteroides and wbc increasing despite antibiotics. Pt lft labs improving. ID seen and plan to change antibiotics for better coverage. Pt was to have elective surgery on Wednesday morning but now with increasing wbc adn micro findings there is prob some benefit of getting GB out sooner. Risks and Benefits discussed with pt and and at this point they agree to carry out lap kelly tomorrow. will consider cholangiogram - Time Spent With Patient Time: Total time managing care of this patient today ____ minutes. Quality Stroke Does the patient have a stroke diagnosis?: No VTE Prior VTE?: No VTE Risk Level:: Medical - moderate - high VTE Device Contraindication: N/A - Device Ordered VTE Drug Contraindication: Treatment Not Indicated
--- NOTE | 2023-05-07 14:22 | P.PNIM_ITS ---
Subjective Subjective Date of Service: 05/07/23 Interval History: seen and examined this morning no overnight events feeling well, no abdominal pain, no vomiting Review of Systems Review of Systems: Yes all other systems are reviewed and are negative Constitutional Constitutional: Denies chills and Denies fever(s) Cardiovascular Cardiovascular: Denies chest pain Gastrointestinal Gastrointestinal: Denies abdominal pain, Denies nausea and Denies vomiting Physical Exam 2 Vital Signs: Vital Signs: Last Vital Signs Temp 98.0 F 05/07/23 07:10 Pulse 100 05/07/23 07:10 Resp 18 05/07/23 07:10 BP 158/78 H 05/07/23 08:09 Pulse Ox 96 05/07/23 07:10 O2 Del Method Room Air 05/07/23 07:10 BMI result Body Mass Index 24.1 Const: General: cooperative, comfortable, no acute distress, alert and awake Nutritional Appearance: average body habitus Orientation/consciousness: p atient oriented x3 Resp: Effort & Inspection: normal respiratory effort, able to speak in complete sentences, no respiratory distress and no use of accessory muscles Cardio: Rate: regular rate GI: Palpation (GI): Soft to palpation and nontender Neuro: General: patient oriented x3, moves all extremities and CN's II-XI intact bilaterally Extrem: General: Yes no pedal edema Objective Data Active Medications Acetaminophen (Acetaminophen 325 Mg Tablet) 650 mg PO Q6H PRN PRN Reason: Pain, Mild (Pain Scale 1-3) Allopurinol (Allopurinol 100 Mg Tablet) 100 mg PO DAILY [facility] Last Admin: 05/07/23 07:50 Dose: 100 mg Documented By: THAI Cyanocobalamin (Cyanocobalamin (Vitamin B-12) 1,000 Mcg Tablet) 1,000 mcg PO DAILY [facility] Last Admin: 05/07/23 07:50 Dose: 1,000 mcg Documented By: THAI Dextrose (Dextrose 50 % 25 Gm/50 Ml Syringe) 25 gm IVPUSH Q15M PRN; Protocol PRN Reason: per Hypoglycemia Standing Ord. Folic Acid (Folic Acid 1 Mg Tablet) 1 mg PO DAILY [facility] Last Admin: 05/07/23 07:50 Dose: 1 mg Documented By: THAI Glucose (Glucose Gel 15 Gm Gel..Gram.) 15 gm PO Q15M PRN; Protocol PRN Reason: per Hypoglycemia Standing Ord. Piperacillin Sod/Tazobactam (Sod 3.375 gm/ Sodium Chloride) 50 mls @ 100 mls/hr IV Q6H [facility] Last Infusion: 05/07/23 14:17 Dose: Infused Documented By: THAI Insulin Human Lispro (Insulin Lispro 100 Unit/Ml 3 Ml Vial) 0 unit SUBCUT QIDACHS [facility]; Protocol Last Admin: 05/07/23 11:30 Dose: 6 unit Documented By: THAI Metoprolol Succinate (Metoprolol Succinate Er 50 Mg Tab.Er.24h) 50 mg PO DAILY [facility]; Protocol Last Admin: 05/07/23 07:50 Dose: 50 mg Documented By: THAI Morphine Sulfate (Morphine Sulfate 4 Mg/Ml Cartridge) 4 mg IVPUSH Q4H PRN; Protocol PRN Reason: Pain, Severe (Pain Scale 7-10) Last Admin: 05/07/23 03:12 Dose: 4 mg Documented By: YVONNE Omeprazole (Omeprazole 20 Mg Capsule.Dr) 20 mg PO DAILY@0630 [facility] Last Admin: 05/07/23 05:29 Dose: 20 mg Documented By: YVONNE Ondansetron HCl (Ondansetron Hcl 4 Mg/2 Ml Vial) 4 mg IVPUSH Q8H PRN PRN Reason: Nausea and Vomiting Last Admin: 05/06/23 23:15 Dose: 4 mg Documented By: YVONNE Oxycodone HCl (Oxycodone Hcl Immed Release 5 Mg Tablet) 5 mg PO Q6H PRN PRN Reason: Pain, Severe (Pain Scale 7-10) Sodium Chloride (0.9 % Sodium Chloride Flush 3 Ml Syringe) 3 ml IVFLUSH QSHIFT [facility] Last Admin: 05/07/23 07:54 Dose: 3 ml Documented By: THAI Labs 05/07/23 05:31 05/06/23 05:49 Labs: Laboratory Results - last 24 hr 05/06/23 05/06/23 05/06/23 16:02 17:55 20:32 MCV MCH MCHC RDW Plt Count MPV Absolute Nucleated RBC Nucleated RBC % (auto) Hold Purple Top POC Glucose 367 H* 356 H* 245 H Total Bilirubin Direct Bilirubin AST ALT Alkaline Phosphatase Total Protein Albumin Lipase 05/07/23 05/07/23 05/07/23 05:31 07:17 11:12 MCV 98.2 H MCH 33.0 MCHC 33.6 RDW 12.4 Plt Count 172 MPV 12.0 Absolute Nucleated RBC 0.000 Nucleated RBC % (auto) 0.0 Hold Purple Top SEE NOTE POC Glucose 198 H 275 H Total Bilirubin 1.3 H Direct Bilirubin 0.9 H AST 76 H ALT 222 H Alkaline Phosphatase 490 H Total Protein 5.8 L Albumin 2.8 L Lipase 57 Microbiology Microbiology Results: Microbiology 05/04/23 13:04 Blood Culture - Preliminary Blood - Venous Prelim: GNR Gram Stain only 05/05/23 17:43 Blood Culture - Preliminary Blood - Venous No growth after 24 hours. 05/05/23 17:43 Blood Culture - Preliminary Blood - Venous No growth after 24 hours. 05/04/23 13:12 Blood Culture - Preliminary Blood - Venous No growth after 48 hours. Assessment and Plan (1) Gallstone pancreatitis: Status: Acute (2) Bacteremia: Status: Acute Plan This is a 82 year old man admitted with abdominal pain secondary to question of cholangitis, gallstone pancreatitis Gallstone pancreatitis Abdominal CT showing pancreatitis common bile duct measuring 1 cm, stone in the distal common bile duct difficult to exclude MRCP showed persistent 0.7 cm filling defect in distal common bile duct consistent with choledocholithiasis with mild peripancreatic edema in the region of the pancreatic head suggestive of mild pancreatitis seen by GI, s/p ERCP 05/05 - spincterotomy and biliary stent placment - will need repeat ERCP in 4-8 weeks LFTS trending down General surgery following, possible plan for lap kelly tomorrow tolerating diet statin on hold Gram negative bacteremia likely biliary source as above on zosyn follow final culture results repeat cultures negative gastritis seen on EGD continue PPI follow up biopsy results acute on chronic anemia likely due to blood loss from procedure and dilution from IVF H/H above transfusion threshold, and stable follow CBC Diabetes mellitus type 2 fifi goyal on hold SSI, POCs Hypertension Blood pressure improving will resume metoprolol lisinopril on hold for now, resume as bp allows follow bp closely Hyperlipidemia Hold statin GERD We continue PPI DVT prophylaxis with pneumatic compression boots Full code attending - dr. spivey Patient requires ongoing inpatient stay for gallstone pancreatitis diet advancement, possible cholecystectomy, close monitoring given diabetes and risk for infection Quality Stroke Does the patient have a stroke diagnosis?: No VTE Prior VTE?: No VTE Risk Level:: Medical - moderate - high VTE Device Contraindication: N/A - Device Ordered VTE Drug Contraindication: Treatment Not Indicated
[2023-05-07 15:34] VITALS: BP 153/69; PULSE 85; RESP 18; TEMP 37.1; O2SAT 98
[2023-05-07 16:20] LABS: Glucose, Whole Blood 276 mg/dL (60-115)
[2023-05-07 19:34] VITALS: BP 138/58; PULSE 84; RESP 18; TEMP 37; O2SAT 97
[2023-05-07 20:02] LABS: Glucose, Whole Blood 253 mg/dL (60-115)
--- NOTE | 2023-05-07 22:04 | P.CNID_ITS ---
History of Present Illness Data of Consult Service Date: 05/07/23 Requesting physician: Bernie Granger Primary Care Provider: MD STELLA Solis Reason for consult: bacteremia He presents to ER 04/30 with nausea,vomiting and abdominal discomfort,vague epigastric for four days. He has had ERCP and stent placed on 05/[address] Cueto. He has cholecystitis and is due for cholecystectomy tomorrow. He has bacteroides bacteremia. He feels better today. Review of Systems 2 Review of Systems: Yes all other systems are reviewed and are negative PMFSH Past Medical History Medical History Tubular adenoma of colon GERD (gastroesophageal reflux disease) Knee osteoarthritis Erectile dysfunction Hypercholesterolemia Hypertension Gout Type 2 diabetes mellitus with hyperglycemia Family History Family History Father Medical history unknown Mother Medical history unknown Family history: reviewed and not pertinent Surgical History Surgical History History of cataract surgery History of knee replacement procedure of left knee History of eye surgery Social History Household Members: Spouse Housing: House Do you presently have visiting nurse or other home services: No Alcohol intake: current Alcohol intake frequency: a few times a week Alcohol type: beer, wine and hard liquor Patient Tobacco Use Status: Former Tobacco user Quit Date: 1979 Tobacco use type: Cigarette e-Cigarette/Vaping Use: Never Used Second Hand Smoke Exposure: No service: Yes Current occupational status: retired Cognitive needs: No Hearing needs: No Vision needs: Yes Meds Allergies Allergy/AdvReac Type Severity Reaction Status Date / Time metformin Allergy Unknown diarrhea Verified 05/05/23 11:02 rosuvastatin [Crestor] Allergy Unknown Unknown Verified 05/05/23 11:02 Active Medications: Current Medications Acetaminophen (Acetaminophen 325 Mg Tablet) 650 mg PO Q6H PRN PRN Reason: Pain, Mild (Pain Scale 1-3) Allopurinol (Allopurinol 100 Mg Tablet) 100 mg PO DAILY [facility] Last Admin: 05/07/23 07:50 Dose: 100 mg Cyanocobalamin (Cyanocobalamin (Vitamin B-12) 1,000 Mcg Tablet) 1,000 mcg PO DAILY [facility] Last Admin: 05/07/23 07:50 Dose: 1,000 mcg Dextrose (Dextrose 50 % 25 Gm/50 Ml Syringe) 25 gm IVPUSH Q15M PRN; Protocol PRN Reason: per Hypoglycemia Standing Ord. Folic Acid (Folic Acid 1 Mg Tablet) 1 mg PO DAILY [facility] Last Admin: 05/07/23 07:50 Dose: 1 mg Glucose (Glucose Gel 15 Gm Gel..Gram.) 15 gm PO Q15M PRN; Protocol PRN Reason: per Hypoglycemia Standing Ord. Piperacillin Sod/Tazobactam (Sod 3.375 gm/ Sodium Chloride) 50 mls @ 100 mls/hr IV Q6H [facility] Last Infusion: 05/07/23 21:06 Dose: Infused Insulin Human Lispro (Insulin Lispro 100 Unit/Ml 3 Ml Vial) 0 unit SUBCUT QIDACHS [facility]; Protocol Last Admin: 05/07/23 21:09 Dose: 6 unit Metoprolol Succinate (Metoprolol Succinate Er 50 Mg Tab.Er.24h) 50 mg PO DAILY [facility]; Protocol Last Admin: 05/07/23 07:50 Dose: 50 mg Morphine Sulfate (Morphine Sulfate 4 Mg/Ml Cartridge) 4 mg IVPUSH Q4H PRN; Protocol PRN Reason: Pain, Severe (Pain Scale 7-10) Last Admin: 05/07/23 03:12 Dose: 4 mg Omeprazole (Omeprazole 20 Mg Capsule.Dr) 20 mg PO DAILY@0630 [facility] Last Admin: 05/07/23 05:29 Dose: 20 mg Ondansetron HCl (Ondansetron Hcl 4 Mg/2 Ml Vial) 4 mg IVPUSH Q8H PRN PRN Reason: Nausea and Vomiting Last Admin: 05/06/23 23:15 Dose: 4 mg Oxycodone HCl (Oxycodone Hcl Immed Release 5 Mg Tablet) 5 mg PO Q6H PRN PRN Reason: Pain, Severe (Pain Scale 7-10) Sodium Chloride (0.9 % Sodium Chloride Flush 3 Ml Syringe) 3 ml IVFLUSH QSHIFT [facility] Last Admin: 05/07/23 21:15 Dose: 3 ml Home Medications Medication Instructions Recorded Confirmed Last Taken Type cyanocobalamin (vitamin B-12) 1,000 mcg PO DAILY 05/04/23 05/04/23 Unknown History 1,000 mcg tablet insulin aspart U-100 100 unit/mL 0 sliding scale dose subcut TIDAC 05/04/23 05/04/23 Unknown History (3 mL) subcutaneous pen (Novolog FlexPen U-100 Insulin aspart) Physical Exam 2 Vital Signs: Vital Signs: Last Vital Signs Temp 98.6 F 05/07/23 19:34 Pulse 84 05/07/23 19:34 Resp 18 05/07/23 19:34 BP 138/58 L 05/07/23 19:34 Pulse Ox 97 05/07/23 19:34 O2 Del Method Room Air 05/07/23 19:34 BMI result Body Mass Index 24.1 Const: General: cooperative HEENT: Head: Yes normal to inspection Face and sinus: Yes normal facial exam Mouth: Normal oral and palatal mucosa present Teeth and gingiva: d entition normal Eyes: General: appearance normal, both eyes and all related structures P upils: Equal, round and reactive pupils present Resp: Effort & Inspection: normal respiratory effort Cardio: Rate: regular rate Rhythm: regular rhythm GI: Palpation (GI): Soft to palpation and Tenderness to palpation present (GI) (RUQ) : General: Yes no CVA tenderness Back/Spine/Pelvis: Back: no CVA tenderness Skin: General skin exam: no rashes or lesions noted Neuro: General: moves all extremities Cranial nerves: Yes Equal, round and reactive pupils present Extrem: General: Yes normal to inspection Psych: Appearance: grossly normal Results Labs 05/07/23 05:31 05/06/23 05:49 Labs: Short CBC 05/07/23 Range/Units 05:31 WBC 14.4 H (4.8-10.8) X10*3/uL Hgb 9.2 L (14.0-18.0) g/dl Hct 27.4 L (42.0-52.0) % Plt Count 172 (160-400) X10*3/uL Liver Function 05/07/23 Range/Units 05:31 Total Bilirubin 1.3 H (0.0-1.0) mg/dL Direct Bilirubin 0.9 H (0.0-0.5) mg/dL AST 76 H (5-37) U/L ALT 222 H (0-40) U/L Alkaline Phosphatase 490 H (39-117) U/L Albumin 2.8 L (3.5-5.0) g/dL Microbiology Microbiology Results: Microbiology 05/05/23 17:43 Blood - Venous Blood Culture - Preliminary No growth after 48 hours. 05/05/23 17:43 Blood - Venous Blood Culture - Preliminary No growth after 48 hours. 05/04/23 13:04 Blood - Venous Blood Culture - Final Bacteroides fragilis 05/04/23 13:12 Blood - Venous Blood Culture - Preliminary No growth after 48 hours. Assessment and Plan (1) Bacteremia: Status: Acute He has bacteroides from gallbladder most likely. This is anerobic bacteremia. Most likely this will resolve with cholecystectomy. Would continue piperacillin/tazobactam and perform cholecystectomy. Would recheck blood culture make sure cleared but dont need to wait to perform surgery for results. Augmentin for total 14 days (2) Gallstone pancreatitis: Status: Acute (3) Cholelithiasis: Status: Acute
[2023-05-08] VITALS (8 sets, daily range): BP systolic 94–119; BP diastolic 54–58; PULSE 95–107; RESP 17–18; TEMP 36.3–37.6; O2SAT 95–99
[2023-05-08] MEDS: Piperacillin Sodium/Tazobactam 3.375 GM in 0.9 % Sodium Chloride 50 ML IV ×4 (02:20→19:43)
[2023-05-08 03:30] LABS: Glucose, Whole Blood 275 mg/dL (60-115)
--- NOTE | 2023-05-08 03:48 | PC.NURSE ---
at 320 am pt went to [place] on way back he couldn't get back to bed he called for help he stated ;he doesn't feel so good he became clammy and lightheaded no c/o chest pain or any pain . he also said he was trying to have BM checked poc glucose =275 and MD was notified MD at bedside examined pt , vs; bp 127/62 HR 87, O2 SAT 97 % on RA few minuets in bed pt was feeling much better.
[2023-05-08] MEDS: Omeprazole 20 MG CAPSULE.DR PO (06:03)
[2023-05-08 06:10] LABS: Alanine Aminotransferase 117 U/L (0-40); Albumin Level 2.4 g/dL (3.5-5.0); Alkaline Phosphatase 336 U/L (39-117); Aspartate Amino Transferase 31 U/L (5-37); Bilirubin Direct 0.6 mg/dL (0.0-0.5); Bilirubin Total 1.1 mg/dL (0.0-1.0)
--- NOTE | 2023-05-08 06:32 | PM.EVENT ---
Event Note Date of Service: 05/08/23 Event Note: pt BM this am , showed mixed with blood H&H pending already has a GI consult going for Rosie mendoza this am Time Spent With Patient Time: Total time managing care of this patient today ____ minutes.
[2023-05-08] MEDS: Lactated Ringers 500 ML 999 ML IV (06:48)
[2023-05-08 06:49] LABS: Basophils Percent Auto 0.1 % (0-2); Eosinophils Percent Auto 0.1 % (0-4); Hematocrit 22.3 % (42.0-52.0); Hemoglobin 7.5 g/dl (14.0-18.0); Imm Gran Abs Auto 0.75 X10*3/uL (0.00-0.03); Imm Gran Pct Auto 3.3 % (0.0-0.4); Lymphocytes Absolute Auto 0.7 X10*3/uL (1.2-4.9); Lymphocytes Percent Auto 2.9 % (20-40); MANUAL DIFF FLAG SCAN; Mean Corpuscular HGB Conc 33.6 g/dl (31.0-36.0); Mean Corpuscular Hemoglobin 32.5 pg (27.0-33.0); Mean Corpuscular Volume 96.5 fL (80.0-98.0); Mean Platelet Volume 11.9 fL (9.4-12.4); Monocytes Absolute Auto 1.7 X10*3/uL (0.1-1.2); Monocytes Percent Auto 7.5 % (2-11); NRBC Pct Auto 0.1 /100WBC (0.0-0.2); Neutrophils Absolute Auto 19.5 x10*3/uL (2.0-8.3); Neutrophils Percent Auto 86.1 % (45-73); Platelet Count 264 X10*3/uL (160-400); Red Blood Count 2.31 X10*6/uL (4.60-5.80); Red Cell Distribution Width 12.6 % (11.0-16.0); SCAN SMEAR FLAG 1; White Blood Count 22.6 X10*3/uL (4.8-10.8)
[2023-05-08 07:10] LABS: SLIDE REVIEW VERIFIED
[2023-05-08 07:45] LABS: Glucose, Whole Blood 307 mg/dL (60-115)
[2023-05-08] MEDS: Insulin Lispro 100 UNIT/ML 3 ML VIAL SUBCUT ×3 (08:28→22:11)
[2023-05-08] MEDS: 0.9 % Sodium Chloride Flush 3 ML SYRINGE IVFLUSH ×3 (08:31→22:13)
[2023-05-08 11:37] LABS: Glucose, Whole Blood 263 mg/dL (60-115)
--- NOTE | 2023-05-08 12:47 | HO.PM.IMPN ---
Subjective Subjective Date of Service: 05/08/23 Interval History: seen and examined this morning no overnight events feeling well, no abdominal pain, no vomiting feels weaker today and more tired Review of Systems Review of Systems: Yes all other systems are reviewed and are negative Constitutional Constitutional: Denies chills and Denies fever(s) Cardiovascular Cardiovascular: Denies chest pain Gastrointestinal Gastrointestinal: Denies abdominal pain, Denies nausea and Denies vomiting Physical Exam Vital Signs: Vital Signs: Last Vital Signs Temp 99.5 F 05/08/23 10:27 Pulse 103 H 05/08/23 10:27 Resp 18 05/08/23 10:27 BP 117/58 L 05/08/23 10:27 Pulse Ox 97 05/08/23 10:27 O2 Del Method Room Air 05/08/23 10:27 BMI result Body Mass Index 24.1 Appearing in no acute distress, pale lung sounds are clear to auscultation heart regular rate rhythm, clear S1, S2 positive bowel sounds, abdomen is soft, nontender neuro patient is alert x3, no focal deficits Objective Data Active Medications Acetaminophen (Acetaminophen 325 Mg Tablet) 650 mg PO Q6H PRN PRN Reason: Pain, Mild (Pain Scale 1-3) Allopurinol (Allopurinol 100 Mg Tablet) 100 mg PO DAILY [facility] Last Admin: 05/08/23 08:29 Dose: Not Given Documented By: SHWETA Non-Admin Reason: Patient Refused Cyanocobalamin (Cyanocobalamin (Vitamin B-12) 1,000 Mcg Tablet) 1,000 mcg PO DAILY [facility] Last Admin: 05/08/23 08:30 Dose: Not Given Documented By: SHWETA Non-Admin Reason: Patient Refused Dextrose (Dextrose 50 % 25 Gm/50 Ml Syringe) 25 gm IVPUSH Q15M PRN; Protocol PRN Reason: per Hypoglycemia Standing Ord. Folic Acid (Folic Acid 1 Mg Tablet) 1 mg PO DAILY [facility] Last Admin: 05/08/23 08:30 Dose: Not Given Documented By: SHWETA Non-Admin Reason: Patient Refused Glucose (Glucose Gel 15 Gm Gel..Gram.) 15 gm PO Q15M PRN; Protocol PRN Reason: per Hypoglycemia Standing Ord. Piperacillin Sod/Tazobactam (Sod 3.375 gm/ Sodium Chloride) 50 mls @ 100 mls/hr IV Q6H [facility] Last Infusion: 05/08/23 09:07 Dose: Infused Documented By: ZEE Insulin Human Lispro (Insulin Lispro 100 Unit/Ml 3 Ml Vial) 0 unit SUBCUT QIDACHS [facility]; Protocol Last Admin: 05/08/23 08:28 Dose: 8 unit Documented By: SHWETA Metoprolol Succinate (Metoprolol Succinate Er 50 Mg Tab.Er.24h) 50 mg PO DAILY [facility]; Protocol Last Admin: 05/08/23 08:30 Dose: Not Given Documented By: SHWETA Non-Admin Reason: Patient Refused Morphine Sulfate (Morphine Sulfate 4 Mg/Ml Cartridge) 4 mg IVPUSH Q4H PRN; Protocol PRN Reason: Pain, Severe (Pain Scale 7-10) Last Admin: 05/07/23 03:12 Dose: 4 mg Documented By: YVONNE Omeprazole (Omeprazole 20 Mg Capsule.Dr) 20 mg PO DAILY@0630 [facility] Last Admin: 05/08/23 06:03 Dose: 20 mg Documented By: MINERVA Ondansetron HCl (Ondansetron Hcl 4 Mg/2 Ml Vial) 4 mg IVPUSH Q8H PRN PRN Reason: Nausea and Vomiting Last Admin: 05/06/23 23:15 Dose: 4 mg Documented By: YVONNE Oxycodone HCl (Oxycodone Hcl Immed Release 5 Mg Tablet) 5 mg PO Q6H PRN PRN Reason: Pain, Severe (Pain Scale 7-10) Sodium Chloride (0.9 % Sodium Chloride Flush 3 Ml Syringe) 3 ml IVFLUSH QSHIFT [facility] Last Admin: 05/08/23 08:31 Dose: 3 ml Documented By: SHWETA Labs 05/08/23 05:08 05/06/23 05:49 Labs: Laboratory Results - last 24 hr 05/07/23 05/07/23 05/08/23 16:13 19:55 03:26 MCV MCH MCHC RDW Plt Count MPV Immature Gran % (Auto) Neut % (Auto) Lymph % (Auto) [place] % (Auto) Eos % (Auto) Baso % (Auto) Lymph # (Auto) [place] # (Auto) Eos # (Auto) Baso # (Auto) Abs Immat Gran (auto) Absolute Neuts (auto) Absolute Nucleated RBC Nucleated RBC % (auto) Smear Tech's Comments Hold Purple Top POC Glucose 276 H 253 H 275 H Total Bilirubin Direct Bilirubin AST ALT Alkaline Phosphatase Total Protein Albumin Blood Type Antibody Screen Crossmatch 05/08/23 05/08/23 05/08/23 05:08 06:54 07:22 MCV 96.5 MCH 32.5 MCHC 33.6 RDW 12.6 Plt Count 264 D MPV 11.9 Immature Gran % (Auto) 3.3 H Neut % (Auto) 86.1 H Lymph % (Auto) 2.9 L [place] % (Auto) 7.5 Eos % (Auto) 0.1 Baso % (Auto) 0.1 Lymph # (Auto) 0.7 L [place] # (Auto) 1.7 H Eos # (Auto) 0.0 Baso # (Auto) 0.0 Abs Immat Gran (auto) 0.75 H Absolute Neuts (auto) 19.5 H Absolute Nucleated RBC 0.020 H Nucleated RBC % (auto) 0.1 Smear Tech's Comments VERIFIED Hold Purple Top SEE NOTE POC Glucose 307 H Total Bilirubin 1.1 H Direct Bilirubin 0.6 H AST 31 ALT 117 H Alkaline Phosphatase 336 H Total Protein 5.0 L Albumin 2.4 L Blood Type O Negative Antibody Screen NEGATIVE Crossmatch See Detail 05/08/23 11:32 MCV MCH MCHC RDW Plt Count MPV Immature Gran % (Auto) Neut % (Auto) Lymph % (Auto) [place] % (Auto) Eos % (Auto) Baso % (Auto) Lymph # (Auto) [place] # (Auto) Eos # (Auto) Baso # (Auto) Abs Immat Gran (auto) Absolute Neuts (auto) Absolute Nucleated RBC Nucleated RBC % (auto) Smear Tech's Comments Hold Purple Top POC Glucose 263 H Total Bilirubin Direct Bilirubin AST ALT Alkaline Phosphatase Total Protein Albumin Blood Type Antibody Screen Crossmatch Microbiology Microbiology Results: Microbiology 05/05/23 17:43 Blood Culture - Preliminary Blood - Venous No growth after 48 hours. 05/05/23 17:43 Blood Culture - Preliminary Blood - Venous No growth after 48 hours. 05/04/23 13:04 Blood Culture - Final Blood - Venous Bacteroides fragilis Assessment and Plan (1) Gallstone pancreatitis: Status: Acute (2) Bacteremia: Status: Acute Plan This is a 82 year old man admitted with abdominal pain secondary to question of cholangitis, gallstone pancreatitis Acute on chronic blood anemia. Unspecified likely due to blood loss from procedure and dilution from IVF, but also had an episode of BRBPR overnight 1 unit PRBC ordered, check HH post transfusion check stool occult Gallstone pancreatitis Abdominal CT showing pancreatitis common bile duct measuring 1 cm, stone in the distal common bile duct difficult to exclude MRCP showed persistent 0.7 cm filling defect in distal common bile duct consistent with choledocholithiasis with mild peripancreatic edema in the region of the pancreatic head suggestive of mild pancreatitis seen by GI, s/p ERCP 05/05 - spincterotomy and biliary stent placment - will need repeat ERCP in 4-8 weeks LFTS trending down General surgery following> plan for ccy today cancelled due to anemia and hypotension clear diet for now statin on hold Gram negative bacteremia with leukocytosis likely biliary source as above on zosyn bacteroides fragilis gastritis seen on EGD continue PPI follow up biopsy results Diabetes mellitus type 2 jardiance, januvia on hold SSI, POCs Hypertension Blood pressure improving will resume metoprolol lisinopril on hold for now, resume as bp allows follow bp closely Hyperlipidemia Hold statin GERD We continue PPI DVT prophylaxis with pneumatic compression boots Full code attending - dr. spivey Patient requires ongoing inpatient stay for gallstone pancreatitis diet advancement, possible cholecystectomy, close monitoring given diabetes and risk for infection Quality Stroke Does the patient have a stroke diagnosis?: No VTE Prior VTE?: No VTE Risk Level:: Medical - moderate - high VTE Device Contraindication: N/A - Device Ordered VTE Drug Contraindication: Treatment Not Indicated
[2023-05-08 13:28] LABS: Hematocrit 24.5 % (42.0-52.0); Hemoglobin 8.2 g/dl (14.0-18.0)
[2023-05-08 16:29] LABS: Glucose, Whole Blood 270 mg/dL (60-115)
[2023-05-08 20:42] LABS: Glucose, Whole Blood 288 mg/dL (60-115)
[2023-05-09] VITALS (20 sets, daily range): BP systolic 91–134; BP diastolic 47–68; PULSE 74–103; RESP 14–20; TEMP 36–37.2; O2SAT 94–98
[2023-05-09] MEDS: Piperacillin Sodium/Tazobactam 3.375 GM in 0.9 % Sodium Chloride 50 ML IV ×3 (02:36→19:04)
[2023-05-09 05:31] LABS: MANUAL DIFF FLAG NO
[2023-05-09 05:45] LABS: Basophils Percent Auto 0.2 % (0-2); Eosinophils Percent Auto 0.2 % (0-4); Hematocrit 21.1 % (42.0-52.0); Hemoglobin 7.1 g/dl (14.0-18.0); Imm Gran Abs Auto 0.29 X10*3/uL (0.00-0.03); Imm Gran Pct Auto 1.6 % (0.0-0.4); Lymphocytes Absolute Auto 0.8 X10*3/uL (1.2-4.9); Lymphocytes Percent Auto 4.3 % (20-40); Mean Corpuscular HGB Conc 33.6 g/dl (31.0-36.0); Mean Corpuscular Volume 92.1 fL (80.0-98.0); Mean Platelet Volume 11.5 fL (9.4-12.4); Monocytes Absolute Auto 1.5 X10*3/uL (0.1-1.2); Monocytes Percent Auto 8.2 % (2-11); NRBC Pct Auto 0.2 /100WBC (0.0-0.2); Neutrophils Absolute Auto 15.7 x10*3/uL (2.0-8.3); Neutrophils Percent Auto 85.5 % (45-73); Platelet Count 191 X10*3/uL (160-400); Red Blood Count 2.29 X10*6/uL (4.60-5.80); Red Cell Distribution Width 15.6 % (11.0-16.0); White Blood Count 18.3 X10*3/uL (4.8-10.8)
[2023-05-09] MEDS: Omeprazole 20 MG CAPSULE.DR PO (05:50)
[2023-05-09 05:59] LABS: Alanine Aminotransferase 76 U/L (0-40); Albumin Level 2.3 g/dL (3.5-5.0); Alkaline Phosphatase 232 U/L (39-117); Anion Gap 13 (12-20); Aspartate Amino Transferase 23 U/L (5-37); Blood Urea Nitrogen 30 mg/dL (9-16); Calcium 8.4 mg/dL (8.4-10.2); Carbon Dioxide 25 mmol/L (22-29); Chloride 107 mmol/L (96-108); Creatinine Clr Calc Pharmacy 65.8; Estimated Glomerular Filt Rate > 60; Glucose Random 222 mg/dL (60-115); Potassium 3.5 mmol/L (3.3-5.1); Sodium 141 mmol/L (135-145); Total Protein 5.1 g/dL (6.5-8.0)
[2023-05-09 07:45] LABS: Glucose, Whole Blood 216 mg/dL (60-115)
--- NOTE | 2023-05-09 08:38 | HO.PM.IMPN ---
Subjective Subjective Date of Service: 05/09/23 Interval History: feeling well, no abdominal pain, no vomiting had some gassiness last night but better this morning Review of Systems Review of Systems: Yes all other systems are reviewed and are negative Constitutional Constitutional: Denies chills and Denies fever(s) Cardiovascular Cardiovascular: Denies chest pain Gastrointestinal Gastrointestinal: Denies abdominal pain, Denies nausea and Denies vomiting Physical Exam Vital Signs: Vital Signs: Last Vital Signs Temp 97.5 F 05/09/23 07:51 Pulse 100 05/09/23 07:51 Resp 16 05/09/23 07:51 BP 114/58 L 05/09/23 07:51 Pulse Ox 96 05/09/23 07:24 O2 Del Method Room Air 05/09/23 07:24 BMI result Body Mass Index 24.1 Appearing in no acute distress lung sounds are clear to auscultation heart regular rate rhythm, clear S1, S2 abd mildly distended but soft neuro patient is alert x3, no focal deficits Objective Data Active Medications Acetaminophen (Acetaminophen 325 Mg Tablet) 650 mg PO Q6H PRN PRN Reason: Pain, Mild (Pain Scale 1-3) Allopurinol (Allopurinol 100 Mg Tablet) 100 mg PO DAILY [facility] Last Admin: 05/08/23 08:29 Dose: Not Given Documented By: SHWETA Non-Admin Reason: Patient Refused Cyanocobalamin (Cyanocobalamin (Vitamin B-12) 1,000 Mcg Tablet) 1,000 mcg PO DAILY [facility] Last Admin: 05/08/23 08:30 Dose: Not Given Documented By: SHWETA Non-Admin Reason: Patient Refused Dextrose (Dextrose 50 % 25 Gm/50 Ml Syringe) 25 gm IVPUSH Q15M PRN; Protocol PRN Reason: per Hypoglycemia Standing Ord. Folic Acid (Folic Acid 1 Mg Tablet) 1 mg PO DAILY [facility] Last Admin: 05/08/23 08:30 Dose: Not Given Documented By: SHWETA Non-Admin Reason: Patient Refused Glucose (Glucose Gel 15 Gm Gel..Gram.) 15 gm PO Q15M PRN; Protocol PRN Reason: per Hypoglycemia Standing Ord. Piperacillin Sod/Tazobactam (Sod 3.375 gm/ Sodium Chloride) 50 mls @ 100 mls/hr IV Q6H [facility] Last Infusion: 05/09/23 03:30 Dose: Infused Documented By: MINERVA Insulin Human Lispro (Insulin Lispro 100 Unit/Ml 3 Ml Vial) 0 unit SUBCUT QIDACHS [facility]; Protocol Last Admin: 05/08/23 22:11 Dose: 6 unit Documented By: MINERVA Metoprolol Succinate (Metoprolol Succinate Er 50 Mg Tab.Er.24h) 50 mg PO DAILY [facility]; Protocol Last Admin: 05/08/23 08:30 Dose: Not Given Documented By: SHWETA Non-Admin Reason: Patient Refused Morphine Sulfate (Morphine Sulfate 4 Mg/Ml Cartridge) 4 mg IVPUSH Q4H PRN; Protocol PRN Reason: Pain, Severe (Pain Scale 7-10) Last Admin: 05/07/23 03:12 Dose: 4 mg Documented By: YVONNE Omeprazole (Omeprazole 20 Mg Capsule.Dr) 20 mg PO DAILY@0630 [facility] Last Admin: 05/09/23 05:50 Dose: 20 mg Documented By: MINERVA Ondansetron HCl (Ondansetron Hcl 4 Mg/2 Ml Vial) 4 mg IVPUSH Q8H PRN PRN Reason: Nausea and Vomiting Last Admin: 05/06/23 23:15 Dose: 4 mg Documented By: YVONNE Oxycodone HCl (Oxycodone Hcl Immed Release 5 Mg Tablet) 5 mg PO Q6H PRN PRN Reason: Pain, Severe (Pain Scale 7-10) Sodium Biphosphate/Sodium Phosphate (Sodium Phosphate,[place]-Dibasic 133 Ml Enema) 133 ml [place] ONCE ONE Stop: 05/09/23 09:31 Sodium Biphosphate/Sodium Phosphate (Sodium Phosphate,[place]-Dibasic 133 Ml Enema) 133 ml [place] ONCE [facility] Sodium Chloride (0.9 % Sodium Chloride Flush 3 Ml Syringe) 3 ml IVFLUSH QSHIFT [facility] Last Admin: 05/08/23 22:13 Dose: 3 ml Documented By: MINERVA Labs 05/09/23 05:06 05/09/23 05:06 Labs: Laboratory Results - last 24 hr 05/08/23 05/08/23 05/08/23 06:54 11:32 16:22 MCV MCH MCHC RDW Plt Count MPV Immature Gran % (Auto) Neut % (Auto) Lymph % (Auto) [place] % (Auto) Eos % (Auto) Baso % (Auto) Lymph # (Auto) [place] # (Auto) Eos # (Auto) Baso # (Auto) Abs Immat Gran (auto) Absolute Neuts (auto) Absolute Nucleated RBC Nucleated RBC % (auto) Anion Gap Estim Creat Clear Calc Estimated GFR POC Glucose 263 H 270 H Random Glucose Calcium Total Bilirubin AST ALT Alkaline Phosphatase Total Protein Albumin Blood Type O Negative Antibody Screen NEGATIVE Crossmatch See Detail 05/08/23 05/09/23 05/09/23 20:35 05:06 07:23 MCV 92.1 MCH 31.0 MCHC 33.6 RDW 15.6 Plt Count 191 D MPV 11.5 Immature Gran % (Auto) 1.6 H Neut % (Auto) 85.5 H Lymph % (Auto) 4.3 L [place] % (Auto) 8.2 Eos % (Auto) 0.2 Baso % (Auto) 0.2 Lymph # (Auto) 0.8 L [place] # (Auto) 1.5 H Eos # (Auto) 0.0 Baso # (Auto) 0.0 Abs Immat Gran (auto) 0.29 H Absolute Neuts (auto) 15.7 H Absolute Nucleated RBC 0.030 H Nucleated RBC % (auto) 0.2 Anion Gap 13 Estim Creat Clear Calc 65.8 Estimated GFR > 60 POC Glucose 288 H 216 H Random Glucose 222 H Calcium 8.4 Total Bilirubin 1.0 AST 23 ALT 76 H Alkaline Phosphatase 232 H Total Protein 5.1 L Albumin 2.3 L Blood Type Antibody Screen Crossmatch Assessment and Plan (1) Gallstone pancreatitis: Status: Acute (2) Bacteremia: Status: Acute Plan This is a 82 year old man admitted with abdominal pain secondary to question of cholangitis, gallstone pancreatitis Acute on chronic blood anemia. Unspecified likely due to blood loss from procedure and dilution from IVF, but also had an episode of BRBPR overnight 05/08 s/p 1 unit PRBC ordered still low HH today, 2 units PRBC ordered discussed with GI, plan for EGD and colo today to assess for source of bleeding if any stool occult sample pending Gallstone pancreatitis Abdominal CT showing pancreatitis common bile duct measuring 1 cm, stone in the distal common bile duct difficult to exclude MRCP showed persistent 0.7 cm filling defect in distal common bile duct consistent with choledocholithiasis with mild peripancreatic edema in the region of the pancreatic head suggestive of mild pancreatitis seen by GI, s/p ERCP 05/05 - spincterotomy and biliary stent placment - will need repeat ERCP in 4-8 weeks LFTS trending down General surgery following> plan for ccy when source of bleeding identified and HH stable Gram negative bacteremia with leukocytosis likely biliary source as above on zosyn bacteroides fragilis gastritis seen on EGD continue PPI follow up biopsy results Diabetes mellitus type 2 brandondififi [place] on hold SSI, POCs Hypertension Blood pressure improving will resume metoprolol lisinopril on hold for now, resume as bp allows follow bp closely Hyperlipidemia Hold statin GERD continue PPI DVT prophylaxis with pneumatic compression boots Full code attending - dr. spivey Patient requires ongoing inpatient stay for gallstone pancreatitis diet advancement, possible cholecystectomy, close monitoring given diabetes and risk for infection Quality Stroke Does the patient have a stroke diagnosis?: No VTE Prior VTE?: No VTE Risk Level:: Medical - moderate - high VTE Device Contraindication: N/A - Device Ordered VTE Drug Contraindication: Treatment Not Indicated
[2023-05-09 09:10] LABS: OBS Int Ctl Valid YES; OBS1 POSITIVE (NEGATIVE)
--- NOTE | 2023-05-09 10:17 | P.PNGI_ITS ---
Subjective Subjective Date of Service: 05/09/23 Interval History: Dropping HGB since ERCP he denies any symptoms no abdominal pain no nausea or vomiting nursing staff noted darks reddish stools Critical Care Time (minutes): 0 Physical Exam 2 Vital Signs: Vital Signs: Last Vital Signs Temp 97.4 F 05/09/23 08:52 Pulse 101 H 05/09/23 08:52 Resp 18 05/09/23 08:52 BP 111/53 L 05/09/23 08:52 Pulse Ox 98 05/09/23 08:52 O2 Del Method Room Air 05/09/23 08:52 BMI result Body Mass Index 24.1 EXAM: GENERAL: The patient is well developed and nontoxic. VITAL SIGNS:see workflow HEENT: Nonicteric sclerae, PERRLA, EOMI. Oropharynx clear. Moist mucous membranes. Conjunctivae appear pale. No thyroid mass. CHEST: Chest wall is nontender. HEART: Regular rate and rhythm without murmurs. LUNGS: Clear to auscultation bilaterally. ABDOMEN: Soft, positive bowel sounds, nontender, no organomegaly.no flank tenderness SKIN: No rash, no excessive bruising, petechiae, or purpura. NEUROLOGIC: Cranial nerves II-XII intact without motor/sensory deficit. Psych: Appearance: grossly normal Objective Data Labs 05/09/23 05:06 05/09/23 05:06 Labs: Laboratory Results - last 24 hr 05/08/23 05/08/23 05/08/23 06:54 11:32 13:11 WBC RBC Hgb 8.2 L Hct 24.5 L MCV MCH MCHC RDW Plt Count MPV Immature Gran % (Auto) Neut % (Auto) Lymph % (Auto) [place] % (Auto) Eos % (Auto) Baso % (Auto) Lymph # (Auto) [place] # (Auto) Eos # (Auto) Baso # (Auto) Abs Immat Gran (auto) Absolute Neuts (auto) Absolute Nucleated RBC Nucleated RBC % (auto) Sodium Potassium Chloride Carbon Dioxide Anion Gap BUN Creatinine Estim Creat Clear Calc Estimated GFR POC Glucose 263 H Random Glucose Calcium Total Bilirubin AST ALT Alkaline Phosphatase Total Protein Albumin Stool Occult Blood Blood Type O Negative Antibody Screen NEGATIVE Crossmatch See Detail 05/08/23 05/08/23 05/09/23 16:22 20:35 05:06 WBC 18.3 H RBC 2.29 L Hgb 7.1 L Hct 21.1 L MCV 92.1 MCH 31.0 MCHC 33.6 RDW 15.6 Plt Count 191 D MPV 11.5 Immature Gran % (Auto) 1.6 H Neut % (Auto) 85.5 H Lymph % (Auto) 4.3 L [place] % (Auto) 8.2 Eos % (Auto) 0.2 Baso % (Auto) 0.2 Lymph # (Auto) 0.8 L [place] # (Auto) 1.5 H Eos # (Auto) 0.0 Baso # (Auto) 0.0 Abs Immat Gran (auto) 0.29 H Absolute Neuts (auto) 15.7 H Absolute Nucleated RBC 0.030 H Nucleated RBC % (auto) 0.2 Sodium 141 Potassium 3.5 Chloride 107 Carbon Dioxide 25 Anion Gap 13 BUN 30 H Creatinine 0.78 Estim Creat Clear Calc 65.8 Estimated GFR > 60 POC Glucose 270 H 288 H Random Glucose 222 H Calcium 8.4 Total Bilirubin 1.0 AST 23 ALT 76 H Alkaline Phosphatase 232 H Total Protein 5.1 L Albumin 2.3 L Stool Occult Blood Blood Type Antibody Screen Crossmatch 05/09/23 05/09/23 07:23 08:49 WBC RBC Hgb Hct MCV MCH MCHC RDW Plt Count MPV Immature Gran % (Auto) Neut % (Auto) Lymph % (Auto) [place] % (Auto) Eos % (Auto) Baso % (Auto) Lymph # (Auto) [place] # (Auto) Eos # (Auto) Baso # (Auto) Abs Immat Gran (auto) Absolute Neuts (auto) Absolute Nucleated RBC Nucleated RBC % (auto) Sodium Potassium Chloride Carbon Dioxide Anion Gap BUN Creatinine Estim Creat Clear Calc Estimated GFR POC Glucose 216 H Random Glucose Calcium Total Bilirubin AST ALT Alkaline Phosphatase Total Protein Albumin Stool Occult Blood POSITIVE Blood Type Antibody Screen Crossmatch Microbiology Microbiology Results: Microbiology 05/05/23 17:43 Blood - Venous Blood Culture - Preliminary No growth after 48 hours. 05/05/23 17:43 Blood - Venous Blood Culture - Preliminary No growth after 48 hours. 05/04/23 13:04 Blood - Venous Blood Culture - Final Bacteroides fragilis 05/04/23 13:12 Blood - Venous Blood Culture - Preliminary No growth after 48 hours. Procedures Date of Service Date of Service: 05/09/23 Progress Note: A&P Assessment and plan (1) Acute blood loss anemia: Status: Acute Plan 1/ Acute blood loss anemia, concern would be bleeding from sphincterotomy site from recent ERCP PLAN: 1/ EGD with sigmoidoscopy today 2/ transfuse target HGB 8 g/dl 3/ PPI IV Time Spent With Patient Time: Total time managing care of this patient today ____ minutes. Quality Stroke Does the patient have a stroke diagnosis?: No VTE Prior VTE?: No VTE Risk Level:: Medical - moderate - high VTE Device Contraindication: N/A - Device Ordered VTE Drug Contraindication: Treatment Not Indicated
[2023-05-09 11:14] LABS: Glucose, Whole Blood 209 mg/dL (60-115)
[2023-05-09] MEDS: Sodium Phosphate,Mono-Dibasic 133 ML ENEMA PR (11:31)
--- NOTE | 2023-05-09 13:06 | HO.ANESPROP2 ---
HPI - Anesthesia Eval Consult details Narrative: GI bleeding PMFSH Active Problems Active Problems: All Active Problems (Updated 05/07/23 @ 14:32 by YANA Ricks) Bacteremia (Acute) Gallstone pancreatitis (Acute) Cholelithiasis (Acute) Weight loss (Acute) BPH (benign prostatic hyperplasia) (Acute) Urinary frequency (Acute) Bilateral shoulder pain (Acute) Facial dermatitis (Acute) SOB (shortness of breath) (Acute) GERD (gastroesophageal reflux disease) (Acute) COVID-19 virus infection (Acute) Tubular adenoma of colon (Acute) Hypercholesterolemia (Acute) Hypertension (Acute) Type 2 diabetes mellitus with hyperglycemia (Acute) Past Medical History Medical History Tubular adenoma of colon GERD (gastroesophageal reflux disease) Knee osteoarthritis Erectile dysfunction Hypercholesterolemia Hypertension Gout Type 2 diabetes mellitus with hyperglycemia Family History Family History Father Medical history unknown Mother Medical history unknown Family history of problems with anesthesia: No Surgical History Surgical History History of cataract surgery History of knee replacement procedure of left knee History of eye surgery History of Problems with Anesthesia: No Social History Household Members: Spouse Housing: House Do you presently have visiting nurse or other home services: No Alcohol intake: current Alcohol intake frequency: a few times a week Alcohol type: beer, wine and hard liquor Patient Tobacco Use Status: Former Tobacco user Quit Date: 1979 Tobacco use type: Cigarette e-Cigarette/Vaping Use: Never Used Second Hand Smoke Exposure: No service: Yes Current occupational status: retired Cognitive needs: No Hearing needs: No Vision needs: Yes Meds Allergies Allergy/AdvReac Type Severity Reaction Status Date / Time metformin Allergy Unknown diarrhea Verified 05/05/23 11:02 rosuvastatin [Crestor] Allergy Unknown Unknown Verified 05/05/23 11:02 Active Medications: Current Medications Acetaminophen (Acetaminophen 325 Mg Tablet) 650 mg PO Q6H PRN PRN Reason: Pain, Mild (Pain Scale 1-3) Allopurinol (Allopurinol 100 Mg Tablet) 100 mg PO DAILY SHIRA Last Admin: 05/09/23 09:13 Dose: Not Given Cyanocobalamin (Cyanocobalamin (Vitamin B-12) 1,000 Mcg Tablet) 1,000 mcg PO DAILY [facility] Last Admin: 05/09/23 09:13 Dose: Not Given Dextrose (Dextrose 50 % 25 Gm/50 Ml Syringe) 25 gm IVPUSH Q15M PRN; Protocol PRN Reason: per Hypoglycemia Standing Ord. Folic Acid (Folic Acid 1 Mg Tablet) 1 mg PO DAILY [facility] Last Admin: 05/09/23 09:13 Dose: Not Given Glucose (Glucose Gel 15 Gm Gel..Gram.) 15 gm PO Q15M PRN; Protocol PRN Reason: per Hypoglycemia Standing Ord. Piperacillin Sod/Tazobactam (Sod 3.375 gm/ Sodium Chloride) 50 mls @ 100 mls/hr IV Q6H [facility] Last Admin: 05/09/23 11:18 Dose: Not Given Insulin Human Lispro (Insulin Lispro 100 Unit/Ml 3 Ml Vial) 0 unit SUBCUT QIDACHS [facility]; Protocol Last Admin: 05/09/23 12:08 Dose: Not Given Metoprolol Succinate (Metoprolol Succinate Er 50 Mg Tab.Er.24h) 50 mg PO DAILY [facility]; Protocol Last Admin: 05/09/23 09:13 Dose: Not Given Morphine Sulfate (Morphine Sulfate 4 Mg/Ml Cartridge) 4 mg IVPUSH Q4H PRN; Protocol PRN Reason: Pain, Severe (Pain Scale 7-10) Last Admin: 05/07/23 03:12 Dose: 4 mg Omeprazole (Omeprazole 20 Mg Capsule.Dr) 20 mg PO DAILY@0630 [facility] Last Admin: 05/09/23 05:50 Dose: 20 mg Ondansetron HCl (Ondansetron Hcl 4 Mg/2 Ml Vial) 4 mg IVPUSH Q8H PRN PRN Reason: Nausea and Vomiting Last Admin: 05/06/23 23:15 Dose: 4 mg Oxycodone HCl (Oxycodone Hcl Immed Release 5 Mg Tablet) 5 mg PO Q6H PRN PRN Reason: Pain, Severe (Pain Scale 7-10) Sodium Biphosphate/Sodium Phosphate (Sodium Phosphate,[place]-Dibasic 133 Ml Enema) 133 ml [place] ONCE [facility] Sodium Chloride (0.9 % Sodium Chloride Flush 3 Ml Syringe) 3 ml IVFLUSH QSHIFT [facility] Last Admin: 05/09/23 09:12 Dose: Not Given Home Medications Medication Instructions Recorded Confirmed Last Taken Type cyanocobalamin (vitamin B-12) 1,000 mcg PO DAILY 05/04/23 05/04/23 Unknown History 1,000 mcg tablet insulin aspart U-100 100 unit/mL 0 sliding scale dose subcut TIDAC 05/04/23 05/04/23 Unknown History (3 mL) subcutaneous pen (Novolog FlexPen U-100 Insulin aspart) Exam Height,Weight and Vital Signs: Height 5 ft 6 in Weight 67.7 kg Last Vital Signs Temp 98.7 F 05/09/23 12:40 Pulse 87 05/09/23 12:40 Resp 20 05/09/23 12:40 BP 113/68 05/09/23 12:40 Pulse Ox 96 05/09/23 12:30 O2 Del Method Room Air 05/09/23 12:30 Pertinent Lab Results Pertinent Lab Results: Laboratory Tests 05/04/23 05/04/23 05/04/23 11:51 12:09 13:03 WBC 24.6 H RBC 4.35 L Hgb 14.5 Hct 43.2 MCV 99.3 H D MCH 33.3 H MCHC 33.6 RDW 12.4 Plt Count 273 D MPV 11.9 Immature Gran % (Auto) 1.3 H Neut % (Auto) 89.4 H Lymph % (Auto) 5.4 L [place] % (Auto) 3.2 Eos % (Auto) 0.2 Baso % (Auto) 0.5 Lymph # (Auto) 1.3 [place] # (Auto) 0.8 Eos # (Auto) 0.1 Baso # (Auto) 0.1 Abs Immat Gran (auto) 0.33 H Absolute Neuts (auto) 22.0 H Absolute Nucleated RBC 0.000 Nucleated RBC % (auto) 0.0 Smear Tech's Comments VERIFIED Hold Purple Top PT INR Sodium 140 Potassium 4.1 Chloride 102 Carbon Dioxide 27 Anion Gap 15 BUN 30 H Creatinine 1.04 Estim Creat Clear Calc 49.4 Estimated GFR > 60 POC Glucose Random Glucose 199 H Lactic Acid 2.3 H* 2.2 H* Lactic Acid F/U @ 2Hr Lactic Acid F/U @ 4Hr Calcium 9.8 Total Bilirubin 3.3 H Direct Bilirubin 2.6 H AST 576 H ALT 445 H Alkaline Phosphatase 982 H Total Protein 7.2 Albumin 3.6 Lipase > 3000 H Stool Occult Blood Blood Type O Negative Antibody Screen NEGATIVE Crossmatch 05/04/23 05/04/23 05/04/23 14:31 16:36 19:26 WBC RBC Hgb Hct MCV MCH MCHC RDW Plt Count MPV Immature Gran % (Auto) Neut % (Auto) Lymph % (Auto) [place] % (Auto) Eos % (Auto) Baso % (Auto) Lymph # (Auto) [place] # (Auto) Eos # (Auto) Baso # (Auto) Abs Immat Gran (auto) Absolute Neuts (auto) Absolute Nucleated RBC Nucleated RBC % (auto) Smear Tech's Comments Hold Purple Top PT INR Sodium Potassium Chloride Carbon Dioxide Anion Gap BUN Creatinine Estim Creat Clear Calc Estimated GFR POC Glucose Random Glucose Lactic Acid Lactic Acid F/U @ 2Hr 2.9 H* 2.2 H* Lactic Acid F/U @ 4Hr 1.2 Calcium Total Bilirubin Direct Bilirubin AST ALT Alkaline Phosphatase Total Protein Albumin Lipase Stool Occult Blood Blood Type Antibody Screen Crossmatch 05/04/23 05/05/23 05/05/23 20:48 06:23 06:57 WBC 12.0 H RBC 3.55 L Hgb 11.6 L Hct 35.0 L MCV 98.6 H MCH 32.7 MCHC 33.1 RDW 12.7 Plt Count 160 D MPV 11.5 Immature Gran % (Auto) 0.8 H Neut % (Auto) 88.4 H Lymph % (Auto) 5.0 L [place] % (Auto) 5.4 Eos % (Auto) 0.2 Baso % (Auto) 0.2 Lymph # (Auto) 0.6 L [place] # (Auto) 0.7 Eos # (Auto) 0.0 Baso # (Auto) 0.0 Abs Immat Gran (auto) 0.10 H Absolute Neuts (auto) 10.6 H Absolute Nucleated RBC 0.000 Nucleated RBC % (auto) 0.0 Smear Tech's Comments Hold Purple Top PT 12.8 INR 1.1 Sodium 145 Potassium 4.2 Chloride 113 H Carbon Dioxide 24 Anion Gap 12 BUN 23 H Creatinine 0.98 Estim Creat Clear Calc 52.4 Estimated GFR > 60 POC Glucose 171 H 191 H Random Glucose 195 H Lactic Acid Lactic Acid F/U @ 2Hr Lactic Acid F/U @ 4Hr Calcium 9.1 D Total Bilirubin 4.2 H Direct Bilirubin 3.7 H AST 414 H ALT 415 H Alkaline Phosphatase 785 H Total Protein 6.1 L Albumin 3.2 L Lipase Stool Occult Blood Blood Type Antibody Screen Crossmatch 05/05/23 05/05/23 05/05/23 10:49 14:20 16:27 WBC RBC Hgb Hct MCV MCH MCHC RDW Plt Count MPV Immature Gran % (Auto) Neut % (Auto) Lymph % (Auto) [place] % (Auto) Eos % (Auto) Baso % (Auto) Lymph # (Auto) [place] # (Auto) Eos # (Auto) Baso # (Auto) Abs Immat Gran (auto) Absolute Neuts (auto) Absolute Nucleated RBC Nucleated RBC % (auto) Smear Tech's Comments Hold Purple Top PT INR Sodium Potassium Chloride Carbon Dioxide Anion Gap BUN Creatinine Estim Creat Clear Calc Estimated GFR POC Glucose 167 H 169 H 204 H Random Glucose Lactic Acid Lactic Acid F/U @ 2Hr Lactic Acid F/U @ 4Hr Calcium Total Bilirubin Direct Bilirubin AST ALT Alkaline Phosphatase Total Protein Albumin Lipase Stool Occult Blood Blood Type Antibody Screen Crossmatch 05/05/23 05/06/23 05/06/23 20:38 05:49 07:41 WBC 12.7 H RBC 2.92 L Hgb 9.6 L Hct 28.7 L MCV 98.3 H MCH 32.9 MCHC 33.4 RDW 12.4 Plt Count 163 MPV 11.8 Immature Gran % (Auto) 1.0 H Neut % (Auto) 90.2 H Lymph % (Auto) 3.9 L [place] % (Auto) 4.6 Eos % (Auto) 0.2 Baso % (Auto) 0.1 Lymph # (Auto) 0.5 L [place] # (Auto) 0.6 Eos # (Auto) 0.0 Baso # (Auto) 0.0 Abs Immat Gran (auto) 0.13 H Absolute Neuts (auto) 11.5 H Absolute Nucleated RBC 0.000 Nucleated RBC % (auto) 0.0 Smear Tech's Comments VERIFIED Hold Purple Top PT INR Sodium 142 Potassium 4.2 Chloride 112 H Carbon Dioxide 24 Anion Gap 10 L BUN 25 H Creatinine 0.97 Estim Creat Clear Calc 52.9 Estimated GFR > 60 POC Glucose 223 H 226 H Random Glucose 248 H Lactic Acid Lactic Acid F/U @ 2Hr Lactic Acid F/U @ 4Hr Calcium 8.5 D Total Bilirubin 4.0 H Direct Bilirubin 3.3 H AST 340 H ALT 353 H Alkaline Phosphatase 618 H Total Protein 5.2 L Albumin 2.6 L Lipase 365 H Stool Occult Blood Blood Type Antibody Screen Crossmatch 05/06/23 05/06/23 05/06/23 11:07 16:02 17:55 WBC RBC Hgb Hct MCV MCH MCHC RDW Plt Count MPV Immature Gran % (Auto) Neut % (Auto) Lymph % (Auto) [place] % (Auto) Eos % (Auto) Baso % (Auto) Lymph # (Auto) [place] # (Auto) Eos # (Auto) Baso # (Auto) Abs Immat Gran (auto) Absolute Neuts (auto) Absolute Nucleated RBC Nucleated RBC % (auto) Smear Tech's Comments Hold Purple Top PT INR Sodium Potassium Chloride Carbon Dioxide Anion Gap BUN Creatinine Estim Creat Clear Calc Estimated GFR POC Glucose 283 H 367 H* 356 H* Random Glucose Lactic Acid Lactic Acid F/U @ 2Hr Lactic Acid F/U @ 4Hr Calcium Total Bilirubin Direct Bilirubin AST ALT Alkaline Phosphatase Total Protein Albumin Lipase Stool Occult Blood Blood Type Antibody Screen Crossmatch 05/06/23 05/07/23 05/07/23 20:32 05:31 07:17 WBC 14.4 H RBC 2.79 L Hgb 9.2 L Hct 27.4 L MCV 98.2 H MCH 33.0 MCHC 33.6 RDW 12.4 Plt Count 172 MPV 12.0 Immature Gran % (Auto) Neut % (Auto) Lymph % (Auto) [place] % (Auto) Eos % (Auto) Baso % (Auto) Lymph # (Auto) [place] # (Auto) Eos # (Auto) Baso # (Auto) Abs Immat Gran (auto) Absolute Neuts (auto) Absolute Nucleated RBC 0.000 Nucleated RBC % (auto) 0.0 Smear Tech's Comments Hold Purple Top SEE NOTE PT INR Sodium Potassium Chloride Carbon Dioxide Anion Gap BUN Creatinine Estim Creat Clear Calc Estimated GFR POC Glucose 245 H 198 H Random Glucose Lactic Acid Lactic Acid F/U @ 2Hr Lactic Acid F/U @ 4Hr Calcium Total Bilirubin 1.3 H Direct Bilirubin 0.9 H AST 76 H ALT 222 H Alkaline Phosphatase 490 H Total Protein 5.8 L Albumin 2.8 L Lipase 57 Stool Occult Blood Blood Type Antibody Screen Crossmatch 05/07/23 05/07/23 05/07/23 11:12 16:13 19:55 WBC RBC Hgb Hct MCV MCH MCHC RDW Plt Count MPV Immature Gran % (Auto) Neut % (Auto) Lymph % (Auto) [place] % (Auto) Eos % (Auto) Baso % (Auto) Lymph # (Auto) [place] # (Auto) Eos # (Auto) Baso # (Auto) Abs Immat Gran (auto) Absolute Neuts (auto) Absolute Nucleated RBC Nucleated RBC % (auto) Smear Tech's Comments Hold Purple Top PT INR Sodium Potassium Chloride Carbon Dioxide Anion Gap BUN Creatinine Estim Creat Clear Calc Estimated GFR POC Glucose 275 H 276 H 253 H Random Glucose Lactic Acid Lactic Acid F/U @ 2Hr Lactic Acid F/U @ 4Hr Calcium Total Bilirubin Direct Bilirubin AST ALT Alkaline Phosphatase Total Protein Albumin Lipase Stool Occult Blood Blood Type Antibody Screen Crossmatch 05/08/23 05/08/23 05/08/23 03:26 05:08 06:54 WBC 22.6 H RBC 2.31 L Hgb 7.5 L Hct 22.3 L MCV 96.5 MCH 32.5 MCHC 33.6 RDW 12.6 Plt Count 264 D MPV 11.9 Immature Gran % (Auto) 3.3 H Neut % (Auto) 86.1 H Lymph % (Auto) 2.9 L [place] % (Auto) 7.5 Eos % (Auto) 0.1 Baso % (Auto) 0.1 Lymph # (Auto) 0.7 L [place] # (Auto) 1.7 H Eos # (Auto) 0.0 Baso # (Auto) 0.0 Abs Immat Gran (auto) 0.75 H Absolute Neuts (auto) 19.5 H Absolute Nucleated RBC 0.020 H Nucleated RBC % (auto) 0.1 Smear Tech's Comments VERIFIED Hold Purple Top SEE NOTE PT INR Sodium Potassium Chloride Carbon Dioxide Anion Gap BUN Creatinine Estim Creat Clear Calc Estimated GFR POC Glucose 275 H Random Glucose Lactic Acid Lactic Acid F/U @ 2Hr Lactic Acid F/U @ 4Hr Calcium Total Bilirubin 1.1 H Direct Bilirubin 0.6 H AST 31 ALT 117 H Alkaline Phosphatase 336 H Total Protein 5.0 L Albumin 2.4 L Lipase Stool Occult Blood Blood Type O Negative Antibody Screen NEGATIVE Crossmatch See Detail 05/08/23 05/08/23 05/08/23 07:22 11:32 13:11 WBC RBC Hgb 8.2 L Hct 24.5 L MCV MCH MCHC RDW Plt Count MPV Immature Gran % (Auto) Neut % (Auto) Lymph % (Auto) [place] % (Auto) Eos % (Auto) Baso % (Auto) Lymph # (Auto) [place] # (Auto) Eos # (Auto) Baso # (Auto) Abs Immat Gran (auto) Absolute Neuts (auto) Absolute Nucleated RBC Nucleated RBC % (auto) Smear Tech's Comments Hold Purple Top PT INR Sodium Potassium Chloride Carbon Dioxide Anion Gap BUN Creatinine Estim Creat Clear Calc Estimated GFR POC Glucose 307 H 263 H Random Glucose Lactic Acid Lactic Acid F/U @ 2Hr Lactic Acid F/U @ 4Hr Calcium Total Bilirubin Direct Bilirubin AST ALT Alkaline Phosphatase Total Protein Albumin Lipase Stool Occult Blood Blood Type Antibody Screen Crossmatch 05/08/23 05/08/23 05/09/23 16:22 20:35 05:06 WBC 18.3 H RBC 2.29 L Hgb 7.1 L Hct 21.1 L MCV 92.1 MCH 31.0 MCHC 33.6 RDW 15.6 Plt Count 191 D MPV 11.5 Immature Gran % (Auto) 1.6 H Neut % (Auto) 85.5 H Lymph % (Auto) 4.3 L [place] % (Auto) 8.2 Eos % (Auto) 0.2 Baso % (Auto) 0.2 Lymph # (Auto) 0.8 L [place] # (Auto) 1.5 H Eos # (Auto) 0.0 Baso # (Auto) 0.0 Abs Immat Gran (auto) 0.29 H Absolute Neuts (auto) 15.7 H Absolute Nucleated RBC 0.030 H Nucleated RBC % (auto) 0.2 Smear Tech's Comments Hold Purple Top PT INR Sodium 141 Potassium 3.5 Chloride 107 Carbon Dioxide 25 Anion Gap 13 BUN 30 H Creatinine 0.78 Estim Creat Clear Calc 65.8 Estimated GFR > 60 POC Glucose 270 H 288 H Random Glucose 222 H Lactic Acid Lactic Acid F/U @ 2Hr Lactic Acid F/U @ 4Hr Calcium 8.4 Total Bilirubin 1.0 Direct Bilirubin AST 23 ALT 76 H Alkaline Phosphatase 232 H Total Protein 5.1 L Albumin 2.3 L Lipase Stool Occult Blood Blood Type Antibody Screen Crossmatch 05/09/23 05/09/23 05/09/23 07:23 08:49 10:59 WBC RBC Hgb Hct MCV MCH MCHC RDW Plt Count MPV Immature Gran % (Auto) Neut % (Auto) Lymph % (Auto) [place] % (Auto) Eos % (Auto) Baso % (Auto) Lymph # (Auto) [place] # (Auto) Eos # (Auto) Baso # (Auto) Abs Immat Gran (auto) Absolute Neuts (auto) Absolute Nucleated RBC Nucleated RBC % (auto) Smear Tech's Comments Hold Purple Top PT INR Sodium Potassium Chloride Carbon Dioxide Anion Gap BUN Creatinine Estim Creat Clear Calc Estimated GFR POC Glucose 216 H 209 H Random Glucose Lactic Acid Lactic Acid F/U @ 2Hr Lactic Acid F/U @ 4Hr Calcium Total Bilirubin Direct Bilirubin AST ALT Alkaline Phosphatase Total Protein Albumin Lipase Stool Occult Blood POSITIVE Blood Type Antibody Screen Crossmatch Airway Mallampati Class: III TM Dist: >3cm Neck ROM: Full Heart: RRR Lungs: CTA Assessment and Plan Assessment Anesthesia Assessment: Anesthesia Plan Discussed and Chart Reviewed Final Anesthetic Review Family History of Problems with Anesthesia: No History of Problems with Anesthesia: No NPO: Yes ASA Class: III Final Preanesthetic Review: No Changes in Pt Med Stat, Meds/Allgs Chart Reviewed, Consent Obtained/Reviewed and Anes Risks/Benef Reviewed Patient Risk: High Procedure Risk: Low Anesthetic Plan Anesthetic Plan: GA Disposition: Standard PACU
--- NOTE | 2023-05-09 14:00 | MHC.SHP ---
Pre-Procedural Eval Section A Date of Service: 05/09/23 The patient is an INPATIENT: Yes The History & Physical has been completed within 30 days and I have reviewed it.: Yes Section B Chief Complaint: gallstone pancreatitis Allergies: Allergies Allergy/AdvReac Type Severity Reaction Status Date / Time metformin Allergy Unknown diarrhea Verified 05/05/23 11:02 rosuvastatin [Crestor] Allergy Unknown Unknown Verified 05/05/23 11:02 Plan Diagnosis/Plan: Unchanged I have reviewed the history and physical and performed a pertinent physical examination on my patient. No changes have occurred unless specified. GI bleeding Time Spent With Patient Time: Total time managing care of this patient today ____ minutes.
--- NOTE | 2023-05-09 14:26 | W.PM.OPN ---
Operative Note Operative Note Date of Service: 05/09/23 Narrative: Operative Information Procedure Description: EGD, Sigmoidoscopy Indication: Acute blood loss anemia Anesthesia: MAC FLEXIBLE TRANSORAL UPPER GASTROINTESTINAL ENDOSCOPY AND Sigmoidoscopy PROCEDURE NOTE UPPER ENDOSCOPY Consent: Indications for the procedure and potential complications of bleeding, perforation, reaction to medications and missed diagnosis were discussed with the patient and informed consent was obtained. Instrument: Olympus GIF H 190 J mid size upper endoscope Monitoring: Vital signs and clinical assessment, continuous EKG monitoring, Pulse oximetry, Carbon Dioxide monitoring and blood pressure monitoring were done throughout the procedure. Procedure: The patient was placed in the left lateral decubitis position and pre-procedure medications were administered and a bite block was placed. The endoscope was inserted into the mouth and advanced under direct vision to the third part of duodenum. A careful inspection was made as the upper endoscope was withdrawn including a retroflexed examination of the proximal stomach; Findings and interventions are described below. Findings: Larynx:normal Esophagus: GE junction at 35 cm, diaphragm hiatus at 37 cm, consistent with 2 cm sliding hiatal hernia Stomach: Linear erosion with redness noted in antrum and distal stomach. Grade 2 flap valve on retroflexed examination of the cardia. Duodenum: Normal bulb and descending duodenum, stent noted in bile duct, sphincterotomy site inspected and no active bleeding noted just some mild redness, diverticulum around papilla looked normal, normal bilious fluid output from stent. Intervention: none Sigmoidoscopy Instrument: Olympus variable stiffness pediatric scope 190L Colonoscopy Monitoring: Vital signs and clinical assessment, continuous EKG monitoring, Pulse oximetry, Carbon Dioxide monitoring and blood pressure monitoring were done throughout the procedure. Procedure: The patient was placed in the left lateral decubitis position and pre-procedure medications were administered. After a digital rectal examination of the ano-rectum, the video colonoscope was inserted into the rectum and advanced through the colon to the transverse colon. The colonoscope was slowly withdrawn in a retrograde panoramic fashion and the colon mucosa was carefully examined Findings and interventions are described below. Procedure Difficulty:easy Findings: Diverticulosis noted in sigmoid, rest of colon full of old blood, maroon colored Anorectum - normal Impression and Post Procedure Diagnosis: Endoscopy Findings: gastric erosion hiatal hernia stent -biliary Colonoscopy Findings: diverticulosis, old blood in colon Plan: Recommend CT angio, hard to know if this was an upper source that has ceased or whether this is from the colon--if active bleeding seen then IR would prep for colonoscopy from tonight if above negative Above findings were reviewed with the patient and relevant handouts were provided if indicated.
[2023-05-09] MEDS: iohexoL 350 MG/ML 100 ML INFUS..BTL IV (15:48)
[2023-05-09] MEDS: Dextrose 5 % and 0.9 % NaCl 1,000 ML 80 ML IVCONT (16:27)
[2023-05-09 16:30] LABS: Glucose, Whole Blood 201 mg/dL (60-115)
[2023-05-09] MEDS: 0.9 % Sodium Chloride Flush 3 ML SYRINGE IVFLUSH (16:33)
[2023-05-09 16:48] LABS: Hematocrit 29.3 % (42.0-52.0)
[2023-05-09] MEDS: PEG 3350/Na Sulf,Bicarb,Cl/KCL 4,000 ML SOLN.RECON 4000 ML PO (17:47)
[2023-05-09 20:30] LABS: Glucose, Whole Blood 256 mg/dL (60-115)
[2023-05-09] MEDS: Lactated Ringers 1,000 ML 100 ML IVCONT (21:02)
--- NOTE | 2023-05-09 23:19 | PC.NURSE ---
pt's blood sugar at 2100 is 256, he's on clear liquids but only drinking the colonoscopy prep. tiger text to Dr. Murrell, she said to hold insulin tonight, and switched his fluids to LR at 100 ml/hr.
[2023-05-10] VITALS (10 sets, daily range): BP systolic 113–143; BP diastolic 52–65; PULSE 69–90; RESP 12–18; TEMP 36–37; O2SAT 95–98
[2023-05-10] MEDS: Piperacillin Sodium/Tazobactam 3.375 GM in 0.9 % Sodium Chloride 50 ML IV ×4 (03:02→19:35)
[2023-05-10 05:55] LABS: Hematocrit 26.9 % (42.0-52.0); Hemoglobin 9.1 g/dl (14.0-18.0); Mean Corpuscular HGB Conc 33.8 g/dl (31.0-36.0); Mean Corpuscular Hemoglobin 31.4 pg (27.0-33.0); Mean Corpuscular Volume 92.8 fL (80.0-98.0); Mean Platelet Volume 10.9 fL (9.4-12.4); Platelet Count 170 X10*3/uL (160-400); Red Cell Distribution Width 15.9 % (11.0-16.0); White Blood Count 14.8 X10*3/uL (4.8-10.8)
[2023-05-10 06:11] LABS: Anion Gap 14 (12-20); Blood Urea Nitrogen 23 mg/dL (9-16); Calcium 8.3 mg/dL (8.4-10.2); Carbon Dioxide 25 mmol/L (22-29); Chloride 107 mmol/L (96-108); Creatinine Clr Calc Pharmacy 71.3; Estimated Glomerular Filt Rate > 60; Glucose Random 225 mg/dL (60-115); Potassium 3.3 mmol/L (3.3-5.1); Sodium 143 mmol/L (135-145)
[2023-05-10 07:13] LABS: Glucose, Whole Blood 195 mg/dL (60-115)
[2023-05-10] MEDS: Lactated Ringers 1,000 ML 100 ML IVCONT ×2 (08:03→22:20)
[2023-05-10] MEDS: Pantoprazole Sodium 40 MG/10 ML VIAL IVPUSH (08:04)
[2023-05-10] MEDS: 0.9 % Sodium Chloride Flush 3 ML SYRINGE IVFLUSH ×2 (08:05→19:36)
[2023-05-10] MEDS: Metoprolol Succinate ER 50 MG TAB.ER.24H PO (08:06)
--- NOTE | 2023-05-10 09:10 | P.PNIM_ITS ---
Subjective Subjective Date of Service: 05/10/23 Interval History: feeling well, no abdominal pain, no vomiting no pain or discomfort Review of Systems Review of Systems: Yes all other systems are reviewed and are negative Constitutional Constitutional: Denies chills and Denies fever(s) Cardiovascular Cardiovascular: Denies chest pain Gastrointestinal Gastrointestinal: Denies abdominal pain, Denies nausea and Denies vomiting Physical Exam 2 Vital Signs: Vital Signs: Last Vital Signs Temp 96.8 F 05/10/23 06:55 Pulse 90 05/10/23 06:55 Resp 18 05/10/23 06:55 BP 113/54 L 05/10/23 06:55 Pulse Ox 98 05/10/23 06:55 O2 Del Method Room Air 05/10/23 06:55 O2 Flow Rate 4 05/09/23 14:30 BMI result Body Mass Index 24.1 Appearing in no acute distress lungs normal expansion heart regular rate rhythm abdomen is soft, nontender neuro patient is alert x3, no focal deficits Objective Data Active Medications Acetaminophen (Acetaminophen 325 Mg Tablet) 650 mg PO Q6H PRN PRN Reason: Pain, Mild (Pain Scale 1-3) Allopurinol (Allopurinol 100 Mg Tablet) 100 mg PO DAILY [facility] Last Admin: 05/10/23 08:06 Dose: Not Given Documented By: ADAMS Non-Admin Reason: Patient Refused Cyanocobalamin (Cyanocobalamin (Vitamin B-12) 1,000 Mcg Tablet) 1,000 mcg PO DAILY [facility] Last Admin: 05/10/23 08:04 Dose: Not Given Documented By: ADAMS Non-Admin Reason: Patient Refused Dextrose (Dextrose 50 % 25 Gm/50 Ml Syringe) 25 gm IVPUSH Q15M PRN; Protocol PRN Reason: per Hypoglycemia Standing Ord. Fentanyl (Fentanyl Citrate/Pf 100 Mcg/2 Ml Vial) 25 mcg IVPUSH Q5M PRN; Protocol PRN Reason: Pain, Moderate(Pain Scale 4-6) Folic Acid (Folic Acid 1 Mg Tablet) 1 mg PO DAILY [facility] Last Admin: 05/10/23 08:04 Dose: Not Given Documented By: ADAMS Non-Admin Reason: Patient Refused Glucose (Glucose Gel 15 Gm Gel..Gram.) 15 gm PO Q15M PRN; Protocol PRN Reason: per Hypoglycemia Standing Ord. Piperacillin Sod/Tazobactam (Sod 3.375 gm/ Sodium Chloride) 50 mls @ 100 mls/hr IV Q6H [facility] Last Infusion: 05/10/23 08:52 Dose: Infused Documented By: ADAMS Lactated Ringer's (Lr) 1,000 mls @ 100 mls/hr IVCONT .Q10H [facility] Last Admin: 05/10/23 08:03 Dose: 100 mls/hr Documented By: ADAMS Insulin Human Lispro (Insulin Lispro 100 Unit/Ml 3 Ml Vial) 0 unit SUBCUT QIDACHS [facility]; Protocol Last Admin: 05/10/23 07:57 Dose: Not Given Documented By: ADAMS Non-Admin Reason: NPO Metoprolol Succinate (Metoprolol Succinate Er 50 Mg Tab.Er.24h) 50 mg PO DAILY [facility]; Protocol Last Admin: 05/09/23 09:13 Dose: Not Given Morphine Sulfate (Morphine Sulfate 4 Mg/Ml Cartridge) 4 mg IVPUSH Q4H PRN; Protocol PRN Reason: Pain, Severe (Pain Scale 7-10) Last Admin: 05/07/23 03:12 Dose: 4 mg Documented By: YVONNE Ondansetron HCl (Ondansetron Hcl 4 Mg/2 Ml Vial) 4 mg IVPUSH Q8H PRN PRN Reason: Nausea and Vomiting Last Admin: 05/06/23 23:15 Dose: 4 mg Documented By: YVONNE Ondansetron HCl (Ondansetron Hcl 4 Mg/2 Ml Vial) 4 mg IVPUSH ONCE PRN PRN Reason: Nausea and Vomiting Pantoprazole Sodium (Pantoprazole Sodium 40 Mg/10 Ml Vial) 40 mg IVPUSH DAILY@0630 [facility] Last Admin: 05/10/23 08:04 Dose: 40 mg Documented By: ADAMS Sodium Biphosphate/Sodium Phosphate (Sodium Phosphate,[place]-Dibasic 133 Ml Enema) 133 ml SD ONCE [facility] Sodium Chloride (0.9 % Sodium Chloride Flush 3 Ml Syringe) 3 ml IVFLUSH QSHIFT [facility] Last Admin: 05/10/23 08:05 Dose: 3 ml Documented By: ADAMS Labs 05/10/23 05:39 05/10/23 05:39 Labs: Laboratory Results - last 24 hr 05/08/23 05/09/2323 06:54 08:49 10:59 MCV MCH MCHC RDW Plt Count MPV Absolute Nucleated RBC Nucleated RBC % (auto) Anion Gap Estim Creat Clear Calc Estimated GFR POC Glucose 209 H Random Glucose Calcium Stool Occult Blood POSITIVE Blood Type O Negative Antibody Screen NEGATIVE Crossmatch See Detail 05/09/23 05/09/23 05/10/23 16:23 20:26 05:39 MCV 92.8 MCH 31.4 MCHC 33.8 RDW 15.9 Plt Count 170 MPV 10.9 Absolute Nucleated RBC 0.000 Nucleated RBC % (auto) 0.0 Anion Gap 14 Estim Creat Clear Calc 71.3 Estimated GFR > 60 POC Glucose 201 H 256 H Random Glucose 225 H Calcium 8.3 L Stool Occult Blood Blood Type Antibody Screen Crossmatch 05/10/23 07:08 MCV MCH MCHC RDW Plt Count MPV Absolute Nucleated RBC Nucleated RBC % (auto) Anion Gap Estim Creat Clear Calc Estimated GFR POC Glucose 195 H Random Glucose Calcium Stool Occult Blood Blood Type Antibody Screen Crossmatch Microbiology Microbiology Results: Microbiology 05/04/23 13:12 Blood Culture - Final Blood - Venous No growth after 5 days. Assessment and Plan (1) Gallstone pancreatitis: Status: Acute (2) Bacteremia: Status: Acute Plan This is a 82 year old man admitted with abdominal pain secondary to question of cholangitis, gallstone pancreatitis Acute on chronic blood loss anemia. Unspecified had bleeding from ERCP and positive stool occult s/p 3 unit PRBC ordered s/p sigmoidoscopy on 05/09/23, old blood seen, EGD gastric erosion, hiatal hernia abd CT last night with no obvious pathology for bleeding, possible vascular lesion in sigmoid IV PPI discussed with GI, plan for colonoscopy today, prepped last night Gallstone pancreatitis Abdominal CT showing pancreatitis common bile duct measuring 1 cm, stone in the distal common bile duct difficult to exclude MRCP showed persistent 0.7 cm filling defect in distal common bile duct consistent with choledocholithiasis with mild peripancreatic edema in the region of the pancreatic head suggestive of mild pancreatitis seen by GI, s/p ERCP 05/05 - spincterotomy and biliary stent placement - will need repeat ERCP in 4-8 weeks LFTS trending down General surgery following> plan for ccy when source of bleeding identified and HH stable Gram negative bacteremia with leukocytosis likely biliary source as above on zosyn bacteroides fragilis gastritis seen on EGD continue PPI follow up biopsy results Diabetes mellitus type 2 jagdeepmarita jigarmollysourav on hold SSI, POCs Hypertension Blood pressure improving will resume metoprolol lisinopril on hold for now, resume as bp allows follow bp closely Hyperlipidemia Hold statin GERD continue PPI DVT prophylaxis with pneumatic compression boots Full code attending - dr. Yanez Patient requires ongoing inpatient stay for gallstone pancreatitis diet advancement, possible cholecystectomy, close monitoring given diabetes and risk for infection Quality Stroke Does the patient have a stroke diagnosis?: No VTE Prior VTE?: No VTE Risk Level:: Medical - moderate - high VTE Device Contraindication: N/A - Device Ordered VTE Drug Contraindication: Treatment Not Indicated
[2023-05-10 11:11] LABS: Glucose, Whole Blood 178 mg/dL (60-115)
--- NOTE | 2023-05-10 11:11 | P.PNGS_ITS ---
Subjective Subjective Date of Service: 05/10/23 Interval history: Events over weekend noted. Scheduled for colonoscopy today. He denies any abdominal pain. Physical Exam 2 Vital Signs: Vital Signs: Last Vital Signs Temp 96.8 F 05/10/23 06:55 Pulse 90 05/10/23 06:55 Resp 18 05/10/23 06:55 BP 113/54 L 05/10/23 06:55 Pulse Ox 98 05/10/23 06:55 O2 Del Method Room Air 05/10/23 06:55 O2 Flow Rate 4 05/09/23 14:30 BMI result Body Mass Index 24.1 Const: General: comfortable, no acute distress and alert O rientation/consciousness: patient oriented x3 Resp: Effort & Inspection: normal respiratory effort GI: Inspection: No distended Palpation (GI): Soft to palpation, nontender, no guarding and not rigid Skin: General skin exam: no rashes or lesions noted Neuro: General: patient oriented x3 Objective Data Active Medications Acetaminophen (Acetaminophen 325 Mg Tablet) 650 mg PO Q6H PRN PRN Reason: Pain, Mild (Pain Scale 1-3) Allopurinol (Allopurinol 100 Mg Tablet) 100 mg PO DAILY [facility] Last Admin: 05/10/23 08:06 Dose: Not Given Documented By: ADAMS Non-Admin Reason: Patient Refused Cyanocobalamin (Cyanocobalamin (Vitamin B-12) 1,000 Mcg Tablet) 1,000 mcg PO DAILY [facility] Last Admin: 05/10/23 08:04 Dose: Not Given Documented By: ADAMS Non-Admin Reason: Patient Refused Dextrose (Dextrose 50 % 25 Gm/50 Ml Syringe) 25 gm IVPUSH Q15M PRN; Protocol PRN Reason: per Hypoglycemia Standing Ord. Fentanyl (Fentanyl Citrate/Pf 100 Mcg/2 Ml Vial) 25 mcg IVPUSH Q5M PRN; Protocol PRN Reason: Pain, Moderate(Pain Scale 4-6) Folic Acid (Folic Acid 1 Mg Tablet) 1 mg PO DAILY [facility] Last Admin: 05/10/23 08:04 Dose: Not Given Documented By: ADAMS Non-Admin Reason: Patient Refused Glucose (Glucose Gel 15 Gm Gel..Gram.) 15 gm PO Q15M PRN; Protocol PRN Reason: per Hypoglycemia Standing Ord. Piperacillin Sod/Tazobactam (Sod 3.375 gm/ Sodium Chloride) 50 mls @ 100 mls/hr IV Q6H [facility] Last Infusion: 05/10/23 08:52 Dose: Infused Documented By: ADAMS Lactated Ringer's (Lr) 1,000 mls @ 100 mls/hr IVCONT .Q10H [facility] Last Admin: 05/10/23 08:03 Dose: 100 mls/hr Documented By: ADAMS Insulin Human Lispro (Insulin Lispro 100 Unit/Ml 3 Ml Vial) 0 unit SUBCUT QIDACHS [facility]; Protocol Last Admin: 05/10/23 07:57 Dose: Not Given Documented By: ADAMS Non-Admin Reason: NPO Metoprolol Succinate (Metoprolol Succinate Er 50 Mg Tab.Er.24h) 50 mg PO DAILY [facility]; Protocol Last Admin: 05/09/23 09:13 Dose: Not Given Morphine Sulfate (Morphine Sulfate 4 Mg/Ml Cartridge) 4 mg IVPUSH Q4H PRN; Protocol PRN Reason: Pain, Severe (Pain Scale 7-10) Last Admin: 05/07/23 03:12 Dose: 4 mg Documented By: YVONNE Ondansetron HCl (Ondansetron Hcl 4 Mg/2 Ml Vial) 4 mg IVPUSH Q8H PRN PRN Reason: Nausea and Vomiting Last Admin: 05/06/23 23:15 Dose: 4 mg Documented By: YVONNE Ondansetron HCl (Ondansetron Hcl 4 Mg/2 Ml Vial) 4 mg IVPUSH ONCE PRN PRN Reason: Nausea and Vomiting Pantoprazole Sodium (Pantoprazole Sodium 40 Mg/10 Ml Vial) 40 mg IVPUSH DAILY@0630 [facility] Last Admin: 05/10/23 08:04 Dose: 40 mg Documented By: ADAMS Sodium Biphosphate/Sodium Phosphate (Sodium Phosphate,[place]-Dibasic 133 Ml Enema) 133 ml [place] ONCE [facility] Sodium Chloride (0.9 % Sodium Chloride Flush 3 Ml Syringe) 3 ml IVFLUSH QSHIFT [facility] Last Admin: 05/10/23 08:05 Dose: 3 ml Documented By: ADAMS Labs 05/10/23 05:39 05/10/23 05:39 Labs: Laboratory Results - last 24 hr 05/08/23 05/09/23 05/09/23 06:54 10:59 16:23 MCV MCH MCHC RDW Plt Count MPV Absolute Nucleated RBC Nucleated RBC % (auto) Anion Gap Estim Creat Clear Calc Estimated GFR POC Glucose 209 H 201 H Random Glucose Calcium Blood Type O Negative Antibody Screen NEGATIVE Crossmatch See Detail 05/09/23 05/10/23 05/10/23 20:26 05:39 07:08 MCV 92.8 MCH 31.4 MCHC 33.8 RDW 15.9 Plt Count 170 MPV 10.9 Absolute Nucleated RBC 0.000 Nucleated RBC % (auto) 0.0 Anion Gap 14 Estim Creat Clear Calc 71.3 Estimated GFR > 60 POC Glucose 256 H 195 H Random Glucose 225 H Calcium 8.3 L Blood Type Antibody Screen Crossmatch Microbiology Microbiology Results: Microbiology 05/04/23 13:12 Blood Culture - Final Blood - Venous No growth after 5 days. Procedures Date of Service Date of Service: 05/10/23 Progress Note: A&P Assessment and plan (1) Acute blood loss anemia: Status: Acute (2) Bacteremia: Status: Acute (3) Gallstone pancreatitis: Status: Acute Plan Admitted for gallstone pancreatitis s/p ERCP, sphincterotomy, stent placement. Developed acute anemia without obvious source identified on EGD/sigmoidoscopy over the weekend. CT scan abd/pelvis showed no active bleeding. Scheduled for colonoscopy today. H/H is stable, LFTs almost normalized, WBC count improving. Repeat CBC in AM. If he remains hemodynamically stable, can plan for lap kelly with IOC in the next 1-2 days. Patient and comfortable with plan. Time Spent With Patient Time: Total time managing care of this patient today ____ minutes. Quality Stroke Does the patient have a stroke diagnosis?: No VTE Prior VTE?: No VTE Risk Level:: Medical - moderate - high VTE Device Contraindication: N/A - Device Ordered VTE Drug Contraindication: Treatment Not Indicated
--- NOTE | 2023-05-10 13:28 | MHC.CM.PN ---
EMR REVIEWED. PER MD ROUNDS NOT MEDICALLY CLEARED FOR DC. PLAN FOR COLONOSCOPY TODAY AND POTENTIAL CHOLECYSTECTOMY TOMORROW OR WEDNESDAY. CM WILL CONTINUE TO FOLLOW.
[2023-05-10 13:53] LABS: Glucose, Whole Blood 183 mg/dL (60-115)
--- NOTE | 2023-05-10 15:03 | P.CONAN_ITS ---
HPI - Anesthesia Eval Consult details Narrative: Anemia, Gallstone Pancreatitis PMFSH Active Problems Active Problems: All Active Problems (Updated 05/09/23 @ 13:07 by Dontrell Reina MD) Acute blood loss anemia (Acute) Bacteremia (Acute) Gallstone pancreatitis (Acute) Cholelithiasis (Acute) Weight loss (Acute) BPH (benign prostatic hyperplasia) (Acute) Urinary frequency (Acute) Bilateral shoulder pain (Acute) Facial dermatitis (Acute) SOB (shortness of breath) (Acute) GERD (gastroesophageal reflux disease) (Acute) COVID-19 virus infection (Acute) Tubular adenoma of colon (Acute) Hypercholesterolemia (Acute) Hypertension (Acute) Type 2 diabetes mellitus with hyperglycemia (Acute) Past Medical History Medical History Tubular adenoma of colon GERD (gastroesophageal reflux disease) Knee osteoarthritis Erectile dysfunction Hypercholesterolemia Hypertension Gout Type 2 diabetes mellitus with hyperglycemia Family History Family History Father Medical history unknown Mother Medical history unknown Family history of problems with anesthesia: No Surgical History Surgical History History of cataract surgery History of knee replacement procedure of left knee History of eye surgery History of Problems with Anesthesia: No Social History Household Members: Spouse Housing: House Do you presently have visiting nurse or other home services: No Alcohol intake: current Alcohol intake frequency: a few times a week Alcohol type: beer, wine and hard liquor Patient Tobacco Use Status: Former Tobacco user Quit Date: 1979 Tobacco use type: Cigarette e-Cigarette/Vaping Use: Never Used Second Hand Smoke Exposure: No service: Yes Current occupational status: retired Cognitive needs: No Hearing needs: No Vision needs: Yes Meds Allergies Allergy/AdvReac Type Severity Reaction Status Date / Time metformin Allergy Unknown diarrhea Verified 05/05/23 11:02 rosuvastatin [Crestor] Allergy Unknown Unknown Verified 05/05/23 11:02 Active Medications: Current Medications Acetaminophen (Acetaminophen 325 Mg Tablet) 650 mg PO Q6H PRN PRN Reason: Pain, Mild (Pain Scale 1-3) Allopurinol (Allopurinol 100 Mg Tablet) 100 mg PO DAILY SHIRA Last Admin: 05/10/23 08:06 Dose: Not Given Cyanocobalamin (Cyanocobalamin (Vitamin B-12) 1,000 Mcg Tablet) 1,000 mcg PO DAILY [facility] Last Admin: 05/10/23 08:04 Dose: Not Given Dextrose (Dextrose 50 % 25 Gm/50 Ml Syringe) 25 gm IVPUSH Q15M PRN; Protocol PRN Reason: per Hypoglycemia Standing Ord. Fentanyl (Fentanyl Citrate/Pf 100 Mcg/2 Ml Vial) 25 mcg IVPUSH Q5M PRN; Protocol PRN Reason: Pain, Moderate(Pain Scale 4-6) Folic Acid (Folic Acid 1 Mg Tablet) 1 mg PO DAILY [facility] Last Admin: 05/10/23 08:04 Dose: Not Given Glucose (Glucose Gel 15 Gm Gel..Gram.) 15 gm PO Q15M PRN; Protocol PRN Reason: per Hypoglycemia Standing Ord. Piperacillin Sod/Tazobactam (Sod 3.375 gm/ Sodium Chloride) 50 mls @ 100 mls/hr IV Q6H [facility] Last Infusion: 05/10/23 13:49 Dose: Infused Lactated Ringer's (Lr) 1,000 mls @ 100 mls/hr IVCONT .Q10H [facility] Last Admin: 05/10/23 08:03 Dose: 100 mls/hr Insulin Human Lispro (Insulin Lispro 100 Unit/Ml 3 Ml Vial) 0 unit SUBCUT QIDACHS [facility]; Protocol Last Admin: 05/10/23 11:16 Dose: Not Given Metoprolol Succinate (Metoprolol Succinate Er 50 Mg Tab.Er.24h) 50 mg PO DAILY [facility]; Protocol Last Admin: 05/10/23 08:06 Dose: 50 mg Morphine Sulfate (Morphine Sulfate 4 Mg/Ml Cartridge) 4 mg IVPUSH Q4H PRN; Protocol PRN Reason: Pain, Severe (Pain Scale 7-10) Last Admin: 05/07/23 03:12 Dose: 4 mg Ondansetron HCl (Ondansetron Hcl 4 Mg/2 Ml Vial) 4 mg IVPUSH Q8H PRN PRN Reason: Nausea and Vomiting Last Admin: 05/06/23 23:15 Dose: 4 mg Ondansetron HCl (Ondansetron Hcl 4 Mg/2 Ml Vial) 4 mg IVPUSH ONCE PRN PRN Reason: Nausea and Vomiting Pantoprazole Sodium (Pantoprazole Sodium 40 Mg/10 Ml Vial) 40 mg IVPUSH DAILY@0630 [facility] Last Admin: 05/10/23 08:04 Dose: 40 mg Sodium Biphosphate/Sodium Phosphate (Sodium Phosphate,[place]-Dibasic 133 Ml Enema) 133 ml DC ONCE SHIRA Sodium Chloride (0.9 % Sodium Chloride Flush 3 Ml Syringe) 3 ml IVFLUSH QSHIFT [facility] Last Admin: 05/10/23 08:05 Dose: 3 ml Home Medications Medication Instructions Recorded Confirmed Last Taken Type cyanocobalamin (vitamin B-12) 1,000 mcg PO DAILY 05/04/23 05/04/23 Unknown History 1,000 mcg tablet insulin aspart U-100 100 unit/mL 0 sliding scale dose subcut TIDAC 05/04/23 05/04/23 Unknown History (3 mL) subcutaneous pen (Novolog FlexPen U-100 Insulin aspart) Exam Height,Weight and Vital Signs: Height 5 ft 6 in Weight 67.7 kg Last Vital Signs Temp 98.0 F 05/10/23 13:55 Pulse 77 05/10/23 13:55 Resp 18 05/10/23 13:55 BP 129/62 05/10/23 13:55 Pulse Ox 97 05/10/23 13:55 O2 Del Method Room Air 05/10/23 13:55 O2 Flow Rate 4 05/09/23 14:30 Pertinent Lab Results Pertinent Lab Results: Laboratory Tests 05/04/23 05/04/23 05/04/23 11:51 12:09 13:03 WBC 24.6 H RBC 4.35 L Hgb 14.5 Hct 43.2 MCV 99.3 H D MCH 33.3 H MCHC 33.6 RDW 12.4 Plt Count 273 D MPV 11.9 Immature Gran % (Auto) 1.3 H Neut % (Auto) 89.4 H Lymph % (Auto) 5.4 L [place] % (Auto) 3.2 Eos % (Auto) 0.2 Baso % (Auto) 0.5 Lymph # (Auto) 1.3 [place] # (Auto) 0.8 Eos # (Auto) 0.1 Baso # (Auto) 0.1 Abs Immat Gran (auto) 0.33 H Absolute Neuts (auto) 22.0 H Absolute Nucleated RBC 0.000 Nucleated RBC % (auto) 0.0 Smear Tech's Comments VERIFIED Hold Purple Top PT INR Sodium 140 Potassium 4.1 Chloride 102 Carbon Dioxide 27 Anion Gap 15 BUN 30 H Creatinine 1.04 Estim Creat Clear Calc 49.4 Estimated GFR > 60 POC Glucose Random Glucose 199 H Lactic Acid 2.3 H* 2.2 H* Lactic Acid F/U @ 2Hr Lactic Acid F/U @ 4Hr Calcium 9.8 Total Bilirubin 3.3 H Direct Bilirubin 2.6 H AST 576 H ALT 445 H Alkaline Phosphatase 982 H Total Protein 7.2 Albumin 3.6 Lipase > 3000 H Stool Occult Blood Blood Type O Negative Antibody Screen NEGATIVE Crossmatch 05/04/23 05/04/23 05/04/23 14:31 16:36 19:26 WBC RBC Hgb Hct MCV MCH MCHC RDW Plt Count MPV Immature Gran % (Auto) Neut % (Auto) Lymph % (Auto) [place] % (Auto) Eos % (Auto) Baso % (Auto) Lymph # (Auto) [place] # (Auto) Eos # (Auto) Baso # (Auto) Abs Immat Gran (auto) Absolute Neuts (auto) Absolute Nucleated RBC Nucleated RBC % (auto) Smear Tech's Comments Hold Purple Top PT INR Sodium Potassium Chloride Carbon Dioxide Anion Gap BUN Creatinine Estim Creat Clear Calc Estimated GFR POC Glucose Random Glucose Lactic Acid Lactic Acid F/U @ 2Hr 2.9 H* 2.2 H* Lactic Acid F/U @ 4Hr 1.2 Calcium Total Bilirubin Direct Bilirubin AST ALT Alkaline Phosphatase Total Protein Albumin Lipase Stool Occult Blood Blood Type Antibody Screen Crossmatch 05/04/23 05/05/23 05/05/23 20:48 06:23 06:57 WBC 12.0 H RBC 3.55 L Hgb 11.6 L Hct 35.0 L MCV 98.6 H MCH 32.7 MCHC 33.1 RDW 12.7 Plt Count 160 D MPV 11.5 Immature Gran % (Auto) 0.8 H Neut % (Auto) 88.4 H Lymph % (Auto) 5.0 L [place] % (Auto) 5.4 Eos % (Auto) 0.2 Baso % (Auto) 0.2 Lymph # (Auto) 0.6 L [place] # (Auto) 0.7 Eos # (Auto) 0.0 Baso # (Auto) 0.0 Abs Immat Gran (auto) 0.10 H Absolute Neuts (auto) 10.6 H Absolute Nucleated RBC 0.000 Nucleated RBC % (auto) 0.0 Smear Tech's Comments Hold Purple Top PT 12.8 INR 1.1 Sodium 145 Potassium 4.2 Chloride 113 H Carbon Dioxide 24 Anion Gap 12 BUN 23 H Creatinine 0.98 Estim Creat Clear Calc 52.4 Estimated GFR > 60 POC Glucose 171 H 191 H Random Glucose 195 H Lactic Acid Lactic Acid F/U @ 2Hr Lactic Acid F/U @ 4Hr Calcium 9.1 D Total Bilirubin 4.2 H Direct Bilirubin 3.7 H AST 414 H ALT 415 H Alkaline Phosphatase 785 H Total Protein 6.1 L Albumin 3.2 L Lipase Stool Occult Blood Blood Type Antibody Screen Crossmatch 05/05/23 05/05/23 05/05/23 10:49 14:20 16:27 WBC RBC Hgb Hct MCV MCH MCHC RDW Plt Count MPV Immature Gran % (Auto) Neut % (Auto) Lymph % (Auto) [place] % (Auto) Eos % (Auto) Baso % (Auto) Lymph # (Auto) [place] # (Auto) Eos # (Auto) Baso # (Auto) Abs Immat Gran (auto) Absolute Neuts (auto) Absolute Nucleated RBC Nucleated RBC % (auto) Smear Tech's Comments Hold Purple Top PT INR Sodium Potassium Chloride Carbon Dioxide Anion Gap BUN Creatinine Estim Creat Clear Calc Estimated GFR POC Glucose 167 H 169 H 204 H Random Glucose Lactic Acid Lactic Acid F/U @ 2Hr Lactic Acid F/U @ 4Hr Calcium Total Bilirubin Direct Bilirubin AST ALT Alkaline Phosphatase Total Protein Albumin Lipase Stool Occult Blood Blood Type Antibody Screen Crossmatch 05/05/23 05/06/23 05/06/23 20:38 05:49 07:41 WBC 12.7 H RBC 2.92 L Hgb 9.6 L Hct 28.7 L MCV 98.3 H MCH 32.9 MCHC 33.4 RDW 12.4 Plt Count 163 MPV 11.8 Immature Gran % (Auto) 1.0 H Neut % (Auto) 90.2 H Lymph % (Auto) 3.9 L [place] % (Auto) 4.6 Eos % (Auto) 0.2 Baso % (Auto) 0.1 Lymph # (Auto) 0.5 L [place] # (Auto) 0.6 Eos # (Auto) 0.0 Baso # (Auto) 0.0 Abs Immat Gran (auto) 0.13 H Absolute Neuts (auto) 11.5 H Absolute Nucleated RBC 0.000 Nucleated RBC % (auto) 0.0 Smear Tech's Comments VERIFIED Hold Purple Top PT INR Sodium 142 Potassium 4.2 Chloride 112 H Carbon Dioxide 24 Anion Gap 10 L BUN 25 H Creatinine 0.97 Estim Creat Clear Calc 52.9 Estimated GFR > 60 POC Glucose 223 H 226 H Random Glucose 248 H Lactic Acid Lactic Acid F/U @ 2Hr Lactic Acid F/U @ 4Hr Calcium 8.5 D Total Bilirubin 4.0 H Direct Bilirubin 3.3 H AST 340 H ALT 353 H Alkaline Phosphatase 618 H Total Protein 5.2 L Albumin 2.6 L Lipase 365 H Stool Occult Blood Blood Type Antibody Screen Crossmatch 05/06/23 05/06/23 05/06/23 11:07 16:02 17:55 WBC RBC Hgb Hct MCV MCH MCHC RDW Plt Count MPV Immature Gran % (Auto) Neut % (Auto) Lymph % (Auto) [place] % (Auto) Eos % (Auto) Baso % (Auto) Lymph # (Auto) [place] # (Auto) Eos # (Auto) Baso # (Auto) Abs Immat Gran (auto) Absolute Neuts (auto) Absolute Nucleated RBC Nucleated RBC % (auto) Smear Tech's Comments Hold Purple Top PT INR Sodium Potassium Chloride Carbon Dioxide Anion Gap BUN Creatinine Estim Creat Clear Calc Estimated GFR POC Glucose 283 H 367 H* 356 H* Random Glucose Lactic Acid Lactic Acid F/U @ 2Hr Lactic Acid F/U @ 4Hr Calcium Total Bilirubin Direct Bilirubin AST ALT Alkaline Phosphatase Total Protein Albumin Lipase Stool Occult Blood Blood Type Antibody Screen Crossmatch 05/06/23 05/07/23 05/07/23 20:32 05:31 07:17 WBC 14.4 H RBC 2.79 L Hgb 9.2 L Hct 27.4 L MCV 98.2 H MCH 33.0 MCHC 33.6 RDW 12.4 Plt Count 172 MPV 12.0 Immature Gran % (Auto) Neut % (Auto) Lymph % (Auto) [place] % (Auto) Eos % (Auto) Baso % (Auto) Lymph # (Auto) [place] # (Auto) Eos # (Auto) Baso # (Auto) Abs Immat Gran (auto) Absolute Neuts (auto) Absolute Nucleated RBC 0.000 Nucleated RBC % (auto) 0.0 Smear Tech's Comments Hold Purple Top SEE NOTE PT INR Sodium Potassium Chloride Carbon Dioxide Anion Gap BUN Creatinine Estim Creat Clear Calc Estimated GFR POC Glucose 245 H 198 H Random Glucose Lactic Acid Lactic Acid F/U @ 2Hr Lactic Acid F/U @ 4Hr Calcium Total Bilirubin 1.3 H Direct Bilirubin 0.9 H AST 76 H ALT 222 H Alkaline Phosphatase 490 H Total Protein 5.8 L Albumin 2.8 L Lipase 57 Stool Occult Blood Blood Type Antibody Screen Crossmatch 05/07/23 05/07/23 05/07/23 11:12 16:13 19:55 WBC RBC Hgb Hct MCV MCH MCHC RDW Plt Count MPV Immature Gran % (Auto) Neut % (Auto) Lymph % (Auto) [place] % (Auto) Eos % (Auto) Baso % (Auto) Lymph # (Auto) [place] # (Auto) Eos # (Auto) Baso # (Auto) Abs Immat Gran (auto) Absolute Neuts (auto) Absolute Nucleated RBC Nucleated RBC % (auto) Smear Tech's Comments Hold Purple Top PT INR Sodium Potassium Chloride Carbon Dioxide Anion Gap BUN Creatinine Estim Creat Clear Calc Estimated GFR POC Glucose 275 H 276 H 253 H Random Glucose Lactic Acid Lactic Acid F/U @ 2Hr Lactic Acid F/U @ 4Hr Calcium Total Bilirubin Direct Bilirubin AST ALT Alkaline Phosphatase Total Protein Albumin Lipase Stool Occult Blood Blood Type Antibody Screen Crossmatch 05/08/23 05/08/23 05/08/23 03:26 05:08 06:54 WBC 22.6 H RBC 2.31 L Hgb 7.5 L Hct 22.3 L MCV 96.5 MCH 32.5 MCHC 33.6 RDW 12.6 Plt Count 264 D MPV 11.9 Immature Gran % (Auto) 3.3 H Neut % (Auto) 86.1 H Lymph % (Auto) 2.9 L [place] % (Auto) 7.5 Eos % (Auto) 0.1 Baso % (Auto) 0.1 Lymph # (Auto) 0.7 L [place] # (Auto) 1.7 H Eos # (Auto) 0.0 Baso # (Auto) 0.0 Abs Immat Gran (auto) 0.75 H Absolute Neuts (auto) 19.5 H Absolute Nucleated RBC 0.020 H Nucleated RBC % (auto) 0.1 Smear Tech's Comments VERIFIED Hold Purple Top SEE NOTE PT INR Sodium Potassium Chloride Carbon Dioxide Anion Gap BUN Creatinine Estim Creat Clear Calc Estimated GFR POC Glucose 275 H Random Glucose Lactic Acid Lactic Acid F/U @ 2Hr Lactic Acid F/U @ 4Hr Calcium Total Bilirubin 1.1 H Direct Bilirubin 0.6 H AST 31 ALT 117 H Alkaline Phosphatase 336 H Total Protein 5.0 L Albumin 2.4 L Lipase Stool Occult Blood Blood Type O Negative Antibody Screen NEGATIVE Crossmatch See Detail 05/08/23 05/08/23 05/08/23 07:22 11:32 13:11 WBC RBC Hgb 8.2 L Hct 24.5 L MCV MCH MCHC RDW Plt Count MPV Immature Gran % (Auto) Neut % (Auto) Lymph % (Auto) [place] % (Auto) Eos % (Auto) Baso % (Auto) Lymph # (Auto) [place] # (Auto) Eos # (Auto) Baso # (Auto) Abs Immat Gran (auto) Absolute Neuts (auto) Absolute Nucleated RBC Nucleated RBC % (auto) Smear Tech's Comments Hold Purple Top PT INR Sodium Potassium Chloride Carbon Dioxide Anion Gap BUN Creatinine Estim Creat Clear Calc Estimated GFR POC Glucose 307 H 263 H Random Glucose Lactic Acid Lactic Acid F/U @ 2Hr Lactic Acid F/U @ 4Hr Calcium Total Bilirubin Direct Bilirubin AST ALT Alkaline Phosphatase Total Protein Albumin Lipase Stool Occult Blood Blood Type Antibody Screen Crossmatch 05/08/23 05/08/23 05/09/23 16:22 20:35 05:06 WBC 18.3 H RBC 2.29 L Hgb 7.1 L Hct 21.1 L MCV 92.1 MCH 31.0 MCHC 33.6 RDW 15.6 Plt Count 191 D MPV 11.5 Immature Gran % (Auto) 1.6 H Neut % (Auto) 85.5 H Lymph % (Auto) 4.3 L [place] % (Auto) 8.2 Eos % (Auto) 0.2 Baso % (Auto) 0.2 Lymph # (Auto) 0.8 L [place] # (Auto) 1.5 H Eos # (Auto) 0.0 Baso # (Auto) 0.0 Abs Immat Gran (auto) 0.29 H Absolute Neuts (auto) 15.7 H Absolute Nucleated RBC 0.030 H Nucleated RBC % (auto) 0.2 Smear Tech's Comments Hold Purple Top PT INR Sodium 141 Potassium 3.5 Chloride 107 Carbon Dioxide 25 Anion Gap 13 BUN 30 H Creatinine 0.78 Estim Creat Clear Calc 65.8 Estimated GFR > 60 POC Glucose 270 H 288 H Random Glucose 222 H Lactic Acid Lactic Acid F/U @ 2Hr Lactic Acid F/U @ 4Hr Calcium 8.4 Total Bilirubin 1.0 Direct Bilirubin AST 23 ALT 76 H Alkaline Phosphatase 232 H Total Protein 5.1 L Albumin 2.3 L Lipase Stool Occult Blood Blood Type Antibody Screen Crossmatch 05/09/23 05/09/23 05/09/23 07:23 08:49 10:59 WBC RBC Hgb Hct MCV MCH MCHC RDW Plt Count MPV Immature Gran % (Auto) Neut % (Auto) Lymph % (Auto) [place] % (Auto) Eos % (Auto) Baso % (Auto) Lymph # (Auto) [place] # (Auto) Eos # (Auto) Baso # (Auto) Abs Immat Gran (auto) Absolute Neuts (auto) Absolute Nucleated RBC Nucleated RBC % (auto) Smear Tech's Comments Hold Purple Top PT INR Sodium Potassium Chloride Carbon Dioxide Anion Gap BUN Creatinine Estim Creat Clear Calc Estimated GFR POC Glucose 216 H 209 H Random Glucose Lactic Acid Lactic Acid F/U @ 2Hr Lactic Acid F/U @ 4Hr Calcium Total Bilirubin Direct Bilirubin AST ALT Alkaline Phosphatase Total Protein Albumin Lipase Stool Occult Blood POSITIVE Blood Type Antibody Screen Crossmatch 05/09/23 05/09/23 05/09/23 16:23 16:41 20:26 WBC RBC Hgb 10.0 L D Hct 29.3 L D MCV MCH MCHC RDW Plt Count MPV Immature Gran % (Auto) Neut % (Auto) Lymph % (Auto) [place] % (Auto) Eos % (Auto) Baso % (Auto) Lymph # (Auto) [place] # (Auto) Eos # (Auto) Baso # (Auto) Abs Immat Gran (auto) Absolute Neuts (auto) Absolute Nucleated RBC Nucleated RBC % (auto) Smear Tech's Comments Hold Purple Top PT INR Sodium Potassium Chloride Carbon Dioxide Anion Gap BUN Creatinine Estim Creat Clear Calc Estimated GFR POC Glucose 201 H 256 H Random Glucose Lactic Acid Lactic Acid F/U @ 2Hr Lactic Acid F/U @ 4Hr Calcium Total Bilirubin Direct Bilirubin AST ALT Alkaline Phosphatase Total Protein Albumin Lipase Stool Occult Blood Blood Type Antibody Screen Crossmatch 05/10/23 05/10/23 05/10/23 05:39 07:08 11:02 WBC 14.8 H RBC 2.90 L D Hgb 9.1 L Hct 26.9 L MCV 92.8 MCH 31.4 MCHC 33.8 RDW 15.9 Plt Count 170 MPV 10.9 Immature Gran % (Auto) Neut % (Auto) Lymph % (Auto) [place] % (Auto) Eos % (Auto) Baso % (Auto) Lymph # (Auto) [place] # (Auto) Eos # (Auto) Baso # (Auto) Abs Immat Gran (auto) Absolute Neuts (auto) Absolute Nucleated RBC 0.000 Nucleated RBC % (auto) 0.0 Smear Tech's Comments Hold Purple Top PT INR Sodium 143 Potassium 3.3 Chloride 107 Carbon Dioxide 25 Anion Gap 14 BUN 23 H Creatinine 0.72 Estim Creat Clear Calc 71.3 Estimated GFR > 60 POC Glucose 195 H 178 H Random Glucose 225 H Lactic Acid Lactic Acid F/U @ 2Hr Lactic Acid F/U @ 4Hr Calcium 8.3 L Total Bilirubin Direct Bilirubin AST ALT Alkaline Phosphatase Total Protein Albumin Lipase Stool Occult Blood Blood Type Antibody Screen Crossmatch 05/10/23 13:50 WBC RBC Hgb Hct MCV MCH MCHC RDW Plt Count MPV Immature Gran % (Auto) Neut % (Auto) Lymph % (Auto) [place] % (Auto) Eos % (Auto) Baso % (Auto) Lymph # (Auto) [place] # (Auto) Eos # (Auto) Baso # (Auto) Abs Immat Gran (auto) Absolute Neuts (auto) Absolute Nucleated RBC Nucleated RBC % (auto) Smear Tech's Comments Hold Purple Top PT INR Sodium Potassium Chloride Carbon Dioxide Anion Gap BUN Creatinine Estim Creat Clear Calc Estimated GFR POC Glucose 183 H Random Glucose Lactic Acid Lactic Acid F/U @ 2Hr Lactic Acid F/U @ 4Hr Calcium Total Bilirubin Direct Bilirubin AST ALT Alkaline Phosphatase Total Protein Albumin Lipase Stool Occult Blood Blood Type Antibody Screen Crossmatch Airway Mallampati Class: II TM Dist: >3cm Neck ROM: Full Loose/Missing/Broken Teeth: Yes (poor dentition, many missing globally) Heart: [id number] Lungs: cta b/l Assessment and Plan Assessment Anesthesia Assessment: Anesthesia Plan Discussed and Chart Reviewed Final Anesthetic Review Family History of Problems with Anesthesia: No History of Problems with Anesthesia: No NPO: Yes ASA Class: III Final Preanesthetic Review: No Changes in Pt Med Stat, Meds/Allgs Chart Reviewed, Consent Obtained/Reviewed and Anes Risks/Benef Reviewed Patient Risk: Intermediate Procedure Risk: Intermediate Assessment/Block/Sedation in SS: Assess/Block/Sedation-SS Anesthetic Plan Anesthetic Plan: MAC: and Agree w/ Assess. and Plan Disposition: Standard PACU
--- NOTE | 2023-05-10 15:11 | PM.OP ---
Brief Operative Note Date of Service: 05/10/23 Pre-op diagnosis: gi bleed Post-op diagnosis: same Procedure: colonoscopy Surgeon: Burke Bermeo MD Anesthesia: MAC Was an Chipper Machine Operator used for this Procedure?: No Estimated blood loss (mL): 0 Pathology: none sent Condition: stable Disposition: PACU
--- NOTE | 2023-05-10 15:14 | PM.OP ---
Brief Operative Note Date of Service: 05/10/23 Pre-op diagnosis: gi bleeding Post-op diagnosis: same Procedure: colonos opy Surgeon: Gabriel Cueto MD Anesthesia: MAC Was an Bridge Teacher used for this Procedure?: No Estimated blood loss (mL): 0 Pathology: none sent Condition: stable Disposition: PACU
--- NOTE | 2023-05-10 15:16 | PM.EVENT ---
Event Note Date of Service: 05/10/23 Event Note: Colonoscopy no bleeding seen diverticulosis advance diet follow hct Time Spent With Patient Time: Total time managing care of this patient today ____ minutes.
--- NOTE | 2023-05-10 15:22 | HO.POSTANES ---
Post Anesthesia Evaluation Post Anesthesia Evaluation Date of Service: 05/10/23 Vital Signs: Vital Signs Temp Pulse Resp BP Pulse Ox O2 Del Method 05/10/23 13:55 98.0 F 77 18 129/62 97 Room Air 05/10/23 11:20 98 F 69 17 132/62 96 Room Air 05/10/23 06:55 96.8 F 90 18 113/54 L 98 Room Air 05/10/23 03:26 97.4 F 87 14 118/59 L 96 Room Air Anesthesia: Monitored Mental Status: Awake Pain Control: Satisfactory Nausea/Vomiting: None Hydration: Adequate Anesthesia-Related Issues: No Anes. Related Issues
--- NOTE | 2023-05-10 16:21 | MHC.RECOVRN ---
When cleaning up pt's bottom, noted reddened area across both buttocks, approximately 6 cms in diameter. As no skin care products are available on unit, message was sent to Charles Grant RN, pt's floor nurse.
[2023-05-10 16:57] LABS: Glucose, Whole Blood 178 mg/dL (60-115)
[2023-05-10] MEDS: Acetaminophen 325 MG TABLET 650 MG PO (19:35)
[2023-05-10 21:15] LABS: Glucose, Whole Blood 157 mg/dL (60-115)
[2023-05-10 21:17] LABS: Hematocrit 25.1 % (42.0-52.0); Hemoglobin 8.7 g/dl (14.0-18.0)
--- NOTE | 2023-05-10 21:29 | OP_ITS ---
DATE OF SERVICE: 05/10/2023 SURGEON: Gabriel Cueto MD INDICATIONS: GI bleeding. PREOPERATIVE DIAGNOSIS: POSTOPERATIVE DIAGNOSIS: PROCEDURE PERFORMED: Colonoscopy to the terminal ileum. ESTIMATED BLOOD LOSS: COMPLICATIONS: ANESTHESIA: Monitored anesthesia care. ASSISTANTS: SPECIMENS: DESCRIPTION OF PROCEDURE: A history and physical was performed. The risks and benefits of the procedure were explained to the patient. Informed consent was obtained. The patient was placed in the left lateral decubitus position. A digital rectal exam was performed and was found to be normal. The Olympus pediatric video colonoscope was introduced into the rectum and advanced to the cecum. The cecum was identified by transillumination, palpation, and identification of ileocecal valve. Examination was performed. The scope was removed. He tolerated the procedure well and was returned to the recovery area in stable condition. FINDINGS: The terminal ileum was briefly examined and appeared normal. There was some old blood in the terminal ileum. No active bleeding was identified. The visualized colonic mucosa was normal. There was extensive sigmoid diverticulosis. There was no active bleeding. There was old blood in the colon. Retroflexed examination showed some internal hemorrhoids. IMPRESSION: Diverticulosis. RECOMMENDATION: 1. Follow up as needed. 2. Laparoscopic cholecystectomy to be scheduled per Dr. Izaguirre. MD NATE Silvestre/SUSANNAHL / [phone]
[2023-05-11] VITALS (15 sets, daily range): BP systolic 116–148; BP diastolic 48–84; PULSE 63–82; RESP 14–18; TEMP 36.2–37.2; O2SAT 92–98
[2023-05-11] MEDS: Piperacillin Sodium/Tazobactam 3.375 GM in 0.9 % Sodium Chloride 50 ML IV ×4 (01:46→20:47)
[2023-05-11] MEDS: Pantoprazole Sodium 40 MG/10 ML VIAL IVPUSH (05:40)
[2023-05-11 06:38] LABS: Hematocrit 26.1 % (42.0-52.0); Mean Corpuscular HGB Conc 34.5 g/dl (31.0-36.0); Mean Corpuscular Hemoglobin 32.1 pg (27.0-33.0); Mean Corpuscular Volume 93.2 fL (80.0-98.0); Mean Platelet Volume 11.4 fL (9.4-12.4); Platelet Count 191 X10*3/uL (160-400); Red Cell Distribution Width 15.1 % (11.0-16.0); White Blood Count 12.7 X10*3/uL (4.8-10.8)
[2023-05-11 06:44] LABS: Anion Gap 13 (12-20); Blood Urea Nitrogen 14 mg/dL (9-16); Calcium 8.5 mg/dL (8.4-10.2); Carbon Dioxide 24 mmol/L (22-29); Chloride 106 mmol/L (96-108); Estimated Glomerular Filt Rate > 60; Glucose Random 148 mg/dL (60-115); Potassium 3.3 mmol/L (3.3-5.1); Sodium 140 mmol/L (135-145)
[2023-05-11 07:16] LABS: Glucose, Whole Blood 127 mg/dL (60-115)
[2023-05-11] MEDS: Metoprolol Succinate ER 50 MG TAB.ER.24H PO (07:43)
[2023-05-11] MEDS: 0.9 % Sodium Chloride Flush 3 ML SYRINGE IVFLUSH ×2 (07:44→16:01)
--- NOTE | 2023-05-11 08:21 | PM.PNGS ---
Subjective Subjective Date of Service: 05/13/23 Interval history: Feels well today. Would like to proceed with surgery so he can go home. Physical Exam Vital Signs: Vital Signs: Last Vital Signs Temp 98.9 F 05/11/23 07:28 Pulse 76 05/11/23 07:28 Resp 16 05/11/23 07:28 BP 123/63 05/11/23 07:28 Pulse Ox 95 05/11/23 07:28 O2 Del Method Room Air 05/11/23 07:28 O2 Flow Rate 4 05/09/23 14:30 BMI result Body Mass Index 24.1 Const: General: comfortable, no acute distress and alert Orientation/consciousness: patient oriented x3 Resp: Effort & Inspection: normal respiratory effort GI: Inspection: No distended Palpation (GI): Soft to palpation Skin: General skin exam: no rashes or lesions noted and no jaundice Neuro: General: patient oriented x3 and moves all extremities Objective Data Active Medications Acetaminophen (Acetaminophen 325 Mg Tablet) 650 mg PO Q6H PRN PRN Reason: Pain, Mild (Pain Scale 1-3) Last Admin: 05/10/23 19:35 Dose: 650 mg Documented By: YVONNE Acetaminophen (Acetaminophen 325 Mg Tablet) 650 mg PO ONCE PRN PRN Reason: Pain, Mild (Pain Scale 1-3) Allopurinol (Allopurinol 100 Mg Tablet) 100 mg PO DAILY [facility] Last Admin: 05/11/23 07:44 Dose: Not Given Documented By: ADAMS Non-Admin Reason: Patient Refused Cyanocobalamin (Cyanocobalamin (Vitamin B-12) 1,000 Mcg Tablet) 1,000 mcg PO DAILY [facility] Last Admin: 05/11/23 07:44 Dose: Not Given Documented By: ADAMS Non-Admin Reason: Patient Refused Dextrose (Dextrose 50 % 25 Gm/50 Ml Syringe) 25 gm IVPUSH Q15M PRN; Protocol PRN Reason: per Hypoglycemia Standing Ord. Fentanyl (Fentanyl Citrate/Pf 100 Mcg/2 Ml Vial) 25 mcg IVPUSH Q5M PRN; Protocol PRN Reason: Pain, Moderate(Pain Scale 4-6) Folic Acid (Folic Acid 1 Mg Tablet) 1 mg PO DAILY [facility] Last Admin: 05/11/23 07:44 Dose: Not Given Documented By: ADAMS Non-Admin Reason: Patient Refused Glucose (Glucose Gel 15 Gm Gel..Gram.) 15 gm PO Q15M PRN; Protocol PRN Reason: per Hypoglycemia Standing Ord. Piperacillin Sod/Tazobactam (Sod 3.375 gm/ Sodium Chloride) 50 mls @ 100 mls/hr IV Q6H [facility] Last Admin: 05/11/23 07:43 Dose: 100 mls/hr Documented By: ADAMS Lactated Ringer's (Lr) 1,000 mls @ 100 mls/hr IVCONT .Q10H [facility] Last Admin: 05/10/23 22:20 Dose: 100 mls/hr Documented By: YVONNE Insulin Human Lispro (Insulin Lispro 100 Unit/Ml 3 Ml Vial) 0 unit SUBCUT QIDACHS [facility]; Protocol Last Admin: 05/11/23 07:43 Dose: Not Given Documented By: ADAMS Non-Admin Reason: No Insulin Coverage Metoprolol Succinate (Metoprolol Succinate Er 50 Mg Tab.Er.24h) 50 mg PO DAILY [facility]; Protocol Last Admin: 05/11/23 07:43 Dose: 50 mg Documented By: ADAMS Morphine Sulfate (Morphine Sulfate 4 Mg/Ml Cartridge) 4 mg IVPUSH Q4H PRN; Protocol PRN Reason: Pain, Severe (Pain Scale 7-10) Last Admin: 05/07/23 03:12 Dose: 4 mg Documented By: YVONNE Ondansetron HCl (Ondansetron Hcl 4 Mg/2 Ml Vial) 4 mg IVPUSH Q8H PRN PRN Reason: Nausea and Vomiting Last Admin: 05/06/23 23:15 Dose: 4 mg Documented By: YVONNE Ondansetron HCl (Ondansetron Hcl 4 Mg/2 Ml Vial) 4 mg IVPUSH ONCE PRN PRN Reason: Nausea and Vomiting Pantoprazole Sodium (Pantoprazole Sodium 40 Mg/10 Ml Vial) 40 mg IVPUSH DAILY@0630 [facility] Last Admin: 05/11/23 05:40 Dose: 40 mg Documented By: YVONNE Sodium Biphosphate/Sodium Phosphate (Sodium Phosphate,[place]-Dibasic 133 Ml Enema) 133 ml [place] ONCE [facility] Sodium Chloride (0.9 % Sodium Chloride Flush 3 Ml Syringe) 3 ml IVFLUSH QSHIFT [facility] Last Admin: 05/11/23 07:44 Dose: 3 ml Documented By: ADAMS Labs 05/13/23 06:00 05/13/23 06:00 Labs: Laboratory Results - last 24 hr 05/10/23 05/10/23 05/10/23 11:02 13:50 16:54 MCV MCH MCHC RDW Plt Count MPV Absolute Nucleated RBC Nucleated RBC % (auto) Anion Gap Estim Creat Clear Calc Estimated GFR POC Glucose 178 H 183 H 178 H Random Glucose Calcium 05/10/23 05/11/23 05/11/23 20:54 06:08 06:59 MCV 93.2 MCH 32.1 MCHC 34.5 RDW 15.1 Plt Count 191 MPV 11.4 Absolute Nucleated RBC 0.000 Nucleated RBC % (auto) 0.0 Anion Gap 13 Estim Creat Clear Calc 79.0 Estimated GFR > 60 POC Glucose 157 H 127 H Random Glucose 148 H Calcium 8.5 Microbiology Microbiology Results: Microbiology 05/05/23 17:43 Blood Culture - Final Blood - Venous No growth after 5 days. 05/05/23 17:43 Blood Culture - Final Blood - Venous No growth after 5 days. Procedures Date of Service Date of Service: 05/13/23 Progress Note: A&P Assessment and plan (1) Gallstone pancreatitis: Status: Acute (2) Acute blood loss anemia: Status: Acute Plan No active bleeding found yesterday on colonoscopy. H/H remains stable. Will proceed with laparoscopic cholecystectomy with possible IOC today. Patient and comfortable with plan. Time Spent With Patient Time: Total time managing care of this patient today ____ minutes. Quality Stroke Does the patient have a stroke diagnosis?: No VTE Prior VTE?: No VTE Risk Level:: Medical - moderate - high VTE Device Contraindication: N/A - Device Ordered VTE Drug Contraindication: Treatment Not Indicated
--- NOTE | 2023-05-11 09:14 | HO.POSTANES ---
Post Anesthesia Evaluation Post Anesthesia Evaluation Date of Service: 05/11/23 Vital Signs: Vital Signs Temp Pulse Resp BP Pulse Ox O2 Del Method 05/11/23 07:28 98.9 F 76 16 123/63 95 Room Air 05/11/23 03:38 98.1 F 63 16 116/58 L 96 Room Air Anesthesia: Monitored Mental Status: Awake Pain Control: Satisfactory Nausea/Vomiting: None Hydration: Adequate Anesthesia-Related Issues: No Anes. Related Issues
--- NOTE | 2023-05-11 09:22 | P.PNIM_ITS ---
Subjective Subjective Date of Service: 05/11/23 Interval History: feeling well, no abdominal pain, no vomiting no pain or discomfort Review of Systems Review of Systems: Yes all other systems are reviewed and are negative Constitutional Constitutional: Denies chills and Denies fever(s) Cardiovascular Cardiovascular: Denies chest pain Gastrointestinal Gastrointestinal: Denies abdominal pain, Denies nausea and Denies vomiting Physical Exam 2 Vital Signs: Vital Signs: Last Vital Signs Temp 98.9 F 05/11/23 07:28 Pulse 76 05/11/23 07:28 Resp 16 05/11/23 07:28 BP 123/63 05/11/23 07:28 Pulse Ox 95 05/11/23 07:28 O2 Del Method Room Air 05/11/23 07:28 O2 Flow Rate 4 05/09/23 14:30 BMI result Body Mass Index 24.1 Appearing in no acute distress lung sounds are clear to auscultation heart regular rate rhythm, clear S1, S2 positive bowel sounds, abdomen is soft, nontender neuro patient is alert x3, no focal deficits Objective Data Active Medications Acetaminophen (Acetaminophen 325 Mg Tablet) 650 mg PO Q6H PRN PRN Reason: Pain, Mild (Pain Scale 1-3) Last Admin: 05/10/23 19:35 Dose: 650 mg Documented By: YVONNE Acetaminophen (Acetaminophen 325 Mg Tablet) 650 mg PO ONCE PRN PRN Reason: Pain, Mild (Pain Scale 1-3) Allopurinol (Allopurinol 100 Mg Tablet) 100 mg PO DAILY [facility] Last Admin: 05/11/23 07:44 Dose: Not Given Documented By: ADAMS Non-Admin Reason: Patient Refused Cyanocobalamin (Cyanocobalamin (Vitamin B-12) 1,000 Mcg Tablet) 1,000 mcg PO DAILY [facility] Last Admin: 05/11/23 07:44 Dose: Not Given Documented By: ADAMS Non-Admin Reason: Patient Refused Dextrose (Dextrose 50 % 25 Gm/50 Ml Syringe) 25 gm IVPUSH Q15M PRN; Protocol PRN Reason: per Hypoglycemia Standing Ord. Fentanyl (Fentanyl Citrate/Pf 100 Mcg/2 Ml Vial) 25 mcg IVPUSH Q5M PRN; Protocol PRN Reason: Pain, Moderate(Pain Scale 4-6) Folic Acid (Folic Acid 1 Mg Tablet) 1 mg PO DAILY [facility] Last Admin: 05/11/23 07:44 Dose: Not Given Documented By: ADAMS Non-Admin Reason: Patient Refused Glucose (Glucose Gel 15 Gm Gel..Gram.) 15 gm PO Q15M PRN; Protocol PRN Reason: per Hypoglycemia Standing Ord. Piperacillin Sod/Tazobactam (Sod 3.375 gm/ Sodium Chloride) 50 mls @ 100 mls/hr IV Q6H [facility] Last Infusion: 05/11/23 08:36 Dose: Infused Documented By: ADAMS Lactated Ringer's (Lr) 1,000 mls @ 100 mls/hr IVCONT .Q10H [facility] Last Admin: 05/10/23 22:20 Dose: 100 mls/hr Documented By: YVONNE Insulin Human Lispro (Insulin Lispro 100 Unit/Ml 3 Ml Vial) 0 unit SUBCUT QIDACHS [facility]; Protocol Last Admin: 05/11/23 07:43 Dose: Not Given Documented By: ADAMS Non-Admin Reason: No Insulin Coverage Metoprolol Succinate (Metoprolol Succinate Er 50 Mg Tab.Er.24h) 50 mg PO DAILY [facility]; Protocol Last Admin: 05/11/23 07:43 Dose: 50 mg Documented By: ADAMS Morphine Sulfate (Morphine Sulfate 4 Mg/Ml Cartridge) 4 mg IVPUSH Q4H PRN; Protocol PRN Reason: Pain, Severe (Pain Scale 7-10) Last Admin: 05/07/23 03:12 Dose: 4 mg Documented By: YVONNE Ondansetron HCl (Ondansetron Hcl 4 Mg/2 Ml Vial) 4 mg IVPUSH Q8H PRN PRN Reason: Nausea and Vomiting Last Admin: 05/06/23 23:15 Dose: 4 mg Documented By: YVONNE Ondansetron HCl (Ondansetron Hcl 4 Mg/2 Ml Vial) 4 mg IVPUSH ONCE PRN PRN Reason: Nausea and Vomiting Pantoprazole Sodium (Pantoprazole Sodium 40 Mg/10 Ml Vial) 40 mg IVPUSH DAILY@0630 [facility] Last Admin: 05/11/23 05:40 Dose: 40 mg Documented By: YVONNE Sodium Biphosphate/Sodium Phosphate (Sodium Phosphate,[place]-Dibasic 133 Ml Enema) 133 ml [place] ONCE [facility] Sodium Chloride (0.9 % Sodium Chloride Flush 3 Ml Syringe) 3 ml IVFLUSH QSHIFT [facility] Last Admin: 05/11/23 07:44 Dose: 3 ml Documented By: ADAMS Labs 05/11/23 06:08 05/11/23 06:08 Labs: Laboratory Results - last 24 hr 05/10/23 05/10/23 05/10/23 11:02 13:50 16:54 MCV MCH MCHC RDW Plt Count MPV Absolute Nucleated RBC Nucleated RBC % (auto) Anion Gap Estim Creat Clear Calc Estimated GFR POC Glucose 178 H 183 H 178 H Random Glucose Calcium 05/10/23 05/11/23 05/11/23 20:54 06:08 06:59 MCV 93.2 MCH 32.1 MCHC 34.5 RDW 15.1 Plt Count 191 MPV 11.4 Absolute Nucleated RBC 0.000 Nucleated RBC % (auto) 0.0 Anion Gap 13 Estim Creat Clear Calc 79.0 Estimated GFR > 60 POC Glucose 157 H 127 H Random Glucose 148 H Calcium 8.5 Microbiology Microbiology Results: Microbiology 05/05/23 17:43 Blood Culture - Final Blood - Venous No growth after 5 days. 05/05/23 17:43 Blood Culture - Final Blood - Venous No growth after 5 days. Assessment and Plan (1) Gallstone pancreatitis: Status: Acute (2) Bacteremia: Status: Acute Plan This is a 82 year old man admitted with abdominal pain secondary to question of cholangitis, gallstone pancreatitis Acute on chronic blood loss anemia. Unspecified had bleeding from ERCP and positive stool occult s/p 3 unit PRBC ordered s/p sigmoidoscopy on 05/09/23, old blood seen, EGD gastric erosion, hiatal hernia abd CT last night with no obvious pathology for bleeding, possible vascular lesion in sigmoid IV PPI GI following>Colonoscopy 05/10/23 no bleeding or diverticulitis stable HH, follow CBC daily Gallstone pancreatitis Abdominal CT showing pancreatitis common bile duct measuring 1 cm, stone in the distal common bile duct difficult to exclude MRCP showed persistent 0.7 cm filling defect in distal common bile duct consistent with choledocholithiasis with mild peripancreatic edema in the region of the pancreatic head suggestive of mild pancreatitis seen by GI, s/p ERCP 05/05 - spincterotomy and biliary stent placement - will need repeat ERCP in 4-8 weeks LFTS trending down General surgery following> plan for ccy when source of bleeding identified and HH stable Gram negative bacteremia with leukocytosis likely biliary source as above on zosyn bacteroides fragilis gastritis seen on EGD continue PPI follow up biopsy results Diabetes mellitus type 2 fifi goyal on hold SSI, POCs Hypertension Blood pressure improving will resume metoprolol lisinopril on hold for now, resume as bp allows follow bp closely Hyperlipidemia Hold statin GERD continue PPI DVT prophylaxis with pneumatic compression boots Full code attending - dr. Yanez Patient requires ongoing inpatient stay for gallstone pancreatitis diet advancement, possible cholecystectomy, close monitoring given diabetes and risk for infection Quality Stroke Does the patient have a stroke diagnosis?: No VTE Prior VTE?: No VTE Risk Level:: Medical - moderate - high VTE Device Contraindication: N/A - Device Ordered VTE Drug Contraindication: Treatment Not Indicated
--- NOTE | 2023-05-11 10:27 | HO.ANESPROP2 ---
HPI - Anesthesia Eval Consult details Narrative: for lap. cholecystectomy PMFSH Active Problems Active Problems: All Active Problems (Updated 05/09/23 @ 13:07 by Dontrell Reina MD) Acute blood loss anemia (Acute) Bacteremia (Acute) Gallstone pancreatitis (Acute) Cholelithiasis (Acute) Weight loss (Acute) BPH (benign prostatic hyperplasia) (Acute) Urinary frequency (Acute) Bilateral shoulder pain (Acute) Facial dermatitis (Acute) SOB (shortness of breath) (Acute) GERD (gastroesophageal reflux disease) (Acute) COVID-19 virus infection (Acute) Tubular adenoma of colon (Acute) Hypercholesterolemia (Acute) Hypertension (Acute) Type 2 diabetes mellitus with hyperglycemia (Acute) Past Medical History Medical History Tubular adenoma of colon GERD (gastroesophageal reflux disease) Knee osteoarthritis Erectile dysfunction Hypercholesterolemia Hypertension Gout Type 2 diabetes mellitus with hyperglycemia Family History Family History Father Medical history unknown Mother Medical history unknown Family history of problems with anesthesia: No Surgical History Surgical History History of cataract surgery History of knee replacement procedure of left knee History of eye surgery History of Problems with Anesthesia: No Social History Household Members: Spouse Housing: House Do you presently have visiting nurse or other home services: No Alcohol intake: current Alcohol intake frequency: a few times a week Alcohol type: beer, wine and hard liquor Patient Tobacco Use Status: Former Tobacco user Quit Date: 1979 Tobacco use type: Cigarette e-Cigarette/Vaping Use: Never Used Second Hand Smoke Exposure: No service: Yes Current occupational status: retired Cognitive needs: No Hearing needs: No Vision needs: Yes Meds Allergies Allergy/AdvReac Type Severity Reaction Status Date / Time metformin Allergy Unknown diarrhea Verified 05/11/23 10:53 rosuvastatin [Crestor] Allergy Unknown Unknown Verified 05/11/23 10:53 Active Medications: Current Medications Acetaminophen (Acetaminophen 325 Mg Tablet) 650 mg PO Q6H PRN PRN Reason: Pain, Mild (Pain Scale 1-3) Last Admin: 05/10/23 19:35 Dose: 650 mg Acetaminophen (Acetaminophen 325 Mg Tablet) 650 mg PO ONCE PRN PRN Reason: Pain, Mild (Pain Scale 1-3) Allopurinol (Allopurinol 100 Mg Tablet) 100 mg PO DAILY [facility] Last Admin: 05/11/23 07:44 Dose: Not Given Cyanocobalamin (Cyanocobalamin (Vitamin B-12) 1,000 Mcg Tablet) 1,000 mcg PO DAILY [facility] Last Admin: 05/11/23 07:44 Dose: Not Given Dextrose (Dextrose 50 % 25 Gm/50 Ml Syringe) 25 gm IVPUSH Q15M PRN; Protocol PRN Reason: per Hypoglycemia Standing Ord. Fentanyl (Fentanyl Citrate/Pf 100 Mcg/2 Ml Vial) 25 mcg IVPUSH Q5M PRN; Protocol PRN Reason: Pain, Moderate(Pain Scale 4-6) Folic Acid (Folic Acid 1 Mg Tablet) 1 mg PO DAILY [facility] Last Admin: 05/11/23 07:44 Dose: Not Given Glucose (Glucose Gel 15 Gm Gel..Gram.) 15 gm PO Q15M PRN; Protocol PRN Reason: per Hypoglycemia Standing Ord. Piperacillin Sod/Tazobactam (Sod 3.375 gm/ Sodium Chloride) 50 mls @ 100 mls/hr IV Q6H [facility] Last Infusion: 05/11/23 08:36 Dose: Infused Lactated Ringer's (Lr) 1,000 mls @ 100 mls/hr IVCONT .Q10H [facility] Last Infusion: 05/11/23 10:06 Dose: Infused Insulin Human Lispro (Insulin Lispro 100 Unit/Ml 3 Ml Vial) 0 unit SUBCUT QIDACHS [facility]; Protocol Last Admin: 05/11/23 07:43 Dose: Not Given Metoprolol Succinate (Metoprolol Succinate Er 50 Mg Tab.Er.24h) 50 mg PO DAILY [facility]; Protocol Last Admin: 05/11/23 07:43 Dose: 50 mg Morphine Sulfate (Morphine Sulfate 4 Mg/Ml Cartridge) 4 mg IVPUSH Q4H PRN; Protocol PRN Reason: Pain, Severe (Pain Scale 7-10) Last Admin: 05/07/23 03:12 Dose: 4 mg Ondansetron HCl (Ondansetron Hcl 4 Mg/2 Ml Vial) 4 mg IVPUSH Q8H PRN PRN Reason: Nausea and Vomiting Last Admin: 05/06/23 23:15 Dose: 4 mg Ondansetron HCl (Ondansetron Hcl 4 Mg/2 Ml Vial) 4 mg IVPUSH ONCE PRN PRN Reason: Nausea and Vomiting Pantoprazole Sodium (Pantoprazole Sodium 40 Mg/10 Ml Vial) 40 mg IVPUSH DAILY@0630 [facility] Last Admin: 05/11/23 05:40 Dose: 40 mg Sodium Biphosphate/Sodium Phosphate (Sodium Phosphate,Rush-Dibasic 133 Ml Enema) 133 ml [place] ONCE SHIRA Sodium Chloride (0.9 % Sodium Chloride Flush 3 Ml Syringe) 3 ml IVFLUSH QSHIFT [facility] Last Admin: 05/11/23 07:44 Dose: 3 ml Home Medications Medication Instructions Recorded Confirmed Last Taken Type cyanocobalamin (vitamin B-12) 1,000 mcg PO DAILY 05/04/23 05/04/23 Unknown History 1,000 mcg tablet insulin aspart U-100 100 unit/mL 0 sliding scale dose subcut TIDAC 05/04/23 05/04/23 Unknown History (3 mL) subcutaneous pen (Novolog FlexPen U-100 Insulin aspart) Exam Height,Weight and Vital Signs: Height 5 ft 6 in Weight 67.7 kg Last Vital Signs Temp 98.9 F 05/11/23 07:28 Pulse 76 05/11/23 07:28 Resp 16 05/11/23 07:28 BP 123/63 05/11/23 07:28 Pulse Ox 95 05/11/23 07:28 O2 Del Method Room Air 05/11/23 07:28 O2 Flow Rate 4 05/09/23 14:30 Pertinent Lab Results Pertinent Lab Results: Laboratory Tests 05/04/23 05/04/23 05/04/23 11:51 12:09 13:03 WBC 24.6 H RBC 4.35 L Hgb 14.5 Hct 43.2 MCV 99.3 H D MCH 33.3 H MCHC 33.6 RDW 12.4 Plt Count 273 D MPV 11.9 Immature Gran % (Auto) 1.3 H Neut % (Auto) 89.4 H Lymph % (Auto) 5.4 L Rush % (Auto) 3.2 Eos % (Auto) 0.2 Baso % (Auto) 0.5 Lymph # (Auto) 1.3 Rush # (Auto) 0.8 Eos # (Auto) 0.1 Baso # (Auto) 0.1 Abs Immat Gran (auto) 0.33 H Absolute Neuts (auto) 22.0 H Absolute Nucleated RBC 0.000 Nucleated RBC % (auto) 0.0 Smear Tech's Comments VERIFIED Hold Purple Top PT INR Sodium 140 Potassium 4.1 Chloride 102 Carbon Dioxide 27 Anion Gap 15 BUN 30 H Creatinine 1.04 Estim Creat Clear Calc 49.4 Estimated GFR > 60 POC Glucose Random Glucose 199 H Lactic Acid 2.3 H* 2.2 H* Lactic Acid F/U @ 2Hr Lactic Acid F/U @ 4Hr Calcium 9.8 Total Bilirubin 3.3 H Direct Bilirubin 2.6 H AST 576 H ALT 445 H Alkaline Phosphatase 982 H Total Protein 7.2 Albumin 3.6 Lipase > 3000 H Stool Occult Blood Blood Type O Negative Antibody Screen NEGATIVE Crossmatch 05/04/23 05/04/23 05/04/23 14:31 16:36 19:26 WBC RBC Hgb Hct MCV MCH MCHC RDW Plt Count MPV Immature Gran % (Auto) Neut % (Auto) Lymph % (Auto) Rush % (Auto) Eos % (Auto) Baso % (Auto) Lymph # (Auto) Rush # (Auto) Eos # (Auto) Baso # (Auto) Abs Immat Gran (auto) Absolute Neuts (auto) Absolute Nucleated RBC Nucleated RBC % (auto) Smear Tech's Comments Hold Purple Top PT INR Sodium Potassium Chloride Carbon Dioxide Anion Gap BUN Creatinine Estim Creat Clear Calc Estimated GFR POC Glucose Random Glucose Lactic Acid Lactic Acid F/U @ 2Hr 2.9 H* 2.2 H* Lactic Acid F/U @ 4Hr 1.2 Calcium Total Bilirubin Direct Bilirubin AST ALT Alkaline Phosphatase Total Protein Albumin Lipase Stool Occult Blood Blood Type Antibody Screen Crossmatch 05/04/23 05/05/23 05/05/23 20:48 06:23 06:57 WBC 12.0 H RBC 3.55 L Hgb 11.6 L Hct 35.0 L MCV 98.6 H MCH 32.7 MCHC 33.1 RDW 12.7 Plt Count 160 D MPV 11.5 Immature Gran % (Auto) 0.8 H Neut % (Auto) 88.4 H Lymph % (Auto) 5.0 L Rush % (Auto) 5.4 Eos % (Auto) 0.2 Baso % (Auto) 0.2 Lymph # (Auto) 0.6 L Rush # (Auto) 0.7 Eos # (Auto) 0.0 Baso # (Auto) 0.0 Abs Immat Gran (auto) 0.10 H Absolute Neuts (auto) 10.6 H Absolute Nucleated RBC 0.000 Nucleated RBC % (auto) 0.0 Smear Tech's Comments Hold Purple Top PT 12.8 INR 1.1 Sodium 145 Potassium 4.2 Chloride 113 H Carbon Dioxide 24 Anion Gap 12 BUN 23 H Creatinine 0.98 Estim Creat Clear Calc 52.4 Estimated GFR > 60 POC Glucose 171 H 191 H Random Glucose 195 H Lactic Acid Lactic Acid F/U @ 2Hr Lactic Acid F/U @ 4Hr Calcium 9.1 D Total Bilirubin 4.2 H Direct Bilirubin 3.7 H AST 414 H ALT 415 H Alkaline Phosphatase 785 H Total Protein 6.1 L Albumin 3.2 L Lipase Stool Occult Blood Blood Type Antibody Screen Crossmatch 05/05/23 05/05/23 05/05/23 10:49 14:20 16:27 WBC RBC Hgb Hct MCV MCH MCHC RDW Plt Count MPV Immature Gran % (Auto) Neut % (Auto) Lymph % (Auto) Rush % (Auto) Eos % (Auto) Baso % (Auto) Lymph # (Auto) Rush # (Auto) Eos # (Auto) Baso # (Auto) Abs Immat Gran (auto) Absolute Neuts (auto) Absolute Nucleated RBC Nucleated RBC % (auto) Smear Tech's Comments Hold Purple Top PT INR Sodium Potassium Chloride Carbon Dioxide Anion Gap BUN Creatinine Estim Creat Clear Calc Estimated GFR POC Glucose 167 H 169 H 204 H Random Glucose Lactic Acid Lactic Acid F/U @ 2Hr Lactic Acid F/U @ 4Hr Calcium Total Bilirubin Direct Bilirubin AST ALT Alkaline Phosphatase Total Protein Albumin Lipase Stool Occult Blood Blood Type Antibody Screen Crossmatch 05/05/23 05/06/23 05/06/23 20:38 05:49 07:41 WBC 12.7 H RBC 2.92 L Hgb 9.6 L Hct 28.7 L MCV 98.3 H MCH 32.9 MCHC 33.4 RDW 12.4 Plt Count 163 MPV 11.8 Immature Gran % (Auto) 1.0 H Neut % (Auto) 90.2 H Lymph % (Auto) 3.9 L Rush % (Auto) 4.6 Eos % (Auto) 0.2 Baso % (Auto) 0.1 Lymph # (Auto) 0.5 L Rush # (Auto) 0.6 Eos # (Auto) 0.0 Baso # (Auto) 0.0 Abs Immat Gran (auto) 0.13 H Absolute Neuts (auto) 11.5 H Absolute Nucleated RBC 0.000 Nucleated RBC % (auto) 0.0 Smear Tech's Comments VERIFIED Hold Purple Top PT INR Sodium 142 Potassium 4.2 Chloride 112 H Carbon Dioxide 24 Anion Gap 10 L BUN 25 H Creatinine 0.97 Estim Creat Clear Calc 52.9 Estimated GFR > 60 POC Glucose 223 H 226 H Random Glucose 248 H Lactic Acid Lactic Acid F/U @ 2Hr Lactic Acid F/U @ 4Hr Calcium 8.5 D Total Bilirubin 4.0 H Direct Bilirubin 3.3 H AST 340 H ALT 353 H Alkaline Phosphatase 618 H Total Protein 5.2 L Albumin 2.6 L Lipase 365 H Stool Occult Blood Blood Type Antibody Screen Crossmatch 05/06/23 05/06/23 05/06/23 11:07 16:02 17:55 WBC RBC Hgb Hct MCV MCH MCHC RDW Plt Count MPV Immature Gran % (Auto) Neut % (Auto) Lymph % (Auto) Rush % (Auto) Eos % (Auto) Baso % (Auto) Lymph # (Auto) Rush # (Auto) Eos # (Auto) Baso # (Auto) Abs Immat Gran (auto) Absolute Neuts (auto) Absolute Nucleated RBC Nucleated RBC % (auto) Smear Tech's Comments Hold Purple Top PT INR Sodium Potassium Chloride Carbon Dioxide Anion Gap BUN Creatinine Estim Creat Clear Calc Estimated GFR POC Glucose 283 H 367 H* 356 H* Random Glucose Lactic Acid Lactic Acid F/U @ 2Hr Lactic Acid F/U @ 4Hr Calcium Total Bilirubin Direct Bilirubin AST ALT Alkaline Phosphatase Total Protein Albumin Lipase Stool Occult Blood Blood Type Antibody Screen Crossmatch 05/06/23 05/07/23 05/07/23 20:32 05:31 07:17 WBC 14.4 H RBC 2.79 L Hgb 9.2 L Hct 27.4 L MCV 98.2 H MCH 33.0 MCHC 33.6 RDW 12.4 Plt Count 172 MPV 12.0 Immature Gran % (Auto) Neut % (Auto) Lymph % (Auto) Rush % (Auto) Eos % (Auto) Baso % (Auto) Lymph # (Auto) Rush # (Auto) Eos # (Auto) Baso # (Auto) Abs Immat Gran (auto) Absolute Neuts (auto) Absolute Nucleated RBC 0.000 Nucleated RBC % (auto) 0.0 Smear Tech's Comments Hold Purple Top SEE NOTE PT INR Sodium Potassium Chloride Carbon Dioxide Anion Gap BUN Creatinine Estim Creat Clear Calc Estimated GFR POC Glucose 245 H 198 H Random Glucose Lactic Acid Lactic Acid F/U @ 2Hr Lactic Acid F/U @ 4Hr Calcium Total Bilirubin 1.3 H Direct Bilirubin 0.9 H AST 76 H ALT 222 H Alkaline Phosphatase 490 H Total Protein 5.8 L Albumin 2.8 L Lipase 57 Stool Occult Blood Blood Type Antibody Screen Crossmatch 05/07/23 05/07/23 05/07/23 11:12 16:13 19:55 WBC RBC Hgb Hct MCV MCH MCHC RDW Plt Count MPV Immature Gran % (Auto) Neut % (Auto) Lymph % (Auto) Rush % (Auto) Eos % (Auto) Baso % (Auto) Lymph # (Auto) Rush # (Auto) Eos # (Auto) Baso # (Auto) Abs Immat Gran (auto) Absolute Neuts (auto) Absolute Nucleated RBC Nucleated RBC % (auto) Smear Tech's Comments Hold Purple Top PT INR Sodium Potassium Chloride Carbon Dioxide Anion Gap BUN Creatinine Estim Creat Clear Calc Estimated GFR POC Glucose 275 H 276 H 253 H Random Glucose Lactic Acid Lactic Acid F/U @ 2Hr Lactic Acid F/U @ 4Hr Calcium Total Bilirubin Direct Bilirubin AST ALT Alkaline Phosphatase Total Protein Albumin Lipase Stool Occult Blood Blood Type Antibody Screen Crossmatch 05/08/23 05/08/23 05/08/23 03:26 05:08 06:54 WBC 22.6 H RBC 2.31 L Hgb 7.5 L Hct 22.3 L MCV 96.5 MCH 32.5 MCHC 33.6 RDW 12.6 Plt Count 264 D MPV 11.9 Immature Gran % (Auto) 3.3 H Neut % (Auto) 86.1 H Lymph % (Auto) 2.9 L Rush % (Auto) 7.5 Eos % (Auto) 0.1 Baso % (Auto) 0.1 Lymph # (Auto) 0.7 L Rush # (Auto) 1.7 H Eos # (Auto) 0.0 Baso # (Auto) 0.0 Abs Immat Gran (auto) 0.75 H Absolute Neuts (auto) 19.5 H Absolute Nucleated RBC 0.020 H Nucleated RBC % (auto) 0.1 Smear Tech's Comments VERIFIED Hold Purple Top SEE NOTE PT INR Sodium Potassium Chloride Carbon Dioxide Anion Gap BUN Creatinine Estim Creat Clear Calc Estimated GFR POC Glucose 275 H Random Glucose Lactic Acid Lactic Acid F/U @ 2Hr Lactic Acid F/U @ 4Hr Calcium Total Bilirubin 1.1 H Direct Bilirubin 0.6 H AST 31 ALT 117 H Alkaline Phosphatase 336 H Total Protein 5.0 L Albumin 2.4 L Lipase Stool Occult Blood Blood Type O Negative Antibody Screen NEGATIVE Crossmatch See Detail 05/08/23 05/08/23 05/08/23 07:22 11:32 13:11 WBC RBC Hgb 8.2 L Hct 24.5 L MCV MCH MCHC RDW Plt Count MPV Immature Gran % (Auto) Neut % (Auto) Lymph % (Auto) Rush % (Auto) Eos % (Auto) Baso % (Auto) Lymph # (Auto) Rush # (Auto) Eos # (Auto) Baso # (Auto) Abs Immat Gran (auto) Absolute Neuts (auto) Absolute Nucleated RBC Nucleated RBC % (auto) Smear Tech's Comments Hold Purple Top PT INR Sodium Potassium Chloride Carbon Dioxide Anion Gap BUN Creatinine Estim Creat Clear Calc Estimated GFR POC Glucose 307 H 263 H Random Glucose Lactic Acid Lactic Acid F/U @ 2Hr Lactic Acid F/U @ 4Hr Calcium Total Bilirubin Direct Bilirubin AST ALT Alkaline Phosphatase Total Protein Albumin Lipase Stool Occult Blood Blood Type Antibody Screen Crossmatch 05/08/23 05/08/23 05/09/23 16:22 20:35 05:06 WBC 18.3 H RBC 2.29 L Hgb 7.1 L Hct 21.1 L MCV 92.1 MCH 31.0 MCHC 33.6 RDW 15.6 Plt Count 191 D MPV 11.5 Immature Gran % (Auto) 1.6 H Neut % (Auto) 85.5 H Lymph % (Auto) 4.3 L Rush % (Auto) 8.2 Eos % (Auto) 0.2 Baso % (Auto) 0.2 Lymph # (Auto) 0.8 L Rush # (Auto) 1.5 H Eos # (Auto) 0.0 Baso # (Auto) 0.0 Abs Immat Gran (auto) 0.29 H Absolute Neuts (auto) 15.7 H Absolute Nucleated RBC 0.030 H Nucleated RBC % (auto) 0.2 Smear Tech's Comments Hold Purple Top PT INR Sodium 141 Potassium 3.5 Chloride 107 Carbon Dioxide 25 Anion Gap 13 BUN 30 H Creatinine 0.78 Estim Creat Clear Calc 65.8 Estimated GFR > 60 POC Glucose 270 H 288 H Random Glucose 222 H Lactic Acid Lactic Acid F/U @ 2Hr Lactic Acid F/U @ 4Hr Calcium 8.4 Total Bilirubin 1.0 Direct Bilirubin AST 23 ALT 76 H Alkaline Phosphatase 232 H Total Protein 5.1 L Albumin 2.3 L Lipase Stool Occult Blood Blood Type Antibody Screen Crossmatch 05/09/23 05/09/23 05/09/23 07:23 08:49 10:59 WBC RBC Hgb Hct MCV MCH MCHC RDW Plt Count MPV Immature Gran % (Auto) Neut % (Auto) Lymph % (Auto) Rush % (Auto) Eos % (Auto) Baso % (Auto) Lymph # (Auto) Rush # (Auto) Eos # (Auto) Baso # (Auto) Abs Immat Gran (auto) Absolute Neuts (auto) Absolute Nucleated RBC Nucleated RBC % (auto) Smear Tech's Comments Hold Purple Top PT INR Sodium Potassium Chloride Carbon Dioxide Anion Gap BUN Creatinine Estim Creat Clear Calc Estimated GFR POC Glucose 216 H 209 H Random Glucose Lactic Acid Lactic Acid F/U @ 2Hr Lactic Acid F/U @ 4Hr Calcium Total Bilirubin Direct Bilirubin AST ALT Alkaline Phosphatase Total Protein Albumin Lipase Stool Occult Blood POSITIVE Blood Type Antibody Screen Crossmatch 05/09/23 05/09/23 05/09/23 16:23 16:41 20:26 WBC RBC Hgb 10.0 L D Hct 29.3 L D MCV MCH MCHC RDW Plt Count MPV Immature Gran % (Auto) Neut % (Auto) Lymph % (Auto) Rush % (Auto) Eos % (Auto) Baso % (Auto) Lymph # (Auto) Rush # (Auto) Eos # (Auto) Baso # (Auto) Abs Immat Gran (auto) Absolute Neuts (auto) Absolute Nucleated RBC Nucleated RBC % (auto) Smear Tech's Comments Hold Purple Top PT INR Sodium Potassium Chloride Carbon Dioxide Anion Gap BUN Creatinine Estim Creat Clear Calc Estimated GFR POC Glucose 201 H 256 H Random Glucose Lactic Acid Lactic Acid F/U @ 2Hr Lactic Acid F/U @ 4Hr Calcium Total Bilirubin Direct Bilirubin AST ALT Alkaline Phosphatase Total Protein Albumin Lipase Stool Occult Blood Blood Type Antibody Screen Crossmatch 05/10/23 05/10/23 05/10/23 05:39 07:08 11:02 WBC 14.8 H RBC 2.90 L D Hgb 9.1 L Hct 26.9 L MCV 92.8 MCH 31.4 MCHC 33.8 RDW 15.9 Plt Count 170 MPV 10.9 Immature Gran % (Auto) Neut % (Auto) Lymph % (Auto) Rush % (Auto) Eos % (Auto) Baso % (Auto) Lymph # (Auto) Rush # (Auto) Eos # (Auto) Baso # (Auto) Abs Immat Gran (auto) Absolute Neuts (auto) Absolute Nucleated RBC 0.000 Nucleated RBC % (auto) 0.0 Smear Tech's Comments Hold Purple Top PT INR Sodium 143 Potassium 3.3 Chloride 107 Carbon Dioxide 25 Anion Gap 14 BUN 23 H Creatinine 0.72 Estim Creat Clear Calc 71.3 Estimated GFR > 60 POC Glucose 195 H 178 H Random Glucose 225 H Lactic Acid Lactic Acid F/U @ 2Hr Lactic Acid F/U @ 4Hr Calcium 8.3 L Total Bilirubin Direct Bilirubin AST ALT Alkaline Phosphatase Total Protein Albumin Lipase Stool Occult Blood Blood Type Antibody Screen Crossmatch 05/10/23 05/10/23 05/10/23 13:50 16:54 20:54 WBC RBC Hgb Hct MCV MCH MCHC RDW Plt Count MPV Immature Gran % (Auto) Neut % (Auto) Lymph % (Auto) Rush % (Auto) Eos % (Auto) Baso % (Auto) Lymph # (Auto) Rush # (Auto) Eos # (Auto) Baso # (Auto) Abs Immat Gran (auto) Absolute Neuts (auto) Absolute Nucleated RBC Nucleated RBC % (auto) Smear Tech's Comments Hold Purple Top PT INR Sodium Potassium Chloride Carbon Dioxide Anion Gap BUN Creatinine Estim Creat Clear Calc Estimated GFR POC Glucose 183 H 178 H 157 H Random Glucose Lactic Acid Lactic Acid F/U @ 2Hr Lactic Acid F/U @ 4Hr Calcium Total Bilirubin Direct Bilirubin AST ALT Alkaline Phosphatase Total Protein Albumin Lipase Stool Occult Blood Blood Type Antibody Screen Crossmatch 05/10/23 05/11/23 05/11/23 21:10 06:08 06:59 WBC 12.7 H RBC 2.80 L Hgb 8.7 L 9.0 L Hct 25.1 L 26.1 L MCV 93.2 MCH 32.1 MCHC 34.5 RDW 15.1 Plt Count 191 MPV 11.4 Immature Gran % (Auto) Neut % (Auto) Lymph % (Auto) Rush % (Auto) Eos % (Auto) Baso % (Auto) Lymph # (Auto) Rush # (Auto) Eos # (Auto) Baso # (Auto) Abs Immat Gran (auto) Absolute Neuts (auto) Absolute Nucleated RBC 0.000 Nucleated RBC % (auto) 0.0 Smear Tech's Comments Hold Purple Top PT INR Sodium 140 Potassium 3.3 Chloride 106 Carbon Dioxide 24 Anion Gap 13 BUN 14 Creatinine 0.65 Estim Creat Clear Calc 79.0 Estimated GFR > 60 POC Glucose 127 H Random Glucose 148 H Lactic Acid Lactic Acid F/U @ 2Hr Lactic Acid F/U @ 4Hr Calcium 8.5 Total Bilirubin Direct Bilirubin AST ALT Alkaline Phosphatase Total Protein Albumin Lipase Stool Occult Blood Blood Type Antibody Screen Crossmatch Airway Mallampati Class: III TM Dist: >3cm Neck ROM: Full Denture: Upper Loose/Missing/Broken Teeth: Yes and Lower (loose lower middle. d/w patient) Heart: ok Lungs: ok Assessment and Plan Assessment Anesthesia Assessment: Anesthesia Plan Discussed and Chart Reviewed Final Anesthetic Review Family History of Problems with Anesthesia: No History of Problems with Anesthesia: No NPO: Yes ASA Class: III Final Preanesthetic Review: No Changes in Pt Med Stat, Meds/Allgs Chart Reviewed, Consent Obtained/Reviewed and Anes Risks/Benef Reviewed Patient Risk: High Procedure Risk: Intermediate Anesthetic Plan Anesthetic Plan: GA and Agree w/ Assess. and Plan Disposition: Standard PACU
[2023-05-11 10:57] LABS: Glucose, Whole Blood 125 mg/dL (60-115)
--- NOTE | 2023-05-11 12:34 | HO.WOUND ---
Wound Consult: Initial 82yr old male admitted to [facility] [place] on 05/04/23? - See progress notes and H&P for detailed history. Wound consult placed for redness noted to bilateral buttocks. Arrival to bedside pt and agreeable to assessment. Pt and report no injury - buttock assess along with coccyx assessed no injury noted. No red or pink pigmentation noted. Pt does have brief on in bed -educated on benefits of removing brief. Pt and report understanding but report in place due to incontinence and urgency since resolved. Pt reports he does not suffer from incontinence at baseline. The skin is intact no redness no pink noted. Barrier applied to anal tissue for soothing effects after incontinence. The patient and his informed me he will be going to OR today - Preventative sacral foam was applied - pt and his educated on the benefits and agreeable to its use. No topical recommendations needed at this time. Of note barrier cream at bedside to be applied PRN.
--- NOTE | 2023-05-11 12:53 | P.OP_ITS ---
Operative Note Operative Note Date of Service: 05/11/23 Narrative: Preoperative diagnosis: [] History of gallstone pancreatitis, status post ERCP. History recent GI bleed. Cholelithiasis. Postop diagnosis: [] Same. Acute phlegmonous , gangrenous cholecystitis Procedure [] laparoscopic cholecystectomy Surgeon: [] Dmitriy Paper Machine Operator: [] Miguel Angel Type of Anesthesia: [] General Indication for surgery: [] A thickened phlegmonous pus-filled gangrenous cholecystitis. Dense omental adhesions to the gallbladder. Gallbladder literally falling apart secondary to necrosis. Markedly intrahepatic gallbladder. Findings: [] Patient brought to the operating room, placed on operative table in supine position, after adequate level of general anesthesia was induced, the patient's abdomen was prepped and draped in usual sterile fashion. Using supraumbilical curvilinear incision, Reina technique was used to insufflate the abdominal cavity to 15 mm of CO2. Upper midline and right subcostal ports placed under direct laparoscopic view, the patient placed in reverse Trendelenburg position, tilted to the left. Dense omental adhesions were swept off the gallbladder, with findings as noted above. A markedly turgid phlegmonous gallbladder had to be decompressed with an aspirating device to allow graspers to grab the gallbladder which was then retracted superiorly and laterally. Cystic artery and cystic were each identified, circumferentially skeletonized, traced directly to the gallbladder, and critical view obtained. A clip was placed on the gallbladder side the cystic duct and the cystic duct fell apart secondary to marked necrosis distal to this. This precluded cholangiogram. The cystic duct was able to be grasped and was clipped proximally x2. The cystic artery was similarly clipped proximally x2, distally x1, and transected. Gallbladder which was markedly intrahepatic and necrotic was cauterized from the gallbladder fossa using Bovie. Specimen was placed in an Endo-Catch bag, a retrieved through the umbilical port. Abdominal cavity was very copiously irrigated, and secured hemostasis. A Joseph-Branham drain was left in the gallbladder fossa and exited through the right lateral port. This was secured to skin using 2-0 nylon. Abdominal cavity was again secured for hemostasis and all ports removed under direct laparoscopic view. Wounds were closed in the following manner; umbilical wound is fascia reapproximated using interrupted 0 Vicryl sutures. Skin wounds were closed using subcuticular 4-0 Vicryl sutures followed by Steri-Strips and sterile dressings. Wounds were infiltrated 0.5% Marcaine at completion. Sponge, needle, instrument counts reported correct. Patient tolerated the procedure well and emerged anesthesia stable condition. EBL minimal
[2023-05-11] MEDS: Potassium Chloride/H20 10 MEQ/100 ML PIGGYBACK 100 MEQ IV (13:16)
[2023-05-11] MEDS: HYDROmorphone HCl 0.5 MG/0.5 ML SYRINGE 0.25 MG IVPUSH ×4 (13:16→13:41)
[2023-05-11 14:48] LABS: Glucose, Whole Blood 139 mg/dL (60-115)
[2023-05-11] MEDS: Lactated Ringers 1,000 ML 100 ML IVCONT ×2 (16:00→21:33)
[2023-05-11 16:11] LABS: Glucose, Whole Blood 164 mg/dL (60-115)
[2023-05-11] MEDS: Insulin Lispro 100 UNIT/ML 3 ML VIAL SUBCUT ×2 (17:13→20:47)
[2023-05-11] MEDS: oxyCODONE HCl Immed Release 5 MG TABLET 10 MG PO (17:51)
[2023-05-11] MEDS: Acetaminophen 325 MG TABLET 650 MG PO (18:51)
[2023-05-11 20:31] LABS: Glucose, Whole Blood 190 mg/dL (60-115)
[2023-05-12] MEDS: Piperacillin Sodium/Tazobactam 3.375 GM in 0.9 % Sodium Chloride 50 ML IV ×4 (02:02→19:42)
[2023-05-12] MEDS: oxyCODONE HCl Immed Release 5 MG TABLET 10 MG PO ×4 (02:21→17:58)
[2023-05-12 03:34] VITALS: BP 102/51; PULSE 79; RESP 16; TEMP 36.4; O2SAT 96
[2023-05-12] MEDS: Pantoprazole Sodium 40 MG/10 ML VIAL IVPUSH (05:55)
[2023-05-12 06:45] LABS: MANUAL DIFF FLAG NO
[2023-05-12 06:52] LABS: Basophils Absolute Auto 0.1 X10*3/uL (0.0-0.2); Basophils Percent Auto 0.4 % (0-2); Eosinophils Absolute Auto 0.1 X10*3/uL (0.0-0.4); Eosinophils Percent Auto 0.3 % (0-4); Hematocrit 31.4 % (42.0-52.0); Hemoglobin 10.3 g/dl (14.0-18.0); Imm Gran Abs Auto 0.25 X10*3/uL (0.00-0.03); Imm Gran Pct Auto 1.4 % (0.0-0.4); Lymphocytes Absolute Auto 0.9 X10*3/uL (1.2-4.9); Lymphocytes Percent Auto 5.3 % (20-40); Mean Corpuscular HGB Conc 32.8 g/dl (31.0-36.0); Mean Corpuscular Volume 94.6 fL (80.0-98.0); Mean Platelet Volume 11.2 fL (9.4-12.4); Monocytes Absolute Auto 0.9 X10*3/uL (0.1-1.2); Monocytes Percent Auto 5.4 % (2-11); Neutrophils Absolute Auto 15.1 x10*3/uL (2.0-8.3); Neutrophils Percent Auto 87.2 % (45-73); Platelet Count 279 X10*3/uL (160-400); Red Blood Count 3.32 X10*6/uL (4.60-5.80); Red Cell Distribution Width 15.5 % (11.0-16.0); White Blood Count 17.3 X10*3/uL (4.8-10.8)
[2023-05-12 07:38] LABS: Glucose, Whole Blood 139 mg/dL (60-115)
[2023-05-12 07:41] VITALS: BP 125/58; PULSE 91; RESP 16; TEMP 36.7; O2SAT 95
[2023-05-12] MEDS: Lactated Ringers 1,000 ML 100 ML IVCONT (08:09)
[2023-05-12] MEDS: Cyanocobalamin (Vitamin B-12) 1,000 MCG TABLET 1000 MCG PO (08:10)
[2023-05-12] MEDS: allopurinoL 100 MG TABLET PO (08:10)
[2023-05-12] MEDS: Metoprolol Succinate ER 50 MG TAB.ER.24H PO (08:10)
[2023-05-12] MEDS: Folic Acid 1 MG TABLET PO (08:10)
--- NOTE | 2023-05-12 08:31 | HO.POSTANES ---
Post Anesthesia Evaluation Post Anesthesia Evaluation Date of Service: 05/12/23 Vital Signs: Vital Signs Temp Pulse Resp BP Pulse Ox O2 Del Method 05/12/23 07:41 98.1 F 91 16 125/58 L 95 Room Air 05/12/23 03:34 97.6 F 79 16 102/51 L 96 Room Air Anesthesia: General Endotracheal-GETA Mental Status: Awake Pain Control: Satisfactory Nausea/Vomiting: None Hydration: Adequate Anesthesia-Related Issues: No Anes. Related Issues
[2023-05-12 11:14] LABS: Glucose, Whole Blood 253 mg/dL (60-115)
[2023-05-12] MEDS: Acetaminophen 325 MG TABLET 650 MG PO ×2 (12:02→17:58)
[2023-05-12] MEDS: Insulin Lispro 100 UNIT/ML 3 ML VIAL SUBCUT ×3 (12:02→21:25)
--- NOTE | 2023-05-12 12:20 | P.PNGS_ITS ---
Subjective Subjective Date of Service: 05/12/23 Interval history: Patient feeling a bit better. Uneventful evening. Serosanguineous drainage from MATTHEW drain. Patient's and daughter present during evaluation. H&H stable. White blood cell count up to 17, expected status post gangrenous phlegmonous cholecystitis Physical Exam 2 Vital Signs: Vital Signs: Last Vital Signs Temp 98.1 F 05/12/23 07:41 Pulse 91 05/12/23 07:41 Resp 16 05/12/23 07:41 BP 125/58 L 05/12/23 07:41 Pulse Ox 95 05/12/23 07:41 O2 Del Method Room Air 05/12/23 07:41 O2 Flow Rate 1.5 05/11/23 15:31 BMI result Body Mass Index 24.1 GI: Other: Abdomen soft. All wounds clean dry and intact. MATTHEW drain in place Objective Data Active Medications Acetaminophen (Acetaminophen 325 Mg Tablet) 650 mg PO Q6H PRN PRN Reason: Pain, Mild (Pain Scale 1-3) Last Admin: 05/12/23 12:02 Dose: 650 mg Documented By: RAMU Allopurinol (Allopurinol 100 Mg Tablet) 100 mg PO DAILY [facility] Last Admin: 05/12/23 08:10 Dose: 100 mg Documented By: JERMAN Cyanocobalamin (Cyanocobalamin (Vitamin B-12) 1,000 Mcg Tablet) 1,000 mcg PO DAILY [facility] Last Admin: 05/12/23 08:10 Dose: 1,000 mcg Documented By: JERMAN Dextrose (Dextrose 50 % 25 Gm/50 Ml Syringe) 25 gm IVPUSH Q15M PRN; Protocol PRN Reason: per Hypoglycemia Standing Ord. Folic Acid (Folic Acid 1 Mg Tablet) 1 mg PO DAILY [facility] Last Admin: 05/12/23 08:10 Dose: 1 mg Documented By: JERMAN Glucose (Glucose Gel 15 Gm Gel..Gram.) 15 gm PO Q15M PRN; Protocol PRN Reason: per Hypoglycemia Standing Ord. Piperacillin Sod/Tazobactam (Sod 3.375 gm/ Sodium Chloride) 50 mls @ 100 mls/hr IV Q6H [facility] Last Infusion: 05/12/23 09:05 Dose: Infused Documented By: JERMAN Insulin Human Lispro (Insulin Lispro 100 Unit/Ml 3 Ml Vial) 0 unit SUBCUT QIDACHS [facility]; Protocol Last Admin: 05/12/23 12:02 Dose: 6 unit Documented By: RAMU Metoprolol Succinate (Metoprolol Succinate Er 50 Mg Tab.Er.24h) 50 mg PO DAILY [facility]; Protocol Last Admin: 05/12/23 08:10 Dose: 50 mg Documented By: JERMAN Morphine Sulfate (Morphine Sulfate 4 Mg/Ml Cartridge) 4 mg IVPUSH Q4H PRN; Protocol PRN Reason: Pain, Severe (Pain Scale 7-10) Last Admin: 05/07/23 03:12 Dose: 4 mg Documented By: YVONNE Ondansetron HCl (Ondansetron Hcl 4 Mg/2 Ml Vial) 4 mg IVPUSH Q8H PRN PRN Reason: Nausea and Vomiting Last Admin: 05/06/23 23:15 Dose: 4 mg Documented By: YVONNE Oxycodone HCl (Oxycodone Hcl Immed Release 5 Mg Tablet) 5 mg PO Q4H PRN PRN Reason: Pain, Moderate(Pain Scale 4-6) Oxycodone HCl (Oxycodone Hcl Immed Release 5 Mg Tablet) 10 mg PO Q4H PRN PRN Reason: Pain, Severe (Pain Scale 7-10) Last Admin: 05/12/23 12:01 Dose: 10 mg Documented By: RAMU Pantoprazole Sodium (Pantoprazole Sodium 40 Mg/10 Ml Vial) 40 mg IVPUSH DAILY@0630 [facility] Last Admin: 05/12/23 05:55 Dose: 40 mg Documented By: KEYONA Sodium Chloride (0.9 % Sodium Chloride Flush 3 Ml Syringe) 3 ml IVFLUSH QSHIFT [facility] Last Admin: 05/12/23 07:42 Dose: Not Given Documented By: JERMAN Non-Admin Reason: IV Running Labs 05/12/23 06:26 05/11/23 06:08 Labs: Laboratory Results - last 24 hr 05/11/23 05/11/23 05/11/23 14:43 15:59 20:22 MCV MCH MCHC RDW Plt Count MPV Immature Gran % (Auto) Neut % (Auto) Lymph % (Auto) [place] % (Auto) Eos % (Auto) Baso % (Auto) Lymph # (Auto) [place] # (Auto) Eos # (Auto) Baso # (Auto) Abs Immat Gran (auto) Absolute Neuts (auto) Absolute Nucleated RBC Nucleated RBC % (auto) POC Glucose 139 H 164 H 190 H 05/12/23 05/12/23 05/12/23 06:26 07:34 11:10 MCV 94.6 MCH 31.0 MCHC 32.8 RDW 15.5 Plt Count 279 D MPV 11.2 Immature Gran % (Auto) 1.4 H Neut % (Auto) 87.2 H Lymph % (Auto) 5.3 L [place] % (Auto) 5.4 Eos % (Auto) 0.3 Baso % (Auto) 0.4 Lymph # (Auto) 0.9 L [place] # (Auto) 0.9 Eos # (Auto) 0.1 Baso # (Auto) 0.1 Abs Immat Gran (auto) 0.25 H Absolute Neuts (auto) 15.1 H Absolute Nucleated RBC 0.000 Nucleated RBC % (auto) 0.0 POC Glucose 139 H 253 H Procedures Date of Service Date of Service: 05/12/23 Progress Note: A&P Assessment and plan (1) Acute gangrenous cholecystitis: Status: Acute Plan Diet as tolerated, out of bed/ambulate, incentive spirometry, probably DC MATTHEW drain tomorrow. Time Spent With Patient Time: Total time managing care of this patient today ____ minutes. Quality Stroke Does the patient have a stroke diagnosis?: No VTE Prior VTE?: No VTE Risk Level:: Medical - moderate - high VTE Device Contraindication: N/A - Device Ordered VTE Drug Contraindication: Treatment Not Indicated
--- NOTE | 2023-05-12 12:30 | MHC.CM.PN ---
EMR REVIEWED. PER MD ROUNDS NOT MEDICALLY CLEARED FOR DC AT THIS TIME, MATTHEW DRAIN IN PLACE - LIKELY WILL BE REMOVED TOMORROW. CM WILL CONTINUE TO FOLLOW.
[2023-05-12] MEDS: 0.9 % Sodium Chloride Flush 3 ML SYRINGE IVFLUSH ×2 (13:53→19:47)
[2023-05-12 15:09] VITALS: BP 110/59; PULSE 81; RESP 17; TEMP 36.1; O2SAT 93
--- NOTE | 2023-05-12 15:27 | HO.PM.IMPN ---
Subjective Subjective Date of Service: 05/12/23 Interval History: Seen in follow up for gangrenous phlegmonous cholecystitis, gallstone pancreatitis Interval history No complaints, tolerating diet. No n/v, passing flatus. Has been ambulating Review of Systems Review of Systems: Yes all other systems are reviewed and are negative Physical Exam Vital Signs: Vital Signs: Last Vital Signs Temp 96.9 F 05/12/23 15:09 Pulse 81 05/12/23 15:09 Resp 17 05/12/23 15:09 BP 110/59 L 05/12/23 15:09 Pulse Ox 93 05/12/23 15:09 O2 Del Method Room Air 05/12/23 15:09 O2 Flow Rate 1.5 05/11/23 15:31 BMI result Body Mass Index 24.1 Constitutional - Awake and Alert, No apparent distress Eyes - PERRLA, EOMI Cardiovascular - S1S2, RRR, No edema Respiratory - Normal lung expansion, Normal respiratory effort, No respiratory distress, CTA bilaterally Gastrointestinal - NT / ND; +BS; No rebound or guarding Extremities - no calf tenderness bilaterally, no swelling Skin - Warm/Dry Neurological - Alert & oriented x3 Psychological - Appropriate affect Objective Data Active Medications Acetaminophen (Acetaminophen 325 Mg Tablet) 650 mg PO Q6H PRN PRN Reason: Pain, Mild (Pain Scale 1-3) Last Admin: 05/12/23 12:02 Dose: 650 mg Documented By: RAMU Allopurinol (Allopurinol 100 Mg Tablet) 100 mg PO DAILY [facility] Last Admin: 05/12/23 08:10 Dose: 100 mg Documented By: JERMAN Cyanocobalamin (Cyanocobalamin (Vitamin B-12) 1,000 Mcg Tablet) 1,000 mcg PO DAILY [facility] Last Admin: 05/12/23 08:10 Dose: 1,000 mcg Documented By: JERMAN Dextrose (Dextrose 50 % 25 Gm/50 Ml Syringe) 25 gm IVPUSH Q15M PRN; Protocol PRN Reason: per Hypoglycemia Standing Ord. Folic Acid (Folic Acid 1 Mg Tablet) 1 mg PO DAILY [facility] Last Admin: 05/12/23 08:10 Dose: 1 mg Documented By: JERMAN Glucose (Glucose Gel 15 Gm Gel..Gram.) 15 gm PO Q15M PRN; Protocol PRN Reason: per Hypoglycemia Standing Ord. Piperacillin Sod/Tazobactam (Sod 3.375 gm/ Sodium Chloride) 50 mls @ 100 mls/hr IV Q6H [facility] Last Infusion: 05/12/23 14:26 Dose: Infused Documented By: RAMU Insulin Human Lispro (Insulin Lispro 100 Unit/Ml 3 Ml Vial) 0 unit SUBCUT QIDACHS [facility]; Protocol Last Admin: 05/12/23 12:02 Dose: 6 unit Documented By: RAMU Metoprolol Succinate (Metoprolol Succinate Er 50 Mg Tab.Er.24h) 50 mg PO DAILY [facility]; Protocol Last Admin: 05/12/23 08:10 Dose: 50 mg Documented By: JERMAN Morphine Sulfate (Morphine Sulfate 4 Mg/Ml Cartridge) 4 mg IVPUSH Q4H PRN; Protocol PRN Reason: Pain, Severe (Pain Scale 7-10) Last Admin: 05/07/23 03:12 Dose: 4 mg Documented By: YVONNE Ondansetron HCl (Ondansetron Hcl 4 Mg/2 Ml Vial) 4 mg IVPUSH Q8H PRN PRN Reason: Nausea and Vomiting Last Admin: 05/06/23 23:15 Dose: 4 mg Documented By: YVONNE Oxycodone HCl (Oxycodone Hcl Immed Release 5 Mg Tablet) 5 mg PO Q4H PRN PRN Reason: Pain, Moderate(Pain Scale 4-6) Oxycodone HCl (Oxycodone Hcl Immed Release 5 Mg Tablet) 10 mg PO Q4H PRN PRN Reason: Pain, Severe (Pain Scale 7-10) Last Admin: 05/12/23 12:01 Dose: 10 mg Documented By: RAMU Pantoprazole Sodium (Pantoprazole Sodium 40 Mg/10 Ml Vial) 40 mg IVPUSH DAILY@0630 [facility] Last Admin: 05/12/23 05:55 Dose: 40 mg Documented By: KEYONA Sodium Chloride (0.9 % Sodium Chloride Flush 3 Ml Syringe) 3 ml IVFLUSH QSHIFT [facility] Last Admin: 05/12/23 13:53 Dose: 3 ml Documented By: RAMU Labs 05/12/23 06:26 05/11/23 06:08 Labs: Laboratory Results - last 24 hr 05/11/23 05/11/23 05/12/23 15:59 20:22 06:26 MCV 94.6 MCH 31.0 MCHC 32.8 RDW 15.5 Plt Count 279 D MPV 11.2 Immature Gran % (Auto) 1.4 H Neut % (Auto) 87.2 H Lymph % (Auto) 5.3 L [place] % (Auto) 5.4 Eos % (Auto) 0.3 Baso % (Auto) 0.4 Lymph # (Auto) 0.9 L [place] # (Auto) 0.9 Eos # (Auto) 0.1 Baso # (Auto) 0.1 Abs Immat Gran (auto) 0.25 H Absolute Neuts (auto) 15.1 H Absolute Nucleated RBC 0.000 Nucleated RBC % (auto) 0.0 POC Glucose 164 H 190 H 05/12/23 05/12/23 07:34 11:10 MCV MCH MCHC RDW Plt Count MPV Immature Gran % (Auto) Neut % (Auto) Lymph % (Auto) [place] % (Auto) Eos % (Auto) Baso % (Auto) Lymph # (Auto) [place] # (Auto) Eos # (Auto) Baso # (Auto) Abs Immat Gran (auto) Absolute Neuts (auto) Absolute Nucleated RBC Nucleated RBC % (auto) POC Glucose 139 H 253 H Assessment and Plan (1) Gallstone pancreatitis: Status: Acute (2) Bacteremia: Status: Acute (3) Acute gangrenous cholecystitis: Status: Acute (4) Acute blood loss anemia: Status: Acute Plan This is a 82 year old man admitted with abdominal pain secondary to question of cholangitis, gallstone pancreatitis Acute on chronic blood loss anemia. Unspecified had bleeding from ERCP and positive stool occult s/p 3 unit PRBC ordered s/p sigmoidoscopy on 05/09/23, old blood seen, EGD gastric erosion, hiatal hernia abd CT last night with no obvious pathology for bleeding, possible vascular lesion in sigmoid IV PPI GI following>Colonoscopy 05/10/23 no bleeding or diverticulitis stable HH, follow CBC daily Gangrenous phlegmonous cholecystitis -s/p lap kelly POD 1 -Tolerating diet -ENEIDA drain probably to be removed 05/13, tomorrow -IS -Gen surgery input appreciated Gallstone pancreatitis Abdominal CT showing pancreatitis common bile duct measuring 1 cm, stone in the distal common bile duct difficult to exclude MRCP showed persistent 0.7 cm filling defect in distal common bile duct consistent with choledocholithiasis with mild peripancreatic edema in the region of the pancreatic head suggestive of mild pancreatitis seen by GI, s/p ERCP 05/05 - spincterotomy and biliary stent placement - will need repeat ERCP in 4-8 weeks LFTS trending down General surgery following s/p kelly as above Bacteroides bacteremia with leukocytosis likely biliary source as above on zosyn. Transition to augmentin x 14 days on dc bacteroides fragilis ID input appreciated gastritis seen on EGD continue PPI follow up biopsy results- h pylori neg Diabetes mellitus type 2 fifi goyal on hold SSI, POCs Hypertension Blood pressure improving will resume metoprolol lisinopril on hold for now, resume as bp allows follow bp closely Hyperlipidemia Hold statin GERD continue PPI DVT prophylaxis with pneumatic compression boots Full code attending - dr. Yanez Patient requires ongoing inpatient stay for gallstone pancreatitis diet advancement, removal of eneida drain s/o lap kelly, close monitoring given diabetes and risk for infection Quality Stroke Does the patient have a stroke diagnosis?: No VTE Prior VTE?: No VTE Risk Level:: Medical - moderate - high VTE Device Contraindication: N/A - Device Ordered VTE Drug Contraindication: Treatment Not Indicated
[2023-05-12 16:15] LABS: Glucose, Whole Blood 194 mg/dL (60-115)
[2023-05-12 19:55] VITALS: BP 102/49; PULSE 83; RESP 17; TEMP 36.3; O2SAT 95
[2023-05-12 21:03] LABS: Glucose, Whole Blood 222 mg/dL (60-115)
[2023-05-13] MEDS: Piperacillin Sodium/Tazobactam 3.375 GM in 0.9 % Sodium Chloride 50 ML IV ×2 (02:21→08:19)
[2023-05-13 03:49] VITALS: BP 142/78; PULSE 82; RESP 17; TEMP 36.3; O2SAT 94
[2023-05-13] MEDS: Pantoprazole Sodium 40 MG/10 ML VIAL IVPUSH (05:36)
[2023-05-13] MEDS: Acetaminophen 325 MG TABLET 650 MG PO (05:42)
[2023-05-13 06:32] LABS: MANUAL DIFF FLAG NO
[2023-05-13 06:39] LABS: Basophils Percent Auto 0.1 % (0-2); Eosinophils Absolute Auto 0.2 X10*3/uL (0.0-0.4); Eosinophils Percent Auto 1.1 % (0-4); Hematocrit 26.5 % (42.0-52.0); Hemoglobin 8.9 g/dl (14.0-18.0); Imm Gran Abs Auto 0.21 X10*3/uL (0.00-0.03); Imm Gran Pct Auto 1.5 % (0.0-0.4); Lymphocytes Absolute Auto 0.7 X10*3/uL (1.2-4.9); Lymphocytes Percent Auto 5.4 % (20-40); Mean Corpuscular HGB Conc 33.6 g/dl (31.0-36.0); Mean Corpuscular Hemoglobin 31.4 pg (27.0-33.0); Mean Corpuscular Volume 93.6 fL (80.0-98.0); Mean Platelet Volume 11.1 fL (9.4-12.4); Monocytes Absolute Auto 0.7 X10*3/uL (0.1-1.2); Monocytes Percent Auto 5.4 % (2-11); Neutrophils Absolute Auto 11.7 x10*3/uL (2.0-8.3); Neutrophils Percent Auto 86.5 % (45-73); Platelet Count 215 X10*3/uL (160-400); Red Blood Count 2.83 X10*6/uL (4.60-5.80); Red Cell Distribution Width 14.6 % (11.0-16.0); White Blood Count 13.6 X10*3/uL (4.8-10.8)
[2023-05-13 06:54] LABS: Alanine Aminotransferase 71 U/L (0-40); Albumin Level 2.1 g/dL (3.5-5.0); Alkaline Phosphatase 135 U/L (39-117); Anion Gap 11 (12-20); Aspartate Amino Transferase 65 U/L (5-37); Bilirubin Total 0.6 mg/dL (0.0-1.0); Blood Urea Nitrogen 10 mg/dL (9-16); Carbon Dioxide 25 mmol/L (22-29); Chloride 102 mmol/L (96-108); Creatinine Clr Calc Pharmacy 82.8; Estimated Glomerular Filt Rate > 60; Glucose Random 157 mg/dL (60-115); Potassium 3.3 mmol/L (3.3-5.1); Sodium 135 mmol/L (135-145)
[2023-05-13 07:11] VITALS: BP 135/61; PULSE 72; RESP 16; TEMP 36.1; O2SAT 96
[2023-05-13 07:20] LABS: Glucose, Whole Blood 148 mg/dL (60-115)
[2023-05-13 07:39] VITALS: BP 135/61; PULSE 72; O2SAT 96
--- NOTE | 2023-05-13 07:46 | PM.PNGS ---
Subjective Subjective Date of Service: 05/13/23 Interval history: Feels very well this morning. Some mild pain but comfortable. Tolerating diet but minimal PO intake due to no appetite. Denies nausea. Physical Exam Vital Signs: Vital Signs: Last Vital Signs Temp 96.9 F 05/13/23 07:11 Pulse 72 05/13/23 07:39 Resp 16 05/13/23 07:11 BP 135/61 05/13/23 07:39 Pulse Ox 96 05/13/23 07:39 O2 Del Method Room Air 05/13/23 07:11 O2 Flow Rate 1.5 05/11/23 15:31 BMI result Body Mass Index 24.1 Const: General: comfortable, no acute distress and alert Orientation/consciousness: patient oriented x3 Resp: Effort & Inspection: normal respiratory effort GI: Other: MATTHEW drain with serosanguineous drainage Inspection: No distended and Yes incision (clean) Palpation (GI): Soft to palpation, Tenderness to palpation present (GI) (mild incisional), no guarding and not rigid Percussion: Yes normal to percussion Skin: General skin exam: no rashes or lesions noted Neuro: General: patient oriented x3 and moves all extremities Objective Data Active Medications Acetaminophen (Acetaminophen 325 Mg Tablet) 650 mg PO Q6H PRN PRN Reason: Pain, Mild (Pain Scale 1-3) Last Admin: 05/13/23 05:42 Dose: 650 mg Documented By: KRIS Allopurinol (Allopurinol 100 Mg Tablet) 100 mg PO DAILY [facility] Last Admin: 05/12/23 08:10 Dose: 100 mg Documented By: JERMAN Cyanocobalamin (Cyanocobalamin (Vitamin B-12) 1,000 Mcg Tablet) 1,000 mcg PO DAILY [facility] Last Admin: 05/12/23 08:10 Dose: 1,000 mcg Documented By: JERMAN Dextrose (Dextrose 50 % 25 Gm/50 Ml Syringe) 25 gm IVPUSH Q15M PRN; Protocol PRN Reason: per Hypoglycemia Standing Ord. Folic Acid (Folic Acid 1 Mg Tablet) 1 mg PO DAILY [facility] Last Admin: 05/12/23 08:10 Dose: 1 mg Documented By: JERMAN Glucose (Glucose Gel 15 Gm Gel..Gram.) 15 gm PO Q15M PRN; Protocol PRN Reason: per Hypoglycemia Standing Ord. Piperacillin Sod/Tazobactam (Sod 3.375 gm/ Sodium Chloride) 50 mls @ 100 mls/hr IV Q6H [facility] Last Infusion: 05/13/23 02:59 Dose: Infused Documented By: KRIS Insulin Human Lispro (Insulin Lispro 100 Unit/Ml 3 Ml Vial) 0 unit SUBCUT QIDACHS [facility]; Protocol Last Admin: 05/13/23 07:31 Dose: Not Given Documented By: DORIAN Non-Admin Reason: No Insulin Coverage Metoprolol Succinate (Metoprolol Succinate Er 50 Mg Tab.Er.24h) 50 mg PO DAILY [facility]; Protocol Last Admin: 05/12/23 08:10 Dose: 50 mg Documented By: JERMAN Morphine Sulfate (Morphine Sulfate 4 Mg/Ml Cartridge) 4 mg IVPUSH Q4H PRN; Protocol PRN Reason: Pain, Severe (Pain Scale 7-10) Last Admin: 05/07/23 03:12 Dose: 4 mg Documented By: YVONNE Ondansetron HCl (Ondansetron Hcl 4 Mg/2 Ml Vial) 4 mg IVPUSH Q8H PRN PRN Reason: Nausea and Vomiting Last Admin: 05/06/23 23:15 Dose: 4 mg Documented By: YVONNE Oxycodone HCl (Oxycodone Hcl Immed Release 5 Mg Tablet) 5 mg PO Q4H PRN PRN Reason: Pain, Moderate(Pain Scale 4-6) Oxycodone HCl (Oxycodone Hcl Immed Release 5 Mg Tablet) 10 mg PO Q4H PRN PRN Reason: Pain, Severe (Pain Scale 7-10) Last Admin: 05/12/23 17:58 Dose: 10 mg Documented By: RAMU Sodium Chloride (0.9 % Sodium Chloride Flush 3 Ml Syringe) 3 ml IVFLUSH QSHIFT [facility] Last Admin: 05/12/23 19:47 Dose: 3 ml Documented By: KRIS Labs 05/13/23 06:00 05/13/23 06:00 Labs: Laboratory Results - last 24 hr 05/12/23 05/12/23 05/12/23 11:10 16:08 20:35 MCV MCH MCHC RDW Plt Count MPV Immature Gran % (Auto) Neut % (Auto) Lymph % (Auto) [place] % (Auto) Eos % (Auto) Baso % (Auto) Lymph # (Auto) [place] # (Auto) Eos # (Auto) Baso # (Auto) Abs Immat Gran (auto) Absolute Neuts (auto) Absolute Nucleated RBC Nucleated RBC % (auto) Anion Gap Estim Creat Clear Calc Estimated GFR POC Glucose 253 H 194 H 222 H Random Glucose Calcium Total Bilirubin AST ALT Alkaline Phosphatase Total Protein Albumin 05/13/23 05/13/23 06:00 07:14 MCV 93.6 MCH 31.4 MCHC 33.6 RDW 14.6 Plt Count 215 MPV 11.1 Immature Gran % (Auto) 1.5 H Neut % (Auto) 86.5 H Lymph % (Auto) 5.4 L [place] % (Auto) 5.4 Eos % (Auto) 1.1 Baso % (Auto) 0.1 Lymph # (Auto) 0.7 L [place] # (Auto) 0.7 Eos # (Auto) 0.2 Baso # (Auto) 0.0 Abs Immat Gran (auto) 0.21 H Absolute Neuts (auto) 11.7 H Absolute Nucleated RBC 0.000 Nucleated RBC % (auto) 0.0 Anion Gap 11 L Estim Creat Clear Calc 82.8 Estimated GFR > 60 POC Glucose 148 H Random Glucose 157 H Calcium 8.0 L Total Bilirubin 0.6 AST 65 H ALT 71 H Alkaline Phosphatase 135 H Total Protein 5.0 L Albumin 2.1 L Procedures Date of Service Date of Service: 05/13/23 Progress Note: A&P Assessment and plan (1) Acute gangrenous cholecystitis: Status: Acute (2) Gallstone pancreatitis: Status: Acute Plan POD #2 s/p lap kelly. Doing well post op. Abd is benign with appropriate post op tenderness. MATTHEW drain with serosanguineous drainage and removed. Patient surgically stable for dc to home today. F/u in office in 1 week. Patient and comfortable with plan. Time Spent With Patient Time: Total time managing care of this patient today ____ minutes. Quality Stroke Does the patient have a stroke diagnosis?: No VTE Prior VTE?: No VTE Risk Level:: Medical - moderate - high VTE Device Contraindication: N/A - Device Ordered VTE Drug Contraindication: Treatment Not Indicated
[2023-05-13] MEDS: Metoprolol Succinate ER 50 MG TAB.ER.24H PO (08:19)
[2023-05-13] MEDS: 0.9 % Sodium Chloride Flush 3 ML SYRINGE IVFLUSH (08:19)
[2023-05-13] MEDS: Cyanocobalamin (Vitamin B-12) 1,000 MCG TABLET 1000 MCG PO (08:19)
[2023-05-13] MEDS: Folic Acid 1 MG TABLET PO (08:19)
[2023-05-13] MEDS: allopurinoL 100 MG TABLET PO (08:19)
[2023-05-13] MEDS: oxyCODONE HCl Immed Release 5 MG TABLET PO (08:28)
--- NOTE | 2023-05-13 11:02 | MHC.CM.PN ---
EMR REVIEWED AND PER MD ROUNDS PT IS MEDICALLY CLEARED FOR DC HOME SELF CARE. WILL BE PICKED UP BY AT 1PM. IMM DELIVERED.
[2023-05-13 11:12] LABS: Glucose, Whole Blood 196 mg/dL (60-115)
[2023-05-13 13:04] LABS: Hematocrit 29.7 % (42.0-52.0); Hemoglobin 9.8 g/dl (14.0-18.0)
--- NOTE | 2023-05-13 13:27 | PM.DS ---
DS: Providers Provider Date of Service: 05/13/23 Date of admission: 05/04/23 15:20 Date of discharge: 05/13/23 Primary care physician: Clarence Talbert MD Consults: 05/04/23 15:11 Consult to Gastroenterology Routine Consulting Provider: Gabriel Cueto Reason for consultation: gallstone pacnretitis,? cholangitis 05/07/23 14:35 Consult to Infectious Diseases Routine Consulting Provider: [facility] [place] Infectious Disease Reason for consultation: bacteroides bacteremia Has provider been notified: No 05/09/23 07:13 Consult to Gastroenterology Routine Consulting Provider: Dontrell Reina Reason for consultation: anemia, gi bleed 05/10/23 17:19 Consult to Wound Care Routine Reason for consultation: redness to buttocks Attending physician on discharge: Pieter Yanez Discharging clinician: Bernie Granger DS: Diagnosis Discharge Diagnosis (1) Gallstone pancreatitis: Status: Acute (2) Acute blood loss anemia: Status: Acute DS: Summary Hospital Course Hospital Course: From H&P on day of admission 82-year-old man presenting with intractable right upper quadrant pain and nausea. He was seen by General surgery on 05/03/2023 and plan was for elective cholecystectomy. Patient developed severe pain and came to the ER for further evaluation. He had episode of vomiting and severe epigastric pain that radiated to his back after eating breakfast. Developed multiple episodes of nausea and vomiting and decided to present to the emergency department for further evaluation. white blood cell count 24.6, lactic acid 2.9, total bilirubin 3.3, lipase greater than 3000. Abdominal CT showing pancreatitis with multiple gallstones and partially contracted gallbladder with a common bile duct of 1 cm and possible distal common bile duct stone. No fever noted. Status MRCP ordered. Patient given Zosyn, morphine, IV fluid, Zofran in the ED. Will admit patient for management of Gallstone pancreatitis vs cholangitis. Patient was initially admitted for gallstone pancreatitis. Abdominal CT showing pancreatitis common bile duct measuring 1 cm, stone in the distal common bile duct difficult to exclude MRCP showed persistent 0.7 cm filling defect in distal common bile duct consistent with choledocholithiasis with mild peripancreatic edema in the region of the pancreatic head suggestive of mild pancreatitis seen by GI, and underwent ERCP 05/05 with spincterotomy and biliary stent placement. LFTS began trending down. will need repeat ERCP in 4-8 weeks to remove stent. He was seen by general surgery who recommended cholecystectomy. He had lap kelly which was done on 05/11. found to have Gangrenous phlegmonous cholecystitis. His MATTHEW drain was removed 05/13. He is currently tolerating a regular diet and will be discharged home to follow up with surgery as outpatient Acute on chronic blood loss anemia. Unspecified had bleeding from ERCP and positive stool occult. s/p 3 unit PRBC ordered and transfused. s/p sigmoidoscopy on 05/09/23, old blood seen, EGD gastric erosion, hiatal hernia. abd CT with no obvious pathology for bleeding, possible vascular lesion in sigmoid. Had Colonoscopy 05/10/23 no bleeding or diverticulitis. H/H has remained stable. stable HH, follow CBC daily Bacteroides bacteremia. blood cultures grew bacteroides fragilis likely biliary source as above. Patient was initially treated with zosyn since admission. He was seen by ID and will be Transitioned to augmentin to complete 14 days day course gastritis seen on EGD, continue on PPI. follow up biopsy results- h pylori neg Diabetes mellitus type 2 jardiance, januvia on hold. jardiance was a new medication and will be discontinued. can continue januvia for now, recommend outpatient follow up with PCP Time Attestation Discharge coordination time: Greater than 30 minutes Quality: Safe Use of Opioids Does Pt have an Active Cancer Diagnosis on the Problem List?: No Quality: Stroke Does the patient have a stroke diagnosis?: No Physical Exam Vital Signs: Vital Signs: Last Vital Signs Temp 96.9 F 05/13/23 07:11 Pulse 72 05/13/23 07:39 Resp 16 05/13/23 07:11 BP 135/61 05/13/23 07:39 Pulse Ox 96 05/13/23 07:39 O2 Del Method Room Air 05/13/23 07:11 O2 Flow Rate 1.5 05/11/23 15:31 BMI result Body Mass Index 24.1 Const: General: cooperative, comfortable, no acute distress, alert and awake Nutritional Appearance: average body habitus Orientation/consciousness: patient oriented x3 Resp: Effort & Inspection: normal respiratory effort and able to speak in complete sentences Cardio: Rate: regular rate GI: Palpation (GI): Soft to palpation Neuro: General: patient oriented x3, moves all extremities and CN's II-XI intact bilaterally DS: Data Data Completed and Pending Completed studies during hospitalization [Text1]: Pending at discharge 05/05/23 13:03 Surgical [PTH] Routine 05/11/23 12:15 Surgical [PTH] Routine Labs on day of discharge: Laboratory Results - last 24 hr 05/12/23 05/12/23 05/13/23 16:08 20:35 06:00 WBC 13.6 H RBC 2.83 L Hgb 8.9 L Hct 26.5 L MCV 93.6 MCH 31.4 MCHC 33.6 RDW 14.6 Plt Count 215 MPV 11.1 Immature Gran % (Auto) 1.5 H Neut % (Auto) 86.5 H Lymph % (Auto) 5.4 L [place] % (Auto) 5.4 Eos % (Auto) 1.1 Baso % (Auto) 0.1 Lymph # (Auto) 0.7 L [place] # (Auto) 0.7 Eos # (Auto) 0.2 Baso # (Auto) 0.0 Abs Immat Gran (auto) 0.21 H Absolute Neuts (auto) 11.7 H Absolute Nucleated RBC 0.000 Nucleated RBC % (auto) 0.0 Sodium 135 Potassium 3.3 Chloride 102 Carbon Dioxide 25 Anion Gap 11 L BUN 10 Creatinine 0.62 Estim Creat Clear Calc 82.8 Estimated GFR > 60 POC Glucose 194 H 222 H Random Glucose 157 H Calcium 8.0 L Total Bilirubin 0.6 AST 65 H ALT 71 H Alkaline Phosphatase 135 H Total Protein 5.0 L Albumin 2.1 L 05/13/23 05/13/23 05/13/23 07:14 11:09 12:57 WBC RBC Hgb 9.8 L Hct 29.7 L MCV MCH MCHC RDW Plt Count MPV Immature Gran % (Auto) Neut % (Auto) Lymph % (Auto) [place] % (Auto) Eos % (Auto) Baso % (Auto) Lymph # (Auto) [place] # (Auto) Eos # (Auto) Baso # (Auto) Abs Immat Gran (auto) Absolute Neuts (auto) Absolute Nucleated RBC Nucleated RBC % (auto) Sodium Potassium Chloride Carbon Dioxide Anion Gap BUN Creatinine Estim Creat Clear Calc Estimated GFR POC Glucose 148 H 196 H Random Glucose Calcium Total Bilirubin AST ALT Alkaline Phosphatase Total Protein Albumin Discharge Plan Discharge Anticipated Discharge Date/Time: 05/13/23 13:54 Patient Disposition: Home, Self-Care Discharge Diagnosis: cholelithiasis, gallstone pancreatitis, cholecystitis, bacteremia Referrals: Gabriel Cueto MD [Physician] - 1 Month Po,Clarence Lo MD [Primary Care Provider] - 1 Week Declan Izaguirre MD [Physician] - 1 Week Discharge Medications: New docusate sodium [Colace] 100 mg capsule 100 mg PO BID PRN (Reason: constipation) Qty: 30 0RF oxycodone 5 mg tablet 5 mg PO Q4H PRN (Reason: pain (scale score 7-10)) Qty: 24 0RF Rx Instructions: Partial Fill upon patient request. amoxicillin-pot clavulanate 875-125 mg tablet 1 tab PO BID 5 Days Qty: 10 0RF Continued folic acid 1 mg tablet 1 mg PO DAILY Qty: 90 3RF lansoprazole [Prevacid] 30 mg capsule,delayed release(DR/EC) 30 mg PO DAILY 90 Days Qty: 90 3RF allopurinol 100 mg tablet 100 mg PO DAILY 90 Days Qty: 90 2RF Januvia 100 mg tablet 100 mg PO DAILY Qty: 30 1RF cyanocobalamin (vitamin B-12) 1,000 mcg Tablet 1,000 mcg PO DAILY insulin aspart U-100 [Novolog FlexPen U-100 Insulin] 100 unit/mL (3 mL) insulin pen 0 sliding scale dose subcut TIDAC Protocol: Insulin Correction Scale Less than or equal to 110 ---- Give (units): 0 111 to 150 Give (units): 0 151 to 200 Give (units): 2 201 to 250 Give (units): 4 251 to 300 Give (units): 6 301 to 350 Give (units): 8 Greater than 350 Give (units): 10 Call MD if Blood Glucose > : 350 Rx Instructions: Or as directed through sliding scale metoprolol succinate 50 mg tablet extended release 24 hr 50 mg PO DAILY 90 Days Qty: 90 3RF Held lisinopril 5 mg tablet 5 mg PO DAILY 90 Days Qty: 90 2RF Hold Instructions: hold until follow up with PCP atorvastatin 10 mg tablet 10 mg PO DAILY Qty: 90 3RF Hold Instructions: hold until follow up with PCP Discontinued Jardiance 10 mg tablet 10 mg PO DAILY Qty: 30 4RF No Action (DME) DIABETIC SHOES See Rx Instructions .Route .MEDSUPPLY Qty: 1 0RF Rx Instructions: As directed (DME) pen needle, diabetic [BD Ultra-Fine Prisca Pen Needle] 32 gauge x 5/32 needle See Rx Instructions .Route Qty: 100 2RF Rx Instructions: As directed Discharge Orders: Discharge Order (Routine); Ordered 05/13/23 Ordered By: Bernie Granger Diet: Diabetic diet Activity on Discharge: No heavy lifting Stand Alone Forms: Patient Portal Discharge page Other Ambulatory Orders: Complete Blood Count no Diff (Routine) Timeframe: [id number] Facility: [facility] - Location: Laboratory Ordered By: Bernie Granger Activity Restrictions/Additional Instructions: Apply an ice pack for short intervals (20 minutes on, followed by at least 20 minutes off) for the first 2 days. Do not apply heat. Do not use creams, lotions, or topical antibiotics. These can cause infection or allergic reaction. Ok to shower 48 hours after your surgery. You have steri strips (small white cloth strips) covering your incision- these will fall off ~1 week. You can keep the drain site covered until the site closes. Follow up in office with Dr. Izaguirre in 1 week. ([phone]) Follow up with Dr. Cueto in early June for stent removal. No heavy lifting (>10lbs) or strenuous activity! Please avoid all NSAIDs (not limited to Advil, ibuprofen, motrin, naprosyn, naproxen, Aspirin) for the next few weeks. Call Your Doctor If: -Your temperature exceeds 101.5? F -You experience excessive pain or swelling -You have an unexpected reaction to medication -You have excessive bleeding -You experience continued vomiting/nausea -Your incision begins to separate -Your incision shows signs of infection such as increased redness, swelling, excessive pain, drainage (light blood or clear fluid is normal) or heat Care Plan Goals: see below Health Concerns: gallstone pancreatitis, cholecystitis, bacteremia, GI bleeding Plan of Treatment: complete course of antibiotics as prescribed follow up with general surgery follow up with GI - you will need repeat ERCP for stent removal recommend repeat CBC next week follow surgical instructions above stop taking jardiance for now. monitor your blood sugar and call to schedule a follow up appointment with your PCP for management of diabetes. Assessment: see discharge summary
== END 2023-05-13 14:13 | disposition home or self-care (01) | DRG 417 ==
LOC: HO.ED 12:54 → HO.EDOVER 15:29 → HO.S3 19:13
PROVIDERS: Internal Medicine; Internal Medicine Gastroenterology; Physician Assistant; Physician Assistant Medical; Surgery; Admitting Provider Nurse Practitioner Acute Care; Emergency Provider Emergency Medicine Emergency Medical Services; PCP Internal Medicine; Visit Provider Physician Assistant Medical
PROC: 0DB78ZX Excision of Stomach, Pylorus, Via Natural or Artificial Opening Endoscopic, Diagnostic (ICD-10-PCS; CPT 43260; principal; 2023-05-05 11:30)
PROC: 0DJ08ZZ Inspection of Upper Intestinal Tract, Via Natural or Artificial Opening Endoscopic (ICD-10-PCS; CPT 43235; 2023-05-05 11:30)
PROC: 0DJD8ZZ Inspection of Lower Intestinal Tract, Via Natural or Artificial Opening Endoscopic (ICD-10-PCS; CPT 45378; principal; 2023-05-10 14:30)
PROC: 0FT44ZZ Resection of Gallbladder, Percutaneous Endoscopic Approach (ICD-10-PCS; CPT 47562; principal; 2023-05-11 10:50)
DX: K80.42 Calculus of bile duct with acute cholecystitis without obstruction (principal); K85.10 Biliary acute pancreatitis without necrosis or infection; D62 Acute posthemorrhagic anemia; R78.81 Bacteremia; K62.5 Hemorrhage of anus and rectum; B96.6 Bacteroides fragilis [B. fragilis] as the cause of diseases classified elsewhere; K22.5 Diverticulum of esophagus, acquired; K31.7 Polyp of stomach and duodenum; K63.5 Polyp of colon; K44.9 Diaphragmatic hernia without obstruction or gangrene; K82.A1 Gangrene of gallbladder in cholecystitis; M10.9 Gout, unspecified; K25.9 Gastric ulcer, unspecified as acute or chronic, without hemorrhage or perforation; I10 Essential (primary) hypertension; E78.00 Pure hypercholesterolemia, unspecified; E11.9 Type 2 diabetes mellitus without complications; Z87.891 Personal history of nicotine dependence; Z79.4 Long term (current) use of insulin; Z79.899 Other long term (current) drug therapy
CPT/HCPCS: 36415; 74178; 74181; 80048; 80053; 80076; 82248; 82272; 82947; 83605; 83690; 85014; 85018; 85025; 85027; 85610; 86850; 86900; 86901; 86923; 87040; 87076; 87205; 87338; 88304; 88305; 88342; 97162; 99202; 99285; C1726; C1769; C2617; C9113; J0665; J0737; J1170; J1200; J1610; J2270; J2371; J2405; J2543; J2704; J3010; J3430; J3480; J7120; P9016; Q9967

== ENCOUNTER → 2023-05-04 15:20 | Outpatient (BNV) | payer MEDICARE, OTHER, SELFPAY | PROVIDERS: Admitting Provider Nurse Practitioner Acute Care; Emergency Provider Emergency Medicine Emergency Medical Services; PCP Internal Medicine; Visit Provider Physician Assistant | DX: K85.10 Biliary acute pancreatitis without necrosis or infection (principal); D62 Acute posthemorrhagic anemia | CPT/HCPCS: 99223; 99232; 99239; 99499 ==

== ENCOUNTER → 2023-05-04 15:20 | Outpatient (BNV) | payer MEDICARE, OTHER, SELFPAY | PROVIDERS: Admitting Provider Nurse Practitioner Acute Care; Emergency Provider Emergency Medicine Emergency Medical Services; PCP Internal Medicine; Visit Provider Internal Medicine | DX: R78.81 Bacteremia (principal); K85.10 Biliary acute pancreatitis without necrosis or infection; K80.20 Calculus of gallbladder without cholecystitis without obstruction | CPT/HCPCS: 99222 ==

== ENCOUNTER → 2023-05-04 15:20 | Outpatient (BNV) | payer MEDICARE, OTHER, SELFPAY | PROVIDERS: Admitting Provider Nurse Practitioner Acute Care; Emergency Provider Emergency Medicine Emergency Medical Services; PCP Internal Medicine; Visit Provider Physician Assistant Surgical | DX: K85.10 Biliary acute pancreatitis without necrosis or infection (principal); D62 Acute posthemorrhagic anemia; K81.0 Acute cholecystitis | CPT/HCPCS: 47562; 99024; 99222; 99232 ==

== ENCOUNTER → 2023-05-04 15:20 | Outpatient (BNV) | payer MEDICARE, OTHER, SELFPAY | PROVIDERS: Admitting Provider Nurse Practitioner Acute Care; Emergency Provider Emergency Medicine Emergency Medical Services; PCP Internal Medicine; Visit Provider Internal Medicine Gastroenterology | DX: D62 Acute posthemorrhagic anemia (principal); K44.9 Diaphragmatic hernia without obstruction or gangrene | CPT/HCPCS: 43239; 45330; 99232 ==

== ENCOUNTER 2023-05-18 08:00 | Outpatient (REF) | payer MEDICARE, OTHER, SELFPAY ==
[2023-05-18 08:46] LABS: Hematocrit 32.2 % (42.0-52.0); Hemoglobin 10.4 g/dl (14.0-18.0); Mean Corpuscular HGB Conc 32.3 g/dl (31.0-36.0); Mean Corpuscular Hemoglobin 30.9 pg (27.0-33.0); Mean Corpuscular Volume 95.5 fL (80.0-98.0); Mean Platelet Volume 11.1 fL (9.4-12.4); Platelet Count 423 X10*3/uL (160-400); Red Blood Count 3.37 X10*6/uL (4.60-5.80); Red Cell Distribution Width 14.6 % (11.0-16.0); White Blood Count 11.7 X10*3/uL (4.8-10.8)
== END 2023-05-18 08:01 | disposition home or self-care (01) ==
LOC: HO.LAB 08:00
PROVIDERS: Physician Assistant Medical; PCP Internal Medicine; Visit Provider Internal Medicine
DX: Z09 Encounter for follow-up examination after completed treatment for conditions other than malignant neoplasm (principal); D62 Acute posthemorrhagic anemia; K81.0 Acute cholecystitis; K85.10 Biliary acute pancreatitis without necrosis or infection
CPT/HCPCS: 36415; 85027; 99212

== ENCOUNTER 2023-05-18 08:32 | Outpatient (AMB) | payer MEDICARE, OTHER, SELFPAY ==
--- NOTE | 2023-05-18 08:44 | MHC.PC.OV ---
Vital Signs 05/18/23 08:46 Height 5 ft 4.57 in Weight 150 lb 4 oz BMI 25.3 BP 116/62 Blood Pressure Location Lt brachial Position Sitting Pulse 101 H Pulse Source Pulse Oximeter Pulse Oximetry (%) 98 Oxygen Delivery Method Room Air Intake Visit Reasons: 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 Accompanied by: Spouse Allergies metformin Allergy (Unknown, Verified 05/18/23 10:44) diarrhea rosuvastatin [Crestor] Allergy (Unknown, Verified 05/18/23 10:44) Unknown Medication List - Last Reconciled 05/18/23 by MANNY Vang allopurinol 100 mg PO DAILY 90 days amoxicillin-pot clavulanate 875-125 mg 1 tab PO BID 5 days atorvastatin 10 mg PO DAILY cyanocobalamin (vitamin B-12) 1,000 mcg PO DAILY [DIABETIC SHOES As directed] docusate sodium (Colace) 100 mg PO BID PRN folic acid 1 mg PO DAILY insulin aspart U-100 (Novolog FlexPen U-100 Insulin aspart) See Protocol Or as directed through sliding scale lansoprazole (Prevacid) 30 mg PO DAILY 90 days lisinopril 5 mg PO DAILY 90 days metoprolol succinate ER 50 mg PO DAILY 90 days oxycodone 5 mg PO Q4H PRN pen needle, diabetic (BD Ultra-Fine Prisca Pen Needle) As directed sitagliptin phosphate (Januvia) 100 mg PO DAILY Tobacco use date assessed: 04/30/23 Fall risk assessment: 1 Fall in past year Last assessed Fall Risk: 05/18/23 Dental Screening Dental Screen Date: 05/18/23 Did you have a dental visit in the last 12 months?: No Did you have a dental problem in the last 6 months where you did not have access to dental care?: No Was dental information given to patient?: Patient declined HPI HPI Comments History of Present Illness Details 82-year-old male past medical history significant for type 2 diabetes mellitus, hypertension, hypercholesteremia, GERD, BPH. Patient presents today for TCM follow-up. Hospital course is noted below Hospital Course Hospital Course D/C Summary Bernie Granger: From H&P on day of admission 82-year-old man presenting with intractable right upper quadrant pain and nausea. He was seen by General surgery on 05/03/2023 and plan was for elective cholecystectomy. Patient developed severe pain and came to the ER for further evaluation. He had episode of vomiting and severe epigastric pain that radiated to his back after eating breakfast. Developed multiple episodes of nausea and vomiting and decided to present to the emergency department for further evaluation. white blood cell count 24.6, lactic acid 2.9, total bilirubin 3.3, lipase greater than 3000. Abdominal CT showing pancreatitis with multiple gallstones and partially contracted gallbladder with a common bile duct of 1 cm and possible distal common bile duct stone. No fever noted. Status MRCP ordered. Patient given Zosyn, morphine, IV fluid, Zofran in the ED. Will admit patient for management of Gallstone pancreatitis vs cholangitis. Patient was initially admitted for gallstone pancreatitis. Abdominal CT showing pancreatitis common bile duct measuring 1 cm, stone in the distal common bile duct difficult to exclude MRCP showed persistent 0.7 cm filling defect in distal common bile duct consistent with choledocholithiasis with mild peripancreatic edema in the region of the pancreatic head suggestive of mild pancreatitis seen by GI, and underwent ERCP 05/05 with spincterotomy and biliary stent placement. LFTS began trending down. will need repeat ERCP in 4-8 weeks to remove stent. He was seen by general surgery who recommended cholecystectomy. He had lap kelly which was done on 05/11. found to have Gangrenous phlegmonous cholecystitis. His MATTHEW drain was removed 05/13. He is currently tolerating a regular diet and will be discharged home to follow up with surgery as outpatient Acute on chronic blood loss anemia. Unspecified had bleeding from ERCP and positive stool occult. s/p 3 unit PRBC ordered and transfused. s/p sigmoidoscopy on 05/09/23, old blood seen, EGD gastric erosion, hiatal hernia. abd CT with no obvious pathology for bleeding, possible vascular lesion in sigmoid. Had Colonoscopy 05/10/23 no bleeding or diverticulitis. H/H has remained stable. stable HH, follow CBC daily Bacteroides bacteremia. blood cultures grew bacteroides fragilis likely biliary source as above. Patient was initially treated with zosyn since admission. He was seen by ID and will be Transitioned to augmentin to complete 14 days day course gastritis seen on EGD, continue on PPI. follow up biopsy results- h pylori neg Diabetes mellitus type 2 jardiance, januvia on hold. jardiance was a new medication and will be discontinued. can continue januvia for now, recommend outpatient follow up with PCP Patient presents today with his . Patient reports continues to feel tired but overall improving. Denies any fever, chills. Patient reports due to finish his Augmentin today, patient's states was only on augmentin x5 states and she is wondering if they should become continued for a total of 14 days, clarified with Dr. Ibanez infectious disease that patient to complete 14 day course antibiotics total and not Augmentin times 14 days. Patient and notified of this. Patient has upcoming appointment with Dr. Cueto on June 30 for stat removal. Follow-up appointment scheduled with General surgery Dr. Izaguirre today. Patient is reports lisinopril was held on discharge as he was having hypotensive episodes in the hospital when he was anemic. Patient's reports blood pressure readings 130s/80's at home will reinitiate lisinopril 5 mg daily at this time. Will continue to hold atorvastatin until patient has repeat LFTs. Patient had repeat CBC completed today H&H trending up 10.4/ 32.2. Patient requesting refill on oxycodone medication due to pain, patient reports 5 minutes only takes this medication at night to help in sleep. Refill sent. Patient's reports elevated blood sugars, which PCP Dr. Talbert was notified about previously. Patient's sliding scale insulin was increased by 2 units for each coverage. [facility] Medical History Tubular adenoma of colon GERD (gastroesophageal reflux disease) Knee osteoarthritis Erectile dysfunction Hypercholesterolemia Hypertension Gout Type 2 diabetes mellitus with hyperglycemia Surgical History Hx laparoscopic cholecystectomy (~05/11/23) History of cataract surgery History of knee replacement procedure of left knee History of eye surgery Family History Father Medical history unknown Mother Medical history unknown Social History Household Members: Spouse Housing: House Do you presently have visiting nurse or other home services: No Alcohol intake: current Alcohol intake frequency: a few times a week Alcohol type: beer, wine and hard liquor Patient Tobacco Use Status: Former Tobacco user Quit Date: 1979 Tobacco use type: Cigarette e-Cigarette/Vaping Use: Never Used Second Hand Smoke Exposure: No service: Yes Current occupational status: retired Cognitive needs: No Hearing needs: No Vision needs: Yes Questionnaire Thrive Questionnaire Date Thrive assessed: 05/05/23 PRETTY-7 AMB Questionnaire PRETTY-7 Date PRETTY - 7 assessed: 10/27/22 Source: Developed by Drs. Burke Vera, Nikole Johns, Giovanni Johnson and colleagues, with an educational kim from [employer]. Review of Systems Const Denies chills, Denies fatigue, Denies fever(s) and Denies poor appetite Eyes Denies no additional complaints ENT Reports Normal hearing present Card Denies chest pain, Denies syncope, Denies rapid heart rate and Denies dyspnea Resp Denies cough and Denies dyspnea GI Denies change in stool character, Denies constipation, Denies diarrhea, Denies nausea and Denies vomiting Denies dysuria, Denies urinary frequency and Denies urinary urgency Neuro Reports Normal hearing present, Denies confusion and Denies syncope Psych Denies confusion Endo Denies fatigue Physical exam (Primary Care) Vital Signs: Last Vital Signs Pulse 101 H 05/18/23 08:46 BP 116/62 05/18/23 08:46 Pulse Ox 98 05/18/23 08:46 Oxygen Delivery Method Room Air 05/18/23 08:46 BMI result Body Mass Index 25.3 Tobacco/Smoking Status: Tobacco use Status Tobacco use date assessed 04/30/23 05/18/23 08:49 Patient Tobacco Use Status Former Tobacco user 05/18/23 08:49 Tobacco use type Cigarette 05/18/23 08:49 e-Cigarette/Vaping Use Never Used 05/18/23 08:49 Thrive Assessment: Date of Thrive Assessment Date Thrive assessed 05/05/23 05/18/23 08:49 Const General: No confusion Orientation/consciousness: No confusion HENMT Head: Yes normocephalic and Yes atraumatic Eyes Conjunctivae: conjunctivae normal Chest Chest palpation & inspection: normal inspection of the chest Resp Effort & Inspection: normal respiratory effort Auscultation: clear to auscultation bilaterally, no crackles, no rhonchi and no wheezes Cardio Rate: regular rate Rhythm: regular rhythm Heart sounds: S1 normal heart sound present and S2 normal heart sound present GI Inspection: Yes normal to inspection Neuro General: No confusion Cranial nerves: Yes Normal hearing present Extrem General: No edema Assessment and Plan Assessment & Plan (1) Acute blood loss anemia: Code(s): D62 - Acute posthemorrhagic anemia Plan: CBC trending up, will repeat again in 1 week. (2) Elevated LFTs: Code(s): R79.89 - Other specified abnormal findings of blood chemistry Plan: Continue to hold statin at this time CMP ordered in 1 week to follow-up on LFTs (3) Bacteremia: Code(s): R78.81 - Bacteremia Plan: Patient completed 14 day antibiotic course in its entirety. Denies any fevers and chills. (4) Hypertension: Code(s): I10 - Essential (primary) hypertension Qualifiers: Hypertension type: essential hypertension Qualified Code(s): I10 - Essential (primary) hypertension Plan: Continue on metoprolol 50 mg daily. Patient reporting blood pressure in the 130s over 80s at home, lisinopril was on hold during admission due to hypotension related to acute blood loss. H&H improved noted in HPI, patient denies any bleeding. Will re-initiate lisinopril 5 mg daily at this time. Patient advised to notify PCP if he develops any low blood pressure. (5) Hypercholesterolemia: Code(s): E78.00 - Pure hypercholesterolemia, unspecified Plan: Continue to hold statin at this time, repeat LFTs ordered. Follow low-cholesterol diet. 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 (7) Hospital discharge follow-up: Code(s): Z09 - Encounter for follow-up examination after completed treatment for conditions other than malignant neoplasm Plan: Repeat labs ordered. Continue to follow with Dr. Cueto and Dr. Izaguirre. Antibiotic course completed times 14 days as directed by Infectious Disease. Plan Keep scheduled appointment with PCP in June or follow-up sooner if needed. Orders: Orders Comprehensive Met. Panel Today R79.89 - Other specified abnormal findings of blood chemistry MANNY Vang Complete Blood Count Auto Diff Today Z13.0 - Encounter for screening for diseases of the blood and blood-forming organs and certain disorders involving the immune mechanism MANNY Vang Medications: Refilled folic acid 1 mg PO DAILY 90 tabs 3RF MANNY Vang oxycodone Partial Fill upon patient request. 5 mg PO Q4H PRN 24 tabs 0RF pain (scale score 7-10) MANNY Vang Resumed lisinopril 5 mg PO DAILY 90 days 90 tabs 2RF Clarence Talbert MD Coding Level of Care Code TCM Mod MDM <= 7 Days Diagnoses Acute blood loss anemia D62 Elevated LFTs R79.89 Bacteremia R78.81 Essential hypertension I10 Hypertension type: essential hypertension Hypercholesterolemia E78.00 Type 2 diabetes mellitus with hyperglycemia, without long-term current use of insulin E11.65 Diabetes mellitus termite renewal inspector insulin use: without group home use Hospital discharge follow-up Z09
[2023-05-18 08:46] VITALS: BP 116/62; PULSE 101; O2SAT 98; BMI 25.3
== END 2023-05-18 09:22 | disposition home or self-care (01) ==
PROVIDERS: PCP Internal Medicine; Visit Provider Nurse Practitioner Family
DX: D62 Acute posthemorrhagic anemia (principal); E11.65 Type 2 diabetes mellitus with hyperglycemia; R79.89 Other specified abnormal findings of blood chemistry; Z09 Encounter for follow-up examination after completed treatment for conditions other than malignant neoplasm; R78.81 Bacteremia; I10 Essential (primary) hypertension; E78.00 Pure hypercholesterolemia, unspecified
CPT/HCPCS: 99495

== ENCOUNTER 2023-05-18 09:32 | Outpatient (AMB) | payer MEDICARE, OTHER, SELFPAY ==
--- NOTE | 2023-05-18 09:33 | MHC.OFFVIS ---
Intake Vital Signs 05/18/23 09:40 Height 5 ft 4 in Weight 152 lb BMI 26.1 BP 135/60 Blood Pressure Location Rt brachial Position Sitting Pulse 82 Intake Visit Reasons: S/p lap kelly Intake Note: This patient presents for a post-op assessment status post laparoscopic cholecystectomy. Patient c/o; reports no changes or complaints at this time. 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 He is slowly but steadily increasing his activity level and diet. He has no incisional issues. He is ambulating daily. Having regular bowel habits. [facility] Medical History Tubular adenoma of colon GERD (gastroesophageal reflux disease) Knee osteoarthritis Erectile dysfunction Hypercholesterolemia Hypertension Gout Type 2 diabetes mellitus with hyperglycemia Surgical History Hx laparoscopic cholecystectomy (~05/11/23) History of cataract surgery History of knee replacement procedure of left knee History of eye surgery Family History Father Medical history unknown Mother Medical history unknown Social History Household Members: Spouse Housing: House Do you presently have visiting nurse or other home services: No Alcohol intake: current Alcohol intake frequency: a few times a week Alcohol type: beer, wine and hard liquor Patient Tobacco Use Status: Former Tobacco user Quit Date: 1979 Tobacco use type: Cigarette e-Cigarette/Vaping Use: Never Used Second Hand Smoke Exposure: No service: Yes Current occupational status: retired Cognitive needs: No Hearing needs: No Vision needs: Yes Physical Exam Vital Signs: Last Vital Signs Pulse 82 05/18/23 09:40 BP 135/60 05/18/23 09:40 BMI result Body Mass Index 26.1 Eyes Other: Slightly icteric sclera GI Other: Abdomen soft. All wounds clean dry and intact. Assessment & Plan Assessment & Plan (1) Acute gangrenous cholecystitis: Code(s): K81.0 - Acute cholecystitis (2) Gallstone pancreatitis: Code(s): K85.10 - Biliary acute pancreatitis without necrosis or infection Plan Surgical perspective, patient is doing well. I explained patient is it will be another 4-6 weeks before he is fully convalesced. Patient is scheduled to see his GI doctor in several weeks time for common bile duct stent removal. His medical doctor has ordered baseline labs. H&H were 10 and 30. Remaining result still pending. Coding Level of Care Code Global (33162) Diagnoses Acute gangrenous cholecystitis K81.0 Gallstone pancreatitis K85.10
[2023-05-18 09:40] VITALS: BP 135/60; PULSE 82; BMI 26.1
== END 2023-05-18 09:50 | disposition home or self-care (01) ==
PROVIDERS: PCP Internal Medicine; Visit Provider Surgery
DX: K81.0 Acute cholecystitis (principal); K85.10 Biliary acute pancreatitis without necrosis or infection
CPT/HCPCS: 99024

== ENCOUNTER 2023-05-21 08:44 | Outpatient (AMB) | payer MEDICARE, OTHER, SELFPAY ==
--- NOTE | 2023-05-21 08:57 | A.OFFVIS_ITS ---
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 Accompanied by: Spouse Allergies metformin Allergy (Unknown, Verified 05/21/23 09:43) diarrhea rosuvastatin [Crestor] Allergy (Unknown, Verified 05/21/23 09:43) Unknown Medication List - Last Reconciled 05/21/23 by MANNY Slater- allopurinol 100 mg PO DAILY 90 days atorvastatin 10 mg PO DAILY cyanocobalamin (vitamin B-12) 1,000 mcg PO DAILY [DIABETIC SHOES As directed] docusate sodium (Colace) 100 mg PO BID PRN folic acid 1 mg PO DAILY insulin aspart U-100 (Novolog FlexPen U-100 Insulin aspart) See Protocol Or as directed through sliding scale lansoprazole (Prevacid) 30 mg PO DAILY 90 days lisinopril 5 mg PO DAILY 90 days metoprolol succinate ER 50 mg PO DAILY 90 days oxycodone 5 mg PO Q4H PRN pen needle, diabetic (BD Ultra-Fine Prisca Pen Needle) As directed sitagliptin phosphate (Januvia) 100 mg PO DAILY HPI HPI Comments History of Present Illness Details Travis is a very pleasant 82 year old [facility] male patient of Dr. Talbert who is accomplanied by his Mei at todays office visit. He has a past medical history of tubular adenoma of the colon, GERD, osteoarthritis of the knees, erectile dysfunction, hypercholesteremia, hypertension, gout, and type 2 diabetes. He presents to the office today as a new patient for nocturia and urinary dribbling. When asked he reports symptoms to have been present for quite some time however feels they are worsening. He reports approximately 2 weeks ago being hospitalized for common bile duct obstruction requiring stent placement, GI bleed, septicemia, and has previously underwent cholecystectomy on 05/11. He reports noting urinary dribbling has since improved however he contin ues with nocturia 3-4 times per night. In office urinalysis results reviewed with the patient today. PVR 14 mL. Discussed at length potential causes for lower urinary tract symptoms patient is experiencing. Patient with recent CT imaging. These results were reviewed with the patient today. The kidneys are normal in size, shape, and attenuation. No hydronephrosis or hydroureter or calculi seen. No perinephric stranding. The bladder is distended which could represent physiological changes versus outlet obstruction secondary to enlarged prostate. Discussed further assessment evaluation with PSA as well as retroperitoneal ultrasound for further assessment evaluation. He otherwise denies urinary urgency, urinary frequency, incontinence, hematuria, dysuria, foul smelling urine, flank pain, fever, and or chills. When asked he denies any signs or symptoms of sleep apnea. He otherwise offers no other issues or concerns at this time. COUNTS INCLUDE 234 BEDS AT THE [facility] Medical History Tubular adenoma of colon GERD (gastroesophageal reflux disease) Knee osteoarthritis Erectile dysfunction Hypercholesterolemia Hypertension Gout Type 2 diabetes mellitus with hyperglycemia Surgical History Hx laparoscopic cholecystectomy (~05/11/23) History of cataract surgery History of knee replacement procedure of left knee History of eye surgery Family History Father Medical history unknown Mother Medical history unknown Social History Household Members: Spouse Housing: House Do you presently have visiting nurse or other home services: No Alcohol intake: current Alcohol intake frequency: a few times a week Alcohol type: beer, wine and hard liquor Patient Tobacco Use Status: Former Tobacco user Quit Date: 1979 Tobacco use type: Cigarette e-Cigarette/Vaping Use: Never Used Second Hand Smoke Exposure: No service: Yes Current occupational status: retired Cognitive needs: No Hearing needs: No Vision needs: Yes Review of Systems Const Reports as per HPI Eyes Reports no additional complaints ENT Reports no additional complaints Card Reports as per HPI Resp Reports no additional complaints GI Reports as per HPI Reports as per HPI Musc Reports as per HPI Neuro Reports no additional complaints Psych Reports no additional complaints Endo Reports as per HPI Physical Exam Const General: cooperative, healthy appearing, comfortable, no acute distress, well developed, alert and awake Orientation/consciousness: patient oriented x3 Limitations: no limitations HEENT Head: Yes normal to inspection, Yes normocephalic and Yes atraumatic Ears: hearing grossly normal bilaterally Eyes General: appearance normal, both eyes and all related structures Neck Neck: Yes normal visual inspection and Yes trachea midline Chest Chest palpation & inspection: normal inspection of the chest Resp Effort & Inspection: normal respiratory effort and able to speak in complete sentences Cardio Rate: regular rate GI Inspection: Yes normal to inspection General: Yes no CVA tenderness Back/Spine/Pelvis Back: no CVA tenderness Skin General skin exam: no rashes or lesions noted Neuro General: patient oriented x3 Extrem General: Yes normal to inspection Psych Appearance: grossly normal and well kempt Mental Status: mental status grossly normal Speech and movement: Normal speech and movement present and Clear speech present Affect: normal affect Attitude: cooperative Thought process: Normal thought process present Thought content: Normal thought content present Insight: Good insight present (Psych) Judgement: Good judgement present (Psych) Results Reviewed Results Reviewed: Date of Service: 05/09/23 EXAMINATION: CT ABDOMEN AND PELVIS WITH AND WITHOUT CONTRAST FINDINGS: ABDOMEN/PELVIS: VISUALIZED LUNG BASES: Interval development of dense airspace consolidation is noted involving the lateral segment of the right middle lobe. Hypoventilatory changes are present at both lung bases. Liver, Gallbladder, Biliary Tree: Interval placement of a plastic CBD stent, appear in good position. There is pneumobilia present. The gallbladder is distended, shows wall thickening, multiple radiopaque gallstones and pericholecystic inflammatory changes, suspicious for acute cholecystitis. Pancreas: Subtle peripancreatic inflammatory stranding is also present, appear less pronounced since the prior study. Spleen: Unremarkable. Adrenal Glands: Unremarkable. Kidneys and Ureters: The kidneys are normal in size, shape, and attenuation. No hydronephrosis or hydroureter or calculi seen. No perinephric stranding. Bladder: Distended, may represent physiologic changes versus outlet obstruction secondary to enlarged prostate. Gastrointestinal Tract: No definite evidence of any intraluminal contrast extravasation identified within the large bowel to suspect acute GI hemorrhage. The appendix is visualized at right lower quadrant of the abdomen and is unremarkable. Colonic diverticulosis related changes are present within the large bowel predominantly involving the sigmoid colon. Specific note is made of mural enhancement involving the sigmoid colon, seen only on the arterial phase enhancing images may represent enhancing/vascular lesion within the wall of the sigmoid: (695:7). Small sliding hiatal hernia is noted. The stomach is relatively decompressed. The small bowel loops are also decompressed. Abdominal Wall: No hernia is demonstrated. Lymph Nodes: There are few shotty hypodense lymph nodes identified above the origin of the celiac axis. There are no other retroperitoneal or mesenteric or pelvic or groin lymphadenopathy, unchanged. Vascular: Diffuse calcific atherosclerotic disease of the aorta and is branches including infrarenal abdominal aortic ectasia without aneurysm formation, similar to prior study. Pelvic Viscera: The prostate is enlarged, appears heterogeneous, appears similar to prior study. No evidence of any free fluid and/or free air. Osseous Structures: Multifocal endplate changes are noted at L1-L2, L2-L3 and at L4-L5, similar to prior study, presumed degenerative disc disease. IMPRESSION: 1. No CT evidence of any acute GI bleed identified. However, curvilinear mural enhancement is noted on postcontrast images in the region of the sigmoid colon without any contrast extravasation, may represent vascular lesion in this region (695:7). 2. The gallbladder is distended, shows wall thickening, multiple gallbladder calculi and pericholecystic inflammatory changes, highly suspicious for acute cholecystitis. 3. Interval placement of a plastic CBD stent, appear in good position and is patent showing presence of pneumobilia within the liver. 4. Significant interval decrease in peripancreatic inflammatory changes seen on the prior study dated 04/30/2023. 5. Distended urinary bladder, may represent physiologic changes versus secondary to enlarged prostate or combination thereof. Assessment & Plan Assessment & Plan (1) Enlarged prostate: Code(s): N40.0 - Benign prostatic hyperplasia without lower urinary tract symptoms (2) Urinary dribbling: Code(s): N39.43 - Post-void dribbling (3) Nocturia: Code(s): R35.1 - Nocturia Plan In office urinalysis results reviewed with the patient today. PVR 15 mL. Discussed at length potential causes for lower urinary tract symptoms patient is experiencing. Will obtain PSA for further assessment evaluation. Will obtain retroperitoneal ultrasound for further assessment evaluation. Discussed possible near future in office cystoscopy and or urodynamics for further assessment evaluation. Discussed, educated, instructed on the importance of managing diabetes for improvement in lower urinary tract symptoms as well as overall health and well- being. Discussed limiting fluids 3-4 hours prior to bed to assist with decreasing episodes of nocturia. Start Flomax as discussed and prescribed. Follow-up in 6 weeks with PVR, imaging, and lab to be completed prior; or sooner with any issues, concerns, and or questions. Orders: Orders AMB Urinalysis Automated 05/21/23 Z13.9 - Encounter for screening, unspecified AMB Post Void Residual by ultrasound 05/21/23 N40.0 - Benign prostatic hyperplasia without lower urinary tract symptoms Prostate Specific Antigen Today N39.43 - Post-void dribbling, N40.0 - Benign prostatic hyperplasia without lower urinary tract symptoms, R35.1 - Nocturia US retroperitoneal comp 05/21/23 N39.43 - Post-void dribbling, N40.0 - Benign prostatic hyperplasia without lower urinary tract symptoms, R35.1 - Nocturia Medications: New tamsulosin 0.4 mg PO BEDTIME 30 caps 1RF 30 days N40.1 - Benign prostatic hyperplasia with lower urinary tract symptoms, R35.1 - Nocturia Patient Instructions: The patient had an opportunity to ask questions regarding the treatment plan. All questions were answered. Physical exam, labs, and imaging were discussed and reviewed in detail. As well as risks, benefits, and discussion of treatment choices. No major barriers to understanding were identified. The patient expressed understanding and agreement with the above treatment plan. The patient was made aware they should contact our office by phone for worsening of their current condition, the appearance of new symptoms, or with any questions or concerns. Compliance is encouraged with any medications and follow up testing that is ordered. It is a privilege to be allowed the opportunity to participate in? your urological care.? Again, if you have any questions or concerns If you have any questions or concerns please do not hesitate to contact me. The office is [phone]. This note is constructed using voice recognition software. While every effort has been made to ensure accuracy silver designer errors may have been included. Yours sincerely, NATHAN Slater Coding Level of Care Code New Pt Level 4 (33284) Diagnoses Enlarged prostate N40.0 Urinary dribbling N39.43 Nocturia R35.1
== END 2023-05-21 09:23 | disposition home or self-care (01) ==
PROVIDERS: PCP Internal Medicine; Visit Provider Nurse Practitioner Family
DX: N40.0 Benign prostatic hyperplasia without lower urinary tract symptoms (principal); N39.43 Post-void dribbling; R35.1 Nocturia
CPT/HCPCS: 99204

== ENCOUNTER → 2023-05-21 08:44 | Outpatient (BNVA) | payer MEDICARE, OTHER, SELFPAY | PROVIDERS: PCP Internal Medicine; Visit Provider Nurse Practitioner Family | DX: N40.1 Benign prostatic hyperplasia with lower urinary tract symptoms (principal); N39.43 Post-void dribbling; R35.1 Nocturia | CPT/HCPCS: 99202 ==

== ENCOUNTER 2023-05-25 08:49 | Outpatient (REF) | payer MEDICARE, OTHER, SELFPAY ==
[2023-05-25 09:06] LABS: MANUAL DIFF FLAG NO
[2023-05-25 09:21] LABS: Basophils Absolute Auto 0.1 X10*3/uL (0.0-0.2); Basophils Percent Auto 0.7 % (0-2); Eosinophils Absolute Auto 0.3 X10*3/uL (0.0-0.4); Eosinophils Percent Auto 2.8 % (0-4); Hematocrit 36.2 % (42.0-52.0); Hemoglobin 11.5 g/dl (14.0-18.0); Imm Gran Abs Auto 0.09 X10*3/uL (0.00-0.03); Imm Gran Pct Auto 0.8 % (0.0-0.4); Lymphocytes Absolute Auto 1.2 X10*3/uL (1.2-4.9); Lymphocytes Percent Auto 11.7 % (20-40); Mean Corpuscular HGB Conc 31.8 g/dl (31.0-36.0); Mean Corpuscular Hemoglobin 30.3 pg (27.0-33.0); Mean Corpuscular Volume 95.5 fL (80.0-98.0); Mean Platelet Volume 10.8 fL (9.4-12.4); Monocytes Absolute Auto 0.7 X10*3/uL (0.1-1.2); Monocytes Percent Auto 6.9 % (2-11); Neutrophils Absolute Auto 8.2 x10*3/uL (2.0-8.3); Neutrophils Percent Auto 77.1 % (45-73); Platelet Count 426 X10*3/uL (160-400); Red Blood Count 3.79 X10*6/uL (4.60-5.80); Red Cell Distribution Width 14.6 % (11.0-16.0); White Blood Count 10.6 X10*3/uL (4.8-10.8)
[2023-05-25 09:36] LABS: Alanine Aminotransferase 27 U/L (0-40); Albumin Level 3.4 g/dL (3.5-5.0); Alkaline Phosphatase 153 U/L (39-117); Anion Gap 13 (12-20); Aspartate Amino Transferase 30 U/L (5-37); Bilirubin Total 0.5 mg/dL (0.0-1.0); Blood Urea Nitrogen 21 mg/dL (9-16); Calcium 9.4 mg/dL (8.4-10.2); Carbon Dioxide 26 mmol/L (22-29); Chloride 107 mmol/L (96-108); Estimated Glomerular Filt Rate > 60; Glucose Random 186 mg/dL (60-115); Potassium 4.7 mmol/L (3.3-5.1); Sodium 141 mmol/L (135-145); Total Protein 7.3 g/dL (6.5-8.0)
[2023-05-25 09:56] LABS: Prostate Specific Antigen 1.69 ng/mL (<0.05-4.0)
== END 2023-05-25 08:50 | disposition home or self-care (01) ==
LOC: HO.LAB 08:49
PROVIDERS: Absent Provider Nurse Practitioner Family; PCP Internal Medicine; Visit Provider Nurse Practitioner Family
DX: R79.89 Other specified abnormal findings of blood chemistry (principal); R35.1 Nocturia; N39.43 Post-void dribbling; N40.0 Benign prostatic hyperplasia without lower urinary tract symptoms; Z13.0 Encounter for screening for diseases of the blood and blood-forming organs and certain disorders involving the immune mechanism; Z12.5 Encounter for screening for malignant neoplasm of prostate
CPT/HCPCS: 36415; 80053; 84153; 85025

== ENCOUNTER 2023-06-16 14:44 | Outpatient (REF) | payer MEDICARE, OTHER, SELFPAY | END 2023-06-16 14:45 | disposition home or self-care (01) | LOC: HO.US 14:44 | PROVIDERS: PCP Internal Medicine; Visit Provider Nurse Practitioner Family | DX: R35.1 Nocturia (principal); N39.43 Post-void dribbling; N40.0 Benign prostatic hyperplasia without lower urinary tract symptoms | CPT/HCPCS: 76775 ==

== ENCOUNTER 2023-06-17 09:28 | Outpatient (AMB) | payer MEDICARE, OTHER, SELFPAY ==
[2023-06-17 09:37] VITALS: BP 98/62; PULSE 72; O2SAT 98; BMI 25.1
--- NOTE | 2023-06-17 09:37 | MHC.PC.OV ---
Vital Signs 06/17/23 09:37 Height 5 ft 4 in Weight 146 lb 0.4 oz BMI 25.1 BP 98/62 Blood Pressure Location Lt brachial Position Sitting Pulse 72 Pulse Source Pulse Oximeter Pulse Oximetry (%) 98 Oxygen Delivery Method Room Air Intake Visit Reasons: High Blood sugar Allergies metformin Allergy (Unknown, Verified 06/17/23 09:39) diarrhea rosuvastatin [Crestor] Allergy (Unknown, Verified 06/17/23 09:39) Unknown Tobacco use date assessed: 06/17/23 Fall risk assessment: No Falls in past year Last assessed Fall Risk: 06/17/23 Dental Screening Dental Screen Date: 06/17/23 Did you have a dental visit in the last 12 months?: Yes Did you have a dental problem in the last 6 months where you did not have access to dental care?: No Was dental information given to patient?: Patient has dentist HPI High Blood sugar HPI Details 82-year-old male with a history of diabetes mellitus hypertension hypercholesterolemia last seen in May 2023 coming in for follow-up. Patient's colonoscopy is up-to-date April 2023 patient has been having frequency and had an ultrasound done of the kidneys and bladder negative. Patient has also seen the surgeon status post lap cholecystectomy and gallstone pancreatitis patient will be seeing the Gastroenterology for common bile duct stent removal. Patient had GI bleeding in May 20 had colon test showing diverticulosis. In April patient follows up with [facility] [place] orthopedics also for us bilateral subacromial impingement calcific tendonitis glenohumeral chronic AC arthritis and moderate osteoarthritis of the right knee sent for rehab and strengthening diclofenac sent in left shoulder intra-articular glenohumeral injection done patient is doing well eating better pain is gone right shoulder is better left shoulder is better patient's blood sugars still high being covered by short-acting insulin. Patient has a schedule with the tank refinisher on the for sent removal. Discussed about Jardiance as the next diabetes medication patient had pancreatitis due to stone not through the medication. Will restart once the stent has been removed [facility] Medical History Tubular adenoma of colon GERD (gastroesophageal reflux disease) Knee osteoarthritis Erectile dysfunction Hypercholesterolemia Hypertension Gout Type 2 diabetes mellitus with hyperglycemia Surgical History Hx laparoscopic cholecystectomy (~05/11/23) History of cataract surgery History of knee replacement procedure of left knee History of eye surgery Family History Father Medical history unknown Mother Medical history unknown Social History Household Members: Spouse Housing: House Do you presently have visiting nurse or other home services: No Alcohol intake: current Alcohol intake frequency: a few times a week Alcohol type: beer, wine and hard liquor Patient Tobacco Use Status: Former Tobacco user Quit Date: 1979 Tobacco use type: Cigarette e-Cigarette/Vaping Use: Never Used Second Hand Smoke Exposure: No service: Yes Current occupational status: retired Cognitive needs: No Hearing needs: No Vision needs: Yes Questionnaire PHQ-9 Over the last 2 weeks, how often have you been bothered by any of the following problems? 1. Little interest or pleasure in doing things: not at all 2. Feeling down, depressed, or hopeless: not at all 3. Trouble falling or staying asleep, or sleeping too much: not at all 4. Feeling tired or having little energy: not at all 5. Poor appetite or overeating: not at all 6. Feeling bad about yourself - or that you are a failure or have let yourself or your family down: not at all 7. Trouble concentrating on things, such as reading the newspaper or watching television: not at all 8. Moving or speaking so slowly that other people could have noticed. Or the opposite - being so fidgety or restless that you have been moving around a lot more than usual: not at all 9. Thoughts that you would be better off or of hurting yourself in some way: not at all Total score: 0 Depression Screening Interpretation: Negative Depression Screening Done: Yes Source: Developed by Drs. Burke Vera, Nikole Johns, Giovanni Johnson and colleagues, with an educational kim from [employer]. Thrive Questionnaire Date Thrive assessed: 05/05/23 AUDIT C Alcohol Use Questionnaire (AUDIT-C) 1. How often do you have a drink containing alcohol?: 4 or more times a week 2. How many drinks containing alcohol do you have on a typical day when you are drinking?: 1 or 2 3. How often do you have six or more drinks on one occasion?: Never Total Score: 4 Score Reviewed/Action Taken: No PRETTY-7 AMB Questionnaire PRETTY-7 Date PRETTY - 7 assessed: 06/17/23 Feeling nervous, anxious, or on edge: 0 = Not at all Not being able to stop or control worryin = Not at all Worrying too much about different things: 0 = Not at all Trouble relaxin = Not at all Being so restless that it is hard to sit still: 0 = Not at all Becoming easily annoyed or irritable: 0 = Not at all Feeling afraid as if something awful might happen: 0 = Not at all Total PRETTY-7 score (0-4 normal; 5-9 mild; 10-14 moderate; 15-21 severe): 0 Source: Developed by Drs. Burke Vera, Nikole Johns, Giovanni Johnson and colleagues, with an educational kim from [employer]. Physical exam (Primary Care) Vital Signs: Last Vital Signs Pulse 72 06/17/23 09:37 BP 98/62 06/17/23 09:37 Pulse Ox 98 06/17/23 09:37 Oxygen Delivery Method Room Air 06/17/23 09:37 BMI result Body Mass Index 25.1 Tobacco/Smoking Status: Tobacco use Status Tobacco use date assessed 06/17/23 06/17/23 09:40 Patient Tobacco Use Status Former Tobacco user 06/17/23 09:40 Tobacco use type Cigarette 06/17/23 09:40 e-Cigarette/Vaping Use Never Used 06/17/23 09:40 PHQ-9: PHQ-9 Score PHQ-9: Total score 0 06/17/23 09:53 Depression Screening Interpretation: Negative Thrive Assessment: Date of Thrive Assessment Date Thrive assessed 05/05/23 06/17/23 09:40 Const General: alert; No acute distress Eyes Conjunctivae: conjunctivae normal Resp Auscultation: clear to auscultation bilaterally Cardio Rate: regular rate Rhythm: regular rhythm GI Inspection: Yes normal to inspection Extrem General: Yes normal to inspection and No edema Results AMB Hemoglobin A1c AMB Hemoglobin A1c 6.4 % Last Edit by TONE Coley on 06/17/23 09:54 Results Reviewed Results Reviewed: Laboratory Last Values Hgb A1c (Clinic) 6.4 % (4.0-6.0) H 06/17/23 09:44 Assessment and Plan Assessment & Plan (1) Type 2 diabetes mellitus with hyperglycemia: Comment: Eye physician Evita Code(s): E11.65 - Type 2 diabetes mellitus with hyperglycemia Qualifiers: Diabetes mellitus intermediate designer insulin use: without intermediate designer use Qualified Code(s): E11.65 - Type 2 diabetes mellitus with hyperglycemia Plan: Decrease the amount of carbohydrate intake, pasta, bread, rice and potatoes are all sugar and that is aside from all the sweet stuff, remember that fruits are good but they are Sweet also. Hemoglobin A1c goal of less than 7.0 patient is on insulin Januvia (2) Hypertension: Code(s): I10 - Essential (primary) hypertension Qualifiers: Hypertension type: essential hypertension Qualified Code(s): I10 - Essential (primary) hypertension Plan: Continue with blood pressure medication. Decrease salt intake and exercise takes lisinopril 5 mg once a day and metoprolol 50 mg once a day (3) Hypercholesterolemia: Code(s): E78.00 - Pure hypercholesterolemia, unspecified Plan: Avoid fried foods, chicken skin, eggs, butter margarine, pastries and meat. Be it pork or beef they have a lot of cholesterol LDL goal of less than 100 and triglyceride of less than 150 October 2022 is 48 LDL (4) GERD (gastroesophageal reflux disease): Code(s): K21.9 - Gastro-esophageal reflux disease without esophagitis Plan: Avoid the foods that causes that usually spicy foods, tomato products, juices, coffee, soda and foods that your sensitive to. After eating do not lie down, allow 3-4 hours before in lie down. And keep the head of bed above 30 degrees to avoid the acid from going up. (5) Gallstone pancreatitis: Code(s): K85.10 - Biliary acute pancreatitis without necrosis or infection Plan: Patient will be follow-up with Gastroenterology for cone bile duct stent removal (6) Acute gangrenous cholecystitis: Comment: Status post lap cholecystectomy April 2023 Code(s): K81.0 - Acute cholecystitis Plan: Status post cholecystectomy April 2023 Orders: Orders AMB Hemoglobin A1c Today E11.65 - Type 2 diabetes mellitus with hyperglycemia Coding Level of Care Code Est Pt Level 4 (21071) Diagnoses Type 2 diabetes mellitus with hyperglycemia, without long-term current use of insulin E11.65 Diabetes mellitus senior living insulin use: without intermediate designer use Essential hypertension I10 Hypertension type: essential hypertension Hypercholesterolemia E78.00 GERD (gastroesophageal reflux disease) K21.9 Gallstone pancreatitis K85.10 Acute gangrenous cholecystitis K81.0
== END 2023-06-17 10:34 | disposition home or self-care (01) ==
PROVIDERS: PCP Internal Medicine; Visit Provider Internal Medicine
DX: E11.65 Type 2 diabetes mellitus with hyperglycemia (principal); I10 Essential (primary) hypertension; E78.00 Pure hypercholesterolemia, unspecified; K21.9 Gastro-esophageal reflux disease without esophagitis; K85.10 Biliary acute pancreatitis without necrosis or infection; K81.0 Acute cholecystitis
CPT/HCPCS: 83036; 99214

== ENCOUNTER 2023-06-29 10:44 | Outpatient (AMB) | payer MEDICARE, OTHER, SELFPAY ==
--- NOTE | 2023-06-29 10:53 | A.OFFVIS_ITS ---
Intake Intake Visit Reasons: 6w/PSA Intake Note: Patient presents for a follow up visit for PSA results and BPH Urology Medications: Tamsulosin Blood Thinner: none PSA Results: 1.69 on 05/25/23 PVR: 27 mL Insert Cutter Required: No Accompanied by: Spouse Allergies metformin Allergy (Unknown, Verified 06/29/23 21:41) diarrhea rosuvastatin [Crestor] Allergy (Unknown, Verified 06/29/23 21:41) Unknown Medication List - Last Reconciled 06/29/23 by NATHAN Slater allopurinol 100 mg PO DAILY 90 days atorvastatin 10 mg PO DAILY cyanocobalamin (vitamin B-12) 1,000 mcg PO DAILY [DIABETIC SHOES As directed] docusate sodium (Colace) 100 mg PO BID PRN folic acid 1 mg PO DAILY insulin aspart U-100 (Novolog FlexPen U-100 Insulin aspart) See Protocol Or as directed through sliding scale lansoprazole (Prevacid) 30 mg PO DAILY 90 days lisinopril 5 mg PO DAILY 90 days metoprolol succinate ER 50 mg PO DAILY 90 days oxycodone 5 mg PO Q4H PRN pen needle, diabetic (BD Ultra-Fine Prisca Pen Needle) As directed sitagliptin phosphate (Januvia) 100 mg PO DAILY tamsulosin 0.4 mg PO BEDTIME 30 days HPI HPI Comments History of Present Illness Details Travis is a very pleasant 82 year old [facility] male patient of Dr. Talbert who is accomplanied by his Mei at todays office visit. He has a past medical history of tubular adenoma of the colon, GERD, osteoarthritis of the knees, erectile dysfunction, hypercholesteremia, hypertension, gout, and type 2 diabetes. He presents to the office today for follow-up. Of note, patient was seen approximately 6 weeks ago as a new patient for nocturia and urinary dribbling at which time a PSA and retroperitoneal ultrasound was ordered for further assessment evaluation as well as the patient was started on 0.4 mg of Flomax daily. In discussion with the patient today he reports noting somewhat improvement in nocturia and urinary dribbling. PSA 06/05--1.7. Bilateral kidneys with no calculi, lesions, and or hydronephrosis noted. The bladder is incompletely distended limiting for evaluation. Previous CT noting the kidneys are normal in size, shape, and attenuation. No hydronephrosis or hydroureter or calculi seen. No perinephric stranding. The bladder is distended which could represent physiological changes versus outlet obstruction secondary to enlarged prostate. He otherwise denies urinary urgency, urinary frequency, incontinence, hematuria, dysuria, foul smelling urine, flank pain, fever, and or chills. He discusses upcoming surgical procedure tomorrow for his stent removal due to his recent episode of pancreatitis. In office urinalysis results reviewed with the patient today. PVR 27ml's. He otherwise offers no other issues or concerns at this time. [facility] Medical History Tubular adenoma of colon GERD (gastroesophageal reflux disease) Knee osteoarthritis Erectile dysfunction Hypercholesterolemia Hypertension Gout Type 2 diabetes mellitus with hyperglycemia Surgical History Hx laparoscopic cholecystectomy (~05/11/23) History of cataract surgery History of knee replacement procedure of left knee History of eye surgery Family History Father Medical history unknown Mother Medical history unknown Social History Household Members: Spouse Housing: House Do you presently have visiting nurse or other home services: No Alcohol intake: current Alcohol intake frequency: a few times a week Alcohol type: beer, wine and hard liquor Patient Tobacco Use Status: Former Tobacco user Quit Date: 1979 Tobacco use type: Cigarette e-Cigarette/Vaping Use: Never Used Second Hand Smoke Exposure: No service: Yes Current occupational status: retired Cognitive needs: No Hearing needs: No Vision needs: Yes Review of Systems Const Reports as per HPI Eyes Reports no additional complaints ENT Reports no additional complaints Card Reports as per HPI Resp Reports no additional complaints GI Reports as per HPI Reports as per HPI Musc Reports as per HPI Neuro Reports no additional complaints Psych Reports no additional complaints Endo Reports as per HPI Physical Exam Const General: cooperative, healthy appearing, comfortable, no acute distress, well developed, alert and awake Orientation/consciousness: patient oriented x3 Limitations: no limitations HEENT Head: Yes normal to inspection, Yes normocephalic and Yes atraumatic Ears: hearing grossly normal bilaterally Eyes General: appearance normal, both eyes and all related structures Neck Neck: Yes normal visual inspection and Yes trachea midline Chest Chest palpation & inspection: normal inspection of the chest Resp Effort & Inspection: normal respiratory effort and able to speak in complete sentences Cardio Rate: regular rate GI Inspection: Yes normal to inspection General: Yes no CVA tenderness Back/Spine/Pelvis Back: no CVA tenderness Skin General skin exam: no rashes or lesions noted Neuro General: patient oriented x3 Extrem General: Yes normal to inspection Psych Appearance: grossly normal and well kempt Mental Status: mental status grossly normal Speech and movement: Normal speech and movement present and Clear speech present Affect: normal affect Attitude: cooperative Thought process: Normal thought process present Thought content: Normal thought content present Insight: Good insight present (Psych) Judgement: Good judgement present (Psych) Office Procedures Post Void Residual Post Residual Void Post Void Residual (PVR): 27 [id number] Void Residual by ultrasound Results AMB Urinalysis, Automated UA Leukoctes 0 Arthur/uL Last Edit by Yue Saavedra [facility] on 06/29/23 11 :10 UA Nitrite Negative Last Edit by Yue Saavedra [facility] on 06/29/23 11: 10 UA Urobilinogen 0.2 mg/dL [facility] on 4 11:10 UA Protein 0 mg/dL Last Edit by Yue Saavedra [facility] on 06/29/23 11:10 UA pH 6.0 Last Edit by Yue Saavedra [facility] on 06/29/23 11:10 UA Blood 0 Quinn/uL Last Edit by Yue Saavedracasie Saavedra [facility] on 06/29/23 11:10 UA Specific [place] 1.015 Last Edit by Yue Saavedra [facility] on 11:10 UA Ketone Negative Last Edit by Yue Saavedracasie Saavedra [facility] on 06/29/23 11:1 0 UA Bilirubin 0 mg/dL Last Edit by Yue Saavedracasie Saavedra [facility] on 06/29/23 11: 10 UA Glucose 0 mg/dL Last Edit by Yue Saavedracasie Saavedra [facility] on 06/29/23 11:10 Results Reviewed Results Reviewed: Laboratory Last Values Urine pH (Auto) 6.0 06/29/23 10:56 Specific [place] (Auto) 1.015 06/29/23 10:56 Urine Protein (Auto) 0 mg/dL 06/29/23 10:56 Glucose (UA)(Auto) 0 mg/dL 06/29/23 10:56 Urine Ketones (Auto) Negative 06/29/23 10:56 Urine Blood (Auto) 0 Quinn/uL 06/29/23 10:56 Urine Nitrite (Auto) Negative 06/29/23 10:56 Urine Bilirubin (Auto) 0 mg/dL 06/29/23 10:56 Urine Urobilinogen (Auto) 0.2 mg/dL 06/29/23 10:56 Leukocyte Esterase (Auto) 0 Arthur/uL 06/29/23 10:56 Date of Service: 06/16/23 EXAMINATION: US RETROPERITONEAL LIMITED (RENAL ONLY) FINDINGS: RIGHT KIDNEY: 10.0 x 5.1 x 4.9 cm (SAG x AP x TRV). The kidney is normal in size, contour, and echogenicity. Renal cortical thickness is normal. No calculi or focal parenchymal lesions. No hydronephrosis. LEFT KIDNEY: 10.4 x 5.6 x 5 point cm (SAG x AP x TRV). The kidney is normal in size, contour, and echogenicity. Renal cortical thickness is normal. No calculi or focal parenchymal lesions. No hydronephrosis. Urinary bladder: Urinary bladder is incompletely distended, limited for eval. IMPRESSION: Unremarkable kidneys and limited evaluation of urinary bladder. Assessment & Plan Assessment & Plan (1) Enlarged prostate: Code(s): N40.0 - Benign prostatic hyperplasia without lower urinary tract symptoms (2) Urinary dribbling: Code(s): N39.43 - Post-void dribbling (3) Nocturia: Code(s): R35.1 - Nocturia Plan In office urinalysis results reviewed with the patient today. PVR 27 mLs. Will increase Flomax to 0.8 mg daily; discussed increasing Flomax as patient has had somewhat benefit; he will call office if increase in Flomax is not helpful. Discussed possible terazosin 5 mg at bedtime. Recent renal ultrasound results reviewed with the patient today; as noted above. Recent PSA results reviewed with the patient today; as noted above. Discussed at length potential causes for lower urinary tract symptoms patient is experiencing. Discussed possible near future in office cystoscopy and or urodynamics for further assessment evaluation if symptoms persist and/or worsen. Discussed, educated, instructed on the importance of managing diabetes for improvement in lower urinary tract symptoms as well as overall health and well- being. Discussed limiting fluids 3-4 hours prior to bed to assist with decreasing episodes of nocturia. Follow-up in 6 months with PVR; or sooner with any issues, concerns, and or questions. Orders: Orders AMB Post Void Residual by ultrasound 06/29/23 R33.9 - Retention of urine, unspecified AMB Urinalysis Automated 06/29/23 R33.9 - Retention of urine, unspecified Patient Instructions: The patient had an opportunity to ask questions regarding the treatment plan. All questions were answered. Physical exam, labs, and imaging were discussed and reviewed in detail. As well as risks, benefits, and discussion of treatment choices. No major barriers to understanding were identified. The patient expressed understanding and agreement with the above treatment plan. The patient was made aware they should contact our office by phone for worsening of their current condition, the appearance of new symptoms, or with any questions or concerns. Compliance is encouraged with any medications and follow up testing that is ordered. It is a privilege to be allowed the opportunity to participate in? your urological care.? Again, if you have any questions or concerns If you have any questions or concerns please do not hesitate to contact me. The office is [phone]. This note is constructed using voice recognition software. While every effort has been made to ensure accuracy epic professional errors may have been included. Yours sincerely, NATHAN Slater Coding Level of Care Code Est Pt Level 4 (07078) Diagnoses Enlarged prostate N40.0 Urinary dribbling N39.43 Nocturia R35.1 CPT Codes Post Residual Void - PVR CPT Code: 51619-Onul Void Residual by ultrasound ([id number])
== END 2023-06-29 11:35 | disposition home or self-care (01) ==
PROVIDERS: PCP Internal Medicine; Visit Provider Nurse Practitioner Family
DX: N40.0 Benign prostatic hyperplasia without lower urinary tract symptoms (principal); N39.43 Post-void dribbling; R35.1 Nocturia
CPT/HCPCS: 99214

== ENCOUNTER → 2023-06-29 10:44 | Outpatient (BNVA) | payer MEDICARE, OTHER, SELFPAY | PROVIDERS: PCP Internal Medicine; Visit Provider Nurse Practitioner Family | DX: N40.1 Benign prostatic hyperplasia with lower urinary tract symptoms (principal); R33.8 Other retention of urine; R35.1 Nocturia; N39.43 Post-void dribbling | CPT/HCPCS: 51798; 81003; 99212 ==

== ENCOUNTER 2023-06-30 12:23 | Day surgery (SDC) | payer MEDICARE, OTHER, SELFPAY ==
--- NOTE | 2023-06-28 10:45 | HP_ITS ---
DATE OF SERVICE: 06/30/2023 HISTORY OF PRESENT ILLNESS: Travis is a pleasant 82-year-old man, who presents for ERCP with stent removal and stone extraction. He was hospitalized in April and underwent upper endoscopy and ERCP with stent placement on May 05. A filling defect was identified in the mid common bile duct consistent with the abnormal findings on his MRI, which was done earlier. He experienced a bleeding at the time of sphincterotomy and it was elected to control this with cautery and stent placement for safety reasons and to defer stone extraction to allow healing from the sphincterotomy site. PAST MEDICAL HISTORY: 1. Gallstone pancreatitis. 2. Common bile duct stone as above. 3. Osteoarthritis. 4. Hypertension. 5. Hyperlipidemia. 6. Diabetes. 7. Gout. 8. Colon polyps. CURRENT MEDICATIONS: His current medication list is reviewed in the chart and will be updated at the time of his procedure. ALLERGIES: METFORMIN AND ROSUVASTATIN. FAMILY HISTORY: This is reviewed with the patient and is noncontributory. SOCIAL HISTORY: There is no current tobacco, alcohol, or substance abuse. REVIEW OF SYSTEMS: SKIN: No pruritus. HEENT: Negative. CARDIOPULMONARY: No shortness of breath or chest pain. GASTROINTESTINAL: As above. GENITOURINARY: Negative. NEUROPSYCHIATRIC: Negative. PHYSICAL EXAMINATION: Vital signs are stable. Lungs are clear Heart shows normal s1 and s2 Abdomen is soft and nontender IMPRESSION: Common bile duct stone. PLAN: He will undergo ERCP with removal of the stent that was placed at the time of his sphincterotomy and stone extraction will also be performed. He understands the risks and benefits of the procedures and agrees to proceed. MD NATE Silvestre/GERRY / [phone] [id number]
--- NOTE | 2023-06-28 11:59 | HO.ANESPROP2 ---
HPI - Anesthesia Eval Consult details Narrative: 82yo M for ERCP s/p lap kelly 04/2023 with GA-ETT 7.5 s/p ERCP with stent 04/2023 with GA-ETT 8 PMFSH Active Problems Active Problems: All Active Problems (Updated 05/21/23 @ 09:43 by Isabella Choi [facility]) Nocturia (Acute) Urinary dribbling (Acute) Enlarged prostate (Acute) Acute gangrenous cholecystitis (Acute) Acute blood loss anemia (Acute) Bacteremia (Acute) Gallstone pancreatitis (Acute) Cholelithiasis (Acute) Weight loss (Acute) BPH (benign prostatic hyperplasia) (Acute) Urinary frequency (Acute) Bilateral shoulder pain (Acute) Facial dermatitis (Acute) SOB (shortness of breath) (Acute) GERD (gastroesophageal reflux disease) (Acute) COVID-19 virus infection (Acute) Tubular adenoma of colon (Acute) Hypercholesterolemia (Acute) Hypertension (Acute) Type 2 diabetes mellitus with hyperglycemia (Acute) Past Medical History Medical History Tubular adenoma of colon GERD (gastroesophageal reflux disease) Knee osteoarthritis Erectile dysfunction Hypercholesterolemia Hypertension Gout Type 2 diabetes mellitus with hyperglycemia Family History Family History Father Medical history unknown Mother Medical history unknown Family history of problems with anesthesia: No Surgical History Surgical History Hx laparoscopic cholecystectomy (~05/11/23) History of cataract surgery History of knee replacement procedure of left knee History of eye surgery History of Problems with Anesthesia: No Social History Social History Household Members: Spouse Housing: House Do you presently have visiting nurse or other home services: No Alcohol intake: current Alcohol intake frequency: a few times a week Alcohol type: beer, wine and hard liquor Patient Tobacco Use Status: Former Tobacco user Quit Date: 1979 Tobacco use type: Cigarette e-Cigarette/Vaping Use: Never Used Second Hand Smoke Exposure: No service: Yes Current occupational status: retired Cognitive needs: No Hearing needs: No Vision needs: Yes Meds Allergies Allergy/AdvReac Type Severity Reaction Status Date / Time metformin Allergy Unknown diarrhea Verified 06/17/23 09:39 rosuvastatin [Crestor] Allergy Unknown Unknown Verified 06/17/23 09:39 Home Medications Medication Instructions Recorded Confirmed Last Taken Type cyanocobalamin (vitamin B-12) 1,000 mcg PO DAILY 05/04/23 05/18/23 Unknown History 1,000 mcg tablet insulin aspart U-100 100 unit/mL 0 sliding scale dose subcut TIDAC 05/04/23 05/18/23 Unknown History (3 mL) subcutaneous pen (Novolog FlexPen U-100 Insulin aspart) Exam Pertinent Lab Results Pertinent Lab Results: Laboratory Tests 05/25/23 09:05 WBC 10.6 Hgb 11.5 L Hct 36.2 L Plt Count 426 H Sodium 141 Potassium 4.7 D Chloride 107 Carbon Dioxide 26 BUN 21 H Creatinine 0.83 Narrative Narrative: EKG 04/2023 Vent. Rate : 086 BPM Atrial Rate : 086 BPM P-R Int : 152 ms QRS Dur : 092 ms QT Int : 346 ms P-R-T Axes : 037 -27 -06 degrees QTc Int : 414 ms Normal sinus rhythm Normal ECG When compared with ECG of 26-JAN-2020 10:34, Premature supraventricular complexes are no longer Present ECHO 2021 Conclusions: - 1. Normal LV systolic function with impaired relaxation filling pattern 2. Mildly dilated left atrium 3. Mild aortic stenosis and mild mitral regurgitation 4. Normal RV systolic pressure 5. No pericardial effusion Assessment and Plan Assessment Anesthesia Assessment: Chart Reviewed Final Anesthetic Review Family History of Problems with Anesthesia: No History of Problems with Anesthesia: No
[2023-06-30] VITALS (7 sets, daily range): BP systolic 113–159; BP diastolic 65–79; PULSE 66–73; RESP 14–18; TEMP 36.2–36.4; O2SAT 97–100; BMI 24.4
--- NOTE | ~2023-06-30 | FL_ITS ---
EXAMINATION: XR FLUOROSCOPY GUIDANCE IN O.R. WITH IMAGES CLINICAL INFORMATION: Follow-up to CBD stent. COMPARISON: CT abdomen and pelvis 05/09/2023. TECHNIQUE: Fluoroscopy Supervised By: Dr. Salgado Fluoroscopy Time: 95.9 seconds Cumulative Dose: 28.63 mGy-cm Images: 3 FINDINGS: On initial images the CBD stent is visualized. On subsequent images CBD stent is removed with contrast opacifying the entire CBD and no intraluminal filling defects seen. Balloon inflated catheter is seen on the last image. FL/FL guidance in OR IMPRESSION: Fluoroscopy was provided to referring physician during ERCP.
[2023-06-30 12:50] LABS: Glucose, Whole Blood 137 mg/dL (60-115)
--- NOTE | 2023-06-30 13:18 | P.CONAN_ITS ---
[facility] Active Problems Active Problems: All Active Problems (Updated 05/21/23 @ 09:43 by NATHAN Slater) Nocturia (Acute) Urinary dribbling (Acute) Enlarged prostate (Acute) Acute gangrenous cholecystitis (Acute) Acute blood loss anemia (Acute) Bacteremia (Acute) Gallstone pancreatitis (Acute) Cholelithiasis (Acute) Weight loss (Acute) BPH (benign prostatic hyperplasia) (Acute) Urinary frequency (Acute) Bilateral shoulder pain (Acute) Facial dermatitis (Acute) SOB (shortness of breath) (Acute) GERD (gastroesophageal reflux disease) (Acute) COVID-19 virus infection (Acute) Tubular adenoma of colon (Acute) Hypercholesterolemia (Acute) Hypertension (Acute) Type 2 diabetes mellitus with hyperglycemia (Acute) Past Medical History Medical History Tubular adenoma of colon GERD (gastroesophageal reflux disease) Knee osteoarthritis Erectile dysfunction Hypercholesterolemia Hypertension Gout Type 2 diabetes mellitus with hyperglycemia Family History Family History Father Medical history unknown Mother Medical history unknown Family history of problems with anesthesia: No Surgical History Surgical History Hx laparoscopic cholecystectomy (~05/11/23) History of cataract surgery History of knee replacement procedure of left knee History of eye surgery History of Problems with Anesthesia: No Social History Social History Household Members: Spouse Housing: House Do you presently have visiting nurse or other home services: No Alcohol intake: current Alcohol intake frequency: a few times a week Alcohol type: beer, wine and hard liquor Patient Tobacco Use Status: Former Tobacco user Quit Date: 1979 Tobacco use type: Cigarette e-Cigarette/Vaping Use: Never Used Second Hand Smoke Exposure: No Use of substances other than those prescribed or required for medical reasons: No Are you DNR?: No Advance Directives: No Advance Directives Information Provided: Yes service: Yes Current occupational status: retired Cognitive needs: No Hearing needs: No Vision needs: Yes Meds Allergies Allergy/AdvReac Type Severity Reaction Status Date / Time metformin Allergy Unknown diarrhea Verified 06/29/23 21:41 rosuvastatin [Crestor] Allergy Unknown Unknown Verified 06/29/23 21:41 Active Medications: Current Medications Fentanyl (Fentanyl Citrate/Pf 100 Mcg/2 Ml Vial) 25 mcg IVPUSH Q5M PRN; Protocol PRN Reason: Pain, Moderate(Pain Scale 4-6) Lactated Ringer's (Lr) 1,000 mls @ 100 mls/hr IVCONT .Q10H SHIRA Ondansetron HCl (Ondansetron Hcl 4 Mg/2 Ml Vial) 4 mg IVPUSH ONCE PRN PRN Reason: Nausea and Vomiting Home Medications Medication Instructions Recorded Confirmed Last Taken Type cyanocobalamin (vitamin B-12) 1,000 mcg PO DAILY 05/04/23 06/29/23 Unknown History 1,000 mcg tablet insulin aspart U-100 100 unit/mL 0 sliding scale dose subcut TIDAC 05/04/23 06/29/23 Unknown History (3 mL) subcutaneous pen (Novolog FlexPen U-100 Insulin aspart) Exam Height,Weight and Vital Signs: Height 5 ft 6 in Weight 68.549 kg Last Vital Signs Temp 97.6 F 06/30/23 13:11 Pulse 72 06/30/23 13:11 Resp 18 06/30/23 13:11 BP 159/79 H 06/30/23 13:11 Pulse Ox 100 06/30/23 13:11 O2 Del Method Room Air 06/30/23 13:11 Pertinent Lab Results Pertinent Lab Results: Laboratory Tests 06/30/23 12:42 POC Glucose 137 H Airway Mallampati Class: IV TM Dist: >3cm Neck ROM: Full Denture: Upper Loose/Missing/Broken Teeth: Yes and Lower Heart: rrr Lungs: clear Assessment and Plan Final Anesthetic Review Family History of Problems with Anesthesia: No History of Problems with Anesthesia: No NPO: Yes ASA Class: III Final Preanesthetic Review: No Changes in Pt Med Stat, Meds/Allgs Chart Reviewed, Consent Obtained/Reviewed and Anes Risks/Benef Reviewed Patient Risk: Intermediate Procedure Risk: Intermediate Anesthetic Plan Anesthetic Plan: GA Disposition: Standard PACU
--- NOTE | 2023-06-30 13:36 | MHC.SHP ---
Pre-Procedural Eval Section A Date of Service: 06/30/23 The patient is an INPATIENT: No Changes since office visit: No Cold of Flu in the past 2 weeks, No New Medical Problems, No Changes in Medication and No Patient answered all questions The History & Physical has been completed within 30 days and I have reviewed it.: Yes Section B Chief Complaint: Calculus of bile duct without cholangitis or kelly Allergies: Allergies Allergy/AdvReac Type Severity Reaction Status Date / Time metformin Allergy Unknown diarrhea Verified 06/29/23 21:41 rosuvastatin [Crestor] Allergy Unknown Unknown Verified 06/29/23 21:41 Plan I have reviewed the history and physical and performed a pertinent physical examination on my patient. No changes have occurred unless specified. Time Spent With Patient Time: Total time managing care of this patient today ____ minutes.
[2023-06-30] MEDS: Lactated Ringers 1,000 ML 100 ML IVCONT (13:37)
--- NOTE | 2023-06-30 21:14 | OP_ITS ---
DATE OF SERVICE: 06/30/2023 SURGEON: Gabriel Cueto MD INDICATIONS: Common bile duct stone. PREOPERATIVE DIAGNOSIS: POSTOPERATIVE DIAGNOSIS: PROCEDURE PERFORMED: ERCP with removal of biliary stent and extraction of common bile duct stone. ESTIMATED BLOOD LOSS: COMPLICATIONS: ANESTHESIA: General anesthesia. ASSISTANTS: SPECIMENS: DESCRIPTION OF PROCEDURE: A history and physical was performed. The risks and benefits of the procedure were explained to the patient, and informed consent was obtained. The patient was placed in the prone position with the wedge under the right shoulder. The Olympus therapeutic duodenum scope was introduced into the esophagus, stomach, and duodenum. Examination was performed. The scope was removed. He tolerated the procedure well and was taken to the recovery area in stable condition. FINDINGS: Limited examination of the esophagus, stomach, and duodenum was within normal limits. 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 The biliary stent was in satisfactory position with drainage of clear yellow bile. The stent was removed using a snare. Next, an 8 mm stone was seen to exit into the duodenum from the bile duct after the stent was removed. Following this, a 12 mm balloon was advanced into the bile duct and cholangiography was performed showing excellent filling of the intra hepatic system. Occlusion cholangiography showed no further filling defects, and there was excellent drainage of clear yellow bile at the termination of the procedure. The sphincterotomy site was intact with no bleeding and did not need to be extended. No pancreatogram was attempted or obtained. IMPRESSION: 1. Stent removal. 2. Common bile duct stone. RECOMMENDATION: Follow up as needed. MD NATE Silvestre/SUSANNAHL / [phone]
== END 2023-06-30 16:00 | disposition home or self-care (01) ==
PROVIDERS: PCP Internal Medicine; Visit Provider Internal Medicine Gastroenterology
PROC: (CPT 43260; principal; 2023-06-30 13:50)
DX: K80.20 Calculus of gallbladder without cholecystitis without obstruction (principal); I10 Essential (primary) hypertension; E11.9 Type 2 diabetes mellitus without complications
CPT/HCPCS: 43275; 43264; 82947; J0330; J1100; J1610; J1956; J2405; J2704; J3010; Q9967

== ENCOUNTER 2023-09-25 07:48 | Outpatient (REF) | payer MEDICARE, OTHER, SELFPAY ==
[2023-09-25 08:09] LABS: MANUAL DIFF FLAG NO
[2023-09-25 08:54] LABS: Basophils Percent Auto 0.4 % (0-2); Eosinophils Absolute Auto 0.1 X10*3/uL (0.0-0.4); Eosinophils Percent Auto 1.7 % (0-4); Hematocrit 42.5 % (42.0-52.0); Hemoglobin 14.3 g/dl (14.0-18.0); Imm Gran Abs Auto 0.06 X10*3/uL (0.00-0.03); Imm Gran Pct Auto 0.8 % (0.0-0.4); Immature Retic Fraction 12.3 % (2.3-13.4); Lymphocytes Absolute Auto 1.2 X10*3/uL (1.2-4.9); Lymphocytes Percent Auto 15.2 % (20-40); Mean Corpuscular HGB Conc 33.6 g/dl (31.0-36.0); Mean Corpuscular Hemoglobin 32.7 pg (27.0-33.0); Mean Corpuscular Volume 97.3 fL (80.0-98.0); Monocytes Absolute Auto 0.5 X10*3/uL (0.1-1.2); Monocytes Percent Auto 6.9 % (2-11); Neutrophils Absolute Auto 5.8 x10*3/uL (2.0-8.3); Platelet Count 151 X10*3/uL (160-400); Red Blood Count 4.37 X10*6/uL (4.60-5.80); Red Cell Distribution Width 12.9 % (11.0-16.0); Retic HGB Equivalent 37.4 pg (30.0-35.0); Reticulocytes Absolute 0.087 X10*6/uL (0.026-0.095); White Blood Count 7.8 X10*3/uL (4.8-10.8)
[2023-09-25 08:57] LABS: Appearance Urine Clear; Color Urine Yellow; Glucose Urine UA >=1000 mg/dL (Negative); Leukocyte Esterase Urine Negative (Negative); Nitrite Urine Negative (Negative); PH 5.5 (5.0-9.0); Specific Gravity - Urine 1.025 (1.005-1.025); UMIC TRIGGER UA YES; Urine Blood Negative (Negative); Urine Ketones Negative (Negative); Urine Protein Negative (Neg-Trace)
[2023-09-25 09:00] LABS: Bacteria Urine None Seen (None Seen); Hyaline Casts Urine 0-2 /LPF (0-2); RBC Urine 0-2 /HPF (0-2); Squamous Epithelial Cell Urine 0-2 /HPF (0-2); WBC Urine 0-5 /HPF (0-5)
[2023-09-25 09:33] LABS: Estimated Average Glucose 131 mg/dL; Hemoglobin A1c % 6.2 % (<6.0)
[2023-09-25 09:34] LABS: Creatinine Urine 53.68 mg/dL; Microalbum/Creatinine Ratio Ur 9.3 ug/mg cr (<30)
[2023-09-25 09:35] LABS: Cholesterol 113 mg/dL (<200); HDL Cholesterol 38 mg/dL (>40); LDL Cholesterol Calculated 59 mg/dL (<100); Triglycerides 84 mg/dL (<150)
[2023-09-25 09:37] LABS: Alanine Aminotransferase 25 U/L (0-40); Alkaline Phosphatase 91 U/L (39-117); Anion Gap 14 (12-20); Aspartate Amino Transferase 19 U/L (5-37); Bilirubin Total 0.5 mg/dL (0.0-1.0); Blood Urea Nitrogen 34 mg/dL (9-16); Calcium 9.4 mg/dL (8.4-10.2); Carbon Dioxide 25 mmol/L (22-29); Chloride 108 mmol/L (96-108); Cholesterol 110 mg/dL (<200); Estimated Glomerular Filt Rate > 60; Glucose Fasting 135 mg/dL (60-99); Glucose Random 137 mg/dL (60-115); HDL Cholesterol 38 mg/dL (>40); Iron 80 mcg/dL (45-160); LDL Cholesterol Calculated 56 mg/dL (<100); Percent Iron Saturation 26 % (15-50); Potassium 4.5 mmol/L (3.3-5.1); Sodium 142 mmol/L (135-145); Total Iron Binding Capacity 305 mcg/dL (228-428); Total Protein 6.7 g/dL (6.5-8.0); Triglycerides 84 mg/dL (<150); Unsaturated Iron Binding 225 ug/dL
[2023-09-25 09:57] LABS: Ferritin 74 ng/mL (20-250); Free T4 (Free Thyroxine) 0.81 ng/dL (0.71-1.85)
[2023-09-25 10:35] LABS: Folate 12.3 ng/mL (> or = 4.0); Vitamin B12 558 pg/mL (200-900)
== END 2023-09-25 07:49 | disposition home or self-care (01) ==
LOC: HO.LAB 07:48
PROVIDERS: Nurse Practitioner Family; PCP Internal Medicine; Visit Provider Internal Medicine
DX: E11.65 Type 2 diabetes mellitus with hyperglycemia (principal); I10 Essential (primary) hypertension; R35.0 Frequency of micturition; E78.00 Pure hypercholesterolemia, unspecified
CPT/HCPCS: 36415; 80053; 80061; 81001; 82043; 82570; 82607; 82728; 82746; 83036; 83540; 84439; 84443; 85025; 85045

== ENCOUNTER 2023-09-28 10:35 | Outpatient (AMB) | payer MEDICARE, OTHER, SELFPAY ==
--- NOTE | 2023-09-28 10:40 | MHC.PC.OV ---
Vital Signs 09/28/23 10:41 Height 5 ft 6 in Weight 156 lb BMI 25.2 BP 116/62 Blood Pressure Location Lt brachial Position Sitting Pulse 69 Pulse Source Pulse Oximeter Pulse Oximetry (%) 95 Oxygen Delivery Method Room Air Intake Visit Reasons: 6 month f/u Allergies metformin Allergy (Unknown, Verified 09/28/23 10:41) diarrhea rosuvastatin [Crestor] Allergy (Unknown, Verified 09/28/23 10:41) Unknown Medication List - Last Reconciled 09/28/23 by Clarence Talbert MD allopurinol 100 mg PO DAILY 90 days atorvastatin 10 mg PO DAILY cyanocobalamin (vitamin B-12) 1,000 mcg PO DAILY [DIABETIC SHOES As directed] docusate sodium (Colace) 100 mg PO BID PRN empagliflozin (Jardiance) 25 mg PO DAILY folic acid 1 mg PO DAILY insulin aspart U-100 (Novolog FlexPen U-100 Insulin aspart) See Protocol Or as directed through sliding scale lansoprazole (Prevacid) 30 mg PO DAILY 90 days lisinopril 5 mg PO DAILY 90 days metoprolol succinate ER 50 mg PO DAILY 90 days oxycodone 5 mg PO Q4H PRN pen needle, diabetic (BD Ultra-Fine Prisca Pen Needle) As directed sitagliptin phosphate (Januvia) 100 mg PO DAILY tamsulosin 0.8 mg (2 x 0.4 mg) PO BEDTIME 90 days Tobacco use date assessed: 09/28/23 Fall risk assessment: No Falls in past year Last assessed Fall Risk: 09/28/23 Dental Screening Dental Screen Date: 09/28/23 Did you have a dental visit in the last 12 months?: No Did you have a dental problem in the last 6 months where you did not have access to dental care?: No Was dental information given to patient?: No HPI 6 month f/u HPI Details 82-year-old male with controlled diabetes mellitus hypertension hypercholesterolemia GERD history of gallstone pancreatitis and status post cholecystectomy coming in for follow-up. Last seen in June 2023. Patient is up-to-date with colonoscopy April 2023. With June 30 having the ERCP with removal of the biliary stent and extraction of common bile duct stone. Patient also follows up with urology noted to have an enlarged prostate had urinary dribbling prescribed Flomax 0.8 mg once a day [facility] Medical History (Updated 09/28/23 @ 10:58 by Clarence Talbert MD) Nocturia Urinary dribbling Acute blood loss anemia Tubular adenoma of colon GERD (gastroesophageal reflux disease) Knee osteoarthritis Erectile dysfunction Hypercholesterolemia Hypertension Gout Type 2 diabetes mellitus with hyperglycemia Surgical History (Updated 09/28/23 @ 10:58 by Clarence Talbert MD) Cholelithiasis Gallstone pancreatitis Hx laparoscopic cholecystectomy (~05/11/23) History of cataract surgery History of knee replacement procedure of left knee History of eye surgery Family History Father Medical history unknown Mother Medical history unknown Social History Household Members: Spouse Housing: House Do you presently have visiting nurse or other home services: No Alcohol intake: current Alcohol intake frequency: a few times a week Alcohol type: beer, wine and hard liquor Patient Tobacco Use Status: Former Tobacco user Quit Date: 1979 Tobacco use type: Cigarette e-Cigarette/Vaping Use: Never Used Second Hand Smoke Exposure: No service: Yes Current occupational status: retired Cognitive needs: No Hearing needs: No Vision needs: Yes Questionnaire PHQ-9 Over the last 2 weeks, how often have you been bothered by any of the following problems? 1. Little interest or pleasure in doing things: not at all 2. Feeling down, depressed, or hopeless: not at all 3. Trouble falling or staying asleep, or sleeping too much: not at all 4. Feeling tired or having little energy: not at all 5. Poor appetite or overeating: not at all 6. Feeling bad about yourself - or that you are a failure or have let yourself or your family down: not at all 7. Trouble concentrating on things, such as reading the newspaper or watching television: not at all 8. Moving or speaking so slowly that other people could have noticed. Or the opposite - being so fidgety or restless that you have been moving around a lot more than usual: not at all 9. Thoughts that you would be better off or of hurting yourself in some way: not at all Total score: 0 Depression Screening Interpretation: Negative Depression Screening Done: Yes Source: Developed by Drs. Burke Vera, Nikole B.Giovanni Boateng and colleagues, with an educational kim from [employer]. Thrive Questionnaire Date Thrive assessed: 09/28/23 I am a: Patient What is your living situation today?: I have a steady place to live Within the past 12 months, did the food you bought not last and you didn't have the money to get more?: Never true Within the past 12 months, did you worry whether your food would run out before you got money to buy more?: Never true Do you have trouble paying for medicines?: No Do you have trouble getting transportation to medical appointments?: No Do you have trouble paying your heating and electricity bill?: No Do you have trouble taking care of your child, family member or friend?: No Do you have trouble with day-to-day activities such as bathing, preparing meals, shopping, managing finances, etc.?: No Are you currently unemployed and looking for a job?: No Are you interested in more education?: No Currently or been in a relationship where the following occur: no concerns reported THRIVE Score: 0 AUDIT C Alcohol Use Questionnaire (AUDIT-C) 1. How often do you have a drink containing alcohol?: 4 or more times a week 2. How many drinks containing alcohol do you have on a typical day when you are drinking?: 1 or 2 3. How often do you have six or more drinks on one occasion?: Never Total Score: 4 Score Reviewed/Action Taken: No PRETTY-7 AMB Questionnaire PRETTY-7 Date PRETTY - 7 assessed: 09/28/23 Feeling nervous, anxious, or on edge: 0 = Not at all Not being able to stop or control worryin = Not at all Worrying too much about different things: 0 = Not at all Trouble relaxin = Not at all Being so restless that it is hard to sit still: 0 = Not at all Becoming easily annoyed or irritable: 0 = Not at all Feeling afraid as if something awful might happen: 0 = Not at all Total PRETTY-7 score (0-4 normal; 5-9 mild; 10-14 moderate; 15-21 severe): 0 Source: Developed by Drs. Burke Vera, Giovanni Munoz and colleagues, with an educational kim from [employer]. Physical exam (Primary Care) Vital Signs: Last Vital Signs Pulse 69 09/28/23 10:41 BP 116/62 09/28/23 10:41 Pulse Ox 95 09/28/23 10:41 Oxygen Delivery Method Room Air 09/28/23 10:41 BMI result Body Mass Index 25.2 Tobacco/Smoking Status: Tobacco use Status Tobacco use date assessed 09/28/23 09/28/23 10:47 Patient Tobacco Use Status Former Tobacco user 09/28/23 10:47 Tobacco use type Cigarette 09/28/23 10:47 e-Cigarette/Vaping Use Never Used 09/28/23 10:47 PHQ-9: PHQ-9 Score PHQ-9: Total score 0 09/28/23 10:47 Depression Screening Interpretation: Negative Thrive Assessment: Date of Thrive Assessment Date Thrive assessed 09/28/23 09/28/23 10:47 Currently or been in a relationship where the following occur: no concerns reported Const General: alert; No acute distress Eyes Conjunctivae: conjunctivae normal Resp Auscultation: clear to auscultation bilaterally Cardio Rate: regular rate Rhythm: regular rhythm GI Inspection: Yes normal to inspection Extrem General: Yes normal to inspection and No edema Assessment and Plan Assessment & Plan (1) Acute gangrenous cholecystitis: Comment: Status post lap cholecystectomy April 2023 Code(s): K81.0 - Acute cholecystitis Plan: Status post removal of the stent through ERCP in July 2023 (2) Enlarged prostate: Code(s): N40.0 - Benign prostatic hyperplasia without lower urinary tract symptoms Plan: Patient has been seen by Urology and has been placed on tamsulosin 0.8 mg once a day (3) GERD (gastroesophageal reflux disease): Code(s): K21.9 - Gastro-esophageal reflux disease without esophagitis Plan: Avoid the foods that causes that usually spicy foods, tomato products, juices, coffee, soda and foods that your sensitive to. After eating do not lie down, allow 3-4 hours before in lie down. And keep the head of bed above 30 degrees to avoid the acid from going up. (4) Type 2 diabetes mellitus with hyperglycemia: Comment: Eye physician Evita Code(s): E11.65 - Type 2 diabetes mellitus with hyperglycemia Qualifiers: Diabetes mellitus rat exterminator insulin use: without rat exterminator use Qualified Code(s): E11.65 - Type 2 diabetes mellitus with hyperglycemia Plan: Decrease the amount of carbohydrate intake, pasta, bread, rice and potatoes are all sugar and that is aside from all the sweet stuff, remember that fruits are good but they are Sweet also. Hemoglobin A1c goal of less than 7.0. Patient's hemoglobin A1c in September 2023 6.2 on Januvia NovoLog insulin Jardiance and acarbose. (5) Hypertension: Code(s): I10 - Essential (primary) hypertension Qualifiers: Hypertension type: essential hypertension Qualified Code(s): I10 - Essential (primary) hypertension Plan: Continue with blood pressure medication. Decrease salt intake and exercise presently taking lisinopril 5 mg once a day and metoprolol 50 mg once a day (6) Hypercholesterolemia: Code(s): E78.00 - Pure hypercholesterolemia, unspecified Plan: Avoid fried foods, chicken skin, eggs, butter margarine, pastries and meat. Be it pork or beef they have a lot of cholesterol on atorvastatin 10 mg once a day LDL goal of less than 100 and triglyceride of less than 150 September 2023 last blood work. Medications: New empagliflozin (Jardiance) 25 mg PO DAILY 90 tabs 2RF E11.65 - Type 2 diabetes mellitus with hyperglycemia Refilled sitagliptin phosphate (Januvia) 100 mg PO DAILY 90 tabs 1RF E11.65 - Type 2 diabetes mellitus with hyperglycemia allopurinol 100 mg PO DAILY 90 days 90 tabs 2RF M10.9 - Gout, unspecified lisinopril 5 mg PO DAILY 90 days 90 tabs 2RF E11.65 - Type 2 diabetes mellitus with hyperglycemia Discontinued acarbose with lunch and dinner with the first bite of each meal Discontinued Reason: Doctor's Order 25 mg PO BID 30 days 60 tabs 4RF E11.65 - Type 2 diabetes mellitus with hyperglycemia Coding Level of Care Code Est Pt Level 4 (47606) Diagnoses Acute gangrenous cholecystitis K81.0 Enlarged prostate N40.0 GERD (gastroesophageal reflux disease) K21.9 Type 2 diabetes mellitus with hyperglycemia, without long-term current use of insulin E11.65 Diabetes mellitus halfway insulin use: without halfway use Essential hypertension I10 Hypertension type: essential hypertension Hypercholesterolemia E78.00
[2023-09-28 10:41] VITALS: BP 116/62; PULSE 69; O2SAT 95; BMI 25.2
== END 2023-09-28 11:13 | disposition home or self-care (01) ==
PROVIDERS: PCP Internal Medicine; Visit Provider Internal Medicine
DX: K81.0 Acute cholecystitis (principal); N40.0 Benign prostatic hyperplasia without lower urinary tract symptoms; K21.9 Gastro-esophageal reflux disease without esophagitis; E11.65 Type 2 diabetes mellitus with hyperglycemia; I10 Essential (primary) hypertension; E78.00 Pure hypercholesterolemia, unspecified
CPT/HCPCS: 99214

== ENCOUNTER 2023-11-23 15:41 | Outpatient (REF) | payer MEDICARE, OTHER, SELFPAY | END 2023-11-23 15:42 | disposition home or self-care (01) | LOC: HO.SH 15:41 | PROVIDERS: Visit Provider Internal Medicine | DX: H90.3 Sensorineural hearing loss, bilateral (principal) | CPT/HCPCS: 92557; 92567 ==

== ENCOUNTER 2024-02-07 06:17 | Outpatient (REF) | payer MEDICARE, OTHER, SELFPAY ==
[2024-02-07 07:03] LABS: MANUAL DIFF FLAG NO
[2024-02-07 07:18] LABS: Basophils Percent Auto 0.4 % (0-2); Eosinophils Absolute Auto 0.1 X10*3/uL (0.0-0.4); Eosinophils Percent Auto 1.8 % (0-4); Hemoglobin 13.3 g/dl (14.0-18.0); Imm Gran Abs Auto 0.04 X10*3/uL (0.00-0.03); Imm Gran Pct Auto 0.5 % (0.0-0.4); Lymphocytes Absolute Auto 0.9 X10*3/uL (1.2-4.9); Lymphocytes Percent Auto 11.3 % (20-40); Mean Corpuscular HGB Conc 34.1 g/dl (31.0-36.0); Mean Corpuscular Hemoglobin 33.1 pg (27.0-33.0); Mean Platelet Volume 11.4 fL (9.4-12.4); Monocytes Absolute Auto 0.6 X10*3/uL (0.1-1.2); Monocytes Percent Auto 7.5 % (2-11); Neutrophils Absolute Auto 6.3 x10*3/uL (2.0-8.3); Neutrophils Percent Auto 78.5 % (45-73); Platelet Count 166 X10*3/uL (160-400); Red Blood Count 4.02 X10*6/uL (4.60-5.80); Red Cell Distribution Width 12.7 % (11.0-16.0)
[2024-02-07 07:44] LABS: Estimated Average Glucose 111 mg/dL; Hemoglobin A1c % 5.5 % (<6.0)
[2024-02-07 08:00] LABS: Alanine Aminotransferase 16 U/L (0-40); Albumin Level 3.7 g/dL (3.5-5.0); Alkaline Phosphatase 134 U/L (39-117); Anion Gap 12 (12-20); Aspartate Amino Transferase 18 U/L (5-37); Bilirubin Total 0.4 mg/dL (0.0-1.0); Blood Urea Nitrogen 22 mg/dL (9-16); Calcium 9.4 mg/dL (8.4-10.2); Carbon Dioxide 26 mmol/L (22-29); Chloride 108 mmol/L (96-108); Cholesterol 91 mg/dL (<200); Estimated Glomerular Filt Rate > 60; Glucose Random 130 mg/dL (60-115); HDL Cholesterol 25 mg/dL (>40); LDL Cholesterol Calculated 41 mg/dL (<100); Sodium 142 mmol/L (135-145); Total Protein 6.5 g/dL (6.5-8.0); Triglycerides 125 mg/dL (<150)
[2024-02-07 08:07] LABS: Free T4 (Free Thyroxine) 0.95 ng/dL (0.71-1.85); Thyroid Stimulating Hormone 2.51 uIU/mL (0.32-4.0)
[2024-02-07 08:18] LABS: Folate > 20.0 ng/mL (> or = 4.0); Vitamin B12 525 pg/mL (200-900)
[2024-02-07 10:02] LABS: Microalbum/Creatinine Ratio Ur 11.1 ug/mg cr (<30)
== END 2024-02-07 06:18 | disposition home or self-care (01) ==
LOC: HO.LAB 06:17
PROVIDERS: PCP Internal Medicine; Visit Provider Internal Medicine
DX: E11.65 Type 2 diabetes mellitus with hyperglycemia (principal); E78.00 Pure hypercholesterolemia, unspecified
CPT/HCPCS: 36415; 80053; 80061; 82043; 82570; 82607; 82746; 83036; 84439; 84443; 85025

== ENCOUNTER 2024-02-08 14:43 | Outpatient (AMB) | payer MEDICARE, OTHER, SELFPAY ==
[2024-02-08 14:59] VITALS: BP 124/76; PULSE 81; O2SAT 98; BMI 26.3
--- NOTE | 2024-02-08 14:59 | A.OFFPC_ITS ---
Vital Signs 02/08/24 14:59 Height 5 ft 4 in Weight 153 lb BMI 26.3 BP 124/76 Blood Pressure Location Lt brachial Position Sitting Pulse 81 Pulse Source Pulse Oximeter Pulse Oximetry (%) 98 Oxygen Delivery Method Room Air Intake Visit Reasons: DM Allergies metformin Allergy (Unknown, Verified 02/08/24 14:59) diarrhea rosuvastatin [Crestor] Allergy (Unknown, Verified 02/08/24 14:59) Unknown Medication List - Last Reconciled 02/08/24 by Clarence Talbert MD allopurinol 100 mg PO DAILY 90 days atorvastatin 10 mg PO DAILY colchicine 0.6 mg PO DAILY cyanocobalamin (vitamin B-12) 1,000 mcg PO DAILY [DIABETIC SHOES As directed] docusate sodium (Colace) 100 mg PO BID PRN empagliflozin (Jardiance) 25 mg PO DAILY folic acid 1 mg PO DAILY insulin aspart U-100 (Novolog FlexPen U-100 Insulin aspart) See Protocol Or as directed through sliding scale lansoprazole (Prevacid) 30 mg PO DAILY 90 days lisinopril 5 mg PO DAILY 90 days metoprolol succinate ER 50 mg PO DAILY 90 days pen needle, diabetic (BD Ultra-Fine Prisca Pen Needle) As directed sitagliptin phosphate (Januvia) 100 mg PO DAILY tadalafil (Cialis) 20 mg PO DAILY PRN tamsulosin 0.8 mg (2 x 0.4 mg) PO BEDTIME 90 days Tobacco use date assessed: 09/28/23 Fall risk assessment: 1 Fall in past year Last assessed Fall Risk: 02/08/24 Dental Screening Dental Screen Date: 09/28/23 HPI DM HPI Details 83-year-old last seen in September overweigh t male with BPH GERD controlled diabetes mellitus hypertension hypercholesterolemia last seen in September having cholecystitis. Patient is here for follow-up. Up-to-date with colon test April 2023. PAtient had lisnipril but because of tiredness - stopped and BP has been good. [facility] Medical History (Updated 02/08/24 @ 15:38 by Clarence Talbert MD) Enlarged prostate Nocturia Urinary dribbling Acute blood loss anemia Tubular adenoma of colon GERD (gastroesophageal reflux disease) Knee osteoarthritis Erectile dysfunction Hypercholesterolemia Hypertension Gout Type 2 diabetes mellitus with hyperglycemia Surgical History (Updated 09/28/23 @ 10:58 by Clarence Talbert MD) Cholelithiasis Gallstone pancreatitis Hx laparoscopic cholecystectomy (~05/11/23) History of cataract surgery History of knee replacement procedure of left knee History of eye surgery Family History Father Medical history unknown Mother Medical history unknown Social History Household Members: Spouse Housing: House Do you presently have visiting nurse or other home services: No Alcohol intake: current Alcohol intake frequency: a few times a week Alcohol type: beer, wine and hard liquor Patient Tobacco Use Status: Former Tobacco user Tobacco use type: Cigarette e-Cigarette/Vaping Use: Never Used Second Hand Smoke Exposure: No service: Yes Current occupational status: retired Cognitive needs: No Hearing needs: No Vision needs: Yes Questionnaire PHQ-9 Over the last 2 weeks, how often have you been bothered by any of the following problems? 1. Little interest or pleasure in doing things: not at all 2. Feeling down, depressed, or hopeless: not at all 3. Trouble falling or staying asleep, or sleeping too much: not at all 4. Feeling tired or having little energy: not at all 5. Poor appetite or overeating: not at all 6. Feeling bad about yourself - or that you are a failure or have let yourself or your family down: not at all 7. Trouble concentrating on things, such as reading the newspaper or watching television: not at all 8. Moving or speaking so slowly that other people could have noticed. Or the opposite - being so fidgety or restless that you have been moving around a lot more than usual: not at all 9. Thoughts that you would be better off or of hurting yourself in some way: not at all Total score: 0 Depression Screening Interpretation: Negative Depression Screening Done: Yes Source: Developed by Drs. Burke Vera, Nikole Johns, Giovanni Johnson and colleagues, with an educational kim from [employer]. Thrive Questionnaire Date Thrive assessed: 09/28/23 AUDIT C Alcohol Use Questionnaire (AUDIT-C) 1. How often do you have a drink containing alcohol?: 4 or more times a week 2. How many drinks containing alcohol do you have on a typical day when you are drinking?: 1 or 2 3. How often do you have six or more drinks on one occasion?: Never Total Score: 4 Score Reviewed/Action Taken: No PRETTY-7 AMB Questionnaire PRETTY-7 Date PRETTY - 7 assessed: 09/28/23 Source: Developed by Drs. Burke Vera, Nikole Johns, Giovanni Johnson and colleagues, with an educational kim from [employer]. Physical exam (Primary Care) Vital Signs: Last Vital Signs Pulse 81 02/08/24 14:59 BP 124/76 02/08/24 14:59 Pulse Ox 98 02/08/24 14:59 Oxygen Delivery Method Room Air 02/08/24 14:59 BMI result Body Mass Index 26.3 Tobacco/Smoking Status: Tobacco use Status Tobacco use date assessed 09/28/23 02/08/24 15:03 Patient Tobacco Use Status Former Tobacco user 02/08/24 15:03 Tobacco use type Cigarette 02/08/24 15:03 e-Cigarette/Vaping Use Never Used 02/08/24 15:03 PHQ-9: PHQ-9 Score PHQ-9: Total score 0 02/08/24 15:03 Depression Screening Interpretation: Negative Thrive Assessment: Date of Thrive Assessment Date Thrive assessed 09/28/23 02/08/24 15:03 Const General: alert; No acute distress Eyes Conjunctivae: conjunctivae normal Resp Auscultation: clear to auscultation bilaterally Cardio Rate: regular rate Rhythm: regular rhythm GI Inspection: Yes normal to inspection Extrem Other: pedal pulse good but has mild pin prick neuropathy General: Yes normal to inspection and No edema Assessment and Plan Assessment & Plan (1) Type 2 diabetes mellitus with hyperglycemia: Comment: Eye physician Evita Code(s): E11.65 - Type 2 diabetes mellitus with hyperglycemia Qualifiers: Diabetes mellitus keno terminal operator insulin use: without keno terminal operator use Qualified Code(s): E11.65 - Type 2 diabetes mellitus with hyperglycemia Plan: Decrease the amount of carbohydrate intake, pasta, bread, rice and potatoes are all sugar and that is aside from all the sweet stuff, remember that fruits are good but they are Sweet also. Hemoglobin A1c goal of less than 7.0. On Jardiance 25 mg once a day NovoLog insulin and Januvia.. PAtient for the complete management needs diabetic shoes- presently good pulse with no neuropathy. will do script. (2) Hypertension: Code(s): I10 - Essential (primary) hypertension Qualifiers: Hypertension type: essential hypertension Qualified Code(s): I10 - Essential (primary) hypertension Plan: Continue with blood pressure medication. Decrease salt intake and exercise takes lisinopril 5 mg once a day metoprolol 50 mg once a day (3) Hypercholesterolemia: Code(s): E78.00 - Pure hypercholesterolemia, unspecified Plan: Avoid fried foods, chicken skin, eggs, butter margarine, pastries and meat. Be it pork or beef they have a lot of cholesterol takes atorvastatin 10 mg once a day LDL goal of less than 100 (4) GERD (gastroesophageal reflux disease): Code(s): K21.9 - Gastro-esophageal reflux disease without esophagitis Plan: Avoid the foods that causes that usually spicy foods, tomato products, juices, coffee, soda and foods that your sensitive to. After eating do not lie down, allow 3-4 hours before in lie down. And keep the head of bed above 30 degrees to avoid the acid from going up. (5) BPH (benign prostatic hyperplasia): Code(s): N40.0 - Benign prostatic hyperplasia without lower urinary tract symptoms Plan: On tamsulosin 0.8 mg once a day (6) Hearing difficulty: Code(s): H91.90 - Unspecified hearing loss, unspecified ear Plan: Patient did have the confirmation test. (7) Arrhythmia: Code(s): I49.9 - Cardiac arrhythmia, unspecified Orders: Orders ECG 12 lead EKG Today I49.9 - Cardiac arrhythmia, unspecified Medications: New tadalafil (Cialis) administer approximately 30min before sexual activity; do not use more than 1 dose per 24hrs 20 mg PO DAILY PRN 14 tabs 3RF sexual activity Refilled [DIABETIC SHOES] As directed 1 ea 0RF E11.65 - Type 2 diabetes mellitus with hyperglycemia Discontinued oxycodone Partial Fill upon patient request. Discontinued Reason: Doctor's Order 5 mg PO Q4H PRN 24 tabs 0RF pain (scale score 7-10) Coding Level of Care Code Est Pt Level 4 (64585) Diagnoses Type 2 diabetes mellitus with hyperglycemia, without long-term current use of insulin E11.65 Diabetes mellitus keno terminal operator insulin use: without keno terminal operator use Essential hypertension I10 Hypertension type: essential hypertension Hypercholesterolemia E78.00 GERD (gastroesophageal reflux disease) K21.9 BPH (benign prostatic hyperplasia) N40.0 Hearing difficulty H91.90 Arrhythmia I49.9
== END 2024-02-08 15:47 | disposition home or self-care (01) ==
PROVIDERS: PCP Internal Medicine; Visit Provider Internal Medicine
DX: E11.65 Type 2 diabetes mellitus with hyperglycemia (principal); I10 Essential (primary) hypertension; E78.00 Pure hypercholesterolemia, unspecified; K21.9 Gastro-esophageal reflux disease without esophagitis; N40.0 Benign prostatic hyperplasia without lower urinary tract symptoms; H91.90 Unspecified hearing loss, unspecified ear; I49.9 Cardiac arrhythmia, unspecified
CPT/HCPCS: 99214

== ENCOUNTER → 2024-02-09 12:08 | Outpatient (REF) | payer MEDICARE, OTHER, SELFPAY ==
--- NOTE | 2024-02-09 12:11 | ECG_ITS ---
Test Reason : ARRHYTHMIAS Blood Pressure : / mmHG Vent. Rate : 079 BPM Atrial Rate : 092 BPM P-R Int : 168 ms QRS Dur : 092 ms QT Int : 360 ms P-R-T Axes : 078 -18 002 degrees QTc Int : 412 ms Sinus rhythm with marked sinus arrhythmia with Premature atrial complexes Otherwise normal ECG When compared with ECG of 30-APR-2023 18:18, Premature atrial complexes are now Present Referred By: Clarence Talbert Electronically Signed By:YAIMA GRANADOS
== END ==
LOC: HO.CARD 12:08
PROVIDERS: PCP Internal Medicine; Visit Provider Internal Medicine
DX: I49.9 Cardiac arrhythmia, unspecified (principal)
CPT/HCPCS: 93005

== ENCOUNTER 2024-03-07 14:36 | Outpatient (AMB) | payer MEDICARE, OTHER, SELFPAY ==
--- NOTE | 2024-03-07 14:48 | A.OFFVIS_ITS ---
Intake Visit Reasons: follow up-PVR Intake Note: Patient presents today for follow up on: BPH Urology Medications: Tamsulosin , Tadalafil Blood Thinner: none PVR: 0ml's Watchmaking Teacher Required: No Accompanied by: Self / Same As Patient Allergies metformin Allergy (Unknown, Verified 03/07/24 15:27) diarrhea rosuvastatin [Crestor] Allergy (Unknown, Verified 03/07/24 15:27) Unknown Medication List - Last Reconciled 03/07/24 by MANNY Slater- allopurinol 100 mg PO DAILY 90 days atorvastatin 10 mg PO DAILY colchicine 0.6 mg PO DAILY cyanocobalamin (vitamin B-12) 1,000 mcg PO DAILY [DIABETIC SHOES As directed] docusate sodium (Colace) 100 mg PO BID PRN empagliflozin (Jardiance) 25 mg PO DAILY folic acid 1 mg PO DAILY insulin aspart U-100 (Novolog FlexPen U-100 Insulin aspart) See Protocol Or as directed through sliding scale lansoprazole (Prevacid) 30 mg PO DAILY 90 days lisinopril 5 mg PO DAILY 90 days metoprolol succinate ER 50 mg PO DAILY 90 days pen needle, diabetic (BD Ultra-Fine Prisca Pen Needle) As directed sitagliptin phosphate (Januvia) 100 mg PO DAILY solifenacin (Vesicare) 5 mg PO DAILY 30 days tadalafil (Cialis) 20 mg PO DAILY PRN tadalafil (Cialis) 5 mg PO DAILY 90 days HPI Comments Details: Travis is a very pleasant 83 year old [facility] male patient of Dr. Talbert. He has a past medical history of tubular adenoma of the colon, GERD, osteoarthritis of the knees, erectile dysfunction, hypercholesteremia, hypertension, gout, and type 2 diabetes. He presents to the office today for follow-up of his lower urinary tract symptoms and erectile dysfunction. In discussion with the patient today he reports he continues with episodes of urinary urgency and frequency despite compliance with 0.8 mg of Flomax daily. Previous workup has included a retroperitoneal ultrasound as well as a PSA. PSA 06/05--1.7. Retroperitoneal ultrasound 07/07 noting bilateral kidneys with no calculi, lesions, and or hydronephrosis noted. The bladder is incompletely distended limiting for evaluation. Previous CT noting the kidneys are normal in size, shape, and attenuation. No hydronephrosis or hydroureter or calculi seen. No perinephric stranding. The bladder is distended which could represent physiological changes versus outlet obstruction secondary to enlarged prostate. He otherwise denies incontinence, hematuria, dysuria, foul smelling urine, flank pain, fever, and or chills. In office urinalysis results reviewed with the patient today. PVR 0ml's. We discussed at length potential causes for lower urinary tract symptoms patient is experiencing. We discussed in office cystoscopy. He otherwise off ers no other issues or concerns at this time. [facility] Medical History Enlarged prostate Nocturia Urinary dribbling Acute blood loss anemia Tubular adenoma of colon GERD (gastroesophageal reflux disease) Knee osteoarthritis Erectile dysfunction Hypercholesterolemia Hypertension Gout Type 2 diabetes mellitus with hyperglycemia Surgical History Cholelithiasis Gallstone pancreatitis Hx laparoscopic cholecystectomy (~05/11/23) History of cataract surgery History of knee replacement procedure of left knee History of eye surgery Family History Father Medical history unknown Mother Medical history unknown Social History Household Members: Spouse Housing: House Do you presently have visiting nurse or other home services: No Alcohol intake: current Alcohol intake frequency: a few times a week Alcohol type: beer, wine and hard liquor Patient Tobacco Use Status: Former Tobacco user Tobacco use type: Cigarette e-Cigarette/Vaping Use: Never Used Second Hand Smoke Exposure: No service: Yes Current occupational status: retired Cognitive needs: No Hearing needs: No Vision needs: Yes Review of Systems Const Reports as per HPI Eyes Reports no additional complaints ENT Reports no additional complaints Card Reports as per HPI Resp Reports no additional complaints GI Reports as per HPI Reports as per HPI Musc Reports as per HPI Neuro Reports no additional complaints Psych Reports no additional complaints Endo Reports as per HPI Physical Exam Const General: cooperative, healthy appearing, comfortable, no acute distress, well developed, alert and awake Orientation/consciousness: patient oriented x3 Limitations: no limitations HEENT Head: Yes normal to inspection, Yes normocephalic and Yes atraumatic Ears: hearing grossly normal bilaterally Eyes General: appearance normal, both eyes and all related structures Neck Neck: Yes normal visual inspection and Yes trachea midline Chest Chest palpation & inspection: normal inspection of the chest Resp Effort & Inspection: normal respiratory effort and able to speak in complete sentences Cardio Rate: regular rate GI Inspection: Yes normal to inspection General: Yes no CVA tenderness Back/Spine/Pelvis Back: no CVA tenderness Skin General skin exam: no rashes or lesions noted Neuro General: patient oriented x3 Extrem General: Yes normal to inspection Psych Appearance: grossly normal and well kempt Mental Status: mental status grossly normal Speech and movement: Normal speech and movement present and Clear speech present Affect: normal affect Attitude: cooperative Thought process: Normal thought process present Thought content: Normal thought content present Insight: Good insight present (Psych) Judgement: Good judgement present (Psych) Office Procedures Post Void Residual Post Residual Void Post Void Residual (PVR): 0 70602-Nupy Void Residual by ultrasound Results AMB Urinalysis, Automated UA Leukoctes 0 Arthur/uL Last Edit by [employer] Cheryl on 03/07/24 15:01 UA Nitrite Last Edit by [employer] on 03/07/24 15:01 UA Urobilinogen 0.2 mg/dL Last Edit by [employer] on 03/07/24 15:01 UA Protein 0 mg/dL Last Edit by [employer] on 03/07/24 15:01 UA pH 6.0 Last Edit by [employer] on 03/07/24 15:01 UA Blood 0 Quinn/uL Last Edit by [employer] on 03/07/24 15:01 UA Specific [place] 1.015 Last Edit by [employer] on 03/07/24 15:01 UA Ketone Negative Last Edit by [employer] on 03/07/24 15:01 UA Bilirubin 0 mg/dL Last Edit by [employer] on 03/07/24 15:01 UA Glucose 1000 mg/dL Last Edit by Bruce Luna on 03/07/24 15:01 Results Reviewed Results Reviewed: Laboratory Last Values Urine pH (Auto) 6.0 03/07/24 14:52 Specific [place] (Auto) 1.015 03/07/24 14:52 Urine Protein (Auto) 0 mg/dL 03/07/24 14:52 Glucose (UA)(Auto) 1000 mg/dL 03/07/24 14:52 Urine Ketones (Auto) Negative 03/07/24 14:52 Urine Blood (Auto) 0 Quinn/uL 03/07/24 14:52 Urine Bilirubin (Auto) 0 mg/dL 03/07/24 14:52 Urine Urobilinogen (Auto) 0.2 mg/dL 03/07/24 14:52 Leukocyte Esterase (Auto) 0 Arthur/uL 03/07/24 14:52 Assessment & Plan Assessment & Plan (1) BPH (benign prostatic hyperplasia): Code(s): N40.0 - Benign prostatic hyperplasia without lower urinary tract symptoms Category: Medical (2) Urinary frequency: Code(s): R35.0 - Frequency of micturition Category: Medical Plan In office urinalysis results reviewed with the patient today; as noted above. PVR 0 mL. Discussed at length potential causes for lower urinary tract symptoms patient is experiencing Discussed, educated, and stressed the importance of managing diabetes for improvement lower urinary tract symptoms as well as overall health and well- being. Stop Flomax. Start VESIcare as discussed and prescribed. Continue with p.r.n. tadalafil 1 hour prior to sexual activity. Prescription provided for daily 5 mg Cialis. Discussed bladder triggers/irritants. Follow-up in 1-3 months with PVR; or sooner with any issues, concerns, and or questions. Orders: Orders AMB Urinalysis Automated Today Z13.9 - Encounter for screening, unspecified AMB Post Void Residual by ultrasound Today R35.0 - Frequency of micturition Medications: New solifenacin (Vesicare) 5 mg PO DAILY 30 days 30 tabs 3RF tadalafil (Cialis) [facility] [employer] [address] [id number] 5 mg PO DAILY 90 days 90 tabs 1RF Discontinued tamsulosin Discontinued Reason: Doctor's Order 0.8 mg (2 x 0.4 mg) PO BEDTIME 90 days 180 caps 1RF N40.1 - Benign prostatic hyperplasia with lower urinary tract symptoms, R35.1 - Nocturia Patient Instructions: The patient had an opportunity to ask questions regarding the treatment plan. All questions were answered. Physical exam, labs, and imaging were discussed and reviewed in detail. As well as risks, benefits, and discussion of treatment choices. No major barriers to understanding were identified. The patient expressed understanding and agreement with the above treatment plan. The patient was made aware they should contact our office by phone for worsening of their current condition, the appearance of new symptoms, or with any questions or concerns. Compliance is encouraged with any medications and follow up testing that is ordered. It is a privilege to be allowed the opportunity to participate in? your urological care.? Again, if you have any questions or concerns If you have any questions or concerns please do not hesitate to contact me. The office is [phone]. This note is constructed using voice recognition software. While every effort has been made to ensure accuracy dish maker errors may have been included. Yours sincerely, NATHAN Slater Coding Level of Care Code Est Pt Level 4 (39066) Complex EM visit Add On G2211 Diagnoses BPH (benign prostatic hyperplasia) N40.0 Urinary frequency R35.0 CPT Codes Post Residual Void - PVR CPT Code: 07426-Lrea Void Residual by ultrasound ([id number])
== END 2024-03-07 15:22 | disposition home or self-care (01) ==
PROVIDERS: PCP Internal Medicine; Visit Provider Nurse Practitioner Family
DX: N40.0 Benign prostatic hyperplasia without lower urinary tract symptoms (principal); R35.0 Frequency of micturition; Z13.9 Encounter for screening, unspecified
CPT/HCPCS: 99214; G2211

== ENCOUNTER → 2024-03-07 14:36 | Outpatient (BNVA) | payer MEDICARE, OTHER, SELFPAY | PROVIDERS: PCP Internal Medicine; Visit Provider Nurse Practitioner Family | DX: N40.1 Benign prostatic hyperplasia with lower urinary tract symptoms (principal); R35.0 Frequency of micturition | CPT/HCPCS: 51798; 81003; 99212 ==

== ENCOUNTER 2024-04-25 13:29 | Outpatient (AMB) | payer MEDICARE, OTHER, SELFPAY ==
--- NOTE | 2024-04-25 13:46 | A.OFFVIS_ITS ---
Intake Visit Reasons: 2m follow up Intake Note: Patient presents today for follow up on: BPH Urology Medications: Tamsulosin , Tadalafil Blood Thinner: none PVR: 28ml's Social Media Intern Required: No Accompanied by: Self / Same As Patient Allergies metformin Allergy (Unknown, Verified 04/25/24 14:19) diarrhea rosuvastatin [Crestor] Allergy (Unknown, Verified 04/25/24 14:19) Unknown Medication List - Last Reconciled 04/25/24 by MANNY Slater- allopurinol 100 mg PO DAILY 90 days atorvastatin 10 mg PO DAILY colchicine 0.6 mg PO DAILY cyanocobalamin (vitamin B-12) 1,000 mcg PO DAILY [DIABETIC SHOES As directed] docusate sodium (Colace) 100 mg PO BID PRN empagliflozin (Jardiance) 25 mg PO DAILY folic acid 1 mg PO DAILY insulin aspart U-100 (Novolog FlexPen U-100 Insulin aspart) See Protocol Or as directed through sliding scale lansoprazole (Prevacid) 30 mg PO DAILY 90 days lisinopril 5 mg PO DAILY 90 days pen needle, diabetic (BD Ultra-Fine Prisca Pen Needle) As directed sitagliptin phosphate (Januvia) 100 mg PO DAILY solifenacin (Vesicare) 5 mg PO DAILY 30 days tadalafil (Cialis) 20 mg PO DAILY PRN tadalafil (Cialis) 5 mg PO DAILY 90 days HPI Comments Details: Travis is a very pleasant 83 year old [facility] male patient of Dr. Talbert. He has a past medical history of tubular adenoma of the colon, GERD, osteoarthritis of the knees, erectile dysfunction, hypercholesteremia, hypertension, gout, and type 2 diabetes. He presents to the office today for follow-up of his lower urinary tract symptoms and erectile dysfunction. In discussion with the patient today he reports improvement in episodes of urinary urgency and frequency had been experiencing with 5 mg of VESIcare daily. Previous workup has included a retroperitoneal ultrasound as well as a PSA. PSA 06/05 1.7. Retroperitoneal ultrasound 07/07 noting bilateral kidneys with no calculi, lesions, and or hydronephrosis noted. The bladder is incompletely distended limiting for evaluation. Previous CT noting the kidneys are normal in size, shape, and attenuation. No hydronephrosis or hydroureter or calculi seen. No perinephric stranding. The bladder is distended which could represent physiological changes versus outlet obstruction secondary to enlarged prostate. He otherwise denies incontinence, hematuria, dysuria, foul smelling urine, flank pain, fever, and or chills. In office urinalysis results reviewed with the patient today. PVR 28ml's. He had previously trialed Flomax at 0.4 mg as well as 0.8 mg daily and did not find this helpful. We discussed at length potential causes for lower urinary tract symptoms patient is experiencing. He otherwise offers no other issues or concerns at this time. [facility] Medical History Enlarged prostate Nocturia Urinary dribbling Acute blood loss anemia Tubular adenoma of colon GERD (gastroesophageal reflux disease) Knee osteoarthritis Erectile dysfunction Hypercholesterolemia Hypertension Gout Type 2 diabetes mellitus with hyperglycemia Surgical History Cholelithiasis Gallstone pancreatitis Hx laparoscopic cholecystectomy (~05/11/23) History of cataract surgery History of knee replacement procedure of left knee History of eye surgery Family History Father Medical history unknown Mother Medical history unknown Social History Household Members: Spouse Housing: House Do you presently have visiting nurse or other home services: No Alcohol intake: current Alcohol intake frequency: a few times a week Alcohol type: beer, wine and hard liquor Patient Tobacco Use Status: Former Tobacco user Tobacco use type: Cigarette e-Cigarette/Vaping Use: Never Used Second Hand Smoke Exposure: No service: Yes Current occupational status: retired Cognitive needs: No Hearing needs: No Vision needs: Yes Review of Systems Const Reports as per HPI Eyes Reports no additional complaints ENT Reports no additional complaints Card Reports as per HPI Resp Reports no additional complaints GI Reports as per HPI Reports as per HPI Musc Reports as per HPI Neuro Reports no additional complaints Psych Reports no additional complaints Endo Reports as per HPI Physical Exam Const General: cooperative, healthy appearing, comfortable, no acute distress, well developed, alert and awake Orientation/consciousness: patient oriented x3 Limitations: no limitations HEENT Head: Yes normal to inspection, Yes normocephalic and Yes atraumatic Ears: hearing grossly normal bilaterally Eyes General: appearance normal, both eyes and all related structures Neck Neck: Yes normal visual inspection and Yes trachea midline Chest Chest palpation & inspection: normal inspection of the chest Resp Effort & Inspection: normal respiratory effort and able to speak in complete sentences Cardio Rate: regular rate GI Inspection: Yes normal to inspection General: Yes no CVA tenderness Back/Spine/Pelvis Back: no CVA tenderness Skin General skin exam: no rashes or lesions noted Neuro General: patient oriented x3 Extrem General: Yes normal to inspection Psych Appearance: grossly normal and well kempt Mental Status: mental status grossly normal Speech and movement: Normal speech and movement present and Clear speech present Affect: normal affect Attitude: cooperative Thought process: Normal thought process present Thought content: Normal thought content present Insight: Good insight present (Psych) Judgement: Good judgement present (Psych) Office Procedures Post Void Residual Post Residual Void Post Void Residual (PVR): 28 64159-Ttem Void Residual by ultrasound Results AMB Urinalysis, Automated UA Leukoctes 0 Arthur/uL Last Edit by Bruce Luna on 04/25/24 14:02 UA Nitrite Last Edit by Bruce Luna on 04/25/24 14:02 UA Urobilinogen 0.2 mg/dL Last Edit by Bruce Luna on 04/25/24 14:02 UA Protein 0 mg/dL Last Edit by Bruce Luna on 04/25/24 14:02 UA pH 6.0 Last Edit by rBuce Luna on 04/25/24 14:02 UA Blood 0 Quinn/uL Last Edit by Bruce Luna on 04/25/24 14:02 UA Specific [place] 1.015 Last Edit by Bruce Luna on 04/25/24 14:02 UA Ketone Last Edit by Bruce Luna on 04/25/24 14:02 UA Bilirubin 0 mg/dL Last Edit by Bruce Luna on 04/25/24 14:02 UA Glucose 500 mg/dL Last Edit by Bruce Luna on 04/25/24 14:02 Results Reviewed Results Reviewed: Laboratory Last Values Urine pH (Auto) 6.0 04/25/24 14:01 Specific [place] (Auto) 1.015 04/25/24 14:01 Urine Protein (Auto) 0 mg/dL 04/25/24 14:01 Glucose (UA)(Auto) 500 mg/dL 04/25/24 14:01 Urine Blood (Auto) 0 Quinn/uL 04/25/24 14:01 Urine Bilirubin (Auto) 0 mg/dL 04/25/24 14:01 Urine Urobilinogen (Auto) 0.2 mg/dL 04/25/24 14:01 Leukocyte Esterase (Auto) 0 Arthur/uL 04/25/24 14:01 Assessment & Plan Assessment & Plan (1) BPH (benign prostatic hyperplasia): Code(s): N40.0 - Benign prostatic hyperplasia without lower urinary tract symptoms Category: Medical (2) Urinary frequency: Code(s): R35.0 - Frequency of micturition Category: Medical Plan In office urinalysis results reviewed with the patient today; as noted above. PVR 28 mL. Continue VESIcare will increase to 10 mg daily as patient reports significant improvement in lower urinary tract symptoms. Will obtain PSA in 6 months. Follow-up in 6 months with PSA and PVR; or sooner with any issues, concerns, and or questions. Orders: Orders AMB Urinalysis Automated Today Z13.9 - Encounter for screening, unspecified AMB Post Void Residual by ultrasound Today N40.0 - Benign prostatic hyperplasia without lower urinary tract symptoms Prostate Specific Antigen 6 Months N40.0 - Benign prostatic hyperplasia without lower urinary tract symptoms Medications: Changed From solifenacin (Vesicare) 5 mg PO DAILY 30 days 30 tabs 3RF To solifenacin (Vesicare) 10 mg (2 x 5 mg) PO DAILY 90 days 180 tabs 2RF Patient Instructions: The patient had an opportunity to ask questions regarding the treatment plan. All questions were answered. Physical exam, labs, and imaging were discussed and reviewed in detail. As well as risks, benefits, and discussion of treatment choices. No major barriers to understanding were identified. The patient expressed understanding and agreement with the above treatment plan. The patient was made aware they should contact our office by phone for worsening of their current condition, the appearance of new symptoms, or with any questions or concerns. Compliance is encouraged with any medications and follow up testing that is ordered. It is a privilege to be allowed the opportunity to participate in? your urological care.? Again, if you have any questions or concerns If you have any questions or concerns please do not hesitate to contact me. The office is [phone]. This note is constructed using voice recognition software. While every effort has been made to ensure accuracy hand plate stacker errors may have been included. Yours sincerely, MANNY Slater-NATE Coding Level of Care Code Est Pt Level 3 (88460) Diagnoses BPH (benign prostatic hyperplasia) N40.0 Urinary frequency R35.0 CPT Codes Post Residual Void - PVR CPT Code: 20718-Rreo Void Residual by ultrasound ([id number])
== END 2024-04-25 14:55 | disposition home or self-care (01) ==
PROVIDERS: PCP Internal Medicine; Visit Provider Nurse Practitioner Family
DX: N40.0 Benign prostatic hyperplasia without lower urinary tract symptoms (principal); R35.0 Frequency of micturition; Z13.9 Encounter for screening, unspecified
CPT/HCPCS: 99213

== ENCOUNTER → 2024-04-25 13:29 | Outpatient (BNVA) | payer MEDICARE, OTHER, SELFPAY | PROVIDERS: PCP Internal Medicine; Visit Provider Nurse Practitioner Family | DX: N40.1 Benign prostatic hyperplasia with lower urinary tract symptoms (principal); N52.9 Male erectile dysfunction, unspecified; R35.0 Frequency of micturition; Z79.899 Other long term (current) drug therapy | CPT/HCPCS: 51798; 81003; 99212 ==

== ENCOUNTER 2024-07-10 13:12 | Outpatient (AMB) | payer MEDICARE, OTHER, SELFPAY ==
[2024-07-10 13:17] VITALS: BP 110/70; PULSE 95; TEMP 36.2; O2SAT 95; BMI 25.9
--- NOTE | 2024-07-10 13:17 | MHC.PC.OV ---
Vital Signs 07/10/24 13:17 Height 5 ft 4 in Weight 151 lb BMI 25.9 BP 110/70 Blood Pressure Location Lt brachial Position Sitting Pulse 95 Pulse Source Pulse Oximeter Temp 97.1 F Temp Source Oral Pulse Oximetry (%) 95 Oxygen Delivery Method Room Air Intake Visit Reasons: 3mth f/u Windows And Doors Installer Required: No Accompanied by: Spouse Allergies metformin Allergy (Unknown, Verified 07/10/24 13:23) diarrhea rosuvastatin [Crestor] Allergy (Unknown, Verified 07/10/24 13:23) Unknown Tobacco use date assessed: 07/10/24 Fall risk assessment: No Falls in past year Last assessed Fall Risk: 07/10/24 Dental Screening Dental Screen Date: 07/10/24 Did you have a dental visit in the last 12 months?: Yes Did you have a dental problem in the last 6 months where you did not have access to dental care?: No Was dental information given to patient?: Patient has dentist HPI 3mth f/u HPI Details The patient is an 83-year-old male presenting with concerns related to type 2 diabetes management, GERD, and stomach issues. The patient reports a history of elevated blood sugar readings, with current home monitoring indicating levels around 130 to 140 mg/dL. Hemoglobin A1c was noted as 5.5% at the last assessment. Despite these stable readings, the patient remains concerned about the frequency of higher readings. The patient also reports persistent GERD symptoms, characterized by frequent burping and episodes of heartburn that sometimes necessitate sleeping in a chair for relief. The patient takes lansoprazole daily, with intermittent use of Pepcid and a syrup for symptomatic control. There have been difficulties in identifying dietary triggers. Regarding general health maintenance, the patient follows up with urology and ophthalmology for known conditions, including increased medication for an unspecified urological issue and annual eye examinations. There is also a history of chronic insomnia related to GERD discomfort. Dental concerns were mentioned, with plans for potential teeth removal due to declining oral health. The patient acknowledges receipt of a flu shot and COVID-19 vaccination. During the current respiratory infection season, the patient experiences heightened anxiety about exposure due to frequent family visits. [facility] Medical History Enlarged prostate Nocturia Urinary dribbling Acute blood loss anemia Tubular adenoma of colon GERD (gastroesophageal reflux disease) Knee osteoarthritis Erectile dysfunction Hypercholesterolemia Hypertension Gout Type 2 diabetes mellitus with hyperglycemia Surgical History Cholelithiasis Gallstone pancreatitis Hx laparoscopic cholecystectomy (~05/11/23) History of cataract surgery History of knee replacement procedure of left knee History of eye surgery Family History Father Medical history unknown Mother Medical history unknown Social History Household Members: Spouse Housing: House Do you presently have visiting nurse or other home services: No Alcohol intake: current Alcohol intake frequency: a few times a week Alcohol type: beer, wine and hard liquor Patient Tobacco Use Status: Former Tobacco user Tobacco use type: Cigarette e-Cigarette/Vaping Use: Never Used Second Hand Smoke Exposure: No service: Yes Current occupational status: retired Cognitive needs: No Hearing needs: No Vision needs: Yes Questionnaire PHQ-9 Over the last 2 weeks, how often have you been bothered by any of the following problems? 1. Little interest or pleasure in doing things: not at all 2. Feeling down, depressed, or hopeless: not at all 3. Trouble falling or staying asleep, or sleeping too much: not at all 4. Feeling tired or having little energy: not at all 5. Poor appetite or overeating: not at all 6. Feeling bad about yourself - or that you are a failure or have let yourself or your family down: not at all 7. Trouble concentrating on things, such as reading the newspaper or watching television: not at all 8. Moving or speaking so slowly that other people could have noticed. Or the opposite - being so fidgety or restless that you have been moving around a lot more than usual: not at all 9. Thoughts that you would be better off or of hurting yourself in some way: not at all Total score: 0 Depression Screening Interpretation: Negative Depression Screening Done: Yes 24003 - PHQ-9 Billing: Yes Source: Developed by Drs. Burke Vera, Nikole Johns, Giovanni Johnson and colleagues, with an educational kim from [employer] Thrive Questionnaire Date Thrive assessed: 07/10/24 I am a: Patient What is your living situation today?: I have a steady place to live Within the past 12 months, did the food you bought not last and you didn't have the money to get more?: Never true Within the past 12 months, did you worry whether your food would run out before you got money to buy more?: Never true Do you have trouble paying for medicines?: No Do you have trouble getting transportation to medical appointments?: No Do you have trouble paying your heating and electricity bill?: No Do you have trouble taking care of your child, family member or friend?: No Do you have trouble with day-to-day activities such as bathing, preparing meals, shopping, managing finances, etc.?: No Are you currently unemployed and looking for a job?: No Are you interested in more education?: No Please select the resources that you would like help with: None Currently or been in a relationship where the following occur: No concerns reported THRIVE Score: 0 AUDIT C Alcohol Use Questionnaire (AUDIT-C) 1. How often do you have a drink containing alcohol?: 2-4 times a month 2. How many drinks containing alcohol do you have on a typical day when you are drinking?: 3 or 4 3. How often do you have six or more drinks on one occasion?: Weekly Total Score: 6 PRETTY-7 AMB Questionnaire PRETTY-7 Date PRETTY - 7 assessed: 07/10/24 Feeling nervous, anxious, or on edge: 0 = Not at all Not being able to stop or control worryin = Not at all Worrying too much about different things: 0 = Not at all Trouble relaxin = Not at all Being so restless that it is hard to sit still: 0 = Not at all Becoming easily annoyed or irritable: 0 = Not at all Feeling afraid as if something awful might happen: 0 = Not at all Total PRETTY-7 score (0-4 normal; 5-9 mild; 10-14 moderate; 15-21 severe): 0 Source: Developed by Drs. Burke Vera, Nikole Johns, Giovanni Johnson and colleagues, with an educational kim from [employer] PRETTY-7 Assessment Billing PRETTY-7 Assessment Tool: PRETTY-7 Assessment 90569 Physical exam (Primary Care) Vital Signs: Last Vital Signs Temp 97.1 F 07/10/24 13:17 Pulse 95 07/10/24 13:17 BP 110/70 07/10/24 13:17 Pulse Ox 95 07/10/24 13:17 Oxygen Delivery Method Room Air 07/10/24 13:17 BMI result Body Mass Index 25.9 Tobacco/Smoking Status: Tobacco use Status Tobacco use date assessed 07/10/24 07/10/24 13:24 Patient Tobacco Use Status Former Tobacco user 07/10/24 13:24 Tobacco use type Cigarette 07/10/24 13:24 e-Cigarette/Vaping Use Never Used 07/10/24 13:24 PHQ-9: PHQ-9 Score PHQ-9: Total score 0 07/10/24 13:26 Depression Screening Interpretation: Negative Thrive Assessment: Date of Thrive Assessment Date Thrive assessed 07/10/24 07/10/24 13:24 Currently or been in a relationship where the following occur: No concerns reported Const General: alert; No acute distress Eyes Conjunctivae: conjunctivae normal Resp Auscultation: clear to auscultation bilaterally Cardio Rate: regular rate Rhythm: regular rhythm GI Inspection: Yes normal to inspection Extrem General: Yes normal to inspection and No edema Office Procedures Flu Questionnaire Does the patient have a severe egg allergy?: No Results AMB Hemoglobin A1c AMB Hemoglobin A1c 5.5 % Last Edit by DADA Brown on 07/10/24 13:24 Immunizations Fluarix Triv [id number] (PF) 45 mcg (15 mcg x 3)/0.5 mL IM syringe Performing Provider: Clarence Talbert MD [facility] Documented (not given) by: DADA Brown on 07/10/24 13:24 Reason Not Given: Received Previously Results Reviewed Results Reviewed: Laboratory Last Values Hgb A1c (Clinic) 5.5 % (4.0-6.0) 07/10/24 13:13 Coding Level of Care Code Est Pt Level 4 (47079) Diagnoses Type 2 diabetes mellitus with hyperglycemia, without long-term current use of insulin E11.65 Diabetes mellitus long-term insulin use: without staff occupational therapist use Essential hypertension I10 Hypertension type: essential hypertension Hypercholesterolemia E78.00 GERD (gastroesophageal reflux disease) K21.9 BPH (benign prostatic hyperplasia) N40.0 Actinic keratoses L57.0 Additional Codes PRETTY-7 Assessment Billing - PRETTY-7 Assessment Tool: PRETTY-7 Assessment 17678 ([id number]) PHQ-9 - 17782 - PHQ-9 Billing: Yes ([id number]) Assessment & Plan Assessment & Plan (1) Type 2 diabetes mellitus with hyperglycemia: Comment: Eye physician Evita Code(s): E11.65 - Type 2 diabetes mellitus with hyperglycemia Category: Medical Qualifiers: Diabetes mellitus staff occupational therapist insulin use: without long-term use Qualified Code(s): E11.65 - Type 2 diabetes mellitus with hyperglycemia (2) Hypertension: Code(s): I10 - Essential (primary) hypertension Category: Medical Qualifiers: Hypertension type: essential hypertension Qualified Code(s): I10 - Essential (primary) hypertension (3) Hypercholesterolemia: Code(s): E78.00 - Pure hypercholesterolemia, unspecified Category: Medical (4) GERD (gastroesophageal reflux disease): Code(s): K21.9 - Gastro-esophageal reflux disease without esophagitis Category: Medical (5) BPH (benign prostatic hyperplasia): Code(s): N40.0 - Benign prostatic hyperplasia without lower urinary tract symptoms Category: Medical (6) Actinic keratoses: Code(s): L57.0 - Actinic keratosis Category: Medical Plan - Continue monitoring blood glucose levels regularly, maintaining current insulin regimen to stabilize blood sugar. - Emphasize dietary management and advise creating a food diary to identify triggers exacerbating GERD symptoms. - Reassess GERD medication regimen, with consideration of a gastroenterology referral for further evaluation. - Arrange dermatology appointment to address recent skin changes of concern. - Continue eye and urological follow-ups as scheduled. - Discuss dental health with plans for upcoming extraction; consider prosthodontic consultation as needed. - Maintain flu and COVID-19 prophylaxis status, reinforce hand hygiene, and limit exposure to potential viral infections during peak seasons. - Emphasize sleep hygiene and improve GERD management to alleviate symptoms impacting sleep quality. - Schedule routine blood work before the next appointment in six months to assess chronic condition markers. Orders: Orders Comprehensive Met. Panel 6 Months .65 - Type 2 diabetes mellitus with hyperglycemia Ferritin 6 Months E11.65 - Type 2 diabetes mellitus with hyperglycemia Vitamin B12 and Folate 6 Months .65 - Type 2 diabetes mellitus with hyperglycemia Hemoglobin A1c 6 Months E11.65 - Type 2 diabetes mellitus with hyperglycemia Microalbumin, Random (w Creat) 6 Months E11.65 - Type 2 diabetes mellitus with hyperglycemia IRON PROFILE 6 Months E11.65 - Type 2 diabetes mellitus with hyperglycemia Influenza [id number] Immunization Today Z23 - Encounter for immunization AMB Hemoglobin A1c Today E11.65 - Type 2 diabetes mellitus with hyperglycemia Complete Blood Count Auto Diff 6 Months E11.65 - Type 2 diabetes mellitus with hyperglycemia Free T4 (Free Thyroxine) 6 Months E11.65 - Type 2 diabetes mellitus with hyperglycemia Lipid Panel 6 Months E11.65 - Type 2 diabetes mellitus with hyperglycemia, E78.00 - Pure hypercholesterolemia, unspecified Reticulocyte Count 6 Months E11.65 - Type 2 diabetes mellitus with hyperglycemia Thyroid Stimulating Hormone 6 Months E11.65 - Type 2 diabetes mellitus with hyperglycemia Creatinine Urine 6 Months E11.65 - Type 2 diabetes mellitus with hyperglycemia Referrals Dermatology Referral L57.0 - Actinic keratosis Gastroenterology Referral K21.9 - Gastro-esophageal reflux disease without esophagitis Medications: Refilled allopurinol 100 mg PO DAILY 90 tabs 2RF 90 days M10.9 - Gout, unspecified lisinopril 5 mg PO DAILY 90 tabs 2RF 90 days E11.65 - Type 2 diabetes mellitus with hyperglycemia
--- OUTSIDE RECORDS SUMMARY | 2024-07-10 17:53 | XMS_ITS ---
Author Organization [facility] Address [address] [place] [id number] Care Team Providers Care Environmental Assistant Name Role Phone Clarence Talbert MD Primary Care Provider Gabriel Love Jr REASON FOR VISIT H & P Encounters Encounter Location Date Provider Diagnosis [facility] [address] [place] [address] 06/25/2023 Gabriel Cueto Jr PLAN OF TREATMENT No Information
--- OUTSIDE RECORDS SUMMARY | 2024-07-10 17:53 | XMS_ITS | Patient Health Record ---
Author Organization [facility] Address [address] [place] [phone] Care Team Providers Care Trace Evidence Technician Name Role Phone Clarence Talbert MD Primary Care Provider Gabriel Love Jr Unavailable REASON FOR REFERRAL No Information MEDICATIONS Medication SIG (Take, Route, Frequency, Duration) Notes Start Date End Date Status Lisinopril 5 MG 1 tablet Orally Once a day Active Metoprolol Succinate ER 50 MG 1 tablet Orally Once a day Active Crestor 20 MG 1 tablet Orally Once a day Active Pioglitazone HCl 15 MG 1 tablet Orally O nce a day Active Aspir-81 81 MG 1 tablet Orally Once a day Active Lansoprazole 15 MG 1 capsule Orally Onc e a day Active Colyte with Flavor Packs 240 GM As directed Orally Over the specified time. for 1 day(s) 08/21/2015 Active Allopurinol 100 MG 1 tablet Orally Once a day Active Viagra 100 MG 1 tablet as needed O rally prn Active IMMUNIZATIONS Vaccine Route Administration Date Status Comme nts Flu vaccine no Preserv 3 and > Unknown 03/26/2015 Admin istered SOCIAL HISTORY Sex Assigned At : Social History Observation Description Sex Assigned At Unknown PROBLEMS Problem Type ICD Code Onset Dates Problem Status W/U Status Risk SNOMED Code Notes Problem Hypertension (I10) Active confirmed 383 65636 Problem Colon cancer screening (Z12.11) Active confirmed 610692990 Problem Gastroesophageal reflux disease without esophagitis (K21.9) Active confirmed 129759454 Problem Common bile duct stone (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) Active confirmed 686381036 Problem Gastritis (K29.70) Active confirmed Gas tritis (6053542) Problem Diverticulosis of large intestine without perforation or abscess without bleeding (K57.30) Active confirmed Diverticul ar disease of colon (498252997) PLAN OF TREATMENT Future Test Test Name Order Date COLONOSCOPY 08/21/2015 Insurance Providers Payer Name Payer Address Payer Phone Subscriber Number Group Number Insured Name Patient Relationship to Insured Coverage Start Date Coverage End Date MEDICARE OF [place] [address] [place] [phone] [id number] EMILY HEATON Self - patient is the insured [facility] [address] [place] [phone] [id number] EMILY HEATON Self - patient is the insured MEDICAL (GENERAL) HISTORY Medical History History ICD Code colonoscopy 10-17-2010 colon polyps diabetes mellitus type 2 elevated cholesterol hypertension 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
--- OUTSIDE RECORDS SUMMARY | 2024-07-10 17:54 | XMS_ITS ---
Author Organization [facility] Address [address] [place] [address] Care Team Providers Care Zipper Lining Folder Name Role Phone Clarence Talbert MD Primary Care Provider Gabriel Love Jr REASON FOR VISIT cbd stone Encounters Encounter Location Date Provider Diagnosis [facility] [place] Outpatient [address] [place] [phone] 06/30/2023 Gabriel Cueto Jr Common bile duct stone K80.50 ASSESSMENTS Encounter Date Diagnosis Assessment Notes Treatment Notes Treatment Clinical Notes 06/30/2023 Common bile duct stone (ICD-10 - K80.50) PLAN OF TREATMENT No Information
--- OUTSIDE RECORDS SUMMARY | 2024-07-10 17:54 | XMS_ITS ---
Author Organization [facility] Address [address] [place] [phone] Care Team Providers Care Floorworker Name Role Phone Clarence Talbert MD Primary Care Provider Gabriel Love Jr REASON FOR VISIT Patient presents today for Weight loss,nausea Encounters Encounter Location Date Provider Diagnosis [facility] [address] [place] [phone] 06/03/2023 Gabriel Cueto Jr PLAN OF TREATMENT No Information
== END 2024-07-10 13:46 | disposition home or self-care (01) ==
PROVIDERS: PCP Internal Medicine; Visit Provider Internal Medicine
DX: E11.65 Type 2 diabetes mellitus with hyperglycemia (principal); I10 Essential (primary) hypertension; E78.00 Pure hypercholesterolemia, unspecified; K21.9 Gastro-esophageal reflux disease without esophagitis; N40.0 Benign prostatic hyperplasia without lower urinary tract symptoms; L57.0 Actinic keratosis; Z23 Encounter for immunization

== ENCOUNTER → 2024-07-10 13:12 | Outpatient (BNVA) | payer MEDICARE, OTHER, SELFPAY | PROVIDERS: PCP Internal Medicine; Visit Provider Internal Medicine | DX: E11.65 Type 2 diabetes mellitus with hyperglycemia (principal); E78.00 Pure hypercholesterolemia, unspecified; I10 Essential (primary) hypertension; K21.9 Gastro-esophageal reflux disease without esophagitis; N40.0 Benign prostatic hyperplasia without lower urinary tract symptoms; L57.0 Actinic keratosis | CPT/HCPCS: 83036; 90471; 96127; 99212 ==

== ENCOUNTER 2025-01-06 07:02 | Outpatient (REF) | payer MEDICARE, OTHER, SELFPAY ==
[2025-01-06 07:21] LABS: MANUAL DIFF FLAG NO
[2025-01-06 07:49] LABS: Hematocrit 41.1 % (42.0-52.0); Hemoglobin 14.3 g/dl (14.0-18.0); Imm Gran Abs Auto 0.02 X10*3/uL (0.00-0.03); Imm Gran Pct Auto 0.4 % (0.0-0.4); Lymphocytes Absolute Auto 1.1 X10*3/uL (1.2-4.9); Mean Corpuscular HGB Conc 34.8 g/dl (31.0-36.0); Mean Corpuscular Hemoglobin 34.5 pg (27.0-33.0); Mean Corpuscular Volume 99.0 fL (80.0-98.0); NRBC Abs Auto 0.000 X10*3/uL (0.0-0.012); NRBC Pct Auto 0.0 /100WBC (0.0-0.2); Platelet Count 130 X10*3/uL (160-400); Red Blood Count 4.15 X10*6/uL (4.60-5.80); Reticulocytes Absolute 0.105 X10*6/uL (0.026-0.095); White Blood Count 4.8 X10*3/uL (4.8-10.8)
[2025-01-06 08:00] LABS: Hemoglobin A1C 130.8348 umol/L; Total Hemoglobin (HGBA1C) 3732.8524 umol/L
[2025-01-06 08:39] LABS: Alanine Aminotransferase 25 U/L (0-40); Albumin Level 4.1 g/dL (3.5-5.0); Alkaline Phosphatase 104 U/L (39-117); Anion Gap 12 (12-20); Aspartate Amino Transferase 30 U/L (5-37); Blood Urea Nitrogen 23 mg/dL (9-16); Calcium 9.3 mg/dL (8.4-10.2); Carbon Dioxide 25 mmol/L (22-29); Chloride 109 mmol/L (96-108); Cholesterol 79 mg/dL (<200); Estimated Glomerular Filt Rate > 60; HDL Cholesterol 28 mg/dL (>40); Iron 105 mcg/dL (45-160); Percent Iron Saturation 34 % (15-50); Potassium 4.3 mmol/L (3.3-5.1); Sodium 142 mmol/L (135-145); Total Iron Binding Capacity 309 mcg/dL (228-428); Total Protein 6.6 g/dL (6.5-8.0); Triglycerides 94 mg/dL (<150); Unsaturated Iron Binding 204 ug/dL
[2025-01-06 08:52] LABS: Prostate Specific Antigen 1.71 ng/mL (<0.05-4.0)
[2025-01-06 08:55] LABS: Ferritin 52 ng/mL (20-250); Free T4 (Free Thyroxine) 0.92 ng/dL (0.71-1.85); Thyroid Stimulating Hormone 2.94 uIU/mL (0.32-4.0)
[2025-01-06 09:08] LABS: Folate 14.3 ng/mL (> or = 4.0); Vitamin B12 440 pg/mL (200-900)
== END 2025-01-06 07:03 | disposition home or self-care (01) ==
LOC: HO.LAB 07:02
PROVIDERS: Absent Provider Internal Medicine; PCP Internal Medicine; Visit Provider Nurse Practitioner Family
DX: N40.0 Benign prostatic hyperplasia without lower urinary tract symptoms (principal); E11.65 Type 2 diabetes mellitus with hyperglycemia; E78.00 Pure hypercholesterolemia, unspecified
CPT/HCPCS: 36415; 80053; 80061; 82043; 82570; 82607; 82728; 82746; 83036; 83540; 84153; 84439; 84443; 85025; 85045

== ENCOUNTER 2025-01-08 21:30 | Inpatient (IN) | payer MEDICARE, OTHER, SELFPAY ==
--- NOTE | ~2025-01-08 | XR_ITS ---
CLINICAL HISTORY: ng tube placement 1 view chest x-ray Comparison: CR - XR CHEST 1V - 01/09/25 04:18 EDT Findings: No consolidation or effusion. Normal size heart. No acute fracture. The enteric tube tip is in the region of the gastroesophageal junction. IMPRESSION: The enteric tube tip is in the region of the gastroesophageal junction and should be slightly advanced. This document has been electronically signed by: Tomas Santiago MD on 01/09/2025 06:02:17
--- NOTE | ~2025-01-08 | XR_ITS ---
CLINICAL HISTORY: NG tube placement 1 view chest x-ray Comparison: CR/OH/SR - XR CHEST 2V - 04/30/2023 06:50 PM EST Findings: The lungs are clear. Normal size heart. No acute fracture. The enteric tube is folded within the esophagus. IMPRESSION: The enteric tube is folded within the esophagus. This document has been electronically signed by: Tomas Santiago MD on 01/09/2025 05:10:50
--- NOTE | ~2025-01-08 | FL_ITS ---
EXAMINATION: FL SMALL BOWEL SERIES CLINICAL INFORMATION: SBO COMPARISON: CT abdomen pelvis 01/09/2025 TECHNIQUE: Following a instructional materials director image of the abdomen, contrast was administered orally, and interval abdominal radiographs were performed to assess for contrast progression through the small bowel. Following contrast transit through the small bowel and into the colon, the patient was placed on the fluoroscopy table, and multiple spot images were obtained. FINDINGS: Compounding Assistant image of the abdomen demonstrates scattered stool and gas in colon and scattered gas in proximal small bowel loops without distention. Slightly dilated urinary bladder is seen with excreted contrast from earlier CT abdomen and pelvis exam. There is normal transit time of 50-50 diluted Gastrografin contrast material through the small bowel, with contrast present in the colon by 90 minutes. Small bowel loops are of normal caliber throughout the abdomen and pelvis with scattered air-fluid levels in the upper abdomen on 90 and 60 minute images. The jejunal and ileal fold patterns are normal, without evidence of abnormal thickening. No fixed regions of luminal narrowing are seen to suggest stricturing. The terminal ileum demonstrates a normal appearance. FLUOROSCOPY TIME: 0 DOSE AREA PRODUCT: 0 uGy-m2 (microgray-meter squared) FL/FL small bowel follow through IMPRESSION: Normal small bowel transit time of 90 minutes. Descending colon is visualized by 120 minutes. No signs of small bowel obstruction seen. Electronically signed by: Milton Chris MD 01/09/2025 01:53 PM EDT
--- NOTE | ~2025-01-08 | XR_ITS ---
EXAMINATION: XR ABDOMEN KUB CLINICAL INDICATION: sbo COMPARISON: Small bowel follow-through prior day. CT abdomen and pelvis prior day. TECHNIQUE: AP view of the abdomen. FINDINGS: NG tube is seen with the tip in the gastric antrum/duodenal bulb region. Cholecystectomy clips are present. Oral contrast previously administered is seen predominantly within the colon and rectum. There is no persistent pathologic dilatation of small bowel or colon. There is colonic diverticulosis noted throughout the colon. No abnormal abdominal calcifications or organomegaly noted. Limited imaging of the lung bases demonstrates no abnormality. Degenerative changes of the spine and SI joints present. No acute bony abnormality. XR/XR KUB IMPRESSION: 1. No persistent abnormal dilatation of small or large bowel loops. Contrast is noted throughout the colon and rectum. 2. NG tube in place with tip in the gastric antrum/duodenal bulb region. Electronically signed by: Jagdeep Singer MD 01/10/2025 08:44 AM EDT
--- NOTE | ~2025-01-08 | CT_ITS ---
CLINICAL HISTORY: Nausea, vomiting, abdominal distention, R O bowel CT Abdomen and Pelvis W Contrast COMPARISON: CT - CT ABDOMEN PELVIS W IV CON - 01/09/25 01:07 EDT FINDINGS: Stable 3 mm right lower lobe pulmonary nodule, considered benign by Fleischner society criteria. Mild cardiomegaly. Small hiatal hernia. Normal liver. Normal spleen. Normal kidneys. Normal adrenal glands. Normal pancreas. Status post cholecystectomy. No abnormal biliary dilation. Colonic diverticulosis without evidence of acute diverticulitis. Mild thickening of the snyder of the ascending and transverse colon. Mobile cecum located in the right mid to upper abdomen. No pneumatosis. Air-fluid levels in dilated small bowel loops measuring up to 4.3 cm in diameter. There is a transition point in the right lower quadrant (series 8, image 41). Normal appendix. Unremarkable bladder. Mildly enlarged prostate. No ascites. No pneumoperitoneum. No lymphadenopathy. No acute fracture. Lumbar levoscoliosis. Degenerative changes in the spine. No abdominal aortic aneurysm. Atherosclerosis. Patent SMA. Bilateral fat-containing inguinal hernias. IMPRESSION: Small-bowel obstruction with transition point in the right lower quadrant. Colonic wall thickening, which could be due to underdistention or colitis. Nonemergent/incidental findings above. This document has been electronically signed by: Michael Rudd MD on 01/09/2025 02:27:02
--- NOTE | ~2025-01-08 | XR_ITS ---
CLINICAL HISTORY: ng placement 1 view chest x-ray Comparison: None provided Findings: The tip of the enteric tube is in the region of the gastroesophageal junction and should be slightly advanced. Lungs are essentially clear. No acute fracture. IMPRESSION: The tip of the enteric tube is in the region of the gastroesophageal junction and should be advanced. This document has been electronically signed by: Tomas Santiago MD on 01/09/2025 06:33:45
[2025-01-08 21:42] VITALS: BP 122/76; PULSE 87; RESP 18; TEMP 36.4; O2SAT 98; BMI 22.7
[2025-01-08 22:06] LABS: Hematocrit 45.2 % (42.0-52.0); Hemoglobin 15.9 g/dl (14.0-18.0); Imm Gran Abs Auto 0.07 X10*3/uL (0.00-0.03); Imm Gran Pct Auto 0.4 % (0.0-0.4); Lymphocytes Absolute Auto 0.5 X10*3/uL (1.2-4.9); MANUAL DIFF FLAG SCAN; Mean Corpuscular HGB Conc 35.2 g/dl (31.0-36.0); Mean Corpuscular Hemoglobin 34.3 pg (27.0-33.0); Mean Corpuscular Volume 97.4 fL (80.0-98.0); NRBC Abs Auto 0.000 X10*3/uL (0.0-0.012); NRBC Pct Auto 0.0 /100WBC (0.0-0.2); Platelet Count 143 X10*3/uL (160-400); Red Blood Count 4.64 X10*6/uL (4.60-5.80); SCAN SMEAR FLAG 1; White Blood Count 16.2 X10*3/uL (4.8-10.8)
[2025-01-08 22:25] LABS: Alanine Aminotransferase 22 U/L (0-40); Albumin Level 4.5 g/dL (3.5-5.0); Alkaline Phosphatase 119 U/L (39-117); Anion Gap 19 (12-20); Aspartate Amino Transferase 36 U/L (5-37); Blood Urea Nitrogen 16 mg/dL (9-16); Calcium 9.8 mg/dL (8.4-10.2); Carbon Dioxide 21 mmol/L (22-29); Chloride 107 mmol/L (96-108); Creatinine Clr Calc Pharmacy 57.6; Estimated Glomerular Filt Rate > 60; Potassium 4.6 mmol/L (3.3-5.1); Sodium 142 mmol/L (135-145); Total Protein 7.4 g/dL (6.5-8.0)
--- NOTE | 2025-01-08 23:25 | PC.NURSE ---
to triage room states pt has vomited approximately 200ccs of dark emesis that smells of fecal matter. Provider and needle polisher aware.
[2025-01-08 23:29] LABS: Appearance Urine Clear; Glucose Urine UA >=1000 mg/dL (Negative); PH 5.5 (5.0-9.0); Specific Gravity - Urine >= 1.030 (1.005-1.025); UMIC TRIGGER UACC YES
[2025-01-08 23:58] VITALS: BP 119/54; PULSE 87; RESP 16; TEMP 36.5; O2SAT 97
[2025-01-09 00:55] LABS: Lipase 11 U/L (8-78)
--- NOTE | 2025-01-09 01:03 | PC.NURSE ---
Labs drawn by certified nurse operating room, medications administered as per aug. plan of care ongoing
--- NOTE | 2025-01-09 01:26 | ED.ABDPAIN ---
HPI - Abdominal Pain General Chief Complaint: Abdominal Pain Stated Complaint: vomiting,abd pain Time Seen by Provider: 01/09/25 00:24 Source: patient and family () Mode of arrival: ambulatory Limitations: no limitations History of Present Illness ED Provider: Dr. Maxwell Mckenzie HPI narrative: 84-year-old male with a history of diabetes mellitus, hypertension, hyperlipidemia, GERD, BPH, cholecystectomy who presents emergency department for evaluation of nausea, vomiting, lower abdominal pain since 07:00 hours on 01/08/2025. The patient states that he had a bowel movement earlier in the morning and a bowel movement at 08:00. He then played golf and developed lower abdominal pain. He states he has had an intermittent, sharp pain which is 7/10 at its worst. He did not feel bloated. He states he has had constant nausea in his vomited multiple times since onset of his pain. 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 She states that he vomited 300-500 cc of brown fecal smelling emesis. She states that he did not have any hematemesis or coffee-ground emesis. The patient denied fever or chills. He denied dark stools or bloody stools. He denied frequency, urgency or dysuria. Related Data Home Medications ?Medication ?Instructions ?Recorded ?Confirmed cyanocobalamin (vitamin B-12) 1,000 mcg PO DAILY 05/04/23 04/25/24 1,000 mcg tablet insulin aspart U-100 100 unit/mL 0 sliding scale dose subcut TIDAC 05/04/23 04/25/24 (3 mL) subcutaneous pen (Novolog FlexPen U-100 Insulin aspart) Previous Rx's ?Medication ?Instructions ?Recorded docusate sodium 100 mg capsule 100 mg PO BID PRN constipation #30 05/13/23 (Colace) caps pen needle, diabetic 32 gauge x #100 ea 10/12/23 (BD Ultra-Fine Prisac Pen Needle) colchicine 0.6 mg tablet 0.6 mg PO DAILY #30 tabs 10/28/23 DIABETIC SHOES #1 ea 02/08/24 lansoprazole 30 mg capsule,delayed 30 mg PO DAILY 90 days #90 caps 02/09/24 release (Prevacid) tadalafil 5 mg tablet (Cialis) 5 mg PO DAILY 90 days #90 tabs 03/07/24 atorvastatin 10 mg tablet 10 mg PO DAILY #90 tabs 04/07/24 solifenacin 5 mg tablet (Vesicare) 10 mg (2 x 5 mg) PO DAILY 90 days 04/25/24 #180 tabs folic acid 1 mg tablet 1 mg PO DAILY #90 tabs 05/06/24 empagliflozin 25 mg tablet 25 mg PO DAILY #90 tabs 06/20/24 (Jardiance) allopurinol 100 mg tablet 100 mg PO DAILY 90 days #90 tabs 07/10/24 lisinopril 5 mg tablet 5 mg PO DAILY 90 days #90 tabs 07/10/24 sitagliptin phosphate 100 mg 100 mg PO DAILY #90 tabs 10/13/24 tablet (Januvia) tadalafil 20 mg tablet (Cialis) 20 mg PO DAILY PRN sexual activity 10/13/24 #14 tabs Allergies Allergy/AdvReac Type Severity Reaction Status Date / Time metformin Allergy Unknown diarrhea Verified 01/08/25 21:44 rosuvastatin (Crestor) Allergy Unknown Unknown Verified 01/08/25 21:44 Review of Systems Review of Systems Yes all other systems are reviewed and are negative [facility] Past Medical History [facility] Narrative: Social history: He denies tobacco, alcohol and drug use. The patient is . 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 His son is a med-peds doctor at [employer] and his daughter is an ED doctor. Medical History Enlarged prostate Nocturia Urinary dribbling Acute blood loss anemia Tubular adenoma of colon GERD (gastroesophageal reflux disease) Knee osteoarthritis Erectile dysfunction Hypercholesterolemia Hypertension Gout Type 2 diabetes mellitus with hyperglycemia Surgical History Cholelithiasis Gallstone pancreatitis Hx laparoscopic cholecystectomy (~05/11/23) History of cataract surgery History of knee replacement procedure of left knee History of eye surgery Family History Family History Father Medical history unknown Mother Medical history unknown Social History Social History Household Members: Spouse Housing: House Do you presently have visiting nurse or other home services: No Alcohol intake: current Alcohol intake frequency: 0-2 drinks per day Alcohol type: hard liquor Patient Tobacco Use Status: Former Tobacco user Tobacco use type: Cigarette Smoked in Last 30 Days: No e-Cigarette/Vaping Use: Never Used Second Hand Smoke Exposure: No Use of substances other than those prescribed or required for medical reasons: No Advance Directives: No Advance Directives Information Provided: Yes service: Yes Current occupational status: retired Cognitive needs: No Hearing needs: No Vision needs: Yes Physical Exam ED Vital Signs: Vital Signs - 24 hr 01/08/25 21:42 01/08/25 23:58 01/09/25 01:57 Temperature 97.5 F 97.7 F 99.3 F Pulse Rate 87 87 85 Respiratory Rate 18 16 18 Blood Pressure 122/76 119/54 L 109/52 L Pulse Oximetry 98 97 93 Oxygen Delivery Method Room Air Room Air Room Air BMI result Body Mass Index 22.7 Vital signs were normal Exam: General: Awake, alert in no distress, he is burping frequently, has a ketotic odor to his breath Head: Normocephalic, atraumatic EENT: PERRL, Lids normal, sclera normal, conjunctiva normal, nose normal , ears normal, throat without erythema or exudates Neck: Supple, no adenopathy Lung: breath sounds symmetric, no wheezing, rales or rhonchi Chest: symmetric movement, nontender Heart: regular rate and rhythm, normal S1, S2 no murmurs or rubs Abdomen: soft, mild to moderate suprapubic tenderness, mild to moderate left lower and right lower quadrant tenderness, nondistended, normal bowel sounds, no voluntary or involuntary guarding, no rebound Back: no vertebral tenderness, no CVAT Extremities: no deformities, moves all extremities symmetrically Neuro: Awake, alert, oriented, normal speech, cranial nerves intact, moves all extremities symmetrically Psych: Pleasant, cooperative Medical Decision Making Medical Decision Making MDM Narrative: 84-year-old male with a history of diabetes mellitus, hypertension, hyperlipidemia, GERD, BPH, cholecystectomy who presents emergency department for evaluation of nausea, vomiting, lower abdominal pain since 07:00 hours on 01/08/2025. The patient states that he had a bowel movement earlier in the morning and a bowel movement at 08:00. He then played golf and developed lower abdominal pain. He states he has had an intermittent, sharp pain which is 7/10 at its worst. He did not feel bloated. He states he has had constant nausea in his vomited multiple times since onset of his pain. 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 She states that he vomited 300-500 cc of brown fecal smelling emesis. She states that he did not have any hematemesis or coffee-ground emesis. The patient denied fever or chills. He denied dark stools or bloody stools. He denied frequency, urgency or dysuria. Vital signs were normal. Patient had a ketotic odor to his breath. Patient had lower abdominal tenderness with no rebound, no abdominal distention, normoactive bowel sounds Differential diagnosis: ?Includes but is not limited to bowel obstruction, diverticulitis, pancreatitis, viral syndrome, anemia, electrolyte abnormalities Course: 02:39 My independent interpretation patient's laboratory evaluation is as follows: WBC elevated 16,200. Platelet count low 143,000-chronic. Glucose elevated 136. Bicarb low 21. Bilirubin elevated 1.3. Alk-phos elevated 119. Lactic acid was normal at 0.8. Urine analysis revealed a concentrated urine. Microscopic revealed 0-2 RBCs, 0-2 WBCs, no bacteria. The patient was treated with normal saline IV x1 L, morphine 4 mg IV and Zofran 4 mg IV with improvement of his pain and no change in his abdominal tenderness. CT scan of the abdomen pelvis with IV contrast is consistent with a small-bowel obstruction with transition point in the right lower quadrant. Colonic wall thickening which could be due to underdistention or colitis. 03:23 I did discuss the patient's presentation over tiger text with the covering surgeon, Dr. Rodarte. She recommended NG tube to intermittent low wall suction. She will admit the patient to her service. I ordered a type and screen, PT/INR, PTT and EKG. I did discuss the CT scan findings and treatment plan with the patient and the patient's . Admission/Observation Consideration of admission/observation: Escalation of care including admission/observation considered (Yes) Consult Healthcare Provider Management of the patient was discussed with: Electrician Assistant (Surgeon on-call, Dr. Rodarte) Lab Data MDM Lab Attestation statement: I reviewed the patient's lab results. 01/08/25 21:54 01/08/25 21:54 Labs: Lab Results 01/08/25 01/08/25 01/09/25 Range/Units 21:54 23:23 01:04 WBC 16.2 H (4.8-10.8) X10*3/uL RBC 4.64 (4.60-5.80) X10*6/uL Hgb 15.9 (14.0-18.0) g/dl Hct 45.2 (42.0-52.0) % MCV 97.4 (80.0-98.0) fL MCH 34.3 H (27.0-33.0) pg MCHC 35.2 (31.0-36.0) g/dl RDW 13.5 (11.0-16.0) % Plt Count 143 L (160-400) X10*3/uL MPV 11.7 (9.4-12.4) fL Immature Gran % (Auto) 0.4 (0.0-0.4) % Neut % (Auto) 90.4 H (45-73) % Lymph % (Auto) 3.3 L (20-40) % [place] % (Auto) 5.6 (2-11) % Eos % (Auto) 0.1 (0-4) % Baso % (Auto) 0.2 (0-2) % Lymph # (Auto) 0.5 L (1.2-4.9) X10*3/uL [place] # (Auto) 0.9 (0.1-1.2) X10*3/uL Eos # (Auto) 0.0 (0.0-0.4) X10*3/uL Baso # (Auto) 0.0 (0.0-0.2) X10*3/uL Abs Immat Gran (auto) 0.07 H (0.00-0.03) X10*3/uL Absolute Neuts (auto) 14.6 H (2.0-8.3) x10*3/uL Absolute Nucleated RBC 0.000 (0.0-0.012) X10*3/uL Nucleated RBC % (auto) 0.0 (0.0-0.2) /100WBC Smear Tech's Comments VERIFIED Sodium 142 (135-145) mmol/L Potassium 4.6 (3.3-5.1) mmol/L Chloride 107 (96-108) mmol/L Carbon Dioxide 21 L (22-29) mmol/L Anion Gap 19 (12-20) BUN 16 (9-16) mg/dL Creatinine 0.86 (0.5-1.4) mg/dL Estim Creat Clear Calc 57.6 Estimated GFR > 60 Random Glucose 136 H (60-115) mg/dL Lactic Acid 0.8 (0.5-2.0) mmol/L Calcium 9.8 (8.4-10.2) mg/dL Total Bilirubin 1.3 H (0.0-1.0) mg/dL AST 36 (5-37) U/L ALT 22 (0-40) U/L Alkaline Phosphatase 119 H (39-117) U/L Total Protein 7.4 (6.5-8.0) g/dL Albumin 4.5 (3.5-5.0) g/dL Lipase 11 (8-78) U/L Urine Color Yellow Urine Appearance Clear Urine pH 5.5 (5.0-9.0) Ur Specific [place] >= 1.030 H (1.005-1.025) Urine Protein Trace (Neg-Trace) mg/dL Urine Glucose (UA) >=1000 H (Negative) mg/dL Urine Ketones 80 (Negative) mg/dL Urine Blood Negative (Negative) Urine Nitrite Negative (Negative) Ur Leukocyte Esterase Negative (Negative) Urine RBC 0-2 (0-2) /HPF Urine WBC 0-5 (0-5) /HPF Ur Squamous Epith Cells 0-2 (0-2) /HPF Urine Bacteria None Seen (None Seen) Hyaline Casts 0-2 (0-2) /LPF Radiology Impression Discussion of test interpretation with radiology: I have reviewed the radiologist's reading. Radiologist Impression: CT Abdomen and Pelvis W Contrast COMPARISON: CT - CT ABDOMEN PELVIS W IV CON - 01/09/25 01:07 EDT FINDINGS: Stable 3 mm right lower lobe pulmonary nodule, considered benign by Fleischner society criteria. Mild cardiomegaly. Small hiatal hernia. Normal liver. Normal spleen. Normal kidneys. Normal adrenal glands. Normal pancreas. Status post cholecystectomy. No abnormal biliary dilation. Colonic diverticulosis without evidence of acute diverticulitis. Mild thickening of the snyder of the ascending and transverse colon. Mobile cecum located in the right mid to upper abdomen. No pneumatosis. Air-fluid levels in dilated small bowel loops measuring up to 4.3 cm in diameter. There is a transition point in the right lower quadrant (series 8, image 41). Normal appendix. Unremarkable bladder. Mildly enlarged prostate. No ascites. No pneumoperitoneum. No lymphadenopathy. No acute fracture. Lumbar levoscoliosis. Degenerative changes in the spine. No abdominal aortic aneurysm. Atherosclerosis. Patent SMA. Bilateral fat-containing inguinal hernias. IMPRESSION: Small-bowel obstruction with transition point in the right lower quadrant. Colonic wall thickening, which could be due to underdistention or colitis. Nonemergent/incidental findings above. This document has been electronically signed by: Michael Rudd MD on 01/09/2025 02:27:02 Independent Historian Clinical information obtained from an independent historian. History obtained from or confirmed by: Spouse External Record Review External record reviewed: Inpatient record Chronic Conditions Patient?s care impacted by: Diabetes and Hypertension Medications Administered Generic Name Dose Route Start Last Admin Trade Name Freq PRN Reason Stop Dose Admin Lactated Ringer's 1,000 mls @ 125 mls/hr 01/09/25 02:35 01/09/25 03:05 Lr IV 01/09/25 10:34 125 mls/hr .Q8H STA Administration Discontinued Medications Generic Name Dose Route Start Last Admin Trade Name Freq PRN Reason Stop Dose Admin Fluorescein Sodium 1 strip 01/09/25 01:03 01/09/25 01:07 Fluorescein Sodium Strip EYE-LEFT 01/09/25 01:04 Not Given ONCE ONE Sodium Chloride 1,000 mls @ 999 mls/hr 01/09/25 00:38 01/09/25 00:54 Ns IV 01/09/25 01:38 999 mls/hr .Q1H1M STA Administration Iohexol 85 ml 01/09/25 01:44 01/09/25 01:46 Iohexol 350 Mg/Ml 100 Ml Infus..Btl IV 01/09/25 01:45 85 ml ONCE ONE Administration Morphine Sulfate 4 mg 01/09/25 00:38 01/09/25 00:55 Morphine Sulfate 4 Mg/Ml Cartridge IVPUSH 01/09/25 00:39 4 mg ONCE STA Administration Protocol Ondansetron HCl 4 mg 01/09/25 00:38 01/09/25 00:55 Ondansetron Hcl 4 Mg/2 Ml Vial IVPUSH 01/09/25 00:39 4 mg ONCE ONE Administration Critical Care Time Critical Care Time Critical Care Time: Yes Total Critical Care Time: 35 Attestation: Critical Care: The patient was critically ill with a high probability of imminent or life threatening deterioration. I spent greater than 30 minutes of discontinuous time evaluating the patient,delivering critical care at the bedside, discussing and evaluating pertinent data with consultants. Critical care time does not include time spent performing separately billable procedures or teaching. Total time spent performing critical care was 35 minutes. Discharge Plan Discharge Print Language: [place]
[2025-01-09] MEDS: iohexoL 350 MG/ML 100 ML INFUS..BTL 85 ML IV (01:46)
[2025-01-09 01:57] VITALS: BP 109/52; PULSE 85; RESP 18; TEMP 37.4; O2SAT 93
[2025-01-09] MEDS: Lactated Ringers 1,000 ML 125 ML IV (03:05)
--- NOTE | 2025-01-09 03:25 | ECG_ITS ---
Test Reason : ABDOMINAL PAIN Blood Pressure : */* mmHG Vent. Rate : 86 BPM Atrial Rate : 86 BPM P-R Int : 152 ms QRS Dur : 96 ms QT Int : 382 ms P-R-T Axes : * -18 -8 degrees QTcB Int : 457 ms Sinus rhythm with Premature supraventricular complexes Possible Lateral infarct , age undetermined Abnormal ECG When compared with ECG of 09-Feb-2024 12:22, No significant change was found Referred By: Maxwell Mckenzie Electronically Signed By: DANNIELLE PARKER MD
--- NOTE | 2025-01-09 04:03 | PC.NURSE ---
16fr NG tube placed in right nare. PT tolerated well. awaiting xray confirmation before hooking up to suction.
[2025-01-09 04:53] VITALS: BP 111/56; PULSE 92; RESP 15; TEMP 36.2; O2SAT 95
[2025-01-09 05:04] LABS: INTERNATIONAL NORM RATIO 1.1 (0.9-1.1); Prothrombin Time 12.2 SEC (10.9-12.4)
[2025-01-09 05:06] LABS: Partial Thromboplastin Time 41.2 SEC (26.0-36.8)
--- NOTE | 2025-01-09 06:32 | PC.NURSE ---
CXR showed NG tube coliing in esphogaus with 16fr. 14 Fr placed in Left nare, ED MD verified placement
[2025-01-09 06:43] VITALS: BP 112/58; PULSE 87; RESP 12; TEMP 36.3; O2SAT 94
--- NOTE | 2025-01-09 07:11 | PC.NURSE ---
pt has LR at 125/hr. not added to safe start. certified with this RN and previous RN Lainey.
[2025-01-09 07:16] LABS: Glucose, Whole Blood 98 mg/dL (60-115)
--- NOTE | 2025-01-09 08:01 | PC.NURSE ---
most recent XR confirms correct NGT placement. suction turned on to intermittent at 60mmHG as ordered. draining clear brown liquid.
--- NOTE | 2025-01-09 08:27 | PHA.MEDREC ---
Pharmacy Consult ? Medication Reconciliation Pharmacy has completed the medication reconciliation. Spoke with patient and spouse at bedside, they were able to help with medications but list on their phone was old. Patient stated he no longer takes metoprolol, insulin, or colchicine. Unsure of tadalifil dose, but it was filled for 20mg prn more recently.
--- NOTE | 2025-01-09 08:53 | PM.HPGS ---
History of Present Illness History of Present Illness Date of Service: 01/09/25 <Myrtle Michelle PA-C - Last Filed: 01/09/25 09:08> 01/09/25 <Miriam Rodarte MD - Last Filed: 01/09/25 18:58> Chief complaint: SBO <Myrtle Michelle PA-C - Last Filed: 01/09/25 09:08> Narrative: Travis Krishnamurthy is a 84 year old male with PMH including diabetes mellitus, hypertension, hypercholesterolemia who presented to the ED for evaluation of abdominal pain. He reports he was in his usual state of health yesterday morning when he developed lower abdominal pain. It was mild and crampy in nature. He attempted to golf however the pain began to increase in severity and became more sharp. He then developed nausea and vomiting. His at bedside reports at first the vomiting was bilious and then became more feculent at night. Due to the persistence of the pain and vomiting, he sought care in the ED. Work up in the ED included CBC, BMP, LFTs which was significant for a leukocytosis of 16.2. Lactic acid normal. CT scan abd pelvis was obtained which showed dilated small bowel loops with air fluid levels with transition point in the RLQ. NGT was inserted in the ED. He has about 200cc bilious output. He vomited a large amount in the waiting room prior. He feels somewhat improved this morning with less abdominal pain. He feels a little bloated. He had a normal BM yesterday but has not passed flatus since. He denies fever, chills, diarrhea, sick contacts, recent travel. He has a hx of lap cholecystectomy for gallstone pancreatitis, acute cholecystitis. He denies any other abd surgery. <Myrtle Michelle PA-C - Last Filed: 01/09/25 09:08> Review of Systems Constitutional: Constitutional: Denies chills and Denies fever(s) <STEVEN Gallego Last Filed: 01/09/25 09:08> ENT: Denies dizziness <Myrtle Michelle PA-C - Last Filed: 01/09/25 09:08> Cardiovascular: Cardiovascular: Denies chest pain and Denies dyspnea <Myrtle Michelle PA-C Last Filed: 01/09/25 09:08> Respiratory: Respiratory: Denies dyspnea <Myrtle Michelle PA-C Last Filed: 01/09/25 09:08> Gastrointestinal: Gastrointestinal: Reports as per HPI <Myrtle Michelle PA-C Last Filed: 01/09/25 09:08> Integumentary/Breasts: Skin/Breast: Denies rash and Denies jaundice <Myrtle Michelle PA-C Last Filed: 01/09/25 09:08> Neurologic: Denies dizziness <Myrtle Michelle PA-C Last Filed: 01/09/25 09:08> PMF Past Medical History Medical History: Medical History Enlarged prostate Nocturia Urinary dribbling Acute blood loss anemia Tubular adenoma of colon GERD (gastroesophageal reflux disease) Knee osteoarthritis Erectile dysfunction Hypercholesterolemia Hypertension Gout Type 2 diabetes mellitus with hyperglycemia <Myrtle Michelle PA-C Last Filed: 01/09/25 09:08> Family History Family History: Family History Father Medical history unknown Mother Medical history unknown <Myrtle Michelle PA-C Last Filed: 01/09/25 09:08> Surgical History Surgical History: Surgical History Cholelithiasis Gallstone pancreatitis Hx laparoscopic cholecystectomy (~05/11/23) History of cataract surgery History of knee replacement procedure of left knee History of eye surgery <Myrtle Michelle PA-C Last Filed: 01/09/25 09:08> Social History Social History: Social History Household Members: Spouse Housing: House Do you presently have visiting nurse or other home services: No Alcohol intake: current Alcohol intake frequency: 0-2 drinks per day Alcohol type: hard liquor Patient Tobacco Use Status: Former Tobacco user Tobacco use type: Cigarette e-Cigarette/Vaping Use: Never Used Second Hand Smoke Exposure: No service: Yes Current occupational status: retired Cognitive needs: No Hearing needs: No Vision needs: Yes <Myrtle Michelle PA-C - Last Filed: 01/09/25 09:08> Meds Allergies/Adverse reactions: Allergies Allergy/AdvReac Type Severity Reaction Status Date / Time metformin Allergy Unknown diarrhea Verified 01/08/25 21:44 rosuvastatin (Crestor) Allergy Unknown Unknown Verified 01/08/25 21:44 <Myrtle Michelle PA-C - Last Filed: 01/09/25 09:08> Active Medications: Current Medications Dextrose (Dextrose 50 % 25 Gm/50 Ml Syringe) 25 gm IVPUSH Q15M PRN; Protocol PRN Reason: per Hypoglycemia Standing Ord. Famotidine (Famotidine/Pf 20 Mg/2 Ml Vial) 20 mg IVPUSH BID [facility] Glucose (Glucose Gel 15 Gm Gel..Gram.) 15 gm PO Q15M PRN; Protocol PRN Reason: per Hypoglycemia Standing Ord. Lactated Ringer's (Lr) 1,000 mls @ 125 mls/hr IV .Q8H STA Stop: 01/09/25 10:34 Last Admin: 01/09/25 03:05 Dose: 125 mls/hr Acetaminophen (Ofirmev) 1,000 mg in 100 mls @ 400 mls/hr IV Q6H PRN PRN Reason: Pain, Mild (Pain Scale 1-3) Insulin Human Lispro (Insulin Lispro 100 Unit/Ml 3 Ml Vial) 0 unit SUBCUT QIDACHS [facility]; Protocol Morphine Sulfate (Morphine Sulfate 4 Mg/Ml Cartridge) 4 mg IVPUSH Q4H PRN; Protocol PRN Reason: Pain, Severe (Pain Scale 7-10) Ondansetron HCl (Ondansetron Hcl 4 Mg/2 Ml Vial) 4 mg IVPUSH Q8H PRN PRN Reason: Nausea and Vomiting Sodium Chloride (0.9 % Sodium Chloride Flush 3 Ml Syringe) [facility] <Myrtle Michelle PA-C - Last Filed: 01/09/25 09:08> Home medications: Home Medications ?Medication ?Instructions ?Recorded ?Confirmed ?Last Taken ?Type cyanocobalamin (vitamin B-12) 1,000 mcg PO DAILY 05/04/23 01/09/25 01/08/25 09:00 History 1,000 mcg tablet lansoprazole 30 mg capsule,delayed 30 mg PO BID@0630,1830 01/09/25 01/09/25 01/08/25 09:00 History release (Prevacid) simethicone 80 mg chewable tablet 80 mg PO DAILY PRN GERD 01/09/25 01/09/25 Unknown History <STEVEN Gallego Last Filed: 01/09/25 09:08> Physical Exam Vital Signs: Vital Signs: Last Vital Signs Temp 97.4 F 01/09/25 06:43 Pulse 87 01/09/25 06:43 Resp 12 01/09/25 06:43 BP 112/58 L 01/09/25 06:43 Pulse Ox 94 01/09/25 06:43 O2 Del Method Room Air 01/09/25 06:43 BMI result Body Mass Index 22.7 <STEVEN Gallego Last Filed: 01/09/25 09:08> Const: General: comfortable, no acute distress and alert <STEVEN Gallego Last Filed: 01/09/25 09:08> Orientation/consciousness: patient oriented x3 <Myrtle Michelle PA-C [employer] Last Filed: 01/09/25 09:08> Resp: Effort & Inspection: normal respiratory effort and able to speak in complete sentences <Myrtle Michelle PA-C Last Filed: 01/09/25 09:08> Cardio: Rate: regular rate <Myrtle Michelle PA-C Delilah Last Filed: 01/09/25 09:08> GI: Inspection: Yes distended <Myrtle Michelle PA-C Last Filed: 01/09/25 09:08> Palpation (GI): Soft to palpation, Tenderness to palpation present (GI) (mild tenderness on right side of abdomen), no guarding and not rigid <STEVEN Gallego Last Filed: 01/09/25 09:08> Percussion: Yes tympanic to percussion <STEVEN Gallego Last Filed: 01/09/25 09:08> Skin: General skin exam: no rashes or lesions noted and no jaundice <STEVEN Gallego Last Filed: 01/09/25 09:08> Neuro: General: patient oriented x3 and moves all extremities <STEVEN Gallego Last Filed: 01/09/25 09:08> Results Results Labs: Short CBC 01/08/25 Range/Units 21:54 WBC 16.2 H (4.8-10.8) X10*3/uL Hgb 15.9 (14.0-18.0) g/dl Hct 45.2 (42.0-52.0) % Plt Count 143 L (160-400) X10*3/uL BMP 01/08/25 21:54 Sodium 142 Potassium 4.6 Chloride 107 Carbon Dioxide 21 L BUN 16 Creatinine 0.86 Calcium 9.8 Liver Function 01/08/25 Range/Units 21:54 Total Bilirubin 1.3 H (0.0-1.0) mg/dL AST 36 (5-37) U/L ALT 22 (0-40) U/L Alkaline Phosphatase 119 H (39-117) U/L Albumin 4.5 (3.5-5.0) g/dL Urine 01/08/25 Range/Units 23:23 Urine Color Yellow Urine Appearance Clear Urine pH 5.5 (5.0-9.0) Ur Specific [place] >= 1.030 H (1.005-1.025) Urine Protein Trace (Neg-Trace) mg/dL Urine Glucose (UA) >=1000 H (Negative) mg/dL <STEVEN Gallego Last Filed: 01/09/25 09:08> Abdomen CT scan report/results: report reviewed and image reviewed <STEVEN Gallego Last Filed: 01/09/25 09:08> Additional studies: labs reviewed <STEVEN Gallego Last Filed: 01/09/25 09:08> Assessment and Plan (1) Complete obstruction of small intestine: Status: Acute <STEVEN Gallego Last Filed: 01/09/25 09:08> 84 year old male with PMH including diabetes mellitus, hypertension, hypercholesterolemia, hx of lap kelly who presented with lower abdominal pain and nausea/vomiting. Imaging shows dilated small bowel loops with transition point in the right abdomen. There is an area of concern given the possible swirling of the mesenteric vessels however he is clinically appearing well with an overall benign abdomen with mild tenderness and mild distention, lactic acid is normal. Recommended continuing nonoperative measures for now with NGT to low intermittent suction, IVF. We did discuss proceeding with SBFT with contrast via the NGT. Encouraged OOB/ambulation to promote GI function. He and his are in agreement with the plan. Hospitalist consult for management of his medical comorbidities. <Myrtle Michelle PA-C - Last Filed: 01/09/25 09:08> 84 year old male with PMH including diabetes mellitus, hypertension, hypercholesterolemia, hx of lap kelly who presented with lower abdominal pain and nausea/vomiting. Imaging shows dilated small bowel loops with transition point in the right abdomen. There is an area of concern given the possible swirling of the mesenteric vessels however he is clinically appearing well with an overall benign abdomen with mild tenderness and mild distention, lactic acid is normal. Recommended continuing nonoperative measures for now with NGT to low intermittent suction, IVF. We did discuss proceeding with SBFT with contrast via the NGT. Encouraged OOB/ambulation to promote GI function. He and his are in agreement with the plan. Hospitalist consult for management of his medical comorbidities. Patient is seen and examined independently patient has had previous surgeries in the past comes in with abdominal distention nausea and vomiting. Not passing gas. CT scan showing findings consistent with possible small bowel obstruction. Patient admitted NPO NG tube decompression overnight IV fluid resuscitation. Feeling a little bit better this morning. Plan is to carry out small bowel follow-through with Gastrografin and see if this can be therapeutic to release the obstruction which most likely maybe other little ileus or secondary to some adhesions. Patient's understand and agree with the above plan. <Miriam Rodarte MD - Last Filed: 01/09/25 18:58> Quality Stroke Does the patient have a stroke diagnosis?: No <Myrtle Michelle PA-C - Last Filed: 01/09/25 09:08> VTE Prior VTE?: No <Myrtle Michelle PA-C - Last Filed: 01/09/25 09:08> VTE Risk Level:: Medical - moderate - high <STEVEN Gallego Last Filed: 01/09/25 09:08> VTE Device Contraindication: N/A - Device Ordered <Myrtle Michelle PA-C - Last Filed: 01/09/25 09:08> VTE Drug Contraindication: N/A - Med Ordered <Myrtle Michelle PA-C - Last Filed: 01/09/25 09:08> Procedures Date of Service Date of Service: 01/09/25 <Myrtle Michelle PA-C - Last Filed: 01/09/25 09:08> 01/09/25 <Miriam Rodarte MD - Last Filed: 01/09/25 18:58>
--- NOTE | 2025-01-09 09:17 | PC.NURSE ---
pt to radiology for fluoroscopy. 300ml in drainage container before transport.
--- NOTE | 2025-01-09 10:02 | P.CONHOSP_ITS ---
History of Present Illness Data of Consult Service Date: 01/09/25 Primary Care Provider: Clarence Talbert MD HPI Reason for consult: Medical management Pt is an 84-year-old male with a PMH significant for HTN, HLD, [id number]-swputfaed type 2 diabetes, GERD, gout, and hx of cholecystectomy who was admitted to the hospital under general surgery services for SBO. Hospitalist consult for medical management. Pt seen and evaluated in the ED where he has NGT in place with copious amounts of bilious output. Reports NGT feels uncomfortable, though overall feels improved after placement. No longer experiencing nausea, vomiting, or abdominal pain. Has not passed gas. Last bowel movement yesterday. Continues to feel bloated. Denies chest pain/pressure. No SOB or difficulty breathing. Review of Systems 2 Review of Systems: Negative except for that which is stated in the HPI. [facility] Medical History Enlarged prostate Nocturia Urinary dribbling Acute blood loss anemia Tubular adenoma of colon GERD (gastroesophageal reflux disease) Knee osteoarthritis Erectile dysfunction Hypercholesterolemia Hypertension Gout Type 2 diabetes mellitus with hyperglycemia Family History Father Medical history unknown Mother Medical history unknown Surgical History Cholelithiasis Gallstone pancreatitis Hx laparoscopic cholecystectomy (~05/11/23) History of cataract surgery History of knee replacement procedure of left knee History of eye surgery Social History Household Members: Spouse Housing: House Do you presently have visiting nurse or other home services: No Alcohol intake: current Alcohol intake frequency: 0-2 drinks per day Alcohol type: hard liquor Patient Tobacco Use Status: Former Tobacco user Tobacco use type: Cigarette Smoked in Last 30 Days: No e-Cigarette/Vaping Use: Never Used Second Hand Smoke Exposure: No Use of substances other than those prescribed or required for medical reasons: No Advance Directives: No Advance Directives Information Provided: Yes service: Yes Current occupational status: retired Cognitive needs: No Hearing needs: No Vision needs: Yes Meds Allergies Allergy/AdvReac Type Severity Reaction Status Date / Time metformin Allergy Unknown diarrhea Verified 01/08/25 21:44 rosuvastatin (Crestor) Allergy Unknown Unknown Verified 01/08/25 21:44 Active Medications: Current Medications Dextrose (Dextrose 50 % 25 Gm/50 Ml Syringe) 25 gm IVPUSH Q15M PRN; Protocol PRN Reason: per Hypoglycemia Standing Ord. Famotidine (Famotidine/Pf 20 Mg/2 Ml Vial) 20 mg IVPUSH BID [facility] Last Admin: 01/09/25 09:55 Dose: 20 mg Glucose (Glucose Gel 15 Gm Gel..Gram.) 15 gm PO Q15M PRN; Protocol PRN Reason: per Hypoglycemia Standing Ord. Lactated Ringer's (Lr) 1,000 mls @ 125 mls/hr IV .Q8H STA Stop: 01/09/25 10:34 Last Admin: 01/09/25 03:05 Dose: 125 mls/hr Acetaminophen (Ofirmev) 1,000 mg in 100 mls @ 400 mls/hr IV Q6H PRN PRN Reason: Pain, Mild (Pain Scale 1-3) Insulin Human Lispro (Insulin Lispro 100 Unit/Ml 3 Ml Vial) 0 unit SUBCUT QIDACHS [facility]; Protocol Morphine Sulfate (Morphine Sulfate 4 Mg/Ml Cartridge) 4 mg IVPUSH Q4H PRN; Protocol PRN Reason: Pain, Severe (Pain Scale 7-10) Multi-Ingred Medicated Throat [place] (Throat [place], Medicated 177 Ml Bottle) 1 spray MUCOUS MEM Q2H PRN PRN Reason: Sore Throat Ondansetron HCl (Ondansetron Hcl 4 Mg/2 Ml Vial) 4 mg IVPUSH Q8H PRN PRN Reason: Nausea and Vomiting Sodium Chloride (0.9 % Sodium Chloride Flush 3 Ml Syringe) 3 ml IVFLUSH [facility] [place] Home Medications ?Medication ?Instructions ?Recorded ?Confirmed ?Last Taken ?Type cyanocobalamin (vitamin B-12) 1,000 mcg PO DAILY 05/0401/09/25 01/08/25 09:00 History 1,000 mcg tablet lansoprazole 30 mg capsule,delayed 30 mg PO BID@0630,1 830 01/09/25 01/09/25 01/08/25 09:00 History release (Prevacid) simethicone 80 mg chewable tablet 80 mg PO DAILY PRN G ERD 01/09/25 01/09/25 Unknown History Physical Exam 2 Vital Signs and Narrative: Vital Signs: Last Vital Signs Temp 97.4 F 01/09/25 06:43 Pulse 87 01/09/25 06:43 Resp 12 01/09/25 06:43 BP 112/58 L 01/09/25 06:43 Pulse Ox 94 01/09/25 06:43 O2 Del Method Room Air 01/09/25 06:43 BMI result Body Mass Index 22.7 General: AOx3, no acute distress. NGT in place with copious amounts of bilious output Resp: CTA bilaterally CVS: S1, S2, RRR GI: +BS, NT, soft with mild distention Skin: Warm, dry Neuro: Cranial nerves II-XII grossly intact bilaterally. Motor grossly intact bilaterally Extremities: No edema Psych: Appropriate affect Results Labs 01/08/25 21:54 01/08/25 21:54 Labs: Laboratory Results - last 24 hr 01/08/25 01/08/25 01/09/25 21:54 23:23 01:04 MCV 97.4 MCH 34.3 H MCHC 35.2 RDW 13.5 Plt Count 143 L MPV 11.7 Immature Gran % (Auto) 0.4 Neut % (Auto) 90.4 H Lymph % (Auto) 3.3 L [place] % (Auto) 5.6 Eos % (Auto) 0.1 Baso % (Auto) 0.2 Lymph # (Auto) 0.5 L [place] # (Auto) 0.9 Eos # (Auto) 0.0 Baso # (Auto) 0.0 Abs Immat Gran (auto) 0.07 H Absolute Neuts (auto) 14.6 H Absolute Nucleated RBC 0.000 Nucleated RBC % (auto) 0.0 Smear Tech's Comments VERIFIED PT INR APTT Anion Gap 19 Estim Creat Clear Calc 57.6 Estimated GFR > 60 POC Glucose Random Glucose 136 H Lactic Acid 0.8 Calcium 9.8 Total Bilirubin 1.3 H AST 36 ALT 22 Alkaline Phosphatase 119 H Total Protein 7.4 Albumin 4.5 Lipase 11 Urine Color Yellow Urine Appearance Clear Urine pH 5.5 Ur Specific [place] >= 1.030 H Urine Protein Trace Urine Glucose (UA) >=1000 H Urine Ketones 80 Urine Blood Negative Urine Nitrite Negative Ur Leukocyte Esterase Negative Urine RBC 0-2 Urine WBC 0-5 Ur Squamous Epith Cells 0-2 Urine Bacteria None Seen Hyaline Casts 0-2 Blood Type Antibody Screen 01/09/25 01/09/25 04:49 07:12 MCV MCH MCHC RDW Plt Count MPV Immature Gran % (Auto) Neut % (Auto) Lymph % (Auto) [place] % (Auto) Eos % (Auto) Baso % (Auto) Lymph # (Auto) [place] # (Auto) Eos # (Auto) Baso # (Auto) Abs Immat Gran (auto) Absolute Neuts (auto) Absolute Nucleated RBC Nucleated RBC % (auto) Smear Tech's Comments PT 12.2 INR 1.1 APTT 41.2 H Anion Gap Estim Creat Clear Calc Estimated GFR POC Glucose 98 Random Glucose Lactic Acid Calcium Total Bilirubin AST ALT Alkaline Phosphatase Total Protein Albumin Lipase Urine Color Urine Appearance Urine pH Ur Specific [place] Urine Protein Urine Glucose (UA) Urine Ketones Urine Blood Urine Nitrite Ur Leukocyte Esterase Urine RBC Urine WBC Ur Squamous Epith Cells Urine Bacteria Hyaline Casts Blood Type O Negative Antibody Screen NEGATIVE Assessment and Plan (1) Small bowel obstruction: Status: Acute Plan Pt is an 84-year-old male with a PMH significant for HTN, HLD, yoe-uwyxmbt-zlhyhzhvo type 2 diabetes, GERD, gout, and hx of cholecystectomy who was admitted to the hospital under general surgery services for SBO. Hospitalist consult for medical management. SBO CT showing Dilaudid small bowel loops with transition point in RLQ NGT in place, being treated non-operatively for now Currently undergoing SBFT with contrast via NGT Plan as per general surgery Non-insulin dependent type 2 diabetes Hold Jardiance and Januvia as pt is NPO Place on sliding scale insulin HTN BP slighlty soft, hold anti-hypertensives at this time HLD Hold statin for now as NPO w/NGT Hx of Gout No acute flare for many years Hold allopurinol as NPO w/NGT Thank you for allowing us to participate in the care of this pt. Will continue to follow along.
--- NOTE | 2025-01-09 11:58 | PC.NURSE ---
per radiology, do not hook pt back up to suction during procedure. pt ambulated well around department.
[2025-01-09] MEDS: Lactated Ringers 1,000 ML 100 ML IVCONT (12:45)
--- NOTE | 2025-01-09 13:05 | PC.NURSE ---
pt cleared to get hooked back up to suction per radiology. XR images complete
[2025-01-09 14:54] VITALS: BP 110/60; PULSE 87; RESP 16; TEMP 36.3; O2SAT 96
[2025-01-09 15:28] LABS: Glucose, Whole Blood 90 mg/dL (60-115)
--- NOTE | 2025-01-09 16:05 | PC.NURSE ---
pt has multiple episodes of liquid brown stool. NG tube continues to drain brown liquid. 400ml in drainage container - total.
[2025-01-09 18:04] VITALS: BMI 23.6; BMI 23.7
[2025-01-09 18:09] VITALS: BP 119/57; PULSE 79; RESP 16; TEMP 37.1; O2SAT 95
--- NOTE | 2025-01-09 19:00 | PM.EVENT ---
Event Note Date of Service: 01/09/25 Event Note: Patient had small-bowel follow-through with Gastrografin and contrast going all the way into the colon with normal transit time through the small bowel. No evidence on films of significantly distended bowel loops or findings consistent with a obstruction. Plan is to continue with NG tube decompression potentially clamp the NG tube and give sips of liquids in the morning and see how he does. Time Spent With Patient Time: Total time managing care of this patient today ____ minutes.
[2025-01-09 19:44] VITALS: BP 127/65; PULSE 76; RESP 16; TEMP 36.8; O2SAT 96
[2025-01-09 21:08] LABS: Glucose, Whole Blood 83 mg/dL (60-115)
[2025-01-09 21:08] LABS: Glucose, Whole Blood 73 mg/dL (60-115)
[2025-01-09] MEDS: Dextrose 5 % and 0.45 % NaCl 1,000 ML 50 ML IVCONT (21:56)
[2025-01-10 03:38] VITALS: BP 123/65; PULSE 80; RESP 16; TEMP 36.5; O2SAT 96
[2025-01-10 06:50] LABS: MANUAL DIFF FLAG NO
[2025-01-10 06:59] LABS: Hematocrit 39.6 % (42.0-52.0); Hemoglobin 13.4 g/dl (14.0-18.0); Imm Gran Abs Auto 0.05 X10*3/uL (0.00-0.03); Imm Gran Pct Auto 0.5 % (0.0-0.4); Lymphocytes Absolute Auto 0.6 X10*3/uL (1.2-4.9); Mean Corpuscular HGB Conc 33.8 g/dl (31.0-36.0); Mean Corpuscular Hemoglobin 34.3 pg (27.0-33.0); Mean Corpuscular Volume 101.3 fL (80.0-98.0); NRBC Abs Auto 0.000 X10*3/uL (0.0-0.012); NRBC Pct Auto 0.0 /100WBC (0.0-0.2); Platelet Count 125 X10*3/uL (160-400); Red Blood Count 3.91 X10*6/uL (4.60-5.80); White Blood Count 9.2 X10*3/uL (4.8-10.8)
[2025-01-10 07:22] LABS: Anion Gap 16 (12-20); Blood Urea Nitrogen 17 mg/dL (9-16); Calcium 8.8 mg/dL (8.4-10.2); Carbon Dioxide 21 mmol/L (22-29); Chloride 111 mmol/L (96-108); Creatinine Clr Calc Pharmacy 74.0; Estimated Glomerular Filt Rate > 60; Potassium 3.7 mmol/L (3.3-5.1); Sodium 144 mmol/L (135-145)
--- NOTE | 2025-01-10 07:46 | PM.PNGS ---
Subjective Subjective Date of Service: 01/10/25 <Myrtle Michelle PA-C - Last Filed: 01/10/25 07:52> 01/10/25 <Travis Perez MD - Last Filed: 01/10/25 14:07> Interval history: Has had multiple large loose stools yesterday and overnight. Denies nausea, vomiting, bloating, abdominal pain. NGT had scant output for the most part but had over 100cc in less than one hour this morning. He has been ambulating the halls. <Myrtle Michelle PA-C - Last Filed: 01/10/25 07:52> Physical Exam Vital Signs: Vital Signs: Last Vital Signs Temp 97.7 F 01/10/25 03:38 Pulse 80 01/10/25 03:38 Resp 16 01/10/25 03:38 BP 123/65 01/10/25 03:38 Pulse Ox 96 01/10/25 03:38 O2 Del Method Room Air 01/10/25 03:38 BMI result Body Mass Index 23.7 <Myrtle Michelle PA-C - Last Filed: 01/10/25 07:52> Const: General: comfortable, no acute distress and alert <Myrtle Michelle PA-C - Last Filed: 01/10/25 07:52> Orientation/consciousness: patient oriented x3 <STEVEN Gallego Last Filed: 01/10/25 07:52> Resp: Effort & Inspection: normal respiratory effort <STEVEN Gallego Last Filed: 01/10/25 07:52> GI: Other: mildly distended upper abdomen soft, nontender <Myrtle Michelle PA-C - Last Filed: 01/10/25 07:52> Skin: General skin exam: no rashes or lesions noted <STEVEN Gallego Last Filed: 01/10/25 07:52> Neuro: General: patient oriented x3 and moves all extremities <STEVEN Gallego Last Filed: 01/10/25 07:52> Objective Data Active Medications Dextrose (Dextrose 50 % 25 Gm/50 Ml Syringe) 25 gm IVPUSH Q15M PRN; Protocol PRN Reason: per Hypoglycemia Standing Ord. Dextrose (Dextrose 50 % 25 Gm/50 Ml Syringe) 25 gm IVPUSH Q15M PRN; Protocol PRN Reason: per Hypoglycemia Standing Ord. Famotidine (Famotidine/Pf 20 Mg/2 Ml Vial) 20 mg IVPUSH BID [facility] Last Admin: 01/09/25 19:54 Dose: 20 mg Documented By: EMRE Glucose (Glucose Gel 15 Gm Gel..Gram.) 15 gm PO Q15M PRN; Protocol PRN Reason: per Hypoglycemia Standing Ord. Acetaminophen (Ofirmev) 1,000 mg in 100 mls @ 400 mls/hr IV Q6H PRN PRN Reason: Pain, Mild (Pain Scale 1-3) Lactated Ringer's (Lr) 1,000 mls @ 100 mls/hr IVCONT .Q10H [facility] Last Admin: 01/09/25 22:23 Dose: Not Given Documented By: EMRE Non-Admin Reason: IV Running Dextrose/Sodium Chloride (D51/2ns) 1,000 mls @ 50 mls/hr IVCONT .Q20H [facility] Last Admin: 01/09/25 21:56 Dose: 50 mls/hr Documented By: EMRE Insulin Human Lispro (Insulin Lispro 100 Unit/Ml 3 Ml Vial) 0 unit SUBCUT QIDACHS [facility]; Protocol Last Admin: 01/09/25 21:47 Dose: Not Given Documented By: EMRE Non-Admin Reason: No Insulin Coverage Morphine Sulfate (Morphine Sulfate 4 Mg/Ml Cartridge) 4 mg IVPUSH Q4H PRN; Protocol PRN Reason: Pain, Severe (Pain Scale 7-10) Last Admin: 01/09/25 12:56 Dose: 4 mg Documented By: FAVIAN Multi-Ingred Medicated Throat [place] (Throat [place], Medicated 177 Ml Bottle) 1 spray MUCOUS MEM Q2H PRN PRN Reason: Sore Throat Ondansetron HCl (Ondansetron Hcl 4 Mg/2 Ml Vial) 4 mg IVPUSH Q8H PRN PRN Reason: Nausea and Vomiting Last Admin: 01/09/25 13:04 Dose: 4 mg Documented By: FAVIAN Sodium Chloride (0.9 % Sodium Chloride Flush 3 Ml Syringe) 3 ml IVFLUSH QSHIFT [facility] Last Admin: 01/09/25 23:36 Dose: Not Given Documented By: EMRE Non-Admin Reason: IV Running <Myrtle Michelle PA-C - Last Filed: 01/10/25 07:52> Labs CBC & Chem 7: 01/10/25 06:16 01/10/25 06:16 <Myrtle Michelle PA-C - Last Filed: 01/10/25 07:52> Labs: Laboratory Results - last 24 hr 01/09/25 01/09/25 01/09/25 15:24 18:13 21:04 MCV MCH MCHC RDW Plt Count MPV Immature Gran % (Auto) Neut % (Auto) Lymph % (Auto) [place] % (Auto) Eos % (Auto) Baso % (Auto) Lymph # (Auto) [place] # (Auto) Eos # (Auto) Baso # (Auto) Abs Immat Gran (auto) Absolute Neuts (auto) Absolute Nucleated RBC Nucleated RBC % (auto) Anion Gap Estim Creat Clear Calc Estimated GFR POC Glucose 90 83 73 Random Glucose Calcium 01/10/25 06:16 MCV 101.3 H MCH 34.3 H MCHC 33.8 RDW 13.8 Plt Count 125 L MPV 12.3 Immature Gran % (Auto) 0.5 H Neut % (Auto) 84.0 H Lymph % (Auto) 6.8 L [place] % (Auto) 7.7 Eos % (Auto) 0.6 Baso % (Auto) 0.4 Lymph # (Auto) 0.6 L [place] # (Auto) 0.7 Eos # (Auto) 0.1 Baso # (Auto) 0.0 Abs Immat Gran (auto) 0.05 H Absolute Neuts (auto) 7.8 Absolute Nucleated RBC 0.000 Nucleated RBC % (auto) 0.0 Anion Gap 16 Estim Creat Clear Calc 74.0 Estimated GFR > 60 POC Glucose Random Glucose 95 Calcium 8.8 D <Myrtle Michelle PA-C - Last Filed: 01/10/25 07:52> Microbiology Microbiology Results: Microbiology 01/09/25 01:04 Blood Culture - Preliminary Blood - Venous No growth after 24 hours. 01/09/25 01:04 Blood Culture - Preliminary Blood - Venous No growth after 24 hours. <Myrtle Michelle PA-C - Last Filed: 01/10/25 07:52> Procedures Date of Service Date of Service: 01/10/25 <Myrtle Michelle PA-C - Last Filed: 01/10/25 07:52> 01/10/25 <Travis Perez MD - Last Filed: 01/10/25 14:07> Progress Note: A&P Assessment and plan (1) Small bowel obstruction: Status: Acute <Myrtle Michelle PA-C - Last Filed: 01/10/25 07:52> Assessment and Plan: SBFT showed contrast in colon yesterday, now with liquid BMs however had >100cc in less than an hour this morning. Abd overall benign, softly distended but improved. NGT has been clamped since he has been ambulating, will continue to keep it clamped for a few hours and check residual. If low, will remove and begin clear liquids. Unclamp sooner if redevelops symptoms. Patient and comfortable with plan. <Myrtle Michelle PA-C - Last Filed: 01/10/25 07:52> Time Spent With Patient Time: Total time managing care of this patient today ____ minutes. <Myrtle Michelle PA-C - Last Filed: 01/10/25 07:52> Quality Stroke Does the patient have a stroke diagnosis?: No <Myrtle Michelle PA-C - Last Filed: 01/10/25 07:52> VTE Prior VTE?: No <Myrtle Michelle PA-C - Last Filed: 01/10/25 07:52> VTE Risk Level:: Medical - moderate - high <Myrtle Michelle PA-C - Last Filed: 01/10/25 07:52> VTE Device Contraindication: N/A - Device Ordered <Myrtle Michelle PA-C - Last Filed: 01/10/25 07:52> VTE Drug Contraindication: N/A - Med Ordered <Myrtle Michelle PA-C - Last Filed: 01/10/25 07:52>
[2025-01-10 07:51] VITALS: BP 114/61; PULSE 86; RESP 18; TEMP 36.6; O2SAT 95
--- NOTE | 2025-01-10 08:56 | MHC.CM.PN ---
CM met with Patient and his at bedside and addressed IMM with him, providing Patient with the original and a copy has been placed on the chart. Patient lives in a house with his /HCP/Alma Rosa, who will transport to home at time of dc. 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 PCP is Dr. Clarence Talbert.
[2025-01-10 11:07] VITALS: BP 118/49; PULSE 76; RESP 18; TEMP 36.8; O2SAT 96
[2025-01-10 11:47] LABS: Glucose, Whole Blood 83 mg/dL (60-115)
[2025-01-10 11:47] LABS: Glucose, Whole Blood 86 mg/dL (60-115)
[2025-01-10] MEDS: oxyCODONE HCl Immed Release 5 MG TABLET PO (13:54)
[2025-01-10 16:04] VITALS: BP 126/61; PULSE 67; RESP 18; TEMP 36.4; O2SAT 96
[2025-01-10 16:43] LABS: Glucose, Whole Blood 192 mg/dL (60-115)
--- NOTE | 2025-01-10 18:12 | P.PNIM_ITS ---
Subjective Subjective Date of Service: 01/10/25 Interval History: Reports he has been passing gas and had 3 large bowel movements, mostly diarrhea, since last night Reports improvement from yesterday Denies nausea, vomiting, abdominal pain Review of Systems Review of Systems: Yes all other systems are reviewed and are negative Physical Exam 2 Exam: Exam: General: AOx3, no acute distress. NGT in place, currently clamped Resp: CTA bilaterally CVS: S1, S2, RRR GI: +BS, NT, no distention, soft Skin: Warm, dry Neuro: Cranial nerves II-XII grossly intact bilaterally. Motor grossly intact bilaterally Extremities: No edema Psych: Appropriate affect Vital Signs: Vital Signs: Last Vital Signs Temp 97.5 F 01/10/25 16:04 Pulse 67 01/10/25 16:04 Resp 18 01/10/25 16:04 BP 126/61 01/10/25 16:04 Pulse Ox 96 01/10/25 16:04 O2 Del Method Room Air 01/10/25 16:04 BMI result Body Mass Index 23.7 Objective Data Active Medications Acetaminophen (Acetaminophen 325 Mg Tablet) 650 mg PO Q6H PRN PRN Reason: Pain, Mild 1-3,fever,headache Allopurinol (Allopurinol 100 Mg Tablet) 100 mg PO DAILY [facility] Atorvastatin Calcium (Atorvastatin Calcium 10 Mg Tablet) 10 mg PO DAILY [facility] Calcium Carbonate (Calcium Carbonate 750 Mg Tab.Chew) 750 mg PO Q6H PRN PRN Reason: Heartburn Cyanocobalamin (Cyanocobalamin (Vitamin B-12) 1,000 Mcg Tablet) 1,000 mcg PO DAILY [facility] Dextrose (Dextrose 50 % 25 Gm/50 Ml Syringe) 25 gm IVPUSH Q15M PRN; Protocol PRN Reason: per Hypoglycemia Standing Ord. Folic Acid (Folic Acid 1 Mg Tablet) 1 mg PO DAILY [facility] Glucose (Glucose Gel 15 Gm Gel..Gram.) 15 gm PO Q15M PRN; Protocol PRN Reason: per Hypoglycemia Standing Ord. Insulin Human Lispro (Insulin Lispro 100 Unit/Ml 3 Ml Vial) 0 unit SUBCUT QIDACHS [facility]; Protocol Last Admin: 01/10/25 16:54 Dose: 2 unit Documented By: SOL Lisinopril (Lisinopril 5 Mg Tablet) 5 mg PO DAILY [facility]; Protocol Melatonin (Melatonin 3 Mg Tablet) 6 mg PO BEDTIME [facility] Morphine Sulfate (Morphine Sulfate 4 Mg/Ml Cartridge) 4 mg IVPUSH Q4H PRN; Protocol PRN Reason: Pain, Severe (Pain Scale 7-10) Last Admin: 01/09/25 12:56 Dose: 4 mg Documented By: FAVIAN Multi-Ingred Medicated Throat [place] (Throat [place], Medicated 177 Ml Bottle) 1 spray MUCOUS MEM Q2H PRN PRN Reason: Sore Throat Omeprazole (Omeprazole 20 Mg Capsule.Dr) 20 mg PO BID@0630,1830 [facility] Last Admin: 01/10/25 18:07 Dose: 20 mg Documented By: SOL Ondansetron HCl (Ondansetron Hcl 4 Mg/2 Ml Vial) 4 mg IVPUSH Q8H PRN PRN Reason: Nausea and Vomiting Last Admin: 01/09/25 13:04 Dose: 4 mg Documented By: FAVIAN Oxycodone HCl (Oxycodone Hcl Immed Release 5 Mg Tablet) 5 mg PO Q4H PRN PRN Reason: Pain, Moderate(Pain Scale 4-6) Last Admin: 01/10/25 13:54 Dose: 5 mg Documented By: RAMU Sodium Chloride (0.9 % Sodium Chloride Flush 3 Ml Syringe) 3 ml IVFLUSH QSHIFT [facility] Last Admin: 01/10/25 16:30 Dose: Not Given Documented By: SOL Non-Admin Reason: IV Running Tolterodine Tartrate (Tolterodine Tartrate La 4 Mg Cap.Er.24h) 4 mg PO DAILY [facility] Labs 01/10/25 06:16 01/10/25 06:16 Labs: Laboratory Results - last 24 hr 01/09/25 01/09/25 01/10/25 18:13 21:04 06:16 MCV 101.3 H MCH 34.3 H MCHC 33.8 RDW 13.8 Plt Count 125 L MPV 12.3 Immature Gran % (Auto) 0.5 H Neut % (Auto) 84.0 H Lymph % (Auto) 6.8 L [place] % (Auto) 7.7 Eos % (Auto) 0.6 Baso % (Auto) 0.4 Lymph # (Auto) 0.6 L [place] # (Auto) 0.7 Eos # (Auto) 0.1 Baso # (Auto) 0.0 Abs Immat Gran (auto) 0.05 H Absolute Neuts (auto) 7.8 Absolute Nucleated RBC 0.000 Nucleated RBC % (auto) 0.0 Anion Gap 16 Estim Creat Clear Calc 74.0 Estimated GFR > 60 POC Glucose 83 73 Random Glucose 95 Calcium 8.8 D 01/10/25 01/10/25 01/10/25 07:07 11:02 16:28 MCV MCH MCHC RDW Plt Count MPV Immature Gran % (Auto) Neut % (Auto) Lymph % (Auto) [place] % (Auto) Eos % (Auto) Baso % (Auto) Lymph # (Auto) [place] # (Auto) Eos # (Auto) Baso # (Auto) Abs Immat Gran (auto) Absolute Neuts (auto) Absolute Nucleated RBC Nucleated RBC % (auto) Anion Gap Estim Creat Clear Calc Estimated GFR POC Glucose 83 86 192 H Random Glucose Calcium Microbiology Microbiology Results: Microbiology 01/09/25 01:04 Blood Culture - Preliminary Blood - Venous No growth after 24 hours. 01/09/25 01:04 Blood Culture - Preliminary Blood - Venous No growth after 24 hours. Assessment and Plan (1) Small bowel obstruction: Status: Acute Plan Pt is an 84-year-old male with a PMH significant for HTN, HLD, [id number] type 2 diabetes, GERD, gout, and hx of cholecystectomy who was admitted to the hospital under general surgery services for SBO. Hospitalist consult for medical management. SBO CT showing Dilaudid small bowel loops with transition point in RLQ NGT in place, being treated non-operatively for now SBFT was negative, showed normal transit time Has had 3 large BMs, passing gas Plan as per general surgery Non-insulin dependent type 2 diabetes Hold Jardiance and Januvia as pt is NPO Continue home meds once diet advanced to full Place on sliding scale insulin HTN BP slighlty soft, hold lisinopril at this time Continue if pt becomes hypertensive HLD Resume statin once diet advanced to full Hx of Gout No acute flare for many years Continue allopurinol once diet advanced Thank you for allowing us to participate in the care of this pt. Will sign off for now. Quality Stroke Does the patient have a stroke diagnosis?: No VTE Prior VTE?: No VTE Risk Level:: Medical - moderate - high VTE Device Contraindication: N/A - Device Ordered VTE Drug Contraindication: N/A - Med Ordered
[2025-01-10 19:30] VITALS: BP 119/59; PULSE 80; RESP 18; TEMP 36.4; O2SAT 97
[2025-01-10 20:35] LABS: Glucose, Whole Blood 143 mg/dL (60-115)
[2025-01-10] MEDS: 0.9 % Sodium Chloride Flush 3 ML SYRINGE IVFLUSH (21:02)
[2025-01-10 23:42] VITALS: BP 103/51; PULSE 63; RESP 18; TEMP 36.3; O2SAT 96
[2025-01-11 03:42] VITALS: BP 129/69; PULSE 66; RESP 18; TEMP 36.1; O2SAT 97
[2025-01-11 07:21] LABS: Glucose, Whole Blood 123 mg/dL (60-115)
[2025-01-11 07:42] VITALS: BP 113/64; PULSE 74; RESP 16; TEMP 36.8; O2SAT 97
--- NOTE | 2025-01-11 08:02 | P.PNGS_ITS ---
Subjective Subjective Date of Service: 01/11/25 <Myrtle Michelle PA-C - Last Filed: 01/11/25 08:06> 01/11/25 <Travis Perez MD - Last Filed: 01/11/25 15:53> Interval history: Continues to pass flatus and BMs. Tolerating solid diet without nausea, vomiting, abdominal pain. OOB and ambulating. <Myrtle Michelle PA-C - Last Filed: 01/11/25 08:06> Physical Exam 2 Vital Signs: Vital Signs: Last Vital Signs Temp 98.2 F 01/11/25 07:42 Pulse 74 01/11/25 07:42 Resp 16 01/11/25 07:42 BP 113/64 01/11/25 07:42 Pulse Ox 97 01/11/25 07:42 O2 Del Method Room Air 01/11/25 07:42 BMI result Body Mass Index 23.7 <Myrtle iMchelle PA-C - Last Filed: 01/11/25 08:06> Const: General: comfortable, no acute distress and alert <Myrtle Michelle PA-C - Last Filed: 01/11/25 08:06> Orientation/consciousness: patient oriented x3 <Myrtle Michelle PA-C - Last Filed: 01/11/25 08:06> Resp: Effort & Inspection: normal respiratory effort <Myrtle Michelle PA-C - Last Filed: 01/11/25 08:06> GI: Inspection: No distended <Myrtle Michelle PA-C - Last Filed: 01/11/25 08:06> Palpation (GI): Soft to palpation, nontender and no guarding <Myrtle Michelle PA-C - Last Filed: 01/11/25 08:06> Percussion: Yes normal to percussion <STEVEN Gallego Last Filed: 01/11/25 08:06> Skin: General skin exam: no rashes or lesions noted <STEVEN Gallego Last Filed: 01/11/25 08:06> Neuro: General: patient oriented x3 and moves all extremities <Myrtle Michelle PA-C - Last Filed: 01/11/25 08:06> Objective Data Active Medications Acetaminophen (Acetaminophen 325 Mg Tablet) 650 mg PO Q6H PRN PRN Reason: Pain, Mild 1-3,fever,headache Allopurinol (Allopurinol 100 Mg Tablet) 100 mg PO DAILY [facility] Atorvastatin Calcium (Atorvastatin Calcium 10 Mg Tablet) 10 mg PO DAILY [facility] Calcium Carbonate (Calcium Carbonate 750 Mg Tab.Chew) 750 mg PO Q6H PRN PRN Reason: Heartburn Cyanocobalamin (Cyanocobalamin (Vitamin B-12) 1,000 Mcg Tablet) 1,000 mcg PO DAILY [facility] Dextrose (Dextrose 50 % 25 Gm/50 Ml Syringe) 25 gm IVPUSH Q15M PRN; Protocol PRN Reason: per Hypoglycemia Standing Ord. Folic Acid (Folic Acid 1 Mg Tablet) 1 mg PO DAILY [facility] Glucose (Glucose Gel 15 Gm Gel..Gram.) 15 gm PO Q15M PRN; Protocol PRN Reason: per Hypoglycemia Standing Ord. Insulin Human Lispro (Insulin Lispro 100 Unit/Ml 3 Ml Vial) 0 unit SUBCUT QIDACHS [facility]; Protocol Last Admin: 01/11/25 07:32 Dose: Not Given Documented By: SOL Non-Admin Reason: No Insulin Coverage Lisinopril (Lisinopril 5 Mg Tablet) 5 mg PO DAILY [facility]; Protocol Melatonin (Melatonin 3 Mg Tablet) 6 mg PO BEDTIME [facility] Last Admin: 01/10/25 21:01 Dose: 6 mg Documented By: KAMRYN Morphine Sulfate (Morphine Sulfate 4 Mg/Ml Cartridge) 4 mg IVPUSH Q4H PRN; Protocol PRN Reason: Pain, Severe (Pain Scale 7-10) Last Admin: 01/09/25 12:56 Dose: 4 mg Documented By: FAVIAN CorderoIngred Medicated Throat [place] (Throat [place], Medicated 177 Ml Bottle) 1 spray MUCOUS MEM Q2H PRN PRN Reason: Sore Throat Omeprazole (Omeprazole 20 Mg Tigist.) 20 mg PO BID@0630,1830 [facility] Last Admin: 01/11/25 05:36 Dose: 20 mg Documented By: KAMRYN Ondansetron HCl (Ondansetron Hcl 4 Mg/2 Ml Vial) 4 mg IVPUSH Q8H PRN PRN Reason: Nausea and Vomiting Last Admin: 01/09/25 13:04 Dose: 4 mg Documented By: FAVIAN Oxycodone HCl (Oxycodone Hcl Immed Release 5 Mg Tablet) 5 mg PO Q4H PRN PRN Reason: Pain, Moderate(Pain Scale 4-6) Last Admin: 01/10/25 13:54 Dose: 5 mg Documented By: ARMU Sodium Chloride (0.9 % Sodium Chloride Flush 3 Ml Syringe) 3 ml IVFLUSH QSHIFT [facility] Last Admin: 01/10/25 21:02 Dose: 3 ml Documented By: KAMRYN Tolterodine Tartrate (Tolterodine Tartrate [place] 4 Mg Cap.Er.24h) 4 mg PO DAILY [facility] <Myrtle Michelle PA-C - Last Filed: 01/11/25 08:06> Labs CBC & Chem 7: 01/10/25 06:16 01/10/25 06:16 <Myrtle Michelle PA-C - Last Filed: 01/11/25 08:06> Labs: Laboratory Results - last 24 hr 01/10/25 01/10/25 01/10/25 07:07 11:02 16:28 POC Glucose 83 86 192 H 01/10/25 01/11/25 20:27 07:12 POC Glucose 143 H 123 H <Myrtle Michelle PA-C - Last Filed: 01/11/25 08:06> Microbiology Microbiology Results: Microbiology 01/09/25 01:04 Blood Culture - Preliminary Blood - Venous No growth after 48 hours. 01/09/25 01:04 Blood Culture - Preliminary Blood - Venous No growth after 48 hours. <Myrtle Michelle PA-C - Last Filed: 01/11/25 08:06> Procedures Date of Service Date of Service: 01/11/25 <Myrtle Michelle PA-C - Last Filed: 01/11/25 08:06> 01/11/25 <Travis Perez MD - Last Filed: 01/11/25 15:53> Progress Note: A&P Assessment and plan (1) Small bowel obstruction: Status: Acute <Myrtle Michelle PA-C - Last Filed: 01/11/25 08:06> Assessment and Plan: SBO resolved. Tolerating solid diet without nausea, vomiting, abd pain. Has good GI function. VSS. Abd exam benign, soft, NTND. Stable for dc to home today. Patient and comfortable with plan. <Myrtle Michelle PA-C - Last Filed: 01/11/25 08:06> SBO resolved. Tolerating solid diet without nausea, vomiting, abd pain. Has good GI function. VSS. Abd exam benign, soft, NTND. Stable for dc to home today. Patient and comfortable with plan. Patient seen and examined, abdomen benign; patient is tolerating a regular diet without nausea or vomiting. Agree with discharge to home. Follow up with Dr. Talbert. <Travis Perez MD - Last Filed: 01/11/25 15:53> Time Spent With Patient Time: Total time managing care of this patient today ____ minutes. <Myrtle Michelle PA-C - Last Filed: 01/11/25 08:06> Quality Stroke Does the patient have a stroke diagnosis?: No <Myrtle Michelle PA-C - Last Filed: 01/11/25 08:06> VTE Prior VTE?: No <Myrtle Michelle PA-C - Last Filed: 01/11/25 08:06> VTE Risk Level:: Medical - moderate - high <Myrtle Michelle PA-C - Last Filed: 01/11/25 08:06> VTE Device Contraindication: N/A - Device Ordered <Myrtle Michelle PA-C - Last Filed: 01/11/25 08:06> VTE Drug Contraindication: N/A - Med Ordered <Myrtle Michelle PA-C - Last Filed: 01/11/25 08:06>
--- NOTE | 2025-01-11 09:14 | P.DS_ITS ---
DS: Providers Provider Date of Service: 01/11/25 Date of admission: 01/09/25 08:16 Date of discharge: 01/11/25 Primary care physician: Clarence Talbert MD Attending physician on admission: Miriam Rodarte Consults: 01/09/25 08:50 Consult to Hospitalist Routine Comment: Consulting Provider: [facility] [place] [place] Hospitalists Reason For Exam: HTN, hyperlipidemia, T2DM Attending physician on discharge: Rick Ana DS: Diagnosis Discharge Diagnosis (1) Small bowel obstruction: Status: Acute DS: Summary Hospital Course Hospital Course: HPI AT ADMISSION: Travis Krishnamurthy is a 84 year old male with PMH including diabetes mellitus, hypertension, hypercholesterolemia who presented to the ED for evaluation of abdominal pain. He reports he was in his usual state of health yesterday morning when he developed lower abdominal pain. It was mild and crampy in nature. He attempted to golf however the pain began to increase in severity and became more sharp. He then developed nausea and vomiting. His at bedside reports at first the vomiting was bilious and then became more feculent at night. Due to the persistence of the pain and vomiting, he sought care in the ED. Work up in the ED included CBC, BMP, LFTs which was significant for a leukocytosis of 16.2. Lactic acid normal. CT scan abd pelvis was obtained which showed dilated small bowel loops with air fluid levels with transition point in the RLQ. NGT was inserted in the ED. He has about 200cc bilious output. He vomited a large amount in the waiting room prior. He feels somewhat improved this morning with less abdominal pain. He feels a little bloated. He had a normal BM yesterday but has not passed flatus since. He denies fever, chills, diarrhea, sick contacts, recent travel. He has a hx of lap cholecystectomy for gallstone pancreatitis, acute cholecystitis. He denies any other abd surgery. HOSPITAL COURSE: He was admitted to the surgical service for further treatment of the SBO. NGT was inserted and continued on low intermittent suction. His abdomen was overall benign with normal lactic acid however imaging showed dilated small bowel loops with transition point in the right abdomen with an area of concern with possible swirling of the mesenteric vessels. It was therefore recommended to continue nonoperative measures for now with NGT to low intermittent suction, IVF with SBFT with contrast via the NGT for further diagnostic and therapeutic purposes. Hospitalist consult for management of his medical comorbidities. He had an uneventful hospital course. His SBFT showed normal SB transit time with contrast in the colon. His NGT had scant output and his abd pain improved and he began to move his bowels. His NGT was therefore removed and his diet was slowly advanced. On the day of discharge, he was tolerating a solid diet without nausea, vomiting or abdominal pain and had good GI function. He was hemodynamically stable. His abdomen remained benign and was soft and nontender. He was discharged to home on 01/11/25 in stable condition. Status at Discharge Functional status at discharge: independent ambulation Overall status at discharge: patient is back to baseline Time Attestation Discharge Coordination Time (in mins): 30 Quality: Safe Use of Opioids Does Pt have an Active Cancer Diagnosis on the Problem List?: No Quality: Stroke Does the patient have a stroke diagnosis?: No Physical Exam Vital Signs: Vital Signs: Last Vital Signs Temp 98.2 F 01/11/25 07:42 Pulse 74 01/11/25 07:42 Resp 16 01/11/25 07:42 BP 113/64 01/11/25 07:42 Pulse Ox 97 01/11/25 07:42 O2 Del Method Room Air 01/11/25 07:42 BMI result Body Mass Index 23.7 Const: General: comfortable, no acute distress and alert Orientation/consciousness: patient oriented x3 Resp: Effort & Inspection: normal respiratory effort GI: Inspection: No distended Palpation (GI): Soft to palpation and nontender Skin: General skin exam: no rashes or lesions noted Neuro: General: patient oriented x3 and moves all extremities DS: Data Data Completed and Pending Completed studies during hospitalization [Text1]: Procedures Control Bleeding in Gastrointestinal Tract, Via Natural or Artificial Opening Endoscopic (05/04/23) Dilation of Common Bile Duct with Intraluminal Device, Via Natural or Artificial Opening Endoscopic (05/04/23) Excision of Duodenum, Via Natural or Artificial Opening Endoscopic, Diagnostic (05/04/23) Excision of Rectum, Via Natural or Artificial Opening Endoscopic, Diagnostic (05/04/23) Excision of Right Large Intestine, Via Natural or Artificial Opening Endoscopic, Diagnostic (05/04/23) Excision of Stomach, Pylorus, Via Natural or Artificial Opening Endoscopic, Diagnostic (05/04/23) Plain Radiography of Bile Ducts using Low Osmolar Contrast (05/04/23) Resection of Gallbladder, Percutaneous Endoscopic Approach (05/04/23) Transfusion of Nonautologous Red Blood Cells into Peripheral Vein, Percutaneous Approach (05/04/23) Labs on day of discharge: Laboratory Results - last 24 hr 01/10/25 01/10/25 01/10/25 07:07 11:02 16:28 POC Glucose 83 86 192 H 01/10/25 01/11/25 20:27 07:12 POC Glucose 143 H 123 H Preliminary micro results at discharge 01/09/25 01:04 Blood Culture - Preliminary Blood - Venous No growth after 48 hours. 01/09/25 01:04 Blood Culture - Preliminary Blood - Venous No growth after 48 hours. Discharge Plan Discharge Anticipated Discharge Date/Time: 01/11/25 09:41 Patient Disposition: Home, Self-Care Discharge Diagnosis: SBO Referrals: Po,Clarence Lo MD [Primary Care Provider, Internal Medicine] - 1 Week Discharge Medications: Continued (DME) pen needle, diabetic [BD Ultra-Fine Prisca Pen Needle] 32 gauge x 5/32 needle See Rx Instructions .Route Qty: 100 2RF Rx Instructions: As directed atorvastatin 10 mg tablet 10 mg PO DAILY Qty: 90 3RF folic acid 1 mg tablet 1 mg PO DAILY Qty: 90 3RF Jardiance 25 mg tablet 25 mg PO DAILY Qty: 90 2RF Januvia 100 mg tablet 100 mg PO DAILY Qty: 90 1RF tadalafil [Cialis] 20 mg tablet 20 mg PO DAILY PRN (Reason: sexual activity) Qty: 14 3RF Rx Instructions: administer approximately 30min before sexual activity; do not use more than 1 dose per 24hrs cyanocobalamin (vitamin B-12) 1,000 mcg Tablet 1,000 mcg PO DAILY docusate sodium [Colace] 100 mg capsule 100 mg PO BID PRN (Reason: constipation) Qty: 30 0RF lansoprazole [Prevacid] 30 mg capsule,delayed release(DR/EC) 30 mg PO BID@0630,1830 simethicone 80 mg Tablet,Chewable 80 mg PO DAILY PRN (Reason: GERD) (DME) DIABETIC SHOES See Rx Instructions .Route .MEDSUPPLY Qty: 1 0RF Rx Instructions: As directed allopurinol 100 mg tablet 100 mg PO DAILY 90 Days Qty: 90 2RF lisinopril 5 mg tablet 5 mg PO DAILY 90 Days Qty: 90 2RF solifenacin [Vesicare] 5 mg tablet 10 mg PO DAILY 90 Days Qty: 180 2RF Discharge Orders: Discharge Order (Routine); Ordered 01/11/25 Ordered By: Myrtle Michelle Diet: Diabetic diet Activity on Discharge: As tolerated Stand Alone Forms: Patient Portal Discharge page Print Language: Mongolian Activity Restrictions/Additional Instructions: Resume your home medications. Follow up with your PCP. Call Your Doctor If: ? ? -Your temperature exceeds 101.5? F? ? ? -You experience excessive pain or swelling ? ? -You have an unexpected reaction to medication ? ? -You experience continued vomiting/nausea Care Plan Goals: Return to baseline health and resume normal activities as tolerated. Health Concerns: SBO diabetes mellitus Plan of Treatment: NGT, bowel rest, IVF, SBFT F/u with PCP Assessment: Resolved Discharge Date/Time: 01/11/25 08:30
== END 2025-01-11 08:30 | disposition home or self-care (01) | DRG 390 ==
LOC: HO.ED 01-09 04:04 → HO.EDOVER 01-09 08:28 → HO.IMC 01-09 16:56 → HO.S3 01-10 14:44
PROVIDERS: Admitting Provider Physician Assistant Surgical; Emergency Provider Emergency Medicine Emergency Medical Services; PCP Internal Medicine; Visit Provider Physician Assistant Surgical
DX: K56.609 Unspecified intestinal obstruction, unspecified as to partial versus complete obstruction (principal); E11.9 Type 2 diabetes mellitus without complications; I10 Essential (primary) hypertension; M10.9 Gout, unspecified; E78.5 Hyperlipidemia, unspecified; Z87.891 Personal history of nicotine dependence; Z79.899 Other long term (current) drug therapy
CPT/HCPCS: 36415; 71045; 74018; 74177; 74250; 80048; 80053; 81001; 82947; 83605; 83690; 85025; 85610; 85730; 86850; 86900; 86901; 87040; 93005; 99285; J1308; J2270; J2405; J7120; Q9967

== ENCOUNTER → 2025-01-09 00:38 | Outpatient (BNV) | payer MEDICARE, OTHER, SELFPAY | PROVIDERS: Emergency Provider Emergency Medicine Emergency Medical Services; PCP Internal Medicine; Visit Provider Radiology Diagnostic Radiology | DX: K56.609 Unspecified intestinal obstruction, unspecified as to partial versus complete obstruction (principal) | CPT/HCPCS: 71045; 74250 ==

== ENCOUNTER → 2025-01-09 03:25 | Outpatient (BNV) | payer MEDICARE, OTHER, SELFPAY | PROVIDERS: Admitting Provider Physician Assistant Surgical; Emergency Provider Emergency Medicine Emergency Medical Services; PCP Internal Medicine; Visit Provider Internal Medicine Cardiovascular Disease | DX: I48.91 Unspecified atrial fibrillation (principal) | CPT/HCPCS: 93010 ==

== ENCOUNTER 2025-01-09 08:16 | Outpatient (BNV) | payer MEDICARE, OTHER, SELFPAY | END 2025-01-10 08:00 | PROVIDERS: Admitting Provider Physician Assistant Surgical; Emergency Provider Emergency Medicine Emergency Medical Services; PCP Internal Medicine; Visit Provider Radiology Diagnostic Radiology | DX: K57.30 Diverticulosis of large intestine without perforation or abscess without bleeding (principal) | CPT/HCPCS: 74018 ==

== ENCOUNTER → 2025-01-09 08:16 | Outpatient (BNV) | payer MEDICARE, OTHER, SELFPAY | PROVIDERS: Admitting Provider Physician Assistant Surgical; Emergency Provider Emergency Medicine Emergency Medical Services; PCP Internal Medicine; Visit Provider Student in an Organized Health Care Education/Training Program | DX: K56.609 Unspecified intestinal obstruction, unspecified as to partial versus complete obstruction (principal) | CPT/HCPCS: 99223 ==

== ENCOUNTER → 2025-01-09 08:16 | Outpatient (BNV) | payer MEDICARE, OTHER, SELFPAY | PROVIDERS: Admitting Provider Physician Assistant Surgical; Emergency Provider Emergency Medicine Emergency Medical Services; PCP Internal Medicine; Visit Provider Physician Assistant Surgical | DX: K56.609 Unspecified intestinal obstruction, unspecified as to partial versus complete obstruction (principal) | CPT/HCPCS: 99222; 99232 ==

== ENCOUNTER 2025-01-16 15:30 | Outpatient (AMB) | payer MEDICARE, OTHER, SELFPAY ==
--- NOTE | 2025-01-16 15:36 | MHC.PC.OV ---
Vital Signs 01/16/25 15:37 Height 5 ft 6 in Weight 145 lb BMI 23.4 BP 126/68 Blood Pressure Location Lt brachial Position Sitting Pulse 76 Pulse Source Pulse Oximeter Pulse Oximetry (%) 97 Oxygen Delivery Method Room Air Intake Visit Reasons: [facility] 01/11 Bowel obstruction Inside Finisher Required: No Accompanied by: Self / Same As Patient Allergies metformin Allergy (Unknown, Verified 01/16/25 15:57) diarrhea rosuvastatin (Crestor) Allergy (Unknown, Verified 01/16/25 15:57) Unknown Medication List - Last Reconciled 01/16/25 by Lizet Tracey PA-C allopurinol 100 mg PO DAILY 90 days atorvastatin 10 mg PO DAILY cyanocobalamin (vitamin B-12) 1,000 mcg PO DAILY [DIABETIC SHOES As directed] docusate sodium (Colace) 100 mg PO BID PRN empagliflozin (Jardiance) 25 mg PO DAILY folic acid 1 mg PO DAILY lansoprazole (Prevacid) 30 mg PO BID@0630,1830 lisinopril 5 mg PO DAILY 90 days pen needle, diabetic (BD Ultra-Fine Prisca Pen Needle) As directed simethicone 80 mg PO DAILY PRN sitagliptin phosphate (Januvia) 100 mg PO DAILY solifenacin (Vesicare) 10 mg (2 x 5 mg) PO DAILY 90 days tadalafil (Cialis) 20 mg PO DAILY PRN Tobacco use date assessed: 01/16/25 Fall risk assessment: No Falls in past year Last assessed Fall Risk: 01/16/25 Dental Screening Dental Screen Date: 01/16/25 Did you have a dental visit in the last 12 months?: No Did you have a dental problem in the last 6 months where you did not have access to dental care?: No Was dental information given to patient?: No HPI [facility] 01/11 Bowel obstruction HPI Details 84-year-old male with past medical history of diabetes mellitus, hypertension, hypercholesterolemia, GERD, BPH last seen 01/[address] Talbert coming in for hospital discharge follow up. In review of the notes, patient was seen in [facility] 01/09/2025 for lower abdominal pain followed by nausea and vomiting. CT abdomen pelvis showed dilated small bowel loops with air-fluid levels and transition point in the right lower quadrant and was admitted for small-bowel obstruction. Nonoperative measures were advised with NG tube which was removed during his hospital stay and diet slowly advanced. Patient was discharged home 01/11/2025 tolerating a solid diet. Presenting with a follow-up for a recent hospitalization due to a small bowel obstruction. The patient reports no current abdominal pain, nausea, or vomiting, indicating resolution of the obstruction. The patient has a history of gastroesophageal reflux disease, which was previously managed with medication and lifestyle modifications. Blood pressure was noted to be low during hospitalization, likely due to vomiting, but has since normalized. The patient is diabetic with an A1c of 5.4%, indicating good glycemic control. The patient engages in regular physical activity, including golfing five days a week. [facility] Medical History Enlarged prostate Nocturia Urinary dribbling Acute blood loss anemia Tubular adenoma of colon GERD (gastroesophageal reflux disease) Knee osteoarthritis Erectile dysfunction Hypercholesterolemia Hypertension Gout Type 2 diabetes mellitus with hyperglycemia Surgical History Cholelithiasis Gallstone pancreatitis Hx laparoscopic cholecystectomy (~05/11/23) History of cataract surgery History of knee replacement procedure of left knee History of eye surgery Family History Father Medical history unknown Mother Medical history unknown Social History Household Members: Spouse Housing: House Do you presently have visiting nurse or other home services: No Alcohol intake: current Alcohol intake frequency: 0-2 drinks per day Alcohol type: hard liquor Patient Tobacco Use Status: Former Tobacco user Tobacco use type: Cigarette e-Cigarette/Vaping Use: Never Used Second Hand Smoke Exposure: No service: Yes Current occupational status: retired Cognitive needs: No Hearing needs: No Vision needs: Yes Questionnaire Thrive Questionnaire Date Thrive assessed: 01/16/25 PRETTY-7 AMB Questionnaire PRETTY-7 Date PRETTY - 7 assessed: 01/16/25 Source: Developed by Drs. Burke Vera, Nikole Johns, Giovanni Johnson and colleagues, with an educational kim from [employer] Review of Systems Const Denies body aches, Denies chills, Denies fever(s), Denies headache(s) and Reports poor appetite Eyes Reports no additional complaints ENT Denies dysphagia, Denies dizziness, Denies headache(s) and Denies odynophagia Card Denies chest pain, Denies syncope, Denies edema, Denies irregular heart rhythm, Denies lightheadedness and Denies dyspnea Resp Denies cough and Denies dyspnea GI Denies abdominal pain, Denies constipation, Denies dysphagia, Denies diarrhea, Denies nausea, Denies odynophagia and Denies vomiting Reports no additional complaints Musc Reports no additional complaints and Denies abnormal gait Skin/Breast Reports system reviewed and no additional complaints, except as documented Neuro Denies abnormal gait, Denies dizziness, Denies syncope and Denies headache(s) Psych Reports no additional complaints Physical exam (Primary Care) Vital Signs: Last Vital Signs Pulse 76 01/16/25 15:37 BP 126/68 01/16/25 15:37 Pulse Ox 97 01/16/25 15:37 Oxygen Delivery Method Room Air 01/16/25 15:37 BMI result Body Mass Index 23.4 Tobacco/Smoking Status: Tobacco use Status Tobacco use date assessed 01/16/25 01/16/25 15:44 Patient Tobacco Use Status Former Tobacco user 01/16/25 15:44 Tobacco use type Cigarette 01/16/25 15:44 e-Cigarette/Vaping Use Never Used 01/16/25 15:44 Thrive Assessment: Date of Thrive Assessment Date Thrive assessed 01/16/25 01/16/25 15:44 Const General: cooperative, healthy appearing, comfortable and no acute distress Orientation/consciousness: patient oriented x3 [facility] Head: Yes normocephalic Ears: hearing grossly normal bilaterally General nose exam: Normal external nose present Eyes General: appearance normal, both eyes and all related structures Conjunctivae: conjunctivae normal Neck Neck: Yes full ROM and Yes no lymphadenopathy Resp Effort & Inspection: normal respiratory effort Auscultation: clear to auscultation bilaterally, no crackles, no rales, no rhonchi and no wheezes Cardio Rate: regular rate Rhythm: regular rhythm GI Inspection: Yes normal to inspection Palpation (GI): Soft to palpation, not firm, nontender, no guarding, not rigid, no masses and No Rebound tenderness present Skin General skin exam: no rashes or lesions noted Neuro General: patient oriented x3 Gait exam (Neuro): Normal gait present Extrem General: Yes normal to inspection, Yes full ROM and No edema Psych Affect: normal affect Attitude: cooperative Insight: Good insight present (Psych) Judgement: Good judgement present (Psych) Coding Level of Care Code TCM Mod MDM <= 7 Days Complex EM visit Add On G2211 Diagnoses Essential hypertension I10 Hypertension type: essential hypertension Type 2 diabetes mellitus with hyperglycemia, without long-term current use of insulin E11.65 Diabetes mellitus exterminator termite insulin use: without senior care use GERD (gastroesophageal reflux disease) K21.9 Small bowel obstruction K56.609 Assessment & Plan Assessment & Plan (1) Hypertension: Code(s): I10 - Essential (primary) hypertension Category: Medical Qualifiers: Hypertension type: essential hypertension Qualified Code(s): I10 - Essential (primary) hypertension Plan: Continue on current blood pressure medication. Avoid salt intake and encourage healthy diet and regular exercise. (2) Type 2 diabetes mellitus with hyperglycemia: Comment: Eye physician Evita Code(s): E11.65 - Type 2 diabetes mellitus with hyperglycemia Category: Medical Qualifiers: Diabetes mellitus exterminator termite insulin use: without senior care use Qualified Code(s): E11.65 - Type 2 diabetes mellitus with hyperglycemia Plan: Decrease the amount of carbohydrates such as pasta, bread, rice, and potatoes and limit the amount of sweets. Although fruits are generally healthy they should be eaten in moderation as they are still high in sugar. Hemoglobin A1c goal of less than 7%. A1c 5.4% on last blood work. (3) GERD (gastroesophageal reflux disease): Code(s): K21.9 - Gastro-esophageal reflux disease without esophagitis Category: Medical Plan: Avoid trigger foods such as citrus, tomato products, soda, caffeine, spicy foods and other foods that may be irritating to your stomach. Avoid laying flat 3-4 hours after eating and elevate the head of the bed 30 degrees to prevent acid from moving into the esophagus. (4) Small bowel obstruction: Code(s): K56.609 - Unspecified intestinal obstruction, unspecified as to partial versus complete obstruction Category: Medical Plan: Patient has symptoms of small-bowel obstruction have resolved at this time. He is no longer having abdominal pain, nausea, vomiting and is having normal bowel movements at this time. He has progressed to a normal diet and does have a good appetite. He is passing stool and gas appropriately. Continue to monitor symptoms at this time and reviewed red flag symptoms and when to present for re-evaluation. Plan This note was constructed using voice recognition software. While every effort has been made to ensure accuracy and rectification printer, still areas may have been included sometimes these areas may affect the content or meeting of the given symptoms. Total time spent caring for the patient today was 30 minutes. This includes time spent before the visit reviewing the chart, time spent during the visit, and time spent after the visit and documentation. Patient was informed and verbally consented to the use of an ambient scribe for clinic note documentation during this visit.
[2025-01-16 15:37] VITALS: BP 126/68; PULSE 76; O2SAT 97; BMI 23.4
--- OUTSIDE RECORDS SUMMARY | 2025-01-16 15:55 | XMS_ITS | Clinical Summary ---
Author Organization [facility] Address [address] [place] [id number] Phone Care Team Providers Care Lead Accountant Name Role Phone Hunter Garcia MD Primary Care Provider [phone] Social History Tobacco Use Types Packs/Day Years Used Date Smoking Tobacco: Never Assessed Education Answer Date Recorded Are you interested in more education? Not on sanchez e 10/10/2022 Are you concerned about learning? Not on file 10/10/2022 No 10/10/2022 No 10/10/2022 Digital Access Answer Date Recorded No 11/08/2022 No 11/08/2022 No 11/08/2022 Reliable internet access at home? Not on file 11/08/2022 Device with a working camera? Not on file Sex and Gender Information Value Date Recorded Sex Assigned at Not on file Legal Sex Male 5:58 PM EST Gender Identity Not on file Sexual Orientation Not on file Plan of Treatment Health Maintenance Due Date Last Done Comments Adult Td,Tdap Booster 1940 DEPRESSION SCREENING 1952 RSV VACCINE (1 - 1-dose 75+ series) 12/27/2015 COVID-19 VACCINE (2023-2 5 season) 2024 08/06/2020, 07/16/2020 PNEUMOCOCCAL VACCINES (50+ years) Completed 09/24/2018, 06/03/2015 ZOSTER VACCINES Completed 11/29/2018, 09/24/2018 HEPATITIS A VACCINES Aged Out No long er eligible based on patient's age to complete this topic HIB VACCINES Aged Out No longer eligi ble based on patient's age to complete this topic MENINGOCOCCAL VACCINES (ACWY) Aged Out No longer eligible based on patient's age to complete this topic MENINGOCOCCAL VACCINES (B) Aged Out N o longer eligible based on patient's age to complete this topic Medical Devices Not on file Insurance MEDICARE PART A & B O MEDICARE PART A & B [facility] B Member Subscriber Plan / Payer (Ef fective 2006-Present) Name:Travis Krishnamurthy Member ID:[id number] Relation to Subscriber:Self Name:Raghu Travis Subscriber ID:[id number] Payer ID:[id number] Group ID:Not on file Type:Medicare Address: [employer] [address] [place], [place] [address]O MEDICARE PART A & B O MEDICARE PART A & B O MEDICARE PART A & B O MEDICARE PART A & B O MEDICARE PART A & B O MEDICARE PART A & B [facility] HMO Care Teams Lead Accountant Relationship Specialty Start Date End Date Hunter Garcia MD [address] [place] [id number] PCP - General 12/12/13 Additional Source Comments The information contained in this document represents components of the legal health record. It is not the complete legal health record.[facility]
== END 2025-01-16 16:27 | disposition home or self-care (01) ==
LOC: HO.HMCH 15:31
PROVIDERS: PCP Internal Medicine
DX: K56.609 Unspecified intestinal obstruction, unspecified as to partial versus complete obstruction (principal); I10 Essential (primary) hypertension; E11.65 Type 2 diabetes mellitus with hyperglycemia; K21.9 Gastro-esophageal reflux disease without esophagitis

== ENCOUNTER → 2025-01-16 15:30 | Outpatient (BNVA) | payer MEDICARE, OTHER, SELFPAY | PROVIDERS: PCP Internal Medicine | DX: I10 Essential (primary) hypertension (principal); E11.65 Type 2 diabetes mellitus with hyperglycemia; K21.9 Gastro-esophageal reflux disease without esophagitis; K56.609 Unspecified intestinal obstruction, unspecified as to partial versus complete obstruction; Z87.891 Personal history of nicotine dependence | CPT/HCPCS: 99495 ==

== ENCOUNTER 2025-03-29 05:39 | Inpatient (IN) | payer MEDICARE, OTHER, SELFPAY ==
[2025-03-29] VITALS (31 sets, daily range): BP systolic 81–120; BP diastolic 41–57; PULSE 76–129; RESP 14–33; TEMP 36.4–37.9; O2SAT 87–97; BMI 22.6
--- NOTE | ~2025-03-29 | XR_ITS ---
EXAMINATION: XR CHEST 1 VIEW HISTORY: CP COMPARISON: Comparison is made with the prior examination dated 01/09/2025. FINDINGS: A single AP portable view of the chest performed at 6:02 AM is submitted. There is extensive airspace opacity throughout the right lung, consistent with pneumonia. The left lung is clear. There is no pleural effusion, pneumothorax, or pulmonary vascular congestion. The heart is normal in size. The aorta is calcified. The bones are intact. XR/XR chest 1V IMPRESSION: Extensive airspace opacity throughout the right lung, consistent with pneumonia. Follow-up is recommended to document resolution. Electronically signed by: Burke Cevallos MD 03/29/2025 07:08 AM EDT
--- NOTE | ~2025-03-29 | XR_ITS ---
CLINICAL HISTORY: hypoxia Chest Radiographs, AP Comparison: CT/MN/SR - CT ANGIO CHEST PE PROTOCOL - 03/29/25 07:59 EDT CR/SR - XR CHEST 1V - 03/29/25 06:02 EDT CR - XR CHEST 1V - 01/09/25 05:50 EDT Findings: No cardiomegaly. Normal mediastinal contours. No pneumothorax. Opacity throughout the right lung, greater than on the prior study. No pleural effusion. Normal upper abdomen. No acute fracture. Impression: Interval worsening of multifocal pneumonia in the right lung. This document has been electronically signed by: Ivette Krishnamurthy MD on 03/31/2025 13:42:24
--- NOTE | ~2025-03-29 | CT_ITS ---
EXAMINATION: CT ABDOMEN AND PELVIS WITHOUT CONTRAST CLINICAL INFORMATION: History of SBO, vomiting. COMPARISON: 01/09/2025. TECHNIQUE: Multidetector volumetric imaging was performed from the superior aspect of the liver through the pubic symphysis. Sagittal and coronal reformatted images were obtained on the technologist's workstation. This CT examination was performed using dose optimization techniques as appropriate, variously including the following: *Automated exposure control *Adjustment of mA and/or kV according to patient size (this includes techniques or standardized protocols for targeted exams where dose is matched to indication/reason for exam; i.e. extremities or head) *Use of iterative reconstruction technique FINDINGS: LUNG BASES: Mildly elevated right hemidiaphragm. Extensive consolidation and groundglass attenuation involving the right middle lobe and right lower lobe, consistent with pneumonia. There is a tiny layering right effusion. Mild cardiac enlargement with heavy coronary calcifications. Left lung base grossly clear. There is a small to moderate type I hiatus hernia. LIVER, GALLBLADDER, AND BILIARY TREE: The liver is normal in size, shape, and attenuation. No focal hepatic lesion or biliary ductal dilatation is present. Gallbladder is surgically absent. PANCREAS: Unremarkable. SPLEEN: There is an old tiny superomedial infarct. There is a small inferoanterior splenule. ADRENAL GLANDS: Unremarkable. KIDNEYS AND URETERS: The kidneys are normal in size, shape, and attenuation. No hydronephrosis, hydroureter, or calculi seen. No perinephric stranding. BLADDER: Normal. The median lobe the prostate protrudes into the bladder base. GASTROINTESTINAL TRACT: Small to moderate size type I hiatus hernia. Mild gastric wall thickening and enhancement, findings suggest gastritis. There is a small second segment duodenal diverticulum. Small bowel is normal in caliber and course. There is no wall thickening or inflammation. Normal appendix visualized. The colon demonstrates extensive pandiverticulosis, most significant in the sigmoid region. There is no wall thickening or inflammation of the colon. No rectal abnormality noted. PERITONEUM: No free air or ascites. ABDOMINAL WALL: No significant hernia. LYMPH NODES: No abnormal lymphadenopathy present. VASCULAR: Extensive atheromatous calcification of the arterial structures. The aorta is ectatic without aneurysm. PELVIC VISCERA: Mild to moderate prostate enlargement, with diameter estimated at 4.3 cm. The median lobe mildly protrudes into the bladder base. Normal seminal vesicles. OSSEOUS STRUCTURES: No suspicious lytic or blastic bone lesion. Moderate to advanced spondylosis of the spine. Mild to moderate degenerative changes in both hip joints. CT/CT abdomen pelvis wo IV con IMPRESSION: 1. Consolidative changes involving the right lower and right middle lobes, findings consistent with pneumonia. There is a tiny right parapneumonic effusion. 2. There are no acute findings in the abdomen or pelvis. 3. Mild mucosal enhancement and wall thickening of the stomach, findings suggesting gastritis. 4. There are numerous ancillary findings as discussed in the body of the report Electronically signed by: Jagdeep Singer MD 03/29/2025 08:37 AM EDT
--- NOTE | ~2025-03-29 | CT_ITS ---
EXAMINATION: CT ANGIOGRAM CHEST CLINICAL INFORMATION: sob COMPARISON: Chest radiograph on March 29, 2025 TECHNIQUE: Multiple axial images were obtained through the chest after the administration of 65 cc of Omnipaque 350 intravenous contrast. Extensive vascular post-processing including two-dimensional and three-dimensional reformatted images were created and reviewed on an independent workstation. This CT examination was performed using dose optimization techniques as appropriate, variously including the following: *Automated exposure control *Adjustment of mA and/or kV according to patient size (this includes techniques or standardized protocols for targeted exams where dose is matched to indication/reason for exam; i.e. extremities or head) *Use of iterative reconstruction technique FINDINGS: Pulmonary angiogram: Adequate opacification of the pulmonary arteries. No filling defects to suggest pulmonary embolism. Pulmonary trunk measures 2.2 cm in diameter. Devices/tubes/lines: None Lungs: Minimal mucous/secretions within the trachea. Patchy groundglass opacity associated with thickening of the interstitium involving most of the right upper lobe, and in lesser degree, involving the right middle lobe and right lower lobe. Minimal focal patchy airspace disease involving the left lower lobe. Pleura: No pneumothorax. Small amount of right pleural effusion. Mediastinum: No thyroid nodules. Mild cardiomegaly with mild enlargement of the left atrium. No pericardial effusion. Moderate/severe coronary artery calcifications. Advanced atherosclerotic disease with calcifications along the nonaneurysmal thoracic aorta and great vessels. Lymph nodes: No bulky adenopathy. Upper abdomen: Small hiatal hernia. Multiple diverticula along the included transverse colon. Atherosclerotic disease with calcifications along the included abdominal aorta. Status post cholecystectomy. Chest Wall: Unremarkable. Bones: No acute or suspicious bone lesions. CT/CT angio chest PE protocol IMPRESSION: 1. No evidence of pulmonary embolism or pulmonary hypertension. 2. Multifocal pneumonia of the right lung (predominantly right upper lobe), with minimal focal involvement of the left lower lobe. Recommend continue follow-up with chest radiographs. 3. Small right pleural effusion. Electronically signed by: Maria Del Rosario Azar MD 03/29/2025 09:03 AM EDT
--- NOTE | 2025-03-29 05:54 | ECG_ITS ---
Test Reason : SOB/TACHY Blood Pressure : */* mmHG Vent. Rate : 117 BPM Atrial Rate : 117 BPM P-R Int : 146 ms QRS Dur : 88 ms QT Int : 348 ms P-R-T Axes : 33 -41 35 degrees QTcB Int : 485 ms Sinus tachycardia with Premature atrial complexes Left axis deviation Abnormal ECG When compared with ECG of 09-Jan-2025 04:14, Nonspecific T wave abnormality has replaced inverted T waves in Inferior leads T wave amplitude has increased in Lateral leads Referred By: Generic ED Physician Electronically Signed By: Priyank Chapa
--- OUTSIDE RECORDS SUMMARY | 2025-03-29 06:15 | XMS_ITS | Clinical Summary ---
Author Organization [facility] Address [address] [place] [phone] Phone Care Team Providers Care Bereavement Program Coordinator Name Role Phone Hunter Garcia MD Primary Care Provider Social History Tobacco Use Types Packs/Day Years [...] VACCINE (1 - 1-dose 75+ series) 12/27/2015 INFLUENZA VACCINE (#1) 2025 0, 04/06/2019, 03/22/2018, Additional history exists COVID-19 VACCINE ( season) 2025 08/06/2020, 07/16/2020 PNEUMOCOCCAL VACCINES (50+ years) Completed [...] Insurance MEDICARE PART A & B [facility] Address: [place] [address] MEDICARE PART A & B O MEDICARE PART A & B O [facility] Address: [address] [address] MEDICARE PART A & B Member Subscriber Plan / Payer (Ef fective 2006-Present) Name:Travis Krishnamurthy Member ID:[id number] Relation to Subscriber:Self Name:Travis Krishnamurthy Subscriber ID:[id number] Payer ID:[id number] Group ID:Not on file Type:Medicare Address: [employer] [address] MEDICARE PART A & B O MEDICARE PART A & B Member Subscriber Plan / Payer (Ef fective 2006-Present) Name:Travis Krishnamurthy Member ID:[id number] Relation to Subscriber:Self Name:Travis Krishnamurthy Subscriber ID:[id number] Payer ID:[id number] Group ID:Not on file Type:Medicare Address: [employer] [address] MEDICARE PART A & B O MEDICARE PART A & B [facility] HMO [facility] Address: [address] [address] MEDICARE PART A & B [facility] HMO [facility] Address: [address] [address] Care Teams Bereavement Program Coordinator Relationship Specialty Start Date End Date Hunter Garcia MD [address] [place] [address] PCP - General 12/12/13 Additional Source Comments The information contained in this document represents components of the legal health record. It is not the complete legal health record.[facility]
--- OUTSIDE RECORDS SUMMARY | 2025-03-29 06:15 | XMS_ITS | Encounter Summary ---
Author Organization [facility] Address [address] [place] [id number] Phone Care Team Providers Care Pressfitter Name Role Phone Hunter Garcia MD Primary Care Provider [phone] Reason for Referral * Physical Therapy (Routine) - Closed Specialty Diagnoses / Procedures Referred By Kimo oquendo Referred To Contact Physical Therapy Diagnoses Encounter for rehabilitation System, Provider Not In, [facility] [address] [address] Phone: tel: Referral ID Status Reason Start Date Expiration Date Visits Re quested Visits Authorized [id number] Closed 07/26/2017 06/13/2018 99 [phone] Encounter Details Date Type Department Care Team (Latest Contact Info) Description 07/26/2017 Transcribe Orders [facility] [address] [place] [id number] Magnolia Jerez, [employer] [address] [address] Encounter for rehabilitation (Primary Dx) Social History Tobacco Use Types Packs/Day Years Used Date Smoking Tobacco: Never Assessed Sex and Gender Information Value Date Recorded Sex Assigned at Not on file Legal Sex Male 5:58 PM EST Gender Identity Not on file Sexual Orientation Not on file documented as of this encounter Plan of Treatment Scheduled Referrals Name Type Priority Associated Diagnoses Orde r Schedule Ambulatory referral to [facility] Physical Therapy Outpatient Referral Routine Encounter for rehabilitation Ordered: 07/26/2017 documented as of this encounter Visit Diagnoses Diagnosis Encounter for rehabilitation- Primary documented in this encounter Care Teams Pressfitter Relationship Specialty Start Date End Date Hunter Garcia MD [address] [place] [address] PCP - General 12/12/13 documented as of this encounter Additional Source Comments The information contained in this document represents components of the legal health record. It is not the complete legal health record.[facility]
--- NOTE | 2025-03-29 06:18 | ED.GENADULT ---
HPI - General Adult General Chief complaint: Nausea/Vomiting/Diarrhea Stated complaint: n/v/d + sob Time Seen by Provider: 03/29/25 06:03 Source: patient, family (Spouse) and old records reviewed Mode of arrival: ambulatory Limitations: no limitations History of Present Illness ED Provider: DR. Jones HPI narrative: 82-year-old male past medical history significant for HTN, HLD, dm, cholecystectomy, history of small-bowel obstruction came in for evaluation of shortness of breath that woke him up from sleep at 02:00 with coughing, shortness of breath, patient had 1 time vomiting this morning described as mucus tinged with streaks of blood patient had 1 large diarrhea BM before coming to the ED. Because persistence of symptoms patient decided to come to the ED for further evaluation. Related Data Home Medications ?Medication ?Instructions ?Recorded ?Confirmed cyanocobalamin (vitamin B-12) 1,000 mcg PO DAILY 05/04/23 03/29/25 1,000 mcg tablet lansoprazole 30 mg capsule,delayed 30 mg PO BID@0630,1830 01/09/25 03/29/25 release (Prevacid) simethicone 80 mg chewable tablet 80 mg PO DAILY PRN GERD 01/09/25 03/29/25 Previous Rx's ?Medication ?Instructions ?Recorded pen needle, diabetic 32 gauge x #100 ea 10/12/23 (BD Ultra-Fine Prisca Pen Needle) DIABETIC SHOES #1 ea 02/08/24 atorvastatin 10 mg tablet 10 mg PO DAILY #90 tabs 04/07/24 folic acid 1 mg tablet 1 mg PO DAILY #90 tabs 05/06/24 allopurinol 100 mg tablet 100 mg PO DAILY 90 days #90 tabs 07/10/24 lisinopril 5 mg tablet 5 mg PO DAILY 90 days #90 tabs 07/10/24 sitagliptin phosphate 100 mg 100 mg PO DAILY #90 tabs 10/13/24 tablet (Januvia) solifenacin 5 mg tablet (Vesicare) 10 mg (2 x 5 mg) PO DAILY 90 days 02/15/25 #180 tabs empagliflozin 25 mg tablet 25 mg PO DAILY #90 tabs 03/27/25 (Jardiance) Allergies Allergy/AdvReac Type Severity Reaction Status Date / Time metformin Allergy Unknown diarrhea Verified 03/29/25 05:48 rosuvastatin (Crestor) Allergy Unknown Unknown Verified 03/29/25 05:48 Review of Systems Review of Systems: All other systems are reviewed and are negative Constitutional: Reports as per HPI and Reports no additional constitutional complaints Eyes: Reports as per HPI and Reports no additional eye complaints Reports system reviewed and no additional complaints, except as documented Cardiovascular: Reports as per HPI and Reports no additional cardiovascular complaints Respiratory: Reports as per HPI and Reports no additional respiratory complaints Gastrointestinal: Reports as per HPI and Reports no additional gastrointestinal complaints Genitourinary: Reports no additional female genitourinary complaints Musculoskeletal: Reports no additional musculoskeletal complaints Skin/Breast: Reports system reviewed and no additional complaints, except as docu Psychiatric: Reports no additional psychiatric complaints Endocrine: Reports no additional endocrine complaints Hematologic/Lymphatic: Reports no additional hematologic/lymphatic complaints Allergic/Immunologic: Reports no additional allergic/immunologic complaints Reports system reviewed and no additional complaints, except as documented and Reports Abnormal speech present PMFSH Past Medical History Medical History Enlarged prostate Nocturia Urinary dribbling Acute blood loss anemia Tubular adenoma of colon GERD (gastroesophageal reflux disease) Knee osteoarthritis Erectile dysfunction Hypercholesterolemia Hypertension Gout Type 2 diabetes mellitus with hyperglycemia Surgical History Cholelithiasis Gallstone pancreatitis Hx laparoscopic cholecystectomy (~05/11/23) History of cataract surgery History of knee replacement procedure of left knee History of eye surgery Family History Family History Father Medical history unknown Mother Medical history unknown Social History Social History Household Members: Spouse Housing: House Do you presently have visiting nurse or other home services: No Alcohol intake: never Patient Tobacco Use Status: Former Tobacco user Tobacco use type: Cigarette Smoked in Last 30 Days: No e-Cigarette/Vaping Use: Never Used Second Hand Smoke Exposure: No Use of substances other than those prescribed or required for medical reasons: No Have you been hit, kicked, punched, or otherwise hurt by someone within the past year? If so, by whom?: No Do you feel safe in your current relationship?: Yes Is there a partner from a previous relationship who is making you feel unsafe now?: No Are you made to feel afraid or neglected: No Judaism Healthcare Practices: Latter-Day Advance Directives: No Advance Directives Information Provided: Yes Do you have a plan to hurt others: No Plan Recently lost weight without trying: No Nutrition Risks: On aspiration precautions Poor oral hygiene: No service: Yes Current occupational status: retired Cognitive needs: No Hearing needs: No Vision needs: Yes Physical Exam ED Vital Signs: Vital Signs - 24 hr 03/29/25 05:42 03/29/25 06:37 03/29/25 06:57 Temperature 97.8 F Pulse Rate 129 H Respiratory Rate 20 Blood Pressure 119/57 L 86/50 L 81/45 L Pulse Oximetry 87 L Oxygen Delivery Method Room Air Oxygen Flow Rate 03/29/25 07:13 03/29/25 07:27 03/29/25 08:14 Temperature Pulse Rate 103 H 100 90 Respiratory Rate 20 22 H 18 Blood Pressure 84/48 L 85/44 L 106/49 L Pulse Oximetry 95 93 95 Oxygen Delivery Method Nasal Cannula Nasal Cannula Nasal Cannula Oxygen Flow Rate 4 4 4 03/29/25 08:48 03/29/25 09:09 03/29/25 09:28 Temperature 100.2 F Pulse Rate 92 86 Respiratory Rate 20 24 H Blood Pressure 100/55 L 101/55 L 99/54 L Pulse Oximetry 95 97 Oxygen Delivery Method Nasal Cannula Nasal Cannula Oxygen Flow Rate 4 4 03/29/25 09:59 03/29/25 10:44 03/29/25 11:09 Temperature Pulse Rate 99 94 93 Respiratory Rate 28 H 28 H Blood Pressure 92/54 L 84/48 L 91/45 L Pulse Oximetry 96 97 Oxygen Delivery Method Nasal Cannula Nasal Cannula Oxygen Flow Rate 5 4 BMI result Body Mass Index 22.6 Vital signs have been reviewed and appear to be correct. Blood pressure elevated. Heart rate normal. Respiratory rate normal. Temperature normal. Oxygen saturation normal. Appearance: Alert. Oriented X3. No acute distress. Head: Normal external exam. Normocephalic. Atraumatic. No Calvert signs noted. No raccoon eyes noted Eyes: PERRLA. EOMI. Conjunctiva and sclera normal. Eyelids normal. ENT: TM's Normal. Pharynx normal. Uvula midline. Moist mucous membranes. No trismus noted. No drooling noted. No muffled voice noted. Neck: Normal inspection. Neck supple. FROM. No adenopathy. Thyroid Normal. No meningeal signs. No neck mass noted. CVS: Normal heart rate and rhythm. Heart sound normal. No murmurs noted. Pulses normal throughout. Respiratory: No respiratory distress. Painless inspiration. Diminished breathing sounds bilaterally, +rales up to half way of bilateral lung cabrales. Abdomen: Soft and nontender. Bowel sounds normal in all 4 quadrants. No distention noted. No organomegaly noted. No visible injury noted. Back: No CVA tenderness. Full range of motion noted. Skin: Skin warm and dry. Normal skin color. Normal skin turgor. No rashes/lesions/lacerations noted. Extremities: No lower extremity edema. Extremities exhibit normal range of motion. Extremities nontender. Neuro: Oriented X 3. Cranial nerve exam: II-XII are grossly intact No motor deficit. No sensory deficit. Reflexes normal. Course Reevaluation(s) Reevaluation #1: 84-year-old male came in with shortness of breath has a multilobar pneumonia and patient is hypotensive. Time: 08:00 Reevaluation #2: FOCUSED EXAM: Completed, Patient received total of1,905 cc of normal saline, IV antibiotic of ceftriaxone and doxycycline, no pulmonary embolism, no evidence of CHF, patient clinically improved, O2 sat is 95% on 4 L nasal cannula, blood pressure has been stable after the fluids, because urinary retention will consider Brennan. Patient is AAO x3. Time: 09:26 Reevaluation #3: FOCUSED EXAM: COMPLETED, patient is becoming hypotensive despite receiving 1905 cc of normal saline then followed by 1 albumin, will start pressor of Levophed. Case discussed with Dr. Barker to be admitted to ICU. Time: 11:17 Medications Administered Generic Name Dose Route Start Last Admin Trade Name Freq PRN Reason Stop Dose Admin Heparin Sodium (Porcine) 5,000 unit 03/29/25 11:30 03/29/25 11:37 Heparin Sodium,Porcine 5,000 Unit/Ml Vial SUBCUT 5,000 unit Q8H SHIRA Administration Norepinephrine Bitartrate 8 mg in 250 mls @ 0 mls/hr 03/29/25 11:00 03/29/25 15:07 Levophed IVCONT 0.09 mcg/kg/min .Q0M SHIRA 10.72 mls/hr Protocol Titration Per Protocol Cefepime HCl 1 gm/ Sodium 50 mls @ 100 mls/hr 03/29/25 14:30 03/29/25 15:07 Chloride IV Infused Q12H SHIRA Infusion Discontinued Medications Generic Name Dose Route Start Last Admin Trade Name Freq PRN Reason Stop Dose Admin Ceftriaxone Sodium 1 gm 03/29/25 06:24 03/29/25 06:37 Ceftriaxone Sodium 1 Gm Vial IVPUSH 03/29/25 06:25 1 gm ONCE ONE Administration Furosemide 20 mg 03/29/25 06:39 03/29/25 06:57 Furosemide 20 Mg/2 Ml Vial IVPUSH 03/29/25 06:40 Not Given ONCE ONE Protocol Lactated Ringer's 1,000 mls @ 999 mls/hr 03/29/25 07:15 03/29/25 09:28 Lr IV 03/29/25 08:15 Infused .Q1H1M SHIRA Infusion Acetaminophen 1,000 mg in 100 mls @ 400 mls/hr 03/29/25 07:14 03/29/25 07:51 Ofirmev IV 03/29/25 07:28 Infused ONCE ONE Infusion Lactated Ringer's 1,905.09 mls @ 1,905.09 mls/hr 03/29/25 07:47 03/29/25 09:28 Lr 30 ml/kg infuse over 1 hr (1905.09 ml) 03/29/25 08:46 Infused IV Infusion .Q1H ONE Doxycycline Hyclate 100 mg/ 250 mls @ 166.67 mls/hr 03/29/25 09:17 03/29/25 13:20 Sodium Chloride IV 03/29/25 10:46 Infused ONCE ONE Infusion Albumin Human 100 mls @ 133.333 mls/hr 03/29/25 10:15 03/29/25 11:20 Kedbumin 25 % IV 03/29/25 11:59 Not Given Q1H SHIRA Iohexol 100 ml 03/29/25 08:20 03/29/25 08:20 Iohexol 350 Mg/Ml 100 Ml Infus..Btl IV 03/29/25 08:21 65 ml ONCE ONE Administration Lidocaine HCl 10 ml 03/29/25 09:24 03/29/25 09:36 Lidocaine Hcl 2 % Urojet 10 Ml Jel.Pf.Kathya TOPICAL 03/29/25 09:25 10 ml ONCE ONE Administration Medical Decision Making Differential Diagnosis Differential Diagnoses: The differential diagnosis associated with the presentation includes (Pneumonia, pneumothorax, pleural effusion, pulmonary embolism, sepsis, ACS, CHF, electrolyte derangement, severe anemia.) Admission/Observation Consideration of admission/observation: Escalation of care including admission/observation considered Consult Healthcare Provider Management of the patient was discussed with: Hospitalist (constantin) Lab Data MDM Lab Attestation statement: I reviewed the patient's lab results. 03/29/25 06:16 03/29/25 06:16 Labs: Lab Results 03/29/25 03/29/25 03/29/25 Range/Units 06:16 06:21 06:24 WBC 4.0 L (4.8-10.8) X10*3/uL RBC 4.89 D (4.60-5.80) X10*6/uL Hgb 15.8 (14.0-18.0) g/dl Hct 46.4 (42.0-52.0) % MCV 94.9 (80.0-98.0) fL MCH 32.3 (27.0-33.0) pg MCHC 34.1 (31.0-36.0) g/dl RDW 12.6 (11.0-16.0) % Plt Count 176 D (160-400) X10*3/uL MPV 11.8 (9.4-12.4) fL Immature Gran % (Auto) Cancelled Neut % (Auto) Cancelled Lymph % (Auto) Cancelled [place] % (Auto) Cancelled Eos % (Auto) Cancelled Baso % (Auto) Cancelled Lymph # (Auto) Cancelled [place] # (Auto) Cancelled Eos # (Auto) Cancelled Baso # (Auto) Cancelled Abs Immat Gran (auto) Cancelled Absolute Neuts (auto) Cancelled Absolute Nucleated RBC 0.000 (0.0-0.012) X10*3/uL Nucleated RBC % (auto) 0.0 (0.0-0.2) /100WBC Neutrophils % (Manual) 69 (45-73) % Band Neutrophils % 12 H (3-5) % Lymphocytes % (Manual) 12 L (20-40) % Monocytes % (Manual) 5 (2-11) % Basophils % (Manual) 2 (0-2) % Abs Neuts (Manual) 3.2 (2.0-8.3) X10*3/uL Lymphocytes # (Manual) 0.5 L (1.2-4.9) X10*3/uL Monocytes # (Manual) 0.2 (0.1-1.2) X10*3/uL Basophils # (Manual) 0.1 (0.0-0.2) X10*3/uL Platelet Estimate NORMAL (NORMAL) Plt Morphology Comment NORMAL RBC Morphology NORMAL VBG pH 7.45 H (7.32-7.43) VBG pCO2 23 mmHg VBG pO2 66 mmHg VBG HCO3 16 L (22-26) mmol/L VBG O2 Saturation 95.0 % VBG Base Excess -5.0 mmol/L Sodium 139 (135-145) mmol/L Potassium 4.1 (3.3-5.1) mmol/L Chloride 110 H (96-108) mmol/L Carbon Dioxide 17 L (22-29) mmol/L Anion Gap 16 (12-20) BUN 37 H (9-16) mg/dL Creatinine 1.18 (0.5-1.4) mg/dL Estim Creat Clear Calc 41.8 Estimated GFR 59 Random Glucose 148 H (60-115) mg/dL Lactic Acid 3.3 H* (0.5-2.0) mmol/L Lactic Acid F/U @ 2Hr (0.5-2.0) mmol/L Calcium 8.5 (8.4-10.2) mg/dL Magnesium 1.6 (1.6-2.6) mg/dL Total Bilirubin 0.8 (0.0-1.0) mg/dL AST 28 (5-37) U/L ALT 17 (0-40) U/L Alkaline Phosphatase 94 (39-117) U/L Troponin I High Sens 5.0 (<3.5-35.0) ng/L NT-Pro-B Natriuret Pep 300.3 H (<300) pg/mL Total Protein 5.9 L (6.5-8.0) g/dL Albumin 3.6 (3.5-5.0) g/dL Lipase 25 (8-78) U/L Influenza Type A (PCR) NEGATIVE (Negative) Influenza Type B (PCR) NEGATIVE (Negative) RSV RNA Qual (PCR) NEGATIVE (Negative) SARS-CoV-2 RNA (RT-PCR) NEGATIVE (Negative) 03/29/25 Range/Units 08:42 WBC (4.8-10.8) X10*3/uL RBC (4.60-5.80) X10*6/uL Hgb (14.0-18.0) g/dl Hct (42.0-52.0) % MCV (80.0-98.0) fL MCH (27.0-33.0) pg MCHC (31.0-36.0) g/dl RDW (11.0-16.0) % Plt Count (160-400) X10*3/uL MPV (9.4-12.4) fL Immature Gran % (Auto) Neut % (Auto) Lymph % (Auto) [place] % (Auto) Eos % (Auto) Baso % (Auto) Lymph # (Auto) [place] # (Auto) Eos # (Auto) Baso # (Auto) Abs Immat Gran (auto) Absolute Neuts (auto) Absolute Nucleated RBC (0.0-0.012) X10*3/uL Nucleated RBC % (auto) (0.0-0.2) /100WBC Neutrophils % (Manual) (45-73) % Band Neutrophils % (3-5) % Lymphocytes % (Manual) (20-40) % Monocytes % (Manual) (2-11) % Basophils % (Manual) (0-2) % Abs Neuts (Manual) (2.0-8.3) X10*3/uL Lymphocytes # (Manual) (1.2-4.9) X10*3/uL Monocytes # (Manual) (0.1-1.2) X10*3/uL Basophils # (Manual) (0.0-0.2) X10*3/uL Platelet Estimate (NORMAL) Plt Morphology Comment RBC Morphology VBG pH (7.32-7.43) VBG pCO2 mmHg VBG pO2 mmHg VBG HCO3 (22-26) mmol/L VBG O2 Saturation % VBG Base Excess mmol/L Sodium (135-145) mmol/L Potassium (3.3-5.1) mmol/L Chloride (96-108) mmol/L Carbon Dioxide (22-29) mmol/L Anion Gap (12-20) BUN (9-16) mg/dL Creatinine (0.5-1.4) mg/dL Estim Creat Clear Calc Estimated GFR Random Glucose (60-115) mg/dL Lactic Acid (0.5-2.0) mmol/L Lactic Acid F/U @ 2Hr 2.7 H* (0.5-2.0) mmol/L Calcium (8.4-10.2) mg/dL Magnesium (1.6-2.6) mg/dL Total Bilirubin (0.0-1.0) mg/dL AST (5-37) U/L ALT (0-40) U/L Alkaline Phosphatase (39-117) U/L Troponin I High Sens (<3.5-35.0) ng/L NT-Pro-B Natriuret Pep (<300) pg/mL Total Protein (6.5-8.0) g/dL Albumin (3.5-5.0) g/dL Lipase (8-78) U/L Influenza Type A (PCR) (Negative) Influenza Type B (PCR) (Negative) RSV RNA Qual (PCR) (Negative) SARS-CoV-2 RNA (RT-PCR) (Negative) Independent Interpretation I performed an independent interpretation of an: Plain X-Ray (Chest:Extensive airspace opacity throughout the right lung, consistent with pneumonia. Follow-up is recommended to document resolution. ) and CT Scan (CT angio/CT abdomen and pelvis:1. No evidence of pulmonary embolism or pulmonary hypertension. 2. Multifocal pneumonia of the right lung (predominantly right upper lobe), with minimal focal involvement of the left lower lobe. Recommend continue follow-up with chest radiographs. 3. Small right p) Radiology Impression Discussion of test interpretation with radiology: I have reviewed the radiologist's reading. Critical Care Time Critical Care Time Critical Care Time: Yes Total Critical Care Time: 60 Attestation: The patient was critically ill with a high probability of imminent or life-threatening deterioration. I spent greater than 30 minutes of discontinuous time evaluating the patient, delivering critical care at the bedside, discussing evaluating data with consultants. Critical care time does not include time spent performing separately billable procedures or teaching. Time spent performing critical care was 60 minutes. Discharge Plan Discharge Clinical Impression: Pneumonia, Septic shock Patient Disposition: Admitted As Inpatient Discharge Date/Time: 03/29/25 12:30
[2025-03-29 06:22] LABS: Venous Blood Gas Refer to POC result
[2025-03-29 06:32] LABS: VBG HCO3 16 mmol/L (22-26); VBG O2 % Saturation 95.0 %
[2025-03-29 06:34] LABS: Hematocrit 46.4 % (42.0-52.0); Hemoglobin 15.8 g/dl (14.0-18.0); Mean Corpuscular HGB Conc 34.1 g/dl (31.0-36.0); Mean Corpuscular Hemoglobin 32.3 pg (27.0-33.0); Mean Corpuscular Volume 94.9 fL (80.0-98.0); NRBC Abs Auto 0.000 X10*3/uL (0.0-0.012); NRBC Pct Auto 0.0 /100WBC (0.0-0.2); Platelet Count 176 X10*3/uL (160-400); Red Blood Count 4.89 X10*6/uL (4.60-5.80); White Blood Count 4.0 X10*3/uL (4.8-10.8)
[2025-03-29 06:44] LABS: NT Pro B Type Natriuretic Pept 300.3 pg/mL (<300); Troponin-I High Sensitivity 5.0 ng/L (<3.5-35.0)
[2025-03-29 06:49] LABS: Alanine Aminotransferase 17 U/L (0-40); Albumin Level 3.6 g/dL (3.5-5.0); Anion Gap 16 (12-20); Aspartate Amino Transferase 28 U/L (5-37); Blood Urea Nitrogen 37 mg/dL (9-16); Calcium 8.5 mg/dL (8.4-10.2); Carbon Dioxide 17 mmol/L (22-29); Chloride 110 mmol/L (96-108); Creatinine Clr Calc Pharmacy 41.8; Estimated Glomerular Filt Rate 59; Lipase 25 U/L (8-78); Magnesium 1.6 mg/dL (1.6-2.6); Potassium 4.1 mmol/L (3.3-5.1); Sodium 139 mmol/L (135-145); Total Protein 5.9 g/dL (6.5-8.0)
[2025-03-29 06:52] LABS: Alkaline Phosphatase 94 U/L (39-117)
[2025-03-29 07:02] LABS: Resp Syncy Virus RNA Qual PCR NEGATIVE (Negative); SARS COV2 PCR INHOUSE NEGATIVE (Negative)
--- NOTE | 2025-03-29 07:12 | PC.NURSE ---
Pt presented through triage with sob,spo2 at 85-87% room air, tachycardic 130's and tachypnic 30'shypotensive . Pt placed on oxygen titrated up to 4L to maintain spo2 of 92%. labs, blood cultures, lactic and sars obtained and IV placed #20 in left forearm. Lung sounds coarse throughout. MD ordered for lasix 40 mg, nitro paste, morphine, and rocephin. BP lower than initial. Pt asymptomatic. MD notified and assessed patient at the bedside. verbal order to only give patient rocephin, give 20 mg of lasix and hold nitro and morphine. Pt aware of plan, meds administered per orders. Report given to oncoming MARIA DE JESUS Wright.
--- NOTE | 2025-03-29 07:13 | PC.NURSE ---
MD aware of ongoing low BPs, plan to monitor
[2025-03-29] MEDS: Lactated Ringers 1,000 ML 999 ML IV (07:24)
[2025-03-29 07:36] LABS: Neutrophils Percent Manual 69 % (45-73)
[2025-03-29 07:38] LABS: Band Neutrophils Percent 12 % (3-5); Basophils Abs Manual 0.1 X10*3/uL (0.0-0.2); Basophils Percent Manual 2 % (0-2); Lymphocytes Absolute Manual 0.5 X10*3/uL (1.2-4.9); Lymphocytes Percent Manual 12 % (20-40); Monocytes Absolute Manual 0.2 X10*3/uL (0.1-1.2); Monocytes Percent Manual 5 % (2-11); Neutrophils Absolute Manual 3.2 X10*3/uL (2.0-8.3); RBC Morphology NORMAL
--- NOTE | 2025-03-29 07:52 | PC.NURSE ---
Order clarification. 2 Liters of LR TOTAL. not 3. Per MD and sepsis criteria. Watch pt closely due to potential breathing issues. MD aware of low BPs
[2025-03-29] MEDS: iohexoL 350 MG/ML 100 ML INFUS..BTL IV (08:20)
[2025-03-29 08:23] LABS: Reflex Lactate? Lactic Acid Added
[2025-03-29 09:07] LABS: ~Lactic Acid-LAB USE ONLY 2.7 mmol/L (0.5-2.0)
[2025-03-29] MEDS: Lidocaine HCl 2 % Urojet 10 ML JEL.PF.APP TOPICAL (09:36)
--- NOTE | 2025-03-29 10:17 | PHA.MEDREC ---
Addendum entered by Adalberto Viera PharmD 03/29/25 10:20: reviewed Original Note: Pharmacy Consult ? Medication Reconciliation Pharmacy has completed the medication reconciliation. Spoke to patients at bedside to confirm med list. Patient had a list of patient medications on her phone. states patient is no longer taking Docusate 100 mg. Patient last had his medications last night.
[2025-03-29] MEDS: Albumin Human 25 % 100 ML 133.33 ML IV (10:25)
--- NOTE | 2025-03-29 10:29 | PC.NURSE ---
MD aware of ongoing BP issues. Albumin started for BP
[2025-03-29 10:45] LABS: Reflex Lactate? 2 Y
[2025-03-29 11:54] LABS: ~Lactic Acid-LAB USE ONLY 2.3 mmol/L (0.5-2.0)
--- NOTE | 2025-03-29 12:04 | PC.NURSE ---
Telephone report given to Ruma PRETTY, questions answered. Awaiting transport.
--- NOTE | 2025-03-29 14:29 | PM.CCHP ---
History of Present Illness Date of Service: 03/29/25 Chief Complaint: Hypotension 84-year-old gentleman with underlying diabetes mellitus, hypertension cholecystectomy, recent admission for SBO presented on 03/29/2025 after he woke up with cough and dyspnea nausea, vomiting, and 1 episode of nonbloody diarrhea on ER evaluation patient hypotensive with poor response to initial IV fluid resuscitation started on pressor support. His CT abdomen was unremarkable. His CT chest showed right-sided infiltrate. He also was noted to require 3-4 L of supplemental oxygen to maintain normal oximetry. Patient was admitted to the intensive care unit. Review of Systems Constitutional: Constitutional: Denies daytime sleepiness, Denies excessive sweating, Denies fatigue, Denies fever(s), Denies lethargy, Denies malaise, Denies night sweats, Denies snoring and Denies weight loss Eyes: Eyes: Denies blurry vision and Denies itchy eyes ENT: Denies nasal congestion, Denies post nasal drip, Denies sinus pain, Denies sinus pressure and Denies other ( Thrush) Cardiovascular: Cardiovascular: Denies chest pain, Denies pedal edema, Reports dyspnea, Denies orthopnea and Denies paroxysmal nocturnal dyspnea Respiratory: Respiratory: Reports cough, Denies hemoptysis, Denies excessive phlegm production, Reports dyspnea, Denies snoring and Denies wheezing Gastrointestinal: Gastrointestinal: Denies abdominal pain, Denies heartburn, Reports diarrhea, Reports nausea and Reports vomiting Musculoskeletal: Musculoskeletal: Denies myalgias, Denies arthralgias and Denies joint swelling Integumentary/Breasts: Skin/Breast: Denies rash Neurologic: Denies memory loss and Denies seizure-like activity Psychiatric: Psychiatric: Denies abnormal sleep pattern, Denies anxiety and Denies memory loss Endocrine: Endocrine: Denies excessive sweating, Denies fatigue and Denies heat intolerance Hematologic/Lymphatic: Hematologic/Lymphatic: Denies easy bruising Allergic/Immunologic: Allergic/Immunologic: Denies itchy eyes, Denies seasonal rhinorrhea and Denies wheezing PMFSH Past Medical History Medical History Enlarged prostate Nocturia Urinary dribbling Acute blood loss anemia Tubular adenoma of colon GERD (gastroesophageal reflux disease) Knee osteoarthritis Erectile dysfunction Hypercholesterolemia Hypertension Gout Type 2 diabetes mellitus with hyperglycemia Family History Family History Father Medical history unknown Mother Medical history unknown Surgical History Surgical History Cholelithiasis Gallstone pancreatitis Hx laparoscopic cholecystectomy (~05/11/23) History of cataract surgery History of knee replacement procedure of left knee History of eye surgery Social History Social History Household Members: Spouse Housing: House Do you presently have visiting nurse or other home services: No Alcohol intake: never Patient Tobacco Use Status: Former Tobacco user Tobacco use type: Cigarette Smoked in Last 30 Days: No e-Cigarette/Vaping Use: Never Used Second Hand Smoke Exposure: No Use of substances other than those prescribed or required for medical reasons: No Advance Directives: No Advance Directives Information Provided: Yes Do you have a plan to hurt others: No Plan service: Yes Current occupational status: retired Cognitive needs: No Hearing needs: No Vision needs: Yes Meds Allergies Allergy/AdvReac Type Severity Reaction Status Date / Time metformin Allergy Unknown diarrhea Verified 03/29/25 05:48 rosuvastatin (Crestor) Allergy Unknown Unknown Verified 03/29/25 05:48 Active Medications: Current Medications Heparin Sodium (Porcine) (Heparin Sodium,Porcine 5,000 Unit/Ml Vial) 5,000 unit SUBCUT Q8H [facility] Last Admin: 03/29/25 11:37 Dose: 5,000 unit Norepinephrine Bitartrate (Levophed) 8 mg in 250 mls @ 0 mls/hr IVCONT .Q0M [facility]; Protocol Last Titration: 03/29/25 13:25 Dose: 0.07 mcg/kg/min, 8.34 mls/hr Cefepime HCl 1 gm/ Sodium (Chloride) 50 mls @ 100 mls/hr IV Q12H [facility] Home Medications ?Medication ?Instructions ?Recorded ?Confirmed ?Last Taken ?Type cyanocobalamin (vitamin B-12) 1,000 mcg PO DAILY 05/04/23 03/29/25 03/29/25 History 1,000 mcg tablet lansoprazole 30 mg capsule,delayed 30 mg PO BID@0630,1830 01/09/25 03/29/25 03/29/25 History release (Prevacid) simethicone 80 mg chewable tablet 80 mg PO DAILY PRN GERD 01/09/25 03/29/25 Unknown History Physical Exam Vital Signs: Vital Signs: Last Vital Signs Temp 98.1 F 03/29/25 11:26 Pulse 81 03/29/25 14:00 Resp 25 H 03/29/25 14:00 BP 92/52 L 03/29/25 14:00 Pulse Ox 96 03/29/25 14:00 O2 Del Method Room Air 03/29/25 14:00 O2 Flow Rate 4 03/29/25 12:19 BMI result Body Mass Index 22.6 Const: General: no acute distress and alert Nutritional Appearance: not obese Orientation/consciousness: Other orientation findings ( oriented) HEENT: Head: Yes atraumatic Eyes: General: appearance normal, both eyes and all related structures Sclerae: sclerae normal EOM: EOMs intact bilaterally Neck: Neck: Yes supple Lymphatic: no lymphadenopathy noted Resp: Effort & Inspection: normal respiratory effort and no use of accessory muscles Auscultation: clear to auscultation bilaterally Cardio: Rate: regular rate Rhythm: regular rhythm Heart sounds: no gallops, no murmurs and no rubs Skin: General skin exam: other ( warm) Extrem: General: No clubbing, No cyanosis and No edema Results Labs 03/29/25 06:16 03/29/25 06:16 Labs: Laboratory Results - last 24 hr 03/29/25 03/29/25 03/29/25 06:16 06:21 06:24 MCV 94.9 MCH 32.3 MCHC 34.1 RDW 12.6 Plt Count 176 D MPV 11.8 Immature Gran % (Auto) Cancelled Neut % (Auto) Cancelled Lymph % (Auto) Cancelled [place] % (Auto) Cancelled Eos % (Auto) Cancelled Baso % (Auto) Cancelled Lymph # (Auto) Cancelled [place] # (Auto) Cancelled Eos # (Auto) Cancelled Baso # (Auto) Cancelled Abs Immat Gran (auto) Cancelled Absolute Neuts (auto) Cancelled Absolute Nucleated RBC 0.000 Nucleated RBC % (auto) 0.0 Neutrophils % (Manual) 69 Band Neutrophils % 12 H Lymphocytes % (Manual) 12 L Monocytes % (Manual) 5 Basophils % (Manual) 2 Abs Neuts (Manual) 3.2 Lymphocytes # (Manual) 0.5 L Monocytes # (Manual) 0.2 Basophils # (Manual) 0.1 Platelet Estimate NORMAL Plt Morphology Comment NORMAL RBC Morphology NORMAL VBG pH 7.45 H VBG pCO2 23 VBG pO2 66 VBG HCO3 16 L VBG O2 Saturation 95.0 VBG Base Excess -5.0 Anion Gap 16 Estim Creat Clear Calc 41.8 Estimated GFR 59 Random Glucose 148 H Lactic Acid 3.3 H* Lactic Acid F/U @ 2Hr Lactic Acid F/U @ 4Hr Calcium 8.5 Magnesium 1.6 Total Bilirubin 0.8 AST 28 ALT 17 Alkaline Phosphatase 94 Troponin I High Sens 5.0 NT-Pro-B Natriuret Pep 300.3 H Total Protein 5.9 L Albumin 3.6 Lipase 25 Influenza Type A (PCR) NEGATIVE Influenza Type B (PCR) NEGATIVE RSV RNA Qual (PCR) NEGATIVE SARS-CoV-2 RNA (RT-PCR) NEGATIVE 03/29/25 03/29/25 08:42 11:22 MCV MCH MCHC RDW Plt Count MPV Immature Gran % (Auto) Neut % (Auto) Lymph % (Auto) [place] % (Auto) Eos % (Auto) Baso % (Auto) Lymph # (Auto) [place] # (Auto) Eos # (Auto) Baso # (Auto) Abs Immat Gran (auto) Absolute Neuts (auto) Absolute Nucleated RBC Nucleated RBC % (auto) Neutrophils % (Manual) Band Neutrophils % Lymphocytes % (Manual) Monocytes % (Manual) Basophils % (Manual) Abs Neuts (Manual) Lymphocytes # (Manual) Monocytes # (Manual) Basophils # (Manual) Platelet Estimate Plt Morphology Comment RBC Morphology VBG pH VBG pCO2 VBG pO2 VBG HCO3 VBG O2 Saturation VBG Base Excess Anion Gap Estim Creat Clear Calc Estimated GFR Random Glucose Lactic Acid Lactic Acid F/U @ 2Hr 2.7 H* Lactic Acid F/U @ 4Hr 2.3 H* Calcium Magnesium Total Bilirubin AST ALT Alkaline Phosphatase Troponin I High Sens NT-Pro-B Natriuret Pep Total Protein Albumin Lipase Influenza Type A (PCR) Influenza Type B (PCR) RSV RNA Qual (PCR) SARS-CoV-2 RNA (RT-PCR) Imaging Radiologist's Impressions: Impressions Chest X-Ray 03/29/25 06:05 IMPRESSION: Extensive airspace opacity throughout the right lung, consistent with pneumonia. Follow-up is recommended to document resolution. Electronically signed by: Burke Cevallos MD 03/29/2025 07:08 AM EDT RP Abdomen/Pelvis CT 03/29/25 07:59 IMPRESSION: 1. Consolidative changes involving the right lower and right middle lobes, findings consistent with pneumonia. There is a tiny right parapneumonic effusion. 2. There are no acute findings in the abdomen or pelvis. 3. Mild mucosal enhancement and wall thickening of the stomach, findings suggesting gastritis. 4. There are numerous ancillary findings as discussed in the body of the report Electronically signed by: Jagdeep Singer MD 03/29/2025 08:37 AM EDT RP Chest CTA 03/29/25 07:59 IMPRESSION: 1. No evidence of pulmonary embolism or pulmonary hypertension. 2. Multifocal pneumonia of the right lung (predominantly right upper lobe), with minimal focal involvement of the left lower lobe. Recommend continue follow-up with chest radiographs. 3. Small right pleural effusion. Electronically signed by: Maria Del Rosario Azar MD 03/29/2025 09:03 AM EDT RP Assessment and Plan (1) Hypotension: Status: Acute (2) Type 2 diabetes mellitus with hyperglycemia: Qualifiers: Diabetes mellitus half-way insulin use: without termite control technician use Qualified Code(s): E11.65 - Type 2 diabetes mellitus with hyperglycemia Status: Acute (3) Vomiting: Status: Acute Plan Assessment: 84-year-old gentleman admitted with hypotension/distributive shock, likely secondary to an aspiration event Plan: Neuro: No acute issues. Cardiac: Distributive shock, continue to titrate off pressor support as tolerated. Pulmonary: Hypoxia with CT chest showed right-sided pulmonary infiltrate, pneumonia versus aspiration pneumonitis, continue empiric antibiotics. Renal: No acute issues. Endo: No acute issues. GI: No acute issues. ID: Likely aspiration pneumonitis, cultures are pending. Continue empiric antibiotics. Heme/Onc: No acute issues. Psych: No acute issues. Miscellaneous: No acute issues. Prophylaxis: Heparin Diet: Pending swallow evaluation Critical care time spent: 60 minutes
[2025-03-29 15:14] LABS: Appearance Urine Clear; Glucose Urine UA 500 mg/dL (Negative); PH 5.0 (5.0-9.0); Specific Gravity - Urine 1.015 (1.005-1.025)
--- NOTE | 2025-03-29 16:41 | PC.NURSE ---
The patient arrived at the ICU approx. at? 1225 from ED. Admitted to ICU due to persistent hypotension requiring vasopressor support.? Neuro: Alert & oriented,? Respiratory: On 4L NC, SpO2 90s%. Coarse right lung.? Cardiac: Sinus Rhythm on tele, on norepinephrine per AUG. MAP goal >65. GI/:LBM? 03/29 , +bowel sounds, NPO, pending swallowing eval. Brennan in place, POC q6hr. Infectious: IV abx? Temp: Afebrile Lines: peripheral IVs.
[2025-03-29 18:04] LABS: Glucose, Whole Blood 113 mg/dL (60-115)
[2025-03-30] VITALS (28 sets, daily range): BP systolic 97–127; BP diastolic 46–72; PULSE 70–96; RESP 15–41; TEMP 36.6–37; O2SAT 92–99; BMI 22.5
[2025-03-30 05:16] LABS: VBG HCO3 24 mmol/L (22-26); VBG O2 % Saturation 86.0 %
[2025-03-30 05:20] LABS: Venous Blood Gas Refer to POC result
[2025-03-30 05:30] LABS: Hematocrit 37.6 % (42.0-52.0); Hemoglobin 12.9 g/dl (14.0-18.0); Mean Corpuscular HGB Conc 34.3 g/dl (31.0-36.0); Mean Corpuscular Hemoglobin 32.5 pg (27.0-33.0); Mean Corpuscular Volume 94.7 fL (80.0-98.0); NRBC Abs Auto 0.000 X10*3/uL (0.0-0.012); NRBC Pct Auto 0.0 /100WBC (0.0-0.2); Platelet Count 135 X10*3/uL (160-400); Red Blood Count 3.97 X10*6/uL (4.60-5.80); WBC ABN SCTR FOR CBC 1; White Blood Count 16.8 X10*3/uL (4.8-10.8)
[2025-03-30 05:45] LABS: Alanine Aminotransferase 11 U/L (0-40); Albumin Level 3.4 g/dL (3.5-5.0); Alkaline Phosphatase 64 U/L (39-117); Anion Gap 13 (12-20); Aspartate Amino Transferase 31 U/L (5-37); Blood Urea Nitrogen 25 mg/dL (9-16); Calcium 8.8 mg/dL (8.4-10.2); Carbon Dioxide 25 mmol/L (22-29); Chloride 108 mmol/L (96-108); Creatinine Clr Calc Pharmacy 59.5; Estimated Glomerular Filt Rate > 60; Magnesium 1.6 mg/dL (1.6-2.6); Potassium 4.2 mmol/L (3.3-5.1); Sodium 142 mmol/L (135-145); Total Protein 5.5 g/dL (6.5-8.0)
[2025-03-30 06:00] LABS: Band Neutrophils Percent 34 % (3-5); Basophils Abs Manual 0.2 X10*3/uL (0.0-0.2); Basophils Percent Manual 1 % (0-2); Lymphocytes Absolute Manual 0.5 X10*3/uL (1.2-4.9); Lymphocytes Percent Manual 3 % (20-40); Metamyelocytes Absolute 0.7 X10*3/uL; Metamyelocytes Percent 4 %; Monocytes Absolute Manual 0.3 X10*3/uL (0.1-1.2); Monocytes Percent Manual 2 % (2-11); Myelocytes Absolute 0.2 X10*/uL; Myelocytes Percent 1 %; Neutrophils Absolute Manual 15.0 X10*3/uL (2.0-8.3); Neutrophils Percent Manual 55 % (45-73)
[2025-03-30 06:01] LABS: RBC Morphology NORMAL; Toxic Granulation PRESENT; Toxic Vacuolation PRESENT
[2025-03-30] MEDS: Albumin Human 25 % 100 ML IV ×2 (07:43→13:54)
--- NOTE | 2025-03-30 09:26 | MHC.CM.PN ---
IMM DELIVERED CM MET WITH PT/ AT BEDSIDE. PT LIVES WITH SPOUSE AND IS FUNCTIONALLY INDEPENDENT. PT VERY ACTIVE, GOLFS. NO DME/SERVICES. + HCP, COPY AT HOME, VERIFIES IS HCP. PCP DR. GIBSON AT [facility] [place]. DP: HOME, NO SERVICES ANTICIPATED. PT 'S SPOUSE WILL TRANSPORT. CM WILL CONTINUE TO FOLLOW FOR ANY CHANGE TO DC PLAN/NEEDS.
--- NOTE | 2025-03-30 10:47 | PM.CCPN ---
Subjective Subjective Date of Service: 03/30/25 Interval History: 84-year-old gentleman with underlying diabetes mellitus, hypertension cholecystectomy, recent admission for SBO presented on 03/29/2025 after he woke up with cough and dyspnea nausea, vomiting, and 1 episode of nonbloody diarrhea on ER evaluation patient hypotensive with poor response to initial IV fluid resuscitation started on pressor support. His CT abdomen was unremarkable. His CT chest showed right-sided infiltrate. He also was noted to require 3-4 L of supplemental oxygen to maintain normal oximetry. Patient was admitted to the intensive care unit. No events overnight. FiO2 requirements are improving. Critical Care Time (minutes): 45 Physical Exam Vital Signs: Vital Signs: Last Vital Signs Temp 97.9 F 03/30/25 08:00 Pulse 85 03/30/25 10:00 Resp 29 H 03/30/25 10:00 BP 103/46 L 03/30/25 10:00 Pulse Ox 94 03/30/25 10:00 O2 Del Method Room Air 03/30/25 10:00 O2 Flow Rate 4 03/30/25 08:00 BMI result Body Mass Index 22.5 Const: General: no acute distress, alert and awake Eyes: Sclerae: sclerae normal EOM: EOMs intact bilaterally Neck: Neck: Yes no lymphadenopathy, Yes trachea midline and Yes supple Resp: Effort & Inspection: normal respiratory effort and no respiratory distress Auscultation: clear to auscultation bilaterally Cardio: Rate: regular rate Rhythm: regular rhythm Heart sounds: no gallops, no murmurs and no rubs GI: Palpation (GI): Soft to palpation and Other GI palpation findings present ( Nontender) Auscultation: normal bowel sounds Extrem: General: Yes no pedal edema, No clubbing and No cyanosis Objective Data Labs 03/30/25 05:07 03/30/25 05:07 Labs: Laboratory Results - last 24 hr 03/29/25 03/29/25 03/29/25 11:22 14:42 18:00 WBC RBC Hgb Hct MCV MCH MCHC RDW Plt Count MPV Immature Gran % (Auto) Neut % (Auto) Lymph % (Auto) [place] % (Auto) Eos % (Auto) Baso % (Auto) Lymph # (Auto) [place] # (Auto) Eos # (Auto) Baso # (Auto) Abs Immat Gran (auto) Absolute Neuts (auto) Absolute Nucleated RBC Nucleated RBC % (auto) Neutrophils % (Manual) Band Neutrophils % Lymphocytes % (Manual) Monocytes % (Manual) Basophils % (Manual) Metamyelocytes % Myelocytes % Abs Neuts (Manual) Lymphocytes # (Manual) Monocytes # (Manual) Basophils # (Manual) Metamyelocytes # Myelocytes # Toxic Granulation Toxic Vacuolation Platelet Estimate Plt Morphology Comment RBC Morphology VBG pH VBG pCO2 VBG pO2 VBG HCO3 VBG O2 Saturation VBG Base Excess Sodium Potassium Chloride Carbon Dioxide Anion Gap BUN Creatinine Estim Creat Clear Calc Estimated GFR POC Glucose 113 Random Glucose Lactic Acid F/U @ 4Hr 2.3 H* Calcium Phosphorus Magnesium Total Bilirubin AST ALT Alkaline Phosphatase Total Protein Albumin Urine Color Yellow Urine Appearance Clear Urine pH 5.0 Ur Specific [place] 1.015 Urine Protein Negative Urine Glucose (UA) 500 H Urine Ketones Negative Urine Blood Negative Urine Nitrite Negative Ur Leukocyte Esterase Negative Urine RBC 0-2 Urine WBC 0-5 Ur Squamous Epith Cells 0-2 Urine Bacteria None Seen Hyaline Casts 0-2 03/30/25 03/30/25 05:07 05:12 WBC 16.8 H RBC 3.97 L Hgb 12.9 L Hct 37.6 L MCV 94.7 MCH 32.5 MCHC 34.3 RDW 12.9 Plt Count 135 L MPV 12.3 Immature Gran % (Auto) Cancelled Neut % (Auto) Cancelled Lymph % (Auto) Cancelled [place] % (Auto) Cancelled Eos % (Auto) Cancelled Baso % (Auto) Cancelled Lymph # (Auto) Cancelled [place] # (Auto) Cancelled Eos # (Auto) Cancelled Baso # (Auto) Cancelled Abs Immat Gran (auto) Cancelled Absolute Neuts (auto) Cancelled Absolute Nucleated RBC 0.000 Nucleated RBC % (auto) 0.0 Neutrophils % (Manual) 55 Band Neutrophils % 34 H Lymphocytes % (Manual) 3 L Monocytes % (Manual) 2 Basophils % (Manual) 1 Metamyelocytes % 4 Myelocytes % 1 Abs Neuts (Manual) 15.0 H Lymphocytes # (Manual) 0.5 L Monocytes # (Manual) 0.3 Basophils # (Manual) 0.2 Metamyelocytes # 0.7 Myelocytes # 0.2 Toxic Granulation PRESENT Toxic Vacuolation PRESENT Platelet Estimate SLIGHTLY DECREASED Plt Morphology Comment NORMAL RBC Morphology NORMAL VBG pH 7.44 H VBG pCO2 35 VBG pO2 54 VBG HCO3 24 VBG O2 Saturation 86.0 VBG Base Excess 0.9 Sodium 142 Potassium 4.2 Chloride 108 Carbon Dioxide 25 Anion Gap 13 BUN 25 H Creatinine 0.83 Estim Creat Clear Calc 59.5 Estimated GFR > 60 POC Glucose Random Glucose 141 H Lactic Acid F/U @ 4Hr Calcium 8.8 Phosphorus 3.0 Magnesium 1.6 Total Bilirubin 1.0 AST 31 ALT 11 Alkaline Phosphatase 64 Total Protein 5.5 L Albumin 3.4 L Urine Color Urine Appearance Urine pH Ur Specific [place] Urine Protein Urine Glucose (UA) Urine Ketones Urine Blood Urine Nitrite Ur Leukocyte Esterase Urine RBC Urine WBC Ur Squamous Epith Cells Urine Bacteria Hyaline Casts Microbiology Microbiology Results: Microbiology 03/29/25 06:21 Blood - Venous Blood Culture - Preliminary No growth after 24 hours. 03/29/25 06:16 Blood - Venous Blood Culture - Preliminary No growth after 24 hours. Progress Note: A&P Assessment and plan (1) Hypotension: Status: Acute (2) Type 2 diabetes mellitus with hyperglycemia: Status: Acute (3) BPH (benign prostatic hyperplasia): Status: Acute (4) Pulmonary aspiration: Status: Acute Plan Assessment: 84-year-old gentleman admitted with hypotension/distributive shock, likely secondary to an aspiration event Plan: Neuro: No acute issues. Cardiac: Distributive shock, continue to titrate off pressor support as tolerated. Pulmonary: Hypoxia with CT chest showed right-sided pulmonary infiltrate, pneumonia versus aspiration pneumonitis, continue empiric antibiotics. Continue to titrate off supplemental oxygen as tolerated. Renal: No acute issues. Endo: No acute issues. GI: No acute issues. ID: Likely aspiration pneumonitis, cultures are pending. Continue empiric antibiotics. Heme/Onc: No acute issues. Psych: No acute issues. Miscellaneous: No acute issues. Prophylaxis: Heparin Diet: Regular Critical care time spent: 45 minutes Quality Stroke Does the patient have a stroke diagnosis?: No VTE Prior VTE?: No VTE Risk Level:: Medical - moderate - high VTE Device Contraindication: Treatment Not Indicated VTE Drug Contraindication: N/A - Med Ordered
--- NOTE | 2025-03-30 10:58 | P.CDIM_ITS ---
PROVIDER RESPONSE TEXT: To clarify, the appropriate diagnosis supported by the clinical indicators: After study Septic shock has been ruled out QUERY TEXT: PHYSICIAN'S DOCUMENTATION REQUEST Date of Query: 03/30/2025 09:30 AM EDT Patient Name: Travis Krishnamurthy Admit Date: 03/29/2025 Dear Aldair Barker MD, A review of the medical record indicates additional documentation may be needed. Please review below and update the documentation accordingly. Clinical indicators: ED 03/29/25 - Clinical impression: Septic shock WBC 16.8 RR 22/28 LA 2.7 HR 129 BP 81/45 L Patient with nausea/vomiting/dyspnea/hypotensive, IV fluids and pressor support. Continue empiric antibiotics ICU admission. ICU 03/29/25 - Aspiration pneumonitis, distributive shock, Sepsis Systemic manifestations of infection, with 2 or more SIRS criteria which include: Fever > 100.4?F or hypothermia < 96.8?F Leukocytosis - WBC > 12,000 or leukopenia, WBC < 4,000, or > 10% bands Tachycardia- > 90 beats/minute Tachypnea- RR > 20 breaths/minute or PaCO2 < 32mmHg Severe Sepsis Sepsis with associated acute organ dysfunction, such as renal or respiratory failure Documentation should indicate the association between the sepsis and the organ dysfunction Septic Shock Severe sepsis with associated with circulatory failure, evidenced by hypotension and hypoperfusion Based on the above information and the recognized standard for sepsis, could you please clarify if this diagnoses is still accurate and reflective of the patient's condition to ensure quality of the medical record for consistency and clarity: Sepsis with Septic shock present on admission, possible, cannot rule out etc. After study Septic shock has been ruled out Other (explain) Clinically unable to determine (explain) Thank you, Krissy So, CCS, CDIS Use of terms such as suspected, likely, concern for, or probable (associated with a specific diagnosis that is being evaluated, monitored, or treated as if it exists) are acceptable and can be coded in the inpatient setting, when documented at the time of discharge. Please use your independent medical judgment in providing your response. THIS QUERY IS PART OF THE PERMANENT MEDICAL RECORD
[2025-03-30 11:27] LABS: Glucose, Whole Blood 196 mg/dL (60-115)
--- NOTE | 2025-03-30 12:57 | MHC.SL.SWA ---
Speech Pathologist Impression: Risk of Aspiration, Oral Phase Dysphagia d/t Missing Teeth Dysphasia Diet Status: Advance to REGULAR/THIN Liquid Consistency and Strategies for Safe Swallow: Liquid Intake Recommendation: Thin Solid Food Consistency: Dietary Recommendations: Regular Additional Modifications to Solid Foods: Upright during PO intake and at least 30 min afterwards Oral Medication Intake: Whole with Liquid Please contact the pharmacy regarding appropriate crushable or liquid drug formulations that are available whenever modified delivery is recommended. Supervision While Eating and Drinking for Safe Swallow: Intermittent Supervision Foods to Avoid: Avoid foods which are overly hard or tough to chew. Recommendation for Speech: Inpatient Speech Therapy Comment: FINANCIAL COMPLIANCE OFFICER to f/u 1x to monitor tolerance Frequency/Duration: 1 f/u Date Range for Service Req: Timeline to reassess: Milk Of Lime Slaker Clinican/Clinical Fellow: No Supervisory Statement: I have reviewed and agree with the student/clinical fellow's documentation: N/A Speech Language Pathologist: Alley Padilla M.A., CCC-FINANCIAL COMPLIANCE OFFICER
[2025-03-30 16:38] LABS: Glucose, Whole Blood 138 mg/dL (60-115)
--- NOTE | 2025-03-30 18:29 | PC.NURSE ---
Assumed care at 0700- pt. remains on levophed gtt, titrated per MAR. Seen by AERONAUTICAL DESIGN ENGINEER- see note. A&Ox4, makes need known. SR on tele, HR 60s-90s. Weaned to RA, O2 >95%. Brennan remains in place draining cyu. pt. repostions self, ambulated in hallway with RN multiple times this shift. Plan of care ongoing.
[2025-03-30 21:05] LABS: Glucose, Whole Blood 181 mg/dL (60-115)
[2025-03-31] VITALS (35 sets, daily range): BP systolic 84–130; BP diastolic 40–84; PULSE 65–98; RESP 17–41; TEMP 36.3–37.8; O2SAT 91–98; BMI 22.1
[2025-03-31 05:49] LABS: Hemoglobin 12.7 g/dl (14.0-18.0); NRBC Abs Auto 0.000 X10*3/uL (0.0-0.012); NRBC Pct Auto 0.0 /100WBC (0.0-0.2); PLT CLUMP 1
[2025-03-31 05:51] LABS: Hematocrit 37.5 % (42.0-52.0); Mean Corpuscular HGB Conc 33.9 g/dl (31.0-36.0); Mean Corpuscular Hemoglobin 32.6 pg (27.0-33.0); Mean Corpuscular Volume 96.4 fL (80.0-98.0); Red Blood Count 3.89 X10*6/uL (4.60-5.80)
[2025-03-31 05:58] LABS: Platelet Count 111 X10*3/uL (160-400); White Blood Count 14.1 X10*3/uL (4.8-10.8)
[2025-03-31 06:08] LABS: Albumin Level 3.9 g/dL (3.5-5.0); Anion Gap 15 (12-20); Blood Urea Nitrogen 17 mg/dL (9-16); Calcium 9.6 mg/dL (8.4-10.2); Carbon Dioxide 21 mmol/L (22-29); Chloride 108 mmol/L (96-108); Creatinine Clr Calc Pharmacy 69.8; Estimated Glomerular Filt Rate > 60; Magnesium 1.9 mg/dL (1.6-2.6); Potassium 3.7 mmol/L (3.3-5.1); Sodium 140 mmol/L (135-145)
[2025-03-31 06:34] LABS: Band Neutrophils Percent 13 % (3-5); Eosinophils Absolute Manual 0.4 X10*3/uL (0.0-0.4); Eosinophils Percent Manual 3 % (0-4); Lymphocytes Absolute Manual 0.8 X10*3/uL (1.2-4.9); Lymphocytes Percent Manual 6 % (20-40); Monocytes Absolute Manual 0.1 X10*3/uL (0.1-1.2); Monocytes Percent Manual 1 % (2-11); Neutrophils Absolute Manual 12.7 X10*3/uL (2.0-8.3); Neutrophils Percent Manual 77 % (45-73)
[2025-03-31 06:35] LABS: RBC Morphology NOTED
[2025-03-31 06:36] LABS: Burr Cells 1+ (0-2) /OIF; Dohle Bodies PRESENT; Large Platelet PRESENT; Ovalocytes 1+ (5-14) /OIF
[2025-03-31 06:37] LABS: Toxic Vacuolation PRESENT
--- NOTE | 2025-03-31 07:21 | PC.NURSE ---
Critical Care Nursing Note Assumed care of the patient at 1900. The patient is alert and oriented. SR on telemetry. Levophed gtt titrated to maintain MAP goal >65.
[2025-03-31 07:46] LABS: Glucose, Whole Blood 117 mg/dL (60-115)
[2025-03-31] MEDS: Potassium Phosphate/NS 15 MMOL/250 ML PLAST..BAG 62.5 MMOL IV (08:39)
--- NOTE | 2025-03-31 10:54 | PM.CCPN ---
Subjective Subjective Date of Service: 04/18/25 Interval History: 84-year-old gentleman with underlying diabetes mellitus, hypertension cholecystectomy, recent admission for SBO presented on 03/29/2025 after he woke up with cough and dyspnea nausea, vomiting, and 1 episode of nonbloody diarrhea on ER evaluation patient hypotensive with poor response to initial IV fluid resuscitation started on pressor support. His CT abdomen was unremarkable. His CT chest showed right-sided infiltrate. He also was noted to require 3-4 L of supplemental oxygen to maintain normal oximetry. Patient was admitted to the intensive care unit. No events overnight. FiO2 requirements continue to improve. Critical Care Time (minutes): 45 Physical Exam Vital Signs: Vital Signs: Last Vital Signs Temp 97.4 F 03/31/25 08:00 Pulse 65 03/31/25 10:48 Resp 17 03/31/25 10:00 BP 102/69 03/31/25 10:48 Pulse Ox 95 03/31/25 10:00 O2 Del Method Room Air 03/31/25 10:00 O2 Flow Rate 4 03/30/25 08:00 BMI result Body Mass Index 22.1 Const: General: no acute distress, alert and awake Eyes: Sclerae: sclerae normal EOM: EOMs intact bilaterally Neck: Neck: Yes no lymphadenopathy, Yes trachea midline and Yes supple Resp: Effort & Inspection: normal respiratory effort and no respiratory distress Auscultation: clear to auscultation bilaterally Cardio: Rate: regular rate Rhythm: regular rhythm Heart sounds: no gallops, no murmurs and no rubs GI: Palpation (GI): Soft to palpation and Other GI palpation findings present ( Nontender) Auscultation: normal bowel sounds Extrem: General: Yes no pedal edema, No clubbing and No cyanosis Objective Data Labs 03/31/25 05:35 03/31/25 05:35 Labs: Laboratory Results - last 24 hr 03/30/25 03/30/25 03/30/25 11:21 16:35 21:01 WBC RBC Hgb Hct MCV MCH MCHC RDW Plt Count MPV Immature Gran % (Auto) Neut % (Auto) Lymph % (Auto) Leslie % (Auto) Eos % (Auto) Baso % (Auto) Lymph # (Auto) [place] # (Auto) Eos # (Auto) Baso # (Auto) Abs Immat Gran (auto) Absolute Neuts (auto) Absolute Nucleated RBC Nucleated RBC % (auto) Neutrophils % (Manual) Band Neutrophils % Lymphocytes % (Manual) Monocytes % (Manual) Eosinophils % (Manual) Abs Neuts (Manual) Lymphocytes # (Manual) Monocytes # (Manual) Eosinophils # (Manual) Toxic Vacuolation Dohle Bodies Platelet Estimate Large Platelets Plt Morphology Comment RBC Morphology Ovalocytes Diana Cells Sodium Potassium Chloride Carbon Dioxide Anion Gap BUN Creatinine Estim Creat Clear Calc Estimated GFR POC Glucose 196 H 138 H 181 H Random Glucose Calcium Phosphorus Magnesium Albumin 03/31/25 03/31/25 05:35 07:43 WBC 14.1 H RBC 3.89 L Hgb 12.7 L Hct 37.5 L MCV 96.4 MCH 32.6 MCHC 33.9 RDW 13.0 Plt Count 111 L MPV 11.9 Immature Gran % (Auto) Cancelled Neut % (Auto) Cancelled Lymph % (Auto) Cancelled Leslie % (Auto) Cancelled Eos % (Auto) Cancelled Baso % (Auto) Cancelled Lymph # (Auto) Cancelled Leslie # (Auto) Cancelled Eos # (Auto) Cancelled Baso # (Auto) Cancelled Abs Immat Gran (auto) Cancelled Absolute Neuts (auto) Cancelled Absolute Nucleated RBC 0.000 Nucleated RBC % (auto) 0.0 Neutrophils % (Manual) 77 H Band Neutrophils % 13 H Lymphocytes % (Manual) 6 L Monocytes % (Manual) 1 L Eosinophils % (Manual) 3 Abs Neuts (Manual) 12.7 H Lymphocytes # (Manual) 0.8 L Monocytes # (Manual) 0.1 Eosinophils # (Manual) 0.4 Toxic Vacuolation PRESENT Dohle Bodies PRESENT Platelet Estimate DECREASED Large Platelets PRESENT Plt Morphology Comment NOTED RBC Morphology NOTED Ovalocytes 1+ (5-14) Diana Cells 1+ (0-2) Sodium 140 Potassium 3.7 Chloride 108 Carbon Dioxide 21 L Anion Gap 15 BUN 17 H Creatinine 0.69 Estim Creat Clear Calc 69.8 Estimated GFR > 60 POC Glucose 117 H Random Glucose 110 Calcium 9.6 D Phosphorus 2.3 L Magnesium 1.9 Albumin 3.9 Microbiology Microbiology Results: Microbiology 03/29/25 06:21 Blood - Venous Blood Culture - Preliminary No growth after 48 hours. 03/29/25 06:16 Blood - Venous Blood Culture - Preliminary No growth after 48 hours. Progress Note: A&P Assessment and plan (1) Aspiration pneumonia: Status: Acute (2) Type 2 diabetes mellitus with hyperglycemia: Status: Acute Plan Assessment: 84-year-old gentleman admitted with hypotension/distributive shock, likely secondary to an aspiration event Plan: Neuro: No acute issues. Cardiac: Distributive shock, continue to titrate off pressor support as tolerated. Pulmonary: Hypoxia with CT chest showed right-sided pulmonary infiltrate, pneumonia versus aspiration pneumonitis, improving, continue empiric antibiotics. Continue to titrate off supplemental oxygen as tolerated. Renal: No acute issues. Endo: No acute issues. GI: No acute issues. ID: Likely aspiration pneumonitis versus pneumonia, cultures are pending. Continue empiric antibiotics. Heme/Onc: No acute issues. Psych: No acute issues. Miscellaneous: No acute issues. Prophylaxis: Heparin Diet: Regular Critical care time spent: 45 minutes Quality Stroke Does the patient have a stroke diagnosis?: No VTE Prior VTE?: No VTE Risk Level:: Medical - moderate - high VTE Device Contraindication: Treatment Not Indicated VTE Drug Contraindication: N/A - Med Ordered
[2025-03-31 11:33] LABS: Glucose, Whole Blood 155 mg/dL (60-115)
--- NOTE | 2025-03-31 13:30 | MHC.CM.PN ---
Pt continues on pressors but is on room air: Levo wean ongoing: pt from home w/spouse: no services. CM to follow for changes in d/c plan
[2025-03-31 16:50] LABS: Glucose, Whole Blood 141 mg/dL (60-115)
--- NOTE | 2025-03-31 18:05 | PC.NURSE ---
No significant events today. Patient plan of care unchanged and hospital course uncomplicated. Titrating/weening levophed as tolerated. Patient BPs in the 80s systolic this afternoon so with levophed briefly paused so resumed pressor support. Patient able to ambulate the fabian today multiple times, reports little to no appetite. refused dinner. reports gas, burping continuously. requested Miralax, miralax PRN ordered and given per
[2025-03-31 21:17] LABS: Glucose, Whole Blood 168 mg/dL (60-115)
[2025-04-01] VITALS (28 sets, daily range): BP systolic 92–126; BP diastolic 48–75; PULSE 59–91; RESP 16–40; TEMP 36.1–36.8; O2SAT 91–99; BMI 21.9
[2025-04-01 05:37] LABS: Hematocrit 35.3 % (42.0-52.0); Hemoglobin 12.0 g/dl (14.0-18.0); Mean Corpuscular HGB Conc 34.0 g/dl (31.0-36.0); Mean Corpuscular Hemoglobin 32.2 pg (27.0-33.0); Mean Corpuscular Volume 94.6 fL (80.0-98.0); NRBC Abs Auto 0.000 X10*3/uL (0.0-0.012); NRBC Pct Auto 0.0 /100WBC (0.0-0.2); Platelet Count 120 X10*3/uL (160-400); Red Blood Count 3.73 X10*6/uL (4.60-5.80); White Blood Count 9.3 X10*3/uL (4.8-10.8)
[2025-04-01 05:53] LABS: Alanine Aminotransferase < 6 U/L (0-40); Albumin Level 3.5 g/dL (3.5-5.0); Alkaline Phosphatase 76 U/L (39-117); Anion Gap 13 (12-20); Aspartate Amino Transferase 14 U/L (5-37); Blood Urea Nitrogen 17 mg/dL (9-16); Calcium 9.3 mg/dL (8.4-10.2); Carbon Dioxide 21 mmol/L (22-29); Chloride 108 mmol/L (96-108); Creatinine Clr Calc Pharmacy 66.9; Estimated Glomerular Filt Rate > 60; Magnesium 1.8 mg/dL (1.6-2.6); Potassium 3.3 mmol/L (3.3-5.1); Sodium 139 mmol/L (135-145); Total Protein 5.9 g/dL (6.5-8.0)
[2025-04-01 06:02] LABS: Band Neutrophils Percent 9 % (3-5); Eosinophils Absolute Manual 0.1 X10*3/uL (0.0-0.4); Eosinophils Percent Manual 1 % (0-4); Lymphocytes Absolute Manual 0.7 X10*3/uL (1.2-4.9); Lymphocytes Percent Manual 7 % (20-40); Monocytes Absolute Manual 0.3 X10*3/uL (0.1-1.2); Monocytes Percent Manual 3 % (2-11); Neutrophils Absolute Manual 8.3 X10*3/uL (2.0-8.3); Neutrophils Percent Manual 80 % (45-73)
[2025-04-01 06:10] LABS: Burr Cells 1+ (0-2) /OIF; Large Platelet PRESENT; Ovalocytes 1+ (5-14) /OIF; RBC Morphology NOTED
[2025-04-01 06:12] LABS: Dohle Bodies PRESENT; Toxic Vacuolation PRESENT
--- NOTE | 2025-04-01 07:08 | PC.NURSE ---
Critical Care Nursing Note Assumed care of the patient at 1900. The patient is alert and oriented. SR on telemetry with PACs, intermittent bradycardia. Levophed gtt titrated to maintain MAP goal >65.
[2025-04-01 08:01] LABS: Glucose, Whole Blood 123 mg/dL (60-115)
[2025-04-01] MEDS: Potassium Chloride Packet 20 MEQ PACKET 40 MEQ PO (08:51)
--- NOTE | 2025-04-01 10:16 | P.PNCC_ITS ---
Subjective Subjective Date of Service: 04/01/25 Interval History: 84-year-old gentleman with underlying diabetes mellitus, hypertension cholecystectomy, recent admission for SBO presented on 03/29/2025 after he woke up with cough and dyspnea nausea, vomiting, and 1 episode of nonbloody diarrhea on ER evaluation patient hypotensive with poor response to initial IV fluid resuscitation started on pressor support. His CT abdomen was unremarkable. His CT chest showed right-sided infiltrate. He also was noted to require 3-4 L of supplemental oxygen to maintain normal oximetry. Patient was admitted to the intensive care unit. No events overnight. Pressor requirements are improving. Critical Care Time (minutes): 45 Physical Exam 2 Vital Signs: Vital Signs: Last Vital Signs Temp 97.0 F 04/01/25 08:00 Pulse 87 04/01/25 10:00 Resp 29 H 04/01/25 10:00 BP 92/54 L 04/01/25 10:00 Pulse Ox 91 L 04/01/25 10:00 O2 Del Method Room Air 04/01/25 10:00 O2 Flow Rate 4 03/30/25 08:00 BMI result Body Mass Index 21.9 Const: General: no acute distress, alert and awake Eyes: Sclerae: sclerae normal EOM: EOMs intact bilaterally Neck: Neck: Yes no lymphadenopathy, Yes trachea midline and Yes supple Resp: Effort & Inspection: normal respiratory effort and no respiratory distress Auscultation: clear to auscultation bilaterally Cardio: Rate: regular rate Rhythm: regular rhythm Heart sounds: no gallops, no murmurs and no rubs GI: Palpation (GI): Soft to palpation and Other GI palpation findings present ( Nontender) Auscultation: normal bowel sounds Extrem: General: Yes no pedal edema, No clubbing and No cyanosis Objective Data Labs 04/01/25 05:03 04/01/25 05:03 Labs: Laboratory Results - last 24 hr 03/31/25 03/31/25 03/31/25 11:26 16:46 21:13 WBC RBC Hgb Hct MCV MCH MCHC RDW Plt Count MPV Immature Gran % (Auto) Neut % (Auto) Lymph % (Auto) [place] % (Auto) Eos % (Auto) Baso % (Auto) Lymph # (Auto) [place] # (Auto) Eos # (Auto) Baso # (Auto) Abs Immat Gran (auto) Absolute Neuts (auto) Absolute Nucleated RBC Nucleated RBC % (auto) Neutrophils % (Manual) Band Neutrophils % Lymphocytes % (Manual) Monocytes % (Manual) Eosinophils % (Manual) Abs Neuts (Manual) Lymphocytes # (Manual) Monocytes # (Manual) Eosinophils # (Manual) Toxic Vacuolation Dohle Bodies Platelet Estimate Large Platelets Plt Morphology Comment RBC Morphology Ovalocytes Hamilton Cells Sodium Potassium Chloride Carbon Dioxide Anion Gap BUN Creatinine Estim Creat Clear Calc Estimated GFR POC Glucose 155 H 141 H 168 H Random Glucose Calcium Phosphorus Magnesium Total Bilirubin AST ALT Alkaline Phosphatase Total Protein Albumin 04/01/25 04/01/25 05:03 07:55 WBC 9.3 RBC 3.73 L Hgb 12.0 L Hct 35.3 L MCV 94.6 MCH 32.2 MCHC 34.0 RDW 12.9 Plt Count 120 L MPV 11.9 Immature Gran % (Auto) Cancelled Neut % (Auto) Cancelled Lymph % (Auto) Cancelled [place] % (Auto) Cancelled Eos % (Auto) Cancelled Baso % (Auto) Cancelled Lymph # (Auto) Cancelled [place] # (Auto) Cancelled Eos # (Auto) Cancelled Baso # (Auto) Cancelled Abs Immat Gran (auto) Cancelled Absolute Neuts (auto) Cancelled Absolute Nucleated RBC 0.000 Nucleated RBC % (auto) 0.0 Neutrophils % (Manual) 80 H Band Neutrophils % 9 H Lymphocytes % (Manual) 7 L Monocytes % (Manual) 3 Eosinophils % (Manual) 1 Abs Neuts (Manual) 8.3 Lymphocytes # (Manual) 0.7 L Monocytes # (Manual) 0.3 Eosinophils # (Manual) 0.1 Toxic Vacuolation PRESENT Dohle Bodies PRESENT Platelet Estimate DECREASED Large Platelets PRESENT Plt Morphology Comment NOTED RBC Morphology NOTED Ovalocytes 1+ (5-14) [place] Cells 1+ (0-2) Sodium 139 Potassium 3.3 Chloride 108 Carbon Dioxide 21 L Anion Gap 13 BUN 17 H Creatinine 0.72 Estim Creat Clear Calc 66.9 Estimated GFR > 60 POC Glucose 123 H Random Glucose 129 H Calcium 9.3 Phosphorus 3.6 Magnesium 1.8 Total Bilirubin 1.2 H AST 14 ALT < 6 Alkaline Phosphatase 76 Total Protein 5.9 L Albumin 3.5 Microbiology Microbiology Results: Microbiology 03/29/25 06:21 Blood - Venous Blood Culture - Preliminary No growth after 48 hours. 03/29/25 06:16 Blood - Venous Blood Culture - Preliminary No growth after 48 hours. Progress Note: A&P Assessment and plan (1) Hypotension: Status: Acute (2) Type 2 diabetes mellitus with hyperglycemia: Status: Acute (3) Pulmonary aspiration: Status: Acute Plan Assessment: 84-year-old gentleman admitted with hypotension/distributive shock, likely secondary to an aspiration event Plan: Neuro: No acute issues. Cardiac: Distributive shock, continue to titrate off pressor support as tolerated. Pulmonary: Hypoxia with CT chest showed right-sided pulmonary infiltrate, pneumonia versus aspiration pneumonitis, resolved. Renal: No acute issues. Endo: No acute issues. Sliding scale insulin protocol. GI: No acute issues. ID: Likely aspiration pneumonitis versus pneumonia, cultures are negative to date. Will monitor off empiric antibiotics. Heme/Onc: No acute issues. Psych: No acute issues. Miscellaneous: No acute issues. Prophylaxis: Heparin Diet: Regular Critical care time spent: 45 minutes Quality Stroke Does the patient have a stroke diagnosis?: No VTE Prior VTE?: No VTE Risk Level:: Medical - moderate - high VTE Device Contraindication: Treatment Not Indicated VTE Drug Contraindication: N/A - Med Ordered
--- NOTE | 2025-04-01 10:22 | MHC.CM.PN ---
Pt continues on pressor support in ICU: from home w/spouse and no services. Will reassess once pt is able to demonstrate functional abilities. CM to follow
[2025-04-01 11:38] LABS: Glucose, Whole Blood 154 mg/dL (60-115)
[2025-04-01 16:51] LABS: Glucose, Whole Blood 158 mg/dL (60-115)
[2025-04-01 20:28] LABS: Glucose, Whole Blood 101 mg/dL (60-115)
[2025-04-02] VITALS (22 sets, daily range): BP systolic 96–130; BP diastolic 46–67; PULSE 61–89; RESP 16–34; TEMP -13.1–36.9; O2SAT 90–96; BMI 21.9
[2025-04-02 05:46] LABS: MANUAL DIFF FLAG NO
[2025-04-02 05:55] LABS: Hematocrit 34.6 % (42.0-52.0); Hemoglobin 11.6 g/dl (14.0-18.0); Imm Gran Abs Auto 0.04 X10*3/uL (0.00-0.03); Imm Gran Pct Auto 0.7 % (0.0-0.4); Lymphocytes Absolute Auto 0.7 X10*3/uL (1.2-4.9); Mean Corpuscular HGB Conc 33.5 g/dl (31.0-36.0); Mean Corpuscular Hemoglobin 32.2 pg (27.0-33.0); Mean Corpuscular Volume 96.1 fL (80.0-98.0); NRBC Abs Auto 0.000 X10*3/uL (0.0-0.012); NRBC Pct Auto 0.0 /100WBC (0.0-0.2); Platelet Count 100 X10*3/uL (160-400); Red Blood Count 3.60 X10*6/uL (4.60-5.80); White Blood Count 5.6 X10*3/uL (4.8-10.8)
[2025-04-02 06:04] LABS: Albumin Level 3.4 g/dL (3.5-5.0); Anion Gap 15 (12-20); Blood Urea Nitrogen 21 mg/dL (9-16); Calcium 9.2 mg/dL (8.4-10.2); Carbon Dioxide 21 mmol/L (22-29); Chloride 107 mmol/L (96-108); Creatinine Clr Calc Pharmacy 68.4; Estimated Glomerular Filt Rate > 60; Magnesium 1.9 mg/dL (1.6-2.6); Potassium 3.6 mmol/L (3.3-5.1); Sodium 139 mmol/L (135-145)
[2025-04-02 07:26] LABS: Glucose, Whole Blood 119 mg/dL (60-115)
[2025-04-02] MEDS: Albumin Human 25 % 100 ML IV ×2 (07:27→13:01)
--- NOTE | 2025-04-02 08:46 | PM.CCPN ---
Subjective Subjective Date of Service: 04/02/25 Interval History: Off vasopressor support since yesterday 10AM could walk around hallway this morning multiple laps. Critical Care Time (minutes): 35 Physical Exam Vital Signs: Vital Signs: Last Vital Signs Temp 97.1 F 04/02/25 08:00 Pulse 82 04/02/25 08:00 Resp 25 H 04/02/25 08:00 BP 102/65 04/02/25 08:00 Pulse Ox 96 04/02/25 08:00 O2 Del Method Room Air 04/02/25 08:00 O2 Flow Rate 4 03/30/25 08:00 BMI result Body Mass Index 21.9 General: Elderly male in no acute distress, he is chronically ill appearing and tired appearing Nutritional Appearance: well nourished and overweight Eyes: appearance normal, both eyes and all related structures; Alignment and Position: alignment normal and position normal Neck: No lymphadenopathy, no thyromegaly Resp: bilateral air entry equal, occasional added sounds present Cardio: Regular rate, regular rhythm; Heart sounds: S1 normal heart sound present and S2 normal heart sound present GI: soft, nontender, no guarding, no hepatosplenomegaly : bladder normal to inspection, bladder normal to palpation, no renal angle tenderness Skin: no rashes or lesions noted and elasticity normal Neuro: oriented to person, oriented to place, oriented to time and moves all extremities Objective Data Labs 04/02/25 05:10 04/02/25 05:10 Labs: Laboratory Results - last 24 hr 04/01/25 04/01/25 04/01/25 11:34 16:47 20:20 WBC RBC Hgb Hct MCV MCH MCHC RDW Plt Count MPV Immature Gran % (Auto) Neut % (Auto) Lymph % (Auto) [place] % (Auto) Eos % (Auto) Baso % (Auto) Lymph # (Auto) [place] # (Auto) Eos # (Auto) Baso # (Auto) Abs Immat Gran (auto) Absolute Neuts (auto) Absolute Nucleated RBC Nucleated RBC % (auto) Sodium Potassium Chloride Carbon Dioxide Anion Gap BUN Creatinine Estim Creat Clear Calc Estimated GFR POC Glucose 154 H 158 H 101 Random Glucose Calcium Phosphorus Magnesium Albumin 04/02/25 04/02/25 05:10 07:22 WBC 5.6 RBC 3.60 L Hgb 11.6 L Hct 34.6 L MCV 96.1 MCH 32.2 MCHC 33.5 RDW 12.8 Plt Count 100 L MPV 11.9 Immature Gran % (Auto) 0.7 H Neut % (Auto) 69.1 Lymph % (Auto) 13.3 L [place] % (Auto) 13.7 H Eos % (Auto) 2.7 Baso % (Auto) 0.5 Lymph # (Auto) 0.7 L [place] # (Auto) 0.8 Eos # (Auto) 0.2 Baso # (Auto) 0.0 Abs Immat Gran (auto) 0.04 H Absolute Neuts (auto) 3.8 Absolute Nucleated RBC 0.000 Nucleated RBC % (auto) 0.0 Sodium 139 Potassium 3.6 Chloride 107 Carbon Dioxide 21 L Anion Gap 15 BUN 21 H Creatinine 0.70 Estim Creat Clear Calc 68.4 Estimated GFR > 60 POC Glucose 119 H Random Glucose 117 H Calcium 9.2 Phosphorus 4.0 Magnesium 1.9 Albumin 3.4 L Microbiology Microbiology Results: Microbiology 03/29/25 06:21 Blood - Venous Blood Culture - Preliminary No growth after 48 hours. 03/29/25 06:16 Blood - Venous Blood Culture - Preliminary No growth after 48 hours. Progress Note: A&P Assessment and plan (1) Hypotension: Status: Acute (2) GERD (gastroesophageal reflux disease): Status: Acute (3) Aspiration pneumonia: Status: Acute (4) Pneumonia: Status: Acute Plan 84-year-old gentleman likes to be called as Tin Krishnamurthy with PMH of hypertension, diabetes mellitus, cholecystectomy, with recent admission for small-bowel obstruction was readmitted to the hospital on 03/29/2025 with hypotension/distributive shock, likely secondary to an aspiration event. He is currently off pressors for over 24 hours. Hypotension: We will add midodrine 10 mg TID Off Levophed since yesterday morning Aspiration pneumonia: CTA chest showing significant right-sided lung infiltrates with air bronchogram, mild infiltrates in the left lung. COVID, flu and RSV negative Pancultures negative Stable white count, breathing stable on room air; will add augmentin. Diabetes mellitus: On sliding scale insulin Gout: On allopurinol Quality Stroke Does the patient have a stroke diagnosis?: No VTE Prior VTE?: No VTE Risk Level:: Medical - moderate - high VTE Device Contraindication: Treatment Not Indicated VTE Drug Contraindication: N/A - Med Ordered
[2025-04-02 11:39] LABS: Glucose, Whole Blood 136 mg/dL (60-115)
[2025-04-02] MEDS: Sucralfate Oral Suspension 1 GM/10 ML ORAL.SUSP PO ×3 (13:06→23:06)
--- NOTE | 2025-04-02 13:51 | MHC.CM.PN ---
EMR REVIEWED AND PER MD ROUNDS, PT HAS BEEN TITRATED OFF PRESSORS. DISCUSSION OF POSSIBLE DOWN GRADE TO MED-TELE UNIT TODAY. CM WILL CONTINUE TO FOLLOW FOR PLAN.
--- NOTE | 2025-04-02 14:49 | PM.EVENT ---
Event Note Date of Service: 04/02/25 Event Note: Patient seen and examined by ICU today-transferred to the floor this afternoon Seen and examined again Seems improving, blood pressure is borderline Physical exam and assessment and plan: Per ICU note. For pneumonia patient is on p.o. antibiotics, ambulation, borderline blood pressure on midodrine per ICU Continue to monitor, added nutrition evaluation Time Spent With Patient Time: Total time managing care of this patient today ____ minutes.
[2025-04-02 16:37] LABS: Glucose, Whole Blood 148 mg/dL (60-115)
[2025-04-02 20:09] LABS: Glucose, Whole Blood 190 mg/dL (60-115)
[2025-04-03] VITALS (9 sets, daily range): BP systolic 120–150; BP diastolic 59–72; PULSE 68–86; RESP 16–18; TEMP 36.2–36.6; O2SAT 94–96; BMI 22.8
[2025-04-03 07:14] LABS: Glucose, Whole Blood 149 mg/dL (60-115)
[2025-04-03] MEDS: Sucralfate Oral Suspension 1 GM/10 ML ORAL.SUSP PO ×3 (09:18→16:16)
[2025-04-03 10:07] LABS: Chlamydia pneumoniae PCR Not Detected (Not Detect.); Coronavirus 229E PCR Not Detected (Not Detect.); Coronavirus HKU1 PCR Not Detected (Not Detect.); Coronavirus NL63 PCR Not Detected (Not Detect.); Coronavirus OC43 PCR Not Detected (Not Detect.); RSV PCR Not Detected (Not Detect.); Rhino/Enterovirus PCR Not Detected (Not Detect.)
[2025-04-03 10:10] LABS: Influenza A H1 PCR Not Detected (Not Detect.); Influenza A H1-2009 PCR Not Detected (Not Detect.); Influenza A H3 PCR Not Detected (Not Detect.); SARS-CoV-2 PCR Not Detected (Not Detect.)
[2025-04-03 11:23] LABS: Glucose, Whole Blood 143 mg/dL (60-115)
--- NOTE | 2025-04-03 16:24 | P.DS_ITS ---
DS: Providers Provider Date of Service: 04/03/25 Date of admission: 03/29/25 11:19 Date of discharge: 04/03/25 Primary care physician: Clarence Talbert MD Attending physician on discharge: Ramón Gaytan Discharging clinician: Ramón Gaytan DS: Diagnosis Discharge Diagnosis (1) Hypotension: Status: Acute (2) GERD (gastroesophageal reflux disease): Status: Acute (3) Aspiration pneumonia: Status: Acute (4) Pneumonia: Status: Acute DS: Summary Hospital Course Hospital Course: HPI:84-year-old gentleman with underlying diabetes mellitus, hypertension cholecystectomy, recent admission for SBO presented on 03/29/2025 after he woke up with cough and dyspnea nausea, vomiting, and 1 episode of nonbloody diarrhea on ER evaluation patient hypotensive with poor response to initial IV fluid resuscitation started on pressor support. His CT abdomen was unremarkable. His CT chest showed right-sided infiltrate. He also was noted to require 3-4 L of supplemental oxygen to maintain normal oximetry. Patient was admitted to the intensive care unit. Hospital course: 84-year-old gentleman with underlying diabetes mellitus, hypertension cholecystectomy, recent admission for SBO presented on 03/29/2025 after he woke up with cough and dyspnea nausea, vomiting, and 1 episode of nonbloody diarrhea on ER evaluation patient hypotensive with poor response to initial IV fluid resuscitation started on pressor support. His CT abdomen was unremarkable. His CT chest showed right-sided infiltrate. He also was noted to require 3-4 L of supplemental oxygen to maintain normal oximetry. Patient was admitted to the intensive care unit: Patient was started on IV antibiotics, pressors as well as cultures sent. Blood culture negative. With the above supportive care patient seems to be improved significantly, COVID, flu and RSV negative,Pancultures negative,off pressors, required midodrine temprarily , orthostasis pending . Patient was switched on p.o. antibiotics and transferred to the floor. Seen by speech and swallow diet advanced regular/thin liquid. Tolerating well. Patient is maintaining saturation fine, blood pressure also stable midodrine stopped, orthostatic negative-monitor blood pressure with a day seems fine. plan: Augmentin 875 mg p.o. b.i.d. for 6 more days. Hold lisinopril, monitor blood pressure at home closely. If blood pressure consistently above 140s -consider adding back blood pressure medications. Repeat chest imaging in 3-4 weeks to see resolution pneumonia Follow up with PCP. Above management discussed with the patient and his at bedside in detail length with the both understand and in agreement with the above plan, time spent 45 minute. All questions answered. Time Attestation Total time managing care of this patient today: 45 mintues. Discharge Coordination Time (in mins): 45 minutes. Quality: Safe Use of Opioids Does Pt have an Active Cancer Diagnosis on the Problem List?: No Quality: Stroke Does the patient have a stroke diagnosis?: No Physical Exam Exam: Exam: Appearance: Alert.? Oriented X3.? Eyes: Pupils equal, round and reactive to light.? Sclera nonicteric.? ENT: Pharynx normal.? Moist mucous membranes. cvs: rrr, [id number] , no murmur res: clear to auscultation ,no rhonchii or wheezing abd: no rebound or guarding ,nt, bs present. ext pulses present , no cyanosis . neuro: axo3 , nonfocal. Vital Signs: Vital Signs: Last Vital Signs Temp 97.5 F 04/03/25 15:56 Pulse 84 04/03/25 16:12 Resp 18 04/03/25 15:56 BP 124/69 04/03/25 16:12 Pulse Ox 94 04/03/25 15:56 O2 Del Method Room Air 04/03/25 15:56 O2 Flow Rate 4 03/30/25 08:00 BMI result Body Mass Index 22.8 DS: Data Data Completed and Pending Completed studies during hospitalization [Text1]: Procedures Control Bleeding in Gastrointestinal Tract, Via Natural or Artificial Opening Endoscopic (05/04/23) Dilation of Common Bile Duct with Intraluminal Device, Via Natural or Artificial Opening Endoscopic (05/04/23) Excision of Duodenum, Via Natural or Artificial Opening Endoscopic, Diagnostic (05/04/23) Excision of Rectum, Via Natural or Artificial Opening Endoscopic, Diagnostic (05/04/23) Excision of Right Large Intestine, Via Natural or Artificial Opening Endoscopic, Diagnostic (05/04/23) Excision of Stomach, Pylorus, Via Natural or Artificial Opening Endoscopic, Diagnostic (05/04/23) Plain Radiography of Bile Ducts using Low Osmolar Contrast (05/04/23) Resection of Gallbladder, Percutaneous Endoscopic Approach (05/04/23) Transfusion of Nonautologous Red Blood Cells into Peripheral Vein, Percutaneous Approach (05/04/23) Labs on day of discharge: Laboratory Results - last 24 hr 04/02/25 04/02/25 04/02/25 16:34 18:24 20:01 POC Glucose 148 H 190 H Respiratory Panel Giordano See Note Adenovirus (Rapid PCR) Not Detected B.pert (TEM-PCR) Not Detected B.parapertussis DNA PCR Not Detected C. pneumoniae DNA (PCR) Not Detected Coronavirus OC43 (PCR) Not Detected Coronavirus HKU1 (PCR) Not Detected Coronavirus 229E (PCR) Not Detected Coronavirus NL63 (PCR) Not Detected Human Metapneumovir PCR Not Detected Influenza A (RT-PCR) Not Detected Influenza A (H1) PCR Not Detected Influ A (H1/09) PCR Not Detected Influenza A (H3) PCR Not Detected Influenza B (RT-PCR) Not Detected M. pneumoniae (PCR) Not Detected Parainfluenza 1 (PCR) Not Detected Parainfluenza 2 (PCR) Not Detected Parainfluenza 3 (PCR) Not Detected Parainfluenza 4 (PCR) Not Detected RSV (PCR) Not Detected Entero/Rhino (PCR) Not Detected SARS-CoV-2 RNA (RT-PCR) Not Detected 04/03/25 04/03/25 07:08 11:17 POC Glucose 149 H 143 H Respiratory Panel Giordano Adenovirus (Rapid PCR) B.pert (TEM-PCR) B.parapertussis DNA PCR C. pneumoniae DNA (PCR) Coronavirus OC43 (PCR) Coronavirus HKU1 (PCR) Coronavirus 229E (PCR) Coronavirus NL63 (PCR) Human Metapneumovir PCR Influenza A (RT-PCR) Influenza A (H1) PCR Influ A (H1/09) PCR Influenza A (H3) PCR Influenza B (RT-PCR) M. pneumoniae (PCR) Parainfluenza 1 (PCR) Parainfluenza 2 (PCR) Parainfluenza 3 (PCR) Parainfluenza 4 (PCR) RSV (PCR) Entero/Rhino (PCR) SARS-CoV-2 RNA (RT-PCR) Imaging Chest x-ray: Radiologist's impression: ITS Impressions Chest X-Ray 03/29/25 06:05 IMPRESSION: Extensive airspace opacity throughout the right lung, consistent with pneumonia. Follow-up is recommended to document resolution. Abdomen/Pelvis CT 03/29/25 07:59 IMPRESSION: 1. Consolidative changes involving the right lower and right middle lobes, findings consistent with pneumonia. There is a tiny right parapneumonic effusion. 2. There are no acute findings in the abdomen or pelvis. 3. Mild mucosal enhancement and wall thickening of the stomach, findings suggesting gastritis. 4. There are numerous ancillary findings as discussed in the body of the report Chest CTA 03/29/25 07:59 IMPRESSION: 1. No evidence of pulmonary embolism or pulmonary hypertension. 2. Multifocal pneumonia of the right lung (predominantly right upper lobe), with minimal focal involvement of the left lower lobe. Recommend continue follow-up with chest radiographs. 3. Small right pleural effusion. Discharge Plan Discharge Anticipated Discharge Date/Time: 04/03/25 10:58 Patient Disposition: Home, Self-Care Discharge Diagnosis: Hypotension/distributive shock secondary to possible aspiration event. Referrals: Po,Clarence Lo MD [Primary Care Provider, Internal Medicine] - 1 Week Discharge Medications: New amoxicillin-pot clavulanate 875-125 mg Tablet 1 tab PO Q12H Qty: 12 0RF Continued (DME) pen needle, diabetic [BD Ultra-Fine Prisca Pen Needle] 32 gauge x 5/32 needle See Rx Instructions .Route Qty: 100 2RF Rx Instructions: As directed atorvastatin 10 mg tablet 10 mg PO DAILY Qty: 90 3RF folic acid 1 mg tablet 1 mg PO DAILY Qty: 90 3RF Januvia 100 mg tablet 100 mg PO DAILY Qty: 90 1RF solifenacin [Vesicare] 5 mg tablet 10 mg PO DAILY 90 Days Qty: 180 0RF Jardiance 25 mg tablet 25 mg PO DAILY Qty: 90 2RF cyanocobalamin (vitamin B-12) 1,000 mcg Tablet 1,000 mcg PO DAILY lansoprazole [Prevacid] 30 mg capsule,delayed release(DR/EC) 30 mg PO BID@0630,1830 simethicone 80 mg Tablet,Chewable 80 mg PO DAILY PRN (Reason: GERD) (DME) DIABETIC SHOES See Rx Instructions .Route .MEDSUPPLY Qty: 1 0RF Rx Instructions: As directed allopurinol 100 mg tablet 100 mg PO DAILY 90 Days Qty: 90 2RF Held lisinopril 5 mg tablet 5 mg PO DAILY 90 Days Qty: 90 2RF Hold Instructions: Resume on 05/08/25. Discharge Orders: Discharge Order (Routine); Ordered 04/03/25 Ordered By: Ramón Gaytan Diet: Advance to usual diet Activity on Discharge: As tolerated Stand Alone Forms: Patient Portal Discharge page Print Language: Estonian Care Plan Goals: as below. Health Concerns: Augmentin 875 mg p.o. b.i.d. for 6 more days. Hold lisinopril, monitor blood pressure at home closely. If blood pressure consistently above 140s -consider adding back blood pressure medications. Repeat chest imaging in 3-4 weeks to see resolution pneumonia Follow up with PCP. Plan of Treatment: As above. Assessment: As above. Patient Instructions: Pneumonia (DC)
[2025-04-03 16:49] LABS: Glucose, Whole Blood 174 mg/dL (60-115)
== END 2025-04-03 16:54 | disposition home or self-care (01) | DRG 177 ==
LOC: HO.ED 09:20 → HO.EDOVER 11:24 → HO.ICU 11:38 → HO.IMC 04-02 17:22
PROVIDERS: Admitting Provider Internal Medicine Pulmonary Disease; Emergency Provider Emergency Medicine; PCP Internal Medicine; Visit Provider Internal Medicine
DX: J69.0 Pneumonitis due to inhalation of food and vomit (principal); R57.8 Other shock; M10.9 Gout, unspecified; Z20.822 Contact with and (suspected) exposure to COVID-19; Z87.891 Personal history of nicotine dependence; Z79.899 Other long term (current) drug therapy
CPT/HCPCS: 36415; 71045; 71275; 74176; 80048; 80053; 81001; 82040; 82803; 82947; 83605; 83690; 83735; 83880; 84100; 84484; 85007; 85025; 85027; 87040; 87633; 87637; 92610; 93005; 99285; J0131; J0692; J0696; J1271; J1644; J1938; J7120; P9047; Q9967

== ENCOUNTER → 2025-03-29 05:54 | Outpatient (BNV) | payer MEDICARE, OTHER, SELFPAY | PROVIDERS: Emergency Provider Emergency Medicine; PCP Internal Medicine; Visit Provider Radiology Diagnostic Radiology | DX: J18.1 Lobar pneumonia, unspecified organism (principal); J90 Pleural effusion, not elsewhere classified; K31.89 Other diseases of stomach and duodenum; R91.8 Other nonspecific abnormal finding of lung field | CPT/HCPCS: 71045; 71275; 74176 ==

== ENCOUNTER → 2025-03-29 05:54 | Outpatient (BNV) | payer MEDICARE, OTHER, SELFPAY | PROVIDERS: Admitting Provider Internal Medicine Pulmonary Disease; Emergency Provider Emergency Medicine; PCP Internal Medicine; Visit Provider Internal Medicine Cardiovascular Disease | DX: R00.0 Tachycardia, unspecified (principal); I49.1 Atrial premature depolarization | CPT/HCPCS: 93010 ==

== ENCOUNTER 2025-03-29 11:19 | Outpatient (BNV) | payer MEDICARE, OTHER, SELFPAY | END 2025-03-31 11:00 | PROVIDERS: Admitting Provider Internal Medicine Pulmonary Disease; Emergency Provider Emergency Medicine; PCP Internal Medicine; Visit Provider Radiology Diagnostic Radiology | DX: J18.1 Lobar pneumonia, unspecified organism (principal) | CPT/HCPCS: 71045 ==

== ENCOUNTER → 2025-03-29 11:19 | Outpatient (BNV) | payer MEDICARE, OTHER, SELFPAY | PROVIDERS: Admitting Provider Internal Medicine Pulmonary Disease; Emergency Provider Emergency Medicine; PCP Internal Medicine; Visit Provider Internal Medicine | DX: I95.9 Hypotension, unspecified (principal); K21.9 Gastro-esophageal reflux disease without esophagitis; J69.0 Pneumonitis due to inhalation of food and vomit; J18.9 Pneumonia, unspecified organism | CPT/HCPCS: 99239; 99499 ==

== ENCOUNTER → 2025-03-29 11:19 | Outpatient (BNV) | payer MEDICARE, OTHER, SELFPAY | PROVIDERS: Admitting Provider Internal Medicine Pulmonary Disease; Emergency Provider Emergency Medicine; PCP Internal Medicine; Visit Provider Internal Medicine Pulmonary Disease | DX: E11.65 Type 2 diabetes mellitus with hyperglycemia (principal); I95.9 Hypotension, unspecified; T17.900A Unspecified foreign body in respiratory tract, part unspecified causing asphyxiation, initial encounter | CPT/HCPCS: 99291 ==

== ENCOUNTER → 2025-03-29 11:19 | Outpatient (BNV) | payer MEDICARE, OTHER, SELFPAY | PROVIDERS: Admitting Provider Internal Medicine Pulmonary Disease; Emergency Provider Emergency Medicine; PCP Internal Medicine; Visit Provider Internal Medicine Critical Care Medicine | DX: J69.0 Pneumonitis due to inhalation of food and vomit (principal); I95.9 Hypotension, unspecified; K21.9 Gastro-esophageal reflux disease without esophagitis; J18.9 Pneumonia, unspecified organism | CPT/HCPCS: 99291 ==

== ENCOUNTER 2025-04-06 08:55 | Outpatient (AMB) | payer MEDICARE, OTHER, SELFPAY ==
[2025-04-06 09:00] VITALS: BP 109/68; PULSE 84; TEMP 36.4; O2SAT 98; BMI 22.3
--- NOTE | 2025-04-06 09:00 | A.OFFPC_ITS ---
Vital Signs 04/06/25 09:00 Height 5 ft 6 in Weight 138 lb 6 oz BMI 22.3 BP 109/68 Blood Pressure Location Lt brachial Position Sitting Pulse 84 Pulse Source Pulse Oximeter Temp 97.5 F Temp Source Temporal Artery Scan Pulse Oximetry (%) 98 Oxygen Delivery Method Room Air Intake Visit Reasons: [facility] 04/03 sepsis Allergies metformin Allergy (Unknown, Verified 04/06/25 09:14) diarrhea rosuvastatin (Crestor) Allergy (Unknown, Verified 04/06/25 09:14) Unknown Medication List - Last Reconciled 04/06/25 by Lizet Tracey PA-C allopurinol 100 mg PO DAILY 90 days amoxicillin-pot clavulanate 875-125 mg 1 tab PO Q12H atorvastatin 10 mg PO DAILY cyanocobalamin (vitamin B-12) 1,000 mcg PO DAILY [DIABETIC SHOES As directed] empagliflozin (Jardiance) 25 mg PO DAILY folic acid 1 mg PO DAILY lansoprazole (Prevacid) 30 mg PO BID@0630,1830 lisinopril 5 mg PO DAILY 90 days Held on 04/03/25. Instructions: Resume on 05/08/25. pen needle, diabetic (BD Ultra-Fine Prisca Pen Needle) As directed simethicone 80 mg PO DAILY PRN sitagliptin phosphate (Januvia) 100 mg PO DAILY solifenacin (Vesicare) 10 mg (2 x 5 mg) PO DAILY 90 days Tobacco use date assessed: 01/16/25 Fall risk assessment: No Falls in past year Last assessed Fall Risk: 04/06/25 Dental Screening Dental Screen Date: 01/16/25 Did you have a dental visit in the last 12 months?: Yes Did you have a dental problem in the last 6 months where you did not have access to dental care?: No Was dental information given to patient?: Patient has dentist HPI [facility] 04/03 sepsis HPI Details 84-year-old male with past medical histo ry of diabetes mellitus, hypertension, hypercholesterolemia, GERD, BPH last seen 01/2025 coming in for hospital discharge follow up. In review of the notes, patient was seen in [facility] 03/29/2025 after recent admission for SBO with cough and dyspnea chest CT showing right-sided infiltrate requiring supplemental oxygen admitted to ICU. He required midodrine temporarily for hypotension and was started on IV antibiotics. He is to continue on Augmentin twice daily for 6 days, hold lisinopril and monitor blood pressures closely at home consideration can be made if pressure exceeds 140 systolic. Plan for repeat imaging in 3-4 weeks patient was discharged home 04/03/2025. Presenting with pneumonia. The patient experienced a severe coughing spell followed by vomiting and shaking, leading to an emergency room visit where pneumonia was diagnosed. The pneumonia was suspected to be aspiration-related due to underlying GERD. The patient required supplemental oxygen due to low oxygen levels and had low blood pressure during the hospital stay. He does report while in the hospital he received sucralfate which was helpful for his acid reflux and this will be prescribed today. His blood pressure has been within normal limits less than 140/90 at home plan to hold lisinopril at this time. TCM TCM Information Date of Discharge 04/03/25 Discharged From [facility] Interactive Contact Date (Reference documentation from this date) 04/06/25 [facility] Medical History Enlarged prostate Nocturia Urinary dribbling Acute blood loss anemia Tubular adenoma of colon GERD (gastroesophageal reflux disease) Knee osteoarthritis Erectile dysfunction Hypercholesterolemia Hypertension Gout Type 2 diabetes mellitus with hyperglycemia Surgical History Cholelithiasis Gallstone pancreatitis Hx laparoscopic cholecystectomy (~05/11/23) History of cataract surgery History of knee replacement procedure of left knee History of eye surgery Family History Father Medical history unknown Mother Medical history unknown Social History Household Members: Spouse Housing: House Do you presently have visiting nurse or other home services: No Alcohol intake: never Patient Tobacco Use Status: Former Tobacco user Tobacco use type: Cigarette e-Cigarette/Vaping Use: Never Used Second Hand Smoke Exposure: No service: No Current occupational status: retired Cognitive needs: No Hearing needs: No Vision needs: Yes Questionnaire PHQ-9 Over the last 2 weeks, how often have you been bothered by any of the following problems? 1. Little interest or pleasure in doing things: not at all 2. Feeling down, depressed, or hopeless: not at all 3. Trouble falling or staying asleep, or sleeping too much: not at all 4. Feeling tired or having little energy: not at all 5. Poor appetite or overeating: not at all 6. Feeling bad about yourself - or that you are a failure or have let yourself or your family down: not at all 7. Trouble concentrating on things, such as reading the newspaper or watching television: not at all 8. Moving or speaking so slowly that other people could have noticed. Or the opposite - being so fidgety or restless that you have been moving around a lot more than usual: not at all 9. Thoughts that you would be better off or of hurting yourself in some way: not at all Total score: 0 Depression Screening Interpretation: Negative Depression Screening Done: Yes 25034 - PHQ-9 Billing: Yes Source: Developed by Drs. Burke Vera, Nikole Johns, Giovanni Johnson and colleagues, with an educational kim from [employer]. Thrive Questionnaire Date Thrive assessed: 03/30/25 AUDIT C Alcohol Use Questionnaire (AUDIT-C) 1. How often do you have a drink containing alcohol?: 2-4 times a month 2. How many drinks containing alcohol do you have on a typical day when you are drinking?: 3 or 4 3. How often do you have six or more drinks on one occasion?: Weekly Total Score: 6 PRETTY-7 AMB Questionnaire PRETTY-7 Date PRETTY - 7 assessed: 01/16/25 Source: Developed by Drs. Burke Vera, Nikole Johns, Giovanni Johnson and colleagues, with an educational kim from [employer]. Review of Systems Const Denies body aches, Denies chills, Denies fever(s), Denies headache(s) and Denies poor appetite Eyes Reports no additional complaints ENT Denies dysphagia, Denies dizziness, Denies headache(s) and Denies odynophagia Card Denies chest pain, Denies edema, Denies lightheadedness and Denies dyspnea Resp Reports as per HPI, Reports cough and Denies dyspnea GI Denies abdominal pain, Denies dysphagia, Reports diarrhea (One episode yesterday), Denies nausea, Denies odynophagia and Denies vomiting Reports no additional complaints Musc Reports no additional complaints and Denies abnormal gait Skin/Breast Reports system reviewed and no additional complaints, except as documented Neuro Denies abnormal gait, Denies dizziness and Denies headache(s) Psych Reports no additional complaints Physical exam (Primary Care) Vital Signs: Last Vital Signs Temp 97.5 F 04/06/25 09:00 Pulse 84 04/06/25 09:00 BP 109/68 04/06/25 09:00 Pulse Ox 98 04/06/25 09:00 Oxygen Delivery Method Room Air 04/06/25 09:00 BMI result Body Mass Index 22.3 Tobacco/Smoking Status: Tobacco use Status Tobacco use date assessed 01/16/25 04/06/25 09:05 Patient Tobacco Use Status Former Tobacco user 04/06/25 09:05 Tobacco use type Cigarette 04/06/25 09:05 e-Cigarette/Vaping Use Never Used 04/06/25 09:05 PHQ-9: PHQ-9 Score PHQ-9: Total score 0 04/06/25 09:14 Depression Screening Interpretation: Negative Thrive Assessment: Date of Thrive Assessment Date Thrive assessed 03/30/25 04/06/25 09:05 Const General: cooperative, healthy appearing, comfortable and no acute distress Orientation/consciousness: patient oriented x3 HENMT Head: Yes normocephalic Ears: hearing grossly normal bilaterally General nose exam: Normal external nose present Eyes General: appearance normal, both eyes and all related structures Conjunctivae: conjunctivae normal Neck Neck: Yes full ROM and Yes no lymphadenopathy Resp Effort & Inspection: normal respiratory effort Auscultation: clear to auscultation bilaterally, no crackles, no rales, no rhonchi and no wheezes Cardio Rate: regular rate Rhythm: regular rhythm Skin General skin exam: no rashes or lesions noted Neuro General: patient oriented x3 Gait exam (Neuro): Normal gait present Extrem General: Yes normal to inspection, Yes full ROM and No edema Psych Affect: normal affect Attitude: cooperative Insight: Good insight present (Psych) Judgement: Good judgement present (Psych) Coding Level of Care Code TCM Mod MDM <= 7 Days Complex EM visit Add On G2211 Diagnoses Essential hypertension I10 Hypertension type: essential hypertension Hypotension I95.9 Type 2 diabetes mellitus with hyperglycemia, without long-term current use of insulin E11.65 Diabetes mellitus 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 He is not having hypotensive episodes at home and in his asymptomatic at this time. He will follow up with his PCP and continue to monitor blood pressure at home (2) Hypotension: Code(s): I95.9 - Hypotension, unspecified Category: Medical Plan: See above (3) Type 2 diabetes mellitus with hyperglycemia: Comment: Eye physician Evita Code(s): E11.65 - Type 2 diabetes mellitus with hyperglycemia Category: Medical Qualifiers: Diabetes mellitus mcfp insulin use: without terminal operations supervisor use Qualified Code(s): E11.65 - Type 2 diabetes mellitus with hyperglycemia Plan: Decrease the amount of carbohydrates such as pasta, bread, rice, and potatoes and limit the amount of sweets. Although fruits are generally healthy they should be eaten in moderation as they are still high in sugar. Blood sugars at home have been mildly elevated however he is restarting on the Jardiance today. (4) Pneumonia: Code(s): J18.9 - Pneumonia, unspecified organism Category: Medical Plan: The patient will continue on Augmentin for pneumonia treatment and is advised to take Mucinex to help clear respiratory secretions. A follow-up chest x-ray is scheduled in three weeks to assess resolution. Plan to give probiotic as well as patient did have 1 episode of diarrhea yesterday. (5) GERD (gastroesophageal reflux disease): Code(s): K21.9 - Gastro-esophageal reflux disease without esophagitis Category: Medical Plan: Avoid trigger foods such as citrus, tomato products, soda, caffeine, spicy foods and other foods that may be irritating to your stomach. Avoid laying flat 3-4 hours after eating and elevate the head of the bed 30 degrees to prevent acid from moving into the esophagus. Prescription for sucralfate was also given. Re ferral was also placed to rug hooker hand at patient request Plan This note was constructed using voice recognition software. While every effort has been made to ensure accuracy and tool trouble shooter, still areas may have been included sometimes these areas may affect the content or meeting of the given symptoms. Total time spent caring for the patient today was 20 minutes. This includes time spent before the visit reviewing the chart, time spent during the visit, and time spent after the visit and documentation. Patient was informed and verbally consented to the use of an ambient scribe for clinic note documentation during this visit. Orders: Orders XR chest 2V 3 Weeks J18.9 - Pneumonia, unspecified organism Referrals Medical Nutrition Therapy Referral E11.65 - Type 2 diabetes mellitus with hyperglycemia, K21.9 - Gastro-esophageal reflux disease without esophagitis Medications: New lactobacillus combination no.9 (Adult 50 Plus Probiotic) administer with a meal 4,000 mmu cells PO DAILY 30 caps 0RF guaifenesin ER (Mucinex) 600 mg PO Q12H PRN 30 tabs 0RF congestion sucralfate 1 g PO QIDACHS 30 tabs 0RF
== END 2025-04-06 09:46 | disposition home or self-care (01) ==
LOC: HO.HMCH 08:56
PROVIDERS: PCP Internal Medicine
DX: I10 Essential (primary) hypertension (principal); I95.9 Hypotension, unspecified; E11.65 Type 2 diabetes mellitus with hyperglycemia; J18.9 Pneumonia, unspecified organism; K21.9 Gastro-esophageal reflux disease without esophagitis

== ENCOUNTER → 2025-04-06 08:55 | Outpatient (BNVA) | payer MEDICARE, OTHER, SELFPAY | PROVIDERS: PCP Internal Medicine | DX: Z09 Encounter for follow-up examination after completed treatment for conditions other than malignant neoplasm (principal); I10 Essential (primary) hypertension; I95.9 Hypotension, unspecified; E11.65 Type 2 diabetes mellitus with hyperglycemia; J18.9 Pneumonia, unspecified organism; K21.9 Gastro-esophageal reflux disease without esophagitis; Z13.31 Encounter for screening for depression | CPT/HCPCS: 96127; 99495 ==

== ENCOUNTER 2025-04-16 10:57 | Outpatient (AMB) | payer MEDICARE, OTHER, SELFPAY ==
[2025-04-16 11:14] VITALS: BMI 22.5
--- NOTE | 2025-04-16 11:14 | A.OFFVIS_ITS ---
VS Expanded 04/16/25 11:14 Height 5 ft 6 in Weight 139 lb 5.314 oz BMI 22.5 Intake Visit Reasons: Type 2 diabetes mellitus with hyperglycemia Allergies metformin Allergy (Unknown, Verified 04/06/25 09:14) diarrhea rosuvastatin (Crestor) Allergy (Unknown, Verified 04/06/25 09:14) Unknown Nutrition Presentation Details: Pt presents for MNT for GERD and T2DM Pt reports he is having a lot of burping after the meals and is looking for a list of what to avoid with GERD. Pt reports concerns of weight loss if reducing on foods he likes. B:peach yogurt /apple sauce and pineapple and coffee with half and half L: chopsuey soup, with cheese, orange juice D: pasta/meat sauce/salad, water or diet coke snack : cheese and crackers, water or sherbert Wt maintaining at 138 lbs Denies vomiting/diarrhea BS Monitoring Most Recent Diabetes Results: Creatinine, (0.5-1.4) 0.70 mg/dL 04/02/25 BUN, (9-16) 21 mg/dL H 04/02/25 Sodium, (135-145) 139 mmol/L 04/02/25 Potassium, (3.3-5.1) 3.6 mmol/L 04/02/25 Chloride, (96-108) 107 mmol/L 04/02/25 Carbon Dioxide, (22-29) 21 mmol/L L 04/02/25 Calcium, (8.4-10.2) 9.2 mg/dL 04/02/25 AST, (5-37) 14 U/L 04/01/25 ALT, (0-40) < 6 U/L 04/01/25 Total Protein, (6.5-8.0) 5.9 g/dL L 04/01/25 Albumin, (3.5-5.0) 3.4 g/dL L 04/02/25 CLK-Lhoaaeu-Iq.Jeor Equation Height: 5 ft 6 in Weight: 139 lb Resting Metabolic Rate: 1269.33 Calculated Activity Level: Mild Activity Calories Needed to Maintain Weight: 1745.33 Diagnosis Nutrition problem #1: food nutri know defi As related to (etiology) #1: diagnosis (GERD) As evidenced by (sign/symptom) #1: knowledge deficit of diet [facility] Medical History Enlarged prostate Nocturia Urinary dribbling Acute blood loss anemia Tubular adenoma of colon GERD (gastroesophageal reflux disease) Knee osteoarthritis Erectile dysfunction Hypercholesterolemia Hypertension Gout Type 2 diabetes mellitus with hyperglycemia Surgical History Cholelithiasis Gallstone pancreatitis Hx laparoscopic cholecystectomy (~05/11/23) History of cataract surgery History of knee replacement procedure of left knee History of eye surgery Family History Father Medical history unknown Mother Medical history unknown Social History Household Members: Spouse Housing: House Do you presently have visiting nurse or other home services: No Alcohol intake: never Patient Tobacco Use Status: Former Tobacco user Tobacco use type: Cigarette e-Cigarette/Vaping Use: Never Used Second Hand Smoke Exposure: No service: No Current occupational status: retired Cognitive needs: No Hearing needs: No Vision needs: Yes Assessment & Plan Assessment & Plan (1) Type 2 diabetes mellitus with hyperglycemia: Code(s): E11.65 - Type 2 diabetes mellitus with hyperglycemia Category: Medical Qualifiers: Diabetes mellitus predatory animal exterminator insulin use: without senior living use Qualified Code(s): E11.65 - Type 2 diabetes mellitus with hyperglycemia Plan: current wt: 63 kg ( 04/2025 ) est kcal needs as per MSJ: 1700 est protein needs as per 1 g/kg BW: 60-70 est fluid needs as per 30 ml/kg BW: 1900 Recommended fiber > 12 g /day and gradually increase up to 25-28 g /day or as tolerated Nutrition topics discussed : Reviewed (R), Pt verbalized understanding (V) , not applicable (N/A) R, : Healthy Plate Method Concept: Reviewed low acid food: Apples, white grapes, cantaloupe, honeydew, watermelon, pears, avocados, berries, if choosing as juices then recommend diluting with water. Choose low acid vegetables: broccoli, cauliflower, asparagus, celery, lettuce, cucumber, potatoes, sweet potatoes, green beans, and spinach. Reduce intake of acidic foods or those that can promote GERD symptoms: Coffee, tomatoes, tomato sauce, spicy foods, high fat foods (fried, lots of cheese, as examples) Patient Instructions: Switch to lower acidic fruits (peaches vs pineapple, applejuice diluted with water vs orange juice) Have yogurt and fruit as a snack Dilute tomato sauce with water, add carrots and milk See meal plan ideas Coding Level of Care Code Nutr Indiv Intake (20126) Diagnoses Type 2 diabetes mellitus with hyperglycemia, without long-term current use of insulin E11.65 Diabetes mellitus predatory animal exterminator insulin use: without predatory animal exterminator use Time Spent (min) 30
[2025-04-23 12:55] VITALS: BMI 22.4
== END 2025-04-16 11:51 | disposition home or self-care (01) ==
LOC: HO.ENCR 10:57
PROVIDERS: PCP Internal Medicine; Visit Provider Dietitian, Registered
DX: E11.65 Type 2 diabetes mellitus with hyperglycemia (principal)

== ENCOUNTER → 2025-04-16 10:57 | Outpatient (BNVA) | payer MEDICARE, OTHER, SELFPAY | PROVIDERS: PCP Internal Medicine; Visit Provider Dietitian, Registered | DX: E11.65 Type 2 diabetes mellitus with hyperglycemia (principal); Z79.84 Long term (current) use of oral hypoglycemic drugs; K21.9 Gastro-esophageal reflux disease without esophagitis | CPT/HCPCS: 97802 ==

== ENCOUNTER 2025-04-25 12:18 | Outpatient (REF) | payer MEDICARE, OTHER, SELFPAY ==
--- NOTE | ~2025-04-25 | XR_ITS ---
EXAMINATION: XR CHEST CLINICAL INFORMATION: J18.9 - Pneumonia, unspecified organism COMPARISON: March 31, 2025. TECHNIQUE: PA and lateral views FINDINGS: Pulmonary reticular pattern. Volume loss right lung. Linear and patchy opacities right lung with improved aeration. No pleural effusion. No pneumothorax. Cardiomediastinal silhouette size is normal with a round apex. Calcified plaques in the aorta. Multilevel spondylosis with S-shaped curvature of the thoracolumbar spine. Osteopenia versus osteoporosis.. XR/XR chest 2V IMPRESSION: Improved aeration right lung. Consider chronic interstitial lung disease with the residual airspace disease, right lung. Electronically signed by: Richie Hendricks MD 04/25/2025 12:51 PM EST
--- OUTSIDE RECORDS SUMMARY | 2025-04-25 15:02 | XMS_ITS | Clinical Summary ---
Author Organization [facility] Address [address] [facility] [address] [place] [address] Phone Care Team Providers Care Label Pinker Name Role Phone Hunter Garcia MD Primary Care Provider [phone] Social History Tobacco Use Types Packs/Day Years [...] on patient's age to complete this topic IPV VACCINES Aged Out No longer eligi ble [...] Payer (Ef fective 2006-Present) Name:Travis Krishnamurthy Member ID:[id number] Relation to Subscriber:Self Name:Travis Krishnamurthy Subscriber ID:[id number] Payer ID:[id number] Group ID:Not on file Type:Medicare Address: [employer] [address] MEDIC[address] PART A & B O MEDICARE PART A & B Member Subscriber Plan / Payer (Ef fective 2006-) Name:Travis Krishnamurthy Member ID:[id number] Relation to Subscriber:Self Name:Travis Krishnamurthy Subscriber ID:[id number] Payer ID:[id number] Group ID:Not on file Type:Medicare Address: [employer] [address] [facility] Address: [address] [address] MEDICARE PART A & B [facility] Address: [address] [address] MEDICARE PART A & B Member Subscriber Plan / Payer (Ef fective 2006-Present) Name:Travis Krishnamurthy Member ID:[id number] Relation to Subscriber:Self Name:Travis Krishnamurthy Subscriber ID:[id number] Payer ID:[id number] Group ID:Not on file Type:Medicare Address: [employer] [address] [place] [address] [place], [place] [address]O MEDICARE PART A & B Member Subscriber Plan / Payer (Ef fective 2006-Present) Name:Travis Krishnamurthy Member ID:[id number] Relation to Subscriber:Self Name:Travis Krishnamurthy Subscriber ID:[id number] Payer ID:[id number] Group ID:Not on file Type:Medicare Address: [employer] [address] [place] [address] [place], [place] [address] MEDICARE PART A & B [facility] HMO MEDICARE PART A & B O [facility] Address: [address] [address] Care Teams Label Pinker Relationship Specialty Start Date End Date Hunter Garcia MD [address] [place] [address] PCP - General 12/12/13 Additional Source Comments The information contained in this document represents components of the legal health record. It is not the complete legal health record.[facility]
--- OUTSIDE RECORDS SUMMARY | 2025-04-25 15:02 | XMS_ITS | Encounter Summary ---
Author Organization [facility] Address [address] [facility] [address] [place] [address] Phone Care Team Providers Care Tooling Specialist Name Role Phone Hunter Garcia MD Primary Care Provider [phone] Reason for Referral * Physical Therapy (Routine) - Closed Specialty Diagnoses / Procedures Referred By Kimo oquendo Referred To Contact Physical Therapy Diagnoses Encounter for rehabilitation System, Provider Not In, [facility] [address] [address] Phone: tel: Referral ID Status Reason Start Date Expiration Date Visits Re quested Visits Authorized [id number] Closed 07/26/2017 06/13/2018 99 99 Encounter Details Date Type Department Care Team (Latest Contact Info) Description 07/26/2017 Transcribe Orders [facility] [address] [place] [address] Magnolia Jerez, CLINICAL NURSE LEADER [address] [address] Encounter for rehabilitation (Primary Dx) Social History [...] Diagnoses Orde r Schedule Ambulatory referral to [facility] Physical Therapy Outpatient Referral Routine Encounter for rehabilitation Ordered: 07/26/2017 documented as of this encounter Visit Diagnoses Diagnosis Encounter for rehabilitation- Primary documented in this encounter Care Teams Tooling Specialist Relationship Specialty Start Date End Date Hunter Garcia MD [address] [place] [address] PCP - General 12/12/13 documented as of this encounter Additional Source Comments The information contained in this document represents components of the legal health record. It is not the complete legal health record.[facility]
== END 2025-04-25 12:19 | disposition home or self-care (01) ==
LOC: HO.XRAY 12:18
PROVIDERS: PCP Internal Medicine
DX: J18.9 Pneumonia, unspecified organism (principal)
CPT/HCPCS: 71046

== ENCOUNTER → 2025-04-25 12:25 | Outpatient (BNV) | payer MEDICARE, OTHER, SELFPAY | PROVIDERS: PCP Internal Medicine; Visit Provider Radiology Diagnostic Radiology | DX: J18.9 Pneumonia, unspecified organism (principal) | CPT/HCPCS: 71046 ==

== ENCOUNTER 2025-05-02 12:13 | Outpatient (REF) | payer MEDICARE, OTHER, SELFPAY ==
[2025-05-02 13:55] LABS: Prostate Specific Antigen 1.57 ng/mL (<0.05-4.0)
--- OUTSIDE RECORDS SUMMARY | 2025-05-02 23:20 | XMS_ITS | Encounter Summary ---
Author Organization [facility] Address [address] [facility] [address] [place] [address] Phone Care Team Providers Care Photoengraving Machine Operator/Tender Name Role Phone Hunter Garcia MD Primary Care Provider [phone] Reason for Referral * Physical Therapy (Routine) - Closed Specialty Diagnoses / Procedures Referred By Kimo oquendo Referred To Contact Physical Therapy Diagnoses Encounter for rehabilitation System, Provider Not In, [facility] [address] [address] Phone: tel: Referral ID Status Reason Start Date Expiration Date Visits Re quested Visits Authorized [id number] Closed 07/26/2017 06/13/2018 99 99 Encounter Details Date Type Department Care Team (Latest Contact Info) Description 07/26/2017 Transcribe Orders [facility] [address] [place] [address] Magnolia Jerez, MACHINING TECHNICIAN [address] [address] Encounter for rehabilitation (Primary Dx) Social History [...] Diagnoses Orde r Schedule Ambulatory referral to [facility] Physical Therapy Outpatient Referral Routine Encounter for rehabilitation Ordered: 07/26/2017 documented as of this encounter Visit Diagnoses Diagnosis Encounter for rehabilitation- Primary documented in this encounter Care Teams Photoengraving Machine Operator/Tender Relationship Specialty Start Date End Date Hunter Garcia MD [address] [place] [address] PCP - General 12/12/13 documented as of this encounter Additional Source Comments The information contained in this document represents components of the legal health record. It is not the complete legal health record.[facility]
--- OUTSIDE RECORDS SUMMARY | 2025-05-02 23:20 | XMS_ITS | Clinical Summary ---
Author Organization [facility] Address [address] [facility] [address] [place] [address] Phone Care Team Providers Care Extension Service Supervisor Name Role Phone Hunter Garcia MD Primary Care Provider [phone] Social History Tobacco Use Types Packs/Day Years [...] Payer (Ef fective 2006-Present) Name:Travis Krishnamurthy Member ID:[id number] Relation to Subscriber:Self Name:Travis Krishnamurthy Subscriber ID:[id number] Payer ID:[id number] Group ID:Not on file Type:Medicare Address: [employer] [address] MEDIC[address] PART A & B O MEDICARE PART A & B Member Subscriber Plan / Payer (Ef fective 2006-) Name:Travis Krishnamurthy Member ID:[id number] Relation to Subscriber:Self Name:Travis Krishnamurthy Subscriber ID:[id number] Payer ID:[id number] Group ID:Not on file Type:Medicare Address: [employer] [address] [facility] Member Subscriber Plan / Payer (Ef fective 2006-Present) Name:Travis Krishnamurthy Member ID:[id number] Relation to Subscriber:Self Name:Travis Krishnamurthy Subscriber ID:[id number] Payer ID:[id number] Group ID:Not on file Type:Medicare Address: [employer] [address] [place] [address] [place], [place] [address]O MEDICARE PART A & B Member Subscriber Plan / Payer (Ef fective 2006-Present) Name:Travis Krishnamurthy Member ID:[id number] Relation to Subscriber:Self Name:Travis Krishnamurthy Subscriber ID:[id number] Payer ID:[id number] Group ID:Not on file Type:Medicare Address: [employer] [address] [place] [address] [place], [place] [address] MEDICARE PART A & B [facility] HMO MEDICARE PART A & B O Care Teams Extension Service Supervisor Relationship Specialty Start Date End Date Hunter Garcia MD [address] [place] [address] PCP - General 12/12/13 Additional Source Comments The information contained in this document represents components of the legal health record. It is not the complete legal health record.[facility]
--- OUTSIDE RECORDS SUMMARY | 2025-05-02 23:20 | XMS_ITS | Patient Health Record ---
Author Organization [facility] Address [address] [facility] [place] [address] Care Team Providers Care Cushion Former Name Role Phone Hunter Garcia MD Primary Care Provider Christophe Arias Unavailable [phone] Reason For Referral No Information Medications Medication SIG (Take, Route, Fr equency, Duration) Notes Start Date End Date Status Aspirin 81mg Active Lisinopril Active Actos 15 MG 1 tablet Orally Once a day; Duration: 30 day(s) Active Physical Therapy 3-4x per week for 3-4 weeks 09/23 Active Metoprolol Succinate Active Simvastatin Active Crestor 10 MG 1 tablet Orally Once a day; Duration: 30 day(s) Active Problems Problem Type SNOMED Code ICD Code Onset Dates Problem Status W/U Status Risk Notes Problem Disorder of joint of ankle and/or foot (658849699) Arthritis - Degenerative (719.97) Active confirmed Problem Plantar fasciitis (993529342) Plantar Fasciitis (728.71) Active confirmed Problem Hallux rigidus (6360315) 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 Problem 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, 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 Problem Pain in limb (90254114) Pain in Limb (729.5) Active confirmed Problem Tibialis tendinitis (40993723) 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) Active confirmed Problem 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 Plan Of Treatment Pending Test Test Name Order Date X ray : Foot, left 2V 09/24/2011 X ray : Foot, right 2V 09/24/2011 Insurance Providers Payer Name Payer Address Payer Phone Subscriber Number Group Number Insured Name Patient Relationship to Insured Coverage Start Date Coverage End Date [facility] [address] [facility] [place], [place] [address] [id number] Travis Krishnamurthy Self - patient is the insured Medical (General) History Medical History History ICD Code mumps measles hypertension chicken pox back, hip, knee pain alzheimers disease Surgical History Surgery Date(Month/Year) eye surgery 2006
== END 2025-05-02 12:14 | disposition home or self-care (01) ==
LOC: HO.LAB 12:13
PROVIDERS: PCP Internal Medicine; Visit Provider Nurse Practitioner Family
DX: Z12.5 Encounter for screening for malignant neoplasm of prostate (principal)
CPT/HCPCS: 36415; 84153

== ENCOUNTER 2025-05-22 13:29 | Outpatient (AMB) | payer MEDICARE, OTHER, SELFPAY ==
--- NOTE | 2025-05-22 13:38 | MHC.PC.OV ---
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 Instructions: Resume on 05/08/25. pen needle, diabetic (BD Ultra-Fine Prisca Pen Needle) As directed simethicone 80 mg PO DAILY PRN sitagliptin phosphate (Januvia) 100 mg PO DAILY solifenacin (Vesicare) 10 mg (2 x 5 mg) PO DAILY 90 days Tobacco use date assessed: 01/16/25 Fall risk assessment: No Falls in past year Last assessed Fall Risk: 05/22/25 Dental Screening Dental Screen Date: 01/16/25 HPI follow up HPI Details 84-year-old male with past medical history of diabetes mellitus, hypertension, hypercholesterolemia, GERD, BPH last seen 03/2025 coming in for follow up. Presenting for follow-up after a recent hospitalization for pneumonia and for chronic disease management. Regarding his recent pneumonia, he has finished his course of antibiotics and reports his breathing is much better with no residual cough, fever, or chest pain. For hypertension, the patient has been holding his lisinopril as his blood pressures at home have been good without it. Regarding his diabetes, he reports his blood sugars are pretty good and generally under 150 mg/dL, which is his threshold for not needing to administer extra insulin. Today's blood sugar was 150, but he recalls recent values of 132, 128, and 125. He is currently taking Jardiance and Januvia for his diabetes. There was an issue with a prescription for diabetic shoes that was sent to a pharmacy instead of the correct prosthetic solutions company, and he is awaiting a new prescription. [facility] Medical History Enlarged prostate Nocturia Urinary dribbling Acute blood loss anemia Tubular adenoma of colon GERD (gastroesophageal reflux disease) Knee osteoarthritis Erectile dysfunction Hypercholesterolemia Hypertension Gout Type 2 diabetes mellitus with hyperglycemia Surgical History Cholelithiasis Gallstone pancreatitis Hx laparoscopic cholecystectomy (~05/11/23) History of cataract surgery History of knee replacement procedure of left knee History of eye surgery Family History Father Medical history unknown Mother Medical history unknown Social History Household Members: Spouse Housing: House Do you presently have visiting nurse or other home services: No Alcohol intake: never Patient Tobacco Use Status: Former Tobacco user Tobacco use type: Cigarette e-Cigarette/Vaping Use: Never Used Second Hand Smoke Exposure: No service: No Current occupational status: retired Cognitive needs: No Hearing needs: No Vision needs: Yes Questionnaire PHQ-9 Over the last 2 weeks, how often have you been bothered by any of the following problems? 1. Little interest or pleasure in doing things: not at all 2. Feeling down, depressed, or hopeless: not at all 3. Trouble falling or staying asleep, or sleeping too much: not at all 4. Feeling tired or having little energy: not at all 5. Poor appetite or overeating: not at all 6. Feeling bad about yourself - or that you are a failure or have let yourself or your family down: not at all 7. Trouble concentrating on things, such as reading the newspaper or watching television: not at all 8. Moving or speaking so slowly that other people could have noticed. Or the opposite - being so fidgety or restless that you have been moving around a lot more than usual: not at all 9. Thoughts that you would be better off or of hurting yourself in some way: not at all Total score: 0 Source: Developed by Drs. Burke Vera, Nikole Johns, Giovanni Johnson and colleagues, with an educational kim from [employer]. Thrive Questionnaire Date Thrive assessed: 03/30/25 I am a: Patient What is your living situation today?: I have a steady place to live Within the past 12 months, did the food you bought not last and you didn't have the money to get more?: Never true Within the past 12 months, did you worry whether your food would run out before you got money to buy more?: Never true Do you have trouble paying for medicines?: No Do you have trouble getting transportation to medical appointments?: No Do you have trouble paying your heating and electricity bill?: No Do you have trouble taking care of your child, family member or friend?: No Do you have trouble with day-to-day activities such as bathing, preparing meals, shopping, managing finances, etc.?: No Are you currently unemployed and looking for a job?: No Are you interested in more education?: No Please select the resources that you would like help with: None Currently or been in a relationship where the following occur: No concerns reported THRIVE Score: 0 AUDIT C Alcohol Use Questionnaire (AUDIT-C) 1. How often do you have a drink containing alcohol?: 2-3 times a week 2. How many drinks containing alcohol do you have on a typical day when you are drinking?: 1 or 2 3. How often do you have six or more drinks on one occasion?: Never Total Score: 3 PRETTY-7 AMB Questionnaire PRETTY-7 Date PRETTY - 7 assessed: 01/16/25 Feeling nervous, anxious, or on edge: 0 = Not at all Not being able to stop or control worryin = Not at all Worrying too much about different things: 0 = Not at all Trouble relaxin = Not at all Being so restless that it is hard to sit still: 0 = Not at all Becoming easily annoyed or irritable: 0 = Not at all Feeling afraid as if something awful might happen: 0 = Not at all Total PRETTY-7 score (0-4 normal; 5-9 mild; 10-14 moderate; 15-21 severe): 0 Source: Developed by Drs. Burke Vera, Nikole Johns, Giovanni Johnson and colleagues, with an educational kim from [employer]. Review of Systems Const Denies body aches, Denies chills, Denies fever(s), Denies headache(s) and Denies poor appetite Eyes Reports no additional complaints ENT Denies dizziness and Denies headache(s) Card Denies chest pain, Denies edema, Denies lightheadedness and Denies dyspnea Resp Denies cough and Denies dyspnea GI Denies abdominal pain, Denies constipation, Denies diarrhea, Denies nausea and Denies vomiting Reports no additional complaints Musc Reports no additional complaints and Denies abnormal gait Skin/Breast Reports system reviewed and no additional complaints, except as documented Neuro Denies abnormal gait, Denies dizziness and Denies headache(s) Psych Reports no additional complaints Physical exam (Primary Care) Vital Signs: Last Vital Signs Temp 97.3 F 05/22/25 13:45 Pulse 73 05/22/25 13:45 Resp 18 05/22/25 13:45 BP 122/56 L 05/22/25 13:45 Pulse Ox 98 05/22/25 13:45 Oxygen Delivery Method Room Air 05/22/25 13:45 BMI result Body Mass Index 23.2 Tobacco/Smoking Status: Tobacco use Status Tobacco use date assessed 01/16/25 05/22/25 13:39 Patient Tobacco Use Status Former Tobacco user 05/22/25 13:39 Tobacco use type Cigarette 05/22/25 13:39 e-Cigarette/Vaping Use Never Used 05/22/25 13:39 PHQ-9: PHQ-9 Score PHQ-9: Total score 0 05/22/25 14:11 Thrive Assessment: Date of Thrive Assessment Date Thrive assessed 03/30/25 05/22/25 13:39 Currently or been in a relationship where the following occur: No concerns reported Const General: cooperative, healthy appearing, comfortable and no acute distress Orientation/consciousness: patient oriented x3 HENMT Head: Yes normocephalic Ears: hearing grossly normal bilaterally General nose exam: Normal external nose present Eyes General: appearance normal, both eyes and all related structures Conjunctivae: conjunctivae normal Neck Neck: Yes full ROM and Yes no lymphadenopathy Resp Effort & Inspection: normal respiratory effort Auscultation: clear to auscultation bilaterally, no crackles, no rales, no rhonchi and no wheezes Cardio Rate: regular rate Rhythm: regular rhythm Heart sounds: Murmur heart sound present systolic Skin General skin exam: no rashes or lesions noted Neuro General: patient oriented x3 Gait exam (Neuro): Normal gait present Extrem General: Yes normal to inspection, Yes full ROM and No edema Psych Affect: normal affect Attitude: cooperative Insight: Good insight present (Psych) Judgement: Good judgement present (Psych) Results AMB Hemoglobin A1c AMB Hemoglobin A1c 5.1 % Last Edit by TONE Quiroz on 05/22/25 14:12 Results Reviewed Results Reviewed: Laboratory Last Values Hgb A1c (Clinic) 5.1 % (4.0-6.0) 05/22/25 13:54 Coding Level of Care Code Est Pt Level 3 (52211) Diagnoses Essential hypertension I10 Hypertension type: essential hypertension Hypercholesterolemia E78.00 Type 2 diabetes mellitus with hyperglycemia, without long-term current use of insulin E11.65 Diabetes mellitus group home insulin use: without buttermaker helper use GERD (gastroesophageal reflux disease) K21.9 Assessment & Plan Assessment & Plan (1) Hypertension: Code(s): I10 - Essential (primary) hypertension Category: Medical Qualifiers: Hypertension type: essential hypertension Qualified Code(s): I10 - Essential (primary) hypertension Plan: Continue to hold BP medication as blood pressure has been well controlled at this time. Avoid salt intake and encourage healthy diet and regular exercise. (2) Hypercholesterolemia: Code(s): E78.00 - Pure hypercholesterolemia, unspecified Category: Medical Plan: Avoid foods that are high in cholesterol such as red meat, fried foods, eggs and baked goods. Triglyceride goal of less than 150 and LDL goal of less than 100. Last LDL within goal. Ordered for updated blood work prior to next visit. (3) Type 2 diabetes mellitus with hyperglycemia: Code(s): E11.65 - Type 2 diabetes mellitus with hyperglycemia Category: Medical Qualifiers: Diabetes mellitus group home insulin use: without buttermaker helper use Qualified Code(s): E11.65 - Type 2 diabetes mellitus with hyperglycemia Plan: Decrease the amount of carbohydrates such as pasta, bread, rice, and potatoes and limit the amount of sweets. Although fruits are generally healthy they should be eaten in moderation as they are still high in sugar. A1c goal of less than 7%. His sugars have been high at home most recently 150 although A1c is 5.1% indicating he is likely having spikes throughout the day. Discussed importance of not skipping meals with the patient and plan to keep log of sugars and reach out to the office in 2 weeks. He is requesting a new Rx for diabetic shoes which I do believe would be helpful for him and message was sent to PCP. (4) GERD (gastroesophageal reflux disease): Code(s): K21.9 - Gastro-esophageal reflux disease without esophagitis Category: Medical Plan: Avoid trigger foods such as citrus, tomato products, soda, caffeine, spicy foods and other foods that may be irritating to your stomach. Avoid laying flat 3-4 hours after eating and elevate the head of the bed 30 degrees to prevent acid from moving into the esophagus. Prescription for sucralfate was also given. Referral was also placed to retail training manager at patient request Plan This note was constructed using voice recognition software. While every effort has been made to ensure accuracy and sales consultant insurance, still areas may have been included sometimes these areas may affect the content or meeting of the given symptoms. Total time spent caring for the patient today was 20 minutes. This includes time spent before the visit reviewing the chart, time spent during the visit, and time spent after the visit and documentation. Patient was informed and verbally consented to the use of an ambient scribe for clinic note documentation during this visit. Orders: Orders Lipid Panel 3 Months E78.00 - Pure hypercholesterolemia, unspecified Hemoglobin A1c 3 Months E11.65 - Type 2 diabetes mellitus with hyperglycemia Complete Blood Count Auto Diff Today Z13.0 - Encounter for screening for diseases of the blood and blood-forming organs and certain disorders involving the immune mechanism PSA, Ultra Sensitive Today N40.0 - Benign prostatic hyperplasia without lower urinary tract symptoms, Z12.5 - Encounter for screening for malignant neoplasm of prostate Comprehensive Met. Panel Today E11.65 - Type 2 diabetes mellitus with hyperglycemia, Z00.00 - Encounter for general adult medical examination without abnormal findings Microalbumin, Random (w Creat) Today E11.65 - Type 2 diabetes mellitus with hyperglycemia, E11.9 - Type 2 diabetes mellitus without complications AMB Hemoglobin A1c Today E11.65 - Type 2 diabetes mellitus with hyperglycemia Medications: Discontinued lisinopril Discontinued Reason: Patient no longer taking 5 mg PO DAILY 90 days 90 tabs 2RF E11.65 - Type 2 diabetes mellitus with hyperglycemia
[2025-05-22 13:45] VITALS: BP 122/56; PULSE 73; RESP 18; TEMP 36.3; O2SAT 98; BMI 23.2
== END 2025-05-22 14:19 | disposition home or self-care (01) ==
LOC: HO.HMCH 13:30
PROVIDERS: PCP Internal Medicine
DX: I10 Essential (primary) hypertension (principal); E78.00 Pure hypercholesterolemia, unspecified; E11.65 Type 2 diabetes mellitus with hyperglycemia; K21.9 Gastro-esophageal reflux disease without esophagitis

== ENCOUNTER → 2025-05-22 13:29 | Outpatient (BNVA) | payer MEDICARE, OTHER, SELFPAY | PROVIDERS: PCP Internal Medicine | DX: I10 Essential (primary) hypertension (principal); E78.00 Pure hypercholesterolemia, unspecified; K21.9 Gastro-esophageal reflux disease without esophagitis; E11.65 Type 2 diabetes mellitus with hyperglycemia; Z13.31 Encounter for screening for depression; Z09 Encounter for follow-up examination after completed treatment for conditions other than malignant neoplasm | CPT/HCPCS: 83036; 96127; 99212 ==